=== PATIENT | male | born 1955 | race Caucasian/White ===

== ENCOUNTER → 2017-12-12 14:18 | Outpatient (CLI) | payer BC, SELFPAY ==
--- NOTE | 2017-12-12 14:25 | RAD_ITS ---
STUDY: X-RAY CHEST REASON FOR EXAM: Male, 62 years old. Cough TECHNIQUE: Frontal and lateral views of the chest were obtained. COMPARISON: None. FINDINGS: The lungs are adequately aerated. There are no focal airspace opacities. There is no demonstrated pleural abnormality. The cardiac silhouette is normal in size. The mediastinum and hilar regions are unremarkable. Normal visualized pulmonary arteries. Normal visualized aortic arch and descending thoracic aorta. There are diffuse degenerative changes of the visualized spine. The visualized ribs, clavicles, and shoulders are unremarkable. There is no demonstrated abnormality of the visualized upper abdomen. RAD/Chest PA and Lateral IMPRESSION: There is no evidence of focal consolidation or pleural effusion. Electronically Signed: Astrid Cochran MD at 16:01 EST Tel Direct: [phone], Service support ,
== END ==
PROVIDERS: Family Provider Internal Medicine; PCP Internal Medicine; Visit Provider Internal Medicine
DX: R05 Cough (principal)
CPT/HCPCS: 71046

== ENCOUNTER → 2018-02-01 09:22 | Outpatient (CLI) | payer BC, SELFPAY ==
--- NOTE | 2018-02-01 09:22 | RAD_ITS ---
STUDY: X-RAY - LEFT KNEE REASON FOR EXAM: Male, 62 years old. Medial knee pain. TECHNIQUE: 4 view(s) of the knee. COMPARISON: None. FINDINGS: Normal visualized distal femur. Normal visualized proximal tibia and fibula. Normal proximal tibiofibular articulation. Normal medial femorotibial compartment. Normal lateral femorotibial compartment. Normal patellofemoral articulation. The soft tissue structures are unremarkable. RAD/Knee 4 or More Views IMPRESSION: Normal x-ray examination of the knee. Electronically Signed: Max Alvarez MD at 10:34 EDT Tel [phone], Service support ,
== END ==
PROVIDERS: Family Provider Internal Medicine; PCP Internal Medicine; Visit Provider Internal Medicine
DX: M25.562 Pain in left knee (principal)
CPT/HCPCS: 73564

== ENCOUNTER → 2024-09-05 | Outpatient (CLI) | payer MEDICARE, SELFPAY ==
--- NOTE | 2024-09-05 10:21 | MRI_ITS ---
STUDY: MRI BRAIN WITH AND WITHOUT CONTRAST (ATTENTION INTERNAL AUDITORY CANALS - I.A.C.''s) REASON FOR EXAM: Male, 68 years old. hearing loss [id number] in RT ear TECHNIQUE: Standardized multiplanar fat and water weighted pulse sequences were obtained. ml of 15ML CLARISCAN contrast material was administered intravenously for the contrast portion of the examination. COMPARISON: None. FINDINGS: Internal auditory canal findings: Normal bilateral temporal bones. Normal bilateral internal auditory canals. There is no demonstrated intracanalicular or cisternal vestibular schwannoma (acoustic neuroma). There is no enhancement of the bilateral VIIth or VIIIth cranial nerves. Normal bilateral cochlea, vestibules and semicircular canals. No mastoid air cell opacification is present. No cerebellar pontine angle mass or cyst is seen. There is no demonstrated lesions of the cavernous sinus. No nodularity or abnormal enhancement is seen in the 7th or 8th cranial nerves within IACs. No demonstrated Mondini''s malformation. BRAIN FINDINGS: Normal size of the ventricles and extra-axial spaces for the patient''s age. Normal white matter tracts of the supratentorial brain. There is no evidence for recent intracranial ischemia or other cause of cytotoxic edema on diffusion weighted imaging (DWI). Normal T2* images of the brain without demonstrated susceptibility artifact. There is no demonstrated hemosiderin stain. There are no demyelinating plagues of the supratentorial brain, brainstem or cerebellum. There are no findings suspicious for multiple sclerosis (MS). No hydrocephalus or midline shift is present. There are no visualized ring-enhancing lesions of the brain parenchyma or abnormal thickening or enhancement of the meninges or dura. Normal bilateral basal ganglia. Normal thalami. Normal flow voids within the major intracranial circulation suggesting patency by spin echo criteria. Normal venous enhancement. There is no enhancing intra-axial or extra-axial abnormality. There is no extra-axial fluid accumulation. Normal sella turcica, pituitary gland, infundibular stalk, optic chiasm and hypothalamus. Normal tectal plate and pineal gland. Normal midbrain, aman and medulla. Normal cerebellum. Normal basal cisterns. No demonstrated orbital abnormality, within the constraints of a routine brain study. Normal visualized paranasal sinuses. Normal calvarium and skull base. Normal visualized soft tissue structures. Normal visualized upper cervical spine. MRI/Brain W/WO Contrast IMPRESSION: 1. Normal unenhanced and enhanced MRI of the bilateral internal auditory canals (I.A.C''s). 2. Normal enhanced MRI of the brain. 3. CT of the temporal bones can be obtained to evaluate the middle ear structures and bony septa not assessed by MRI, if clinically applicable. Electronically Signed: Donell Rosales MD at 13:27 EST ,
[2024-09-05 11:06] LABS: CREATININE FINGERSTICK < 1.0 mg/dL (0.70-1.30); EGFR FINGERSTICK > 60.0000 mL/min (>60)
== END | disposition home or self-care (01) ==
PROVIDERS: PCP Internal Medicine; Referring Provider Otolaryngology; Visit Provider Otolaryngology
DX: Z01.812 Encounter for preprocedural laboratory examination (principal); H90.3 Sensorineural hearing loss, bilateral
CPT/HCPCS: 70553; A9575

== ENCOUNTER → 2025-04-03 | Outpatient (CLI) | payer MEDICARE, SELFPAY ==
--- OUTSIDE RECORDS SUMMARY | 2025-04-03 06:56 | XMS RPT_ITS | CCD ---
Author Organization [facility] ion [facility] Care Team Providers Care Assurance Manager Insurance Name Role Phone ETHEL WARNER Unavailable Unavailab le Bharathi, Ethel Unavailable Anoop Jeronimo Unavailable Unavailable Martha Nava Unavailable Unavailable Lissette Mcconnell Unavailable Angelica Adams Unavailable Unavailable Slarb, Marcy Unavailable Unavailable Unavailable Unavailable BharathiEthel wilkerson Attending Unavailable Bharathi, Ethel Referring Unavailable Bharathi, Ethel Consulting Unavailable NAYE Taylor Unavailable Unavailable GravCarlos howardin Unavailable Unavailable Unavailable Unavailable Martha Nava Unavailable Unavailable Anoop Schultz Unavailable Unavailable Cross Keturah Unavailable Unavailable Anoop Jeronimo Unavailable Unavailable Manchak, Cinthia Unavailable Unavailable Bharathi DO Ethel Unavailable Bryan KELLY, Angelica Unavailable Unavailable Messenger Martha LING Unavailable Unavailable Slarb MELT ROOM OPERATOR, Marcy Unavailable Unavailable Cross MELT ROOM OPERATOR, Keturah Unavailable Unavailable Unavailable Unavailable Bharathi DO Ethel Unavailable Rufina Prince MA Unavailable Unavailable Luz Curry CNP Unavailable Unavailable Unavailable [place] MELT ROOM OPERATOR, Moise Unavailable Unavailable Unavailable Unavailable BharathiEthel wilkerson Attending Unavailable Bharathi, Ethel Referring Unavailable Bharathi, Ethel Primary Care Unavailable Boby Gonzales Attending Unavailabl e Boby Gonzaels Referring Unavailabl e Bharathi, Ethel Primary Care Unavailable Referred, Self Attending Unavailable Referred, Self Referring Unavailable Bharathi, Ethel Primary Care Unavailable Bharathi, Ethel Attending Unavailable Bharathi, Ethel Referring Unavailable Bharathi, Ethel Primary Care Unavailable Allergies Allergy Classification Reported Allergen(s) Allergy Type Date of Onset Reaction(s) Facility Serotonin Reuptake Inhibitors (SSRIs) (1 source) PARoxetine; Translations: [Paxil *ANTIDEPRESSANTS *] Drug Allergy [facility] Work Phone: Comment on above: Diarrhea, vertigo (20 sources) PARoxetine; Translations: [Paxil *ANTIDEPRESSANTS *] Drug Allergy [facility] Work Phone: Comment on above: Diarrhea, vertigo Medications Completed/Discontinued Medications Medication Drug Class(es) Dates Sig (Normalized) Sig (Original) acetaminophen 500 mg / HYDROcodone bitartrate 5 mg oral tablet (20 sources) Opioid Agonist Start: 12-27-2006 End: 12-21-2008 take 1 tablet by mouth once daily as needed VICODIN, 5-500MG (Oral Tablet) 1 (one) Tablet Daily prn for 0 days Quantity: 21 {Tablet} Refills: 0 Ordered: 27-Dec-2006 Astrid Hunt Start : 27-Dec-2006 End : 21-Dec-2008 Inactive [id number] 200 actuat albuterol 0.09 mg/actuat metered dose inhaler (20 sources) beta2-Adrenergic Agonist Start: 10-02-2022 take 2 puff(s) by inhalation every six hours as needed ProAir HFA 90 mcg/actuation inhalation HFA Aerosol with Adapter 2 (two) Puff q 6 hr prn for 0 days Quantity: 1 {Each} Refills: 1 Ordered: 02-Oct-2022 Luz Curry CNP Start : 02-Oct-2022 Active Start: 08-21-2019 End: 09-22-2019 take 2 puff(s) by inhalation every six hours as needed ProAir HFA 108 (90 Base) MCG/ACT Inhalation Aerosol Solution 2 (two) Puff q 6 hr prn for 0 days Quantity: 1 {Inhaler} Refills: 0 Ordered: 22-Sep-2019 Angelica Adams CMA Start : 21-Aug-2019 End : 22-Sep-2019 Inactive Start: 08-21-2019 End: 09-22-2019 take 2 puff(s) by inhalation every six hours as needed ProAir HFA 108 (90 Base) MCG/ACT Inhalation Aerosol Solution 2 (two) Puff q 6 hr prn for 0 days Quantity: 1 {Inhaler} Refills: 0 Ordered: 22-Sep-2019 Angelica Adams CMA Start : 21-Aug-2019 End : 22-Sep-2019 Inactive Start: 12-12-2017 take 2 puff(s) by in halation every six hours as needed ProAir HFA 108 (90 Base) MCG/ACT Inhalation Aerosol Solution 2 (two) Puff Puff q 6 hr prn for 0 days Quantity: 1 {Inhaler} Refills: 0 Ordered: 12-Dec-2017 Martha Nava LPN Start : 12-Dec-2017 Active Start: 12-13-2011 End: 08-05-2012 VENTOLIN HFA, 108 (90 Base)MCG/ACT (Inhalation Aerosol Solution) 2 (two) Aerosol Soln q 6 hr prn for 0 days Quantity: 1 {Aerosol_Soln} Refills: 0 Ordered: 05-Aug-2012 Astrid Hunt Start : 13-Dec-2011 End : 05-Aug-2012 Inactive Start: 12-13-2011 End: 08-05-2012 VENTOLIN HFA, 108 (90 Base)MCG/ACT (Inhalation Aerosol Solution) 2 (two) Aerosol Soln q 6 hr prn for 0 days Quantity: 1 {Aerosol_Soln} Refills: 0 Ordered: 05-Aug-2012 Astrid Hunt Start : 13-Dec-2011 End : 05-Aug-2012 Inactive Start: 12-13-2011 End: 08-05-2012 VENTOLIN HFA, 108 (90 Base)MCG/ACT (Inhalation Aerosol Solution) 2 (two) Aerosol Soln q 6 hr prn for 0 days Quantity: 1 {Aerosol_Soln} Refills: 0 Ordered: 05-Aug-2012 Astrid Hunt Start : 13-Dec-2011 End : 05-Aug-2012 Inactive amoxicillin 875 mg / clavulanate 125 mg oral tablet (20 sources) Penicillin-class Antibacterial Start: 10-02-2022 End: 10-09-2022 take 1 tablet by mouth twice daily amoxicillin-pot clavulanate 875-125 mg oral tablet 1 Tablet 2 times per day for 7 days Quantity: 14 {Tablet} Refills: 0 Ordered: 02-Oct-2022 Luz Curry CNP Start : 02-Oct-2022 End : 09-Oct-2022 Inactive Start: 03-06-2019 End: 03-20-2019 take 1 tablet by mouth twice daily Augmentin 875-125 MG Oral Tablet 1 (one) Tablet bid for 0 days Quantity: 20 {Tablet} Refills: 0 Ordered: 20-Mar-2019 Angelica Adams CMA Start : 06-Mar-2019 End : 20-Mar-2019 Inactive Start: 10-05-2016 End: 11-09-2016 take 1 tablet by mouth twice daily Augmentin 875-125 MG Oral Tablet 1 (one) Tablet bid for 0 days Quantity: 20 {Tablet} Refills: 0 Ordered: 09-Nov-2016 Cricket Hagen Start : 05-Oct-2016 End : 09-Nov-2016 Inactive azithromycin 250 mg oral tablet (20 sources) Macrolide Antimicrobial Start: 08-21-2019 End: 09-22-2019 Zithromax Z-Anatoly 250 MG Oral Tablet 1 Tablet TAD for 0 days Quantity: 1 {Tablet} Refills: 0 Ordered: 22-Sep-2019 Angelica Adams CMA Start : 21-Aug-2019 End : 22-Sep-2019 Inactive Comments: will call if need void after 30 days Start: 12-12-2017 End: 01-04-2018 take 1 tablet by mouth once daily Azithromycin 500 MG Oral Tablet 1 (one) Tablet Tablet qd for 0 days Quantity: 10 {Tablet} Refills: 0 Ordered: 04-Jan-2018 Martha Nava RN Start : 12-Dec-2017 End : 04-Jan-2018 Inactive Start: 08-05-2012 End: 08-05-2012 ZITHROMAX Z-ANATOLY, 250MG (Oral Tablet) 1 Tablet TAD for 0 days Quantity: 1 {Package(s)} Refills: 0 Ordered: 05-Aug-2012 Leatha Mckay DO Start : 05-Aug-2012 End : 05-Aug-2012 Discontinued Comment on above: will call if need vo id after 30 days cefdinir 300 mg oral capsule (20 sources) Cephalosporin Antibacterial Start: 12-12-2017 End: 01-04-2018 take 1 capsule by mouth twice daily Cefdinir 300 MG Oral Capsule 1 (one) Capsule Capsule bid for 0 days Quantity: 20 {Capsule} Refills: 0 Ordered: 04-Jan-2018 Martha Nava RN Start : 12-Dec-2017 End : 04-Jan-2018 Inactive Start: 10-24-2006 End: 12-02-2006 take 1 capsule by mouth twice daily OMNICEF, 300MG (Oral Capsule) 1 (one) Capsule BID for 7 days Refills: 0 Ordered: 24-Oct-2006 MOO ACOSTA CNP Start : 24-Oct-2006 End : 02-Dec-2006 Inactive cephalexin 500 mg oral capsule (20 sources) Cephalosporin Antibacterial Start: 02-09-2010 take 1 capsule by mouth twice daily KEFLEX, 500MG (Oral Capsule) 1 (one) Capsule bid for 0 days Quantity: 20 {Capsule} Refills: 0 Ordered: 21-Feb-2010 Astrid Hunt Start : 09-Feb-2010 Inactive citalopram 20 mg oral tablet (20 sources) Serotonin Reuptake Inhibitor Start: 02-06-2020 End: 02-06-2020 take 1 tablet by mouth once daily Citalopram Hydrobromide 20 MG Oral Tablet 1 (one) Tablet daily for 90 days Quantity: 90 {Tablet} Refills: 1 Ordered: 06-Feb-2020 JonelleJocelyn galeana Start : 06-Feb-2020 End : 06-Feb-2020 Inactive Comments: Mail order. Start: 05-05-2019 take 1 tablet by flakito th once daily Citalopram Hydrobromide 20 MG Oral Tablet 1 (one) Tablet daily for 0 days Quantity: 90 {Tablet} Refills: 1 Ordered: 05-May-2019 Ethel Warner DO, DO, Kathleen Start : 05-May-2019 Active Comments: Mail order. Start: 06-07-2018 take 1 tablet by flakito th once daily Citalopram Hydrobromide 20 MG Oral Tablet 1 (one) Tablet daily for 0 days Quantity: 90 {Tablet} Refills: 1 Ordered: 07-Jun-2018 Ethel Warner DO, DO, Kathleen Start : 07-Jun-2018 Active Comments: Mail order. Comment on above: Mail order. clobetasol propionate 0.5 mg/ml topical cream (4 sources) Corticosteroid Start: 023 clobetasoL 0.05 % topical cream 1 (one) Application twice daily for 2 weeks or until rash resolved for 0 days Quantity: 50 {Gram} Refills: 1 Ordered: 23-Feb-2023 Luz Curry CNP Start : 23-Feb-2023 Active docosahexaenoic acid 120 mg / eicosapentaenoic acid 180 mg oral capsule (11 sources) take 1 capsule by mouth once daily FISH OIL, 1000MG (Oral Capsule) 1 cap qd for 0 days Refills: 0 Ordered: 09-Feb-2010 Astrid Hunt Inactive [id number] 0.3 ml EPINEPHrine 1 mg/ml auto-injector (20 sources) alpha-Adrenergic Agonist, beta-Adrenergic Agonist, Catecholamine Start: 011 End: 012 EPIPEN 2-ANATOLY, 0.3MG/0.3ML (Injection Device) 1 Device uad for 0 days Quantity: 1 {Device} Refills: 0 Ordered: 05-Aug-2012 Astrid Hunt Start : 24-Jul-2011 End : 05-Aug-2012 Inactive Start: 07-24-2011 End: 08-05-2012 EPIPEN 2-ANATOLY, 0.3MG/0.3ML (I njection Device) 1 Device uad for 0 days Quantity: 1 {Device} Refills: 0 Ordered: 05-Aug-2012 Astrid Hunt Start : 24-Jul-2011 End : 05-Aug-2012 Inactive escitalopram 10 mg oral tablet (20 sources) Serotonin Reuptake Inhibitor End: 12-21-2008 take 1 tablet by mouth once daily LEXAPRO, 10MG (Oral Tablet) 1 QD for 0 days Refills: 0 Ordered: 21-Dec-2008 Astrid Hunt End : 21-Dec-2008 Inactive FISH OIL, 1000MG (Oral Capsule) (7 sources) take 1 capsule by mouth once daily FISH OIL, 1000MG (Oral Capsule) 1 cap qd for 0 days Refills: 0 Ordered: 09-Feb-2010 Astrid Hunt Inactive fluticasone propionate 0.05 mg/actuat metered dose nasal spray (20 sources) Corticosteroid Start: 11-03-2013 End: 12-21-2014 take 2 spray(s) nasal route once daily FLONASE, 50MCG/ACT (Nasal Suspension) 2 sprays each nostril Suspension QD for 0 days Quantity: 1 {Atkinson} Refills: 3 Ordered: 21-Dec-2014 Astrid Hunt Start : 03-Nov-2013 End : 21-Dec-2014 Discontinued hydroCHLOROthiazide 12.5 mg / lisinopril 10 mg oral tablet (20 sources) Thiazide Diuretic, Angiotensin Converting Enzyme Inhibitor Start: 04-09-2023 take 1 tablet by mouth once daily lisinopriL-hydro chlorothiazide 10-12.5 mg oral tablet 1 (one) Tablet qd for 0 days Quantity: 90 {Tablet} Refills: 3 Ordered: 09-Apr-2023 Ethel Warner DO, DO, Kathleen Start : 09-Apr-2023 Active Comments: Mail order. Start: 04-18-2022 End: 04-25-2022 take 1 tablet by mouth once daily Lisinopril-hydroCHLOROthiazide 10-12.5 M G Oral Tablet 1 (one) Tablet qd for 0 days Quantity: 90 {Tablet} Refills: 3 Ordered: 18-Apr-2022 Ethel Warner DO, DO, Kathleen Start : 18-Apr-2022 End : 25-Apr-2022 Inactive Comments: Mail order. Start: 02-22-2021 End: 05-23-2021 take 1 tablet by mouth once daily Lisinopril-hydroCHLOROthiazide 10-12.5 M G Oral Tablet 1 (one) Tablet qd for 0 days Quantity: 90 {Tablet} Refills: 3 Ordered: 22-Feb-2021 Ethel Warner DO, DO, Kathleen Start : 22-Feb-2021 End : 23-May-2021 Inactive Comments: Mail order. Start: 02-22-2021 End: 10-31-2020 take 1 tablet by mouth once daily Lisinopril-hydroCHLOROthiazide 10-12.5 M G Oral Tablet 1 (one) Tablet qd for 90 days Quantity: 90 {Tablet} Refills: 0 Ordered: 22-Feb-2021 Ethel Warner DO, DO, Kathleen Start : 22-Feb-2021 End : 31-Oct-2020 Active Start: 02-22-2021 End: 10-31-2020 take 1 tablet by mouth once daily Lisinopril-hydroCHLOROthiazide 10-12.5 M G Oral Tablet 1 (one) Tablet qd for 0 days Quantity: 90 {Tablet} Refills: 3 Ordered: 22-Feb-2021 Ethel Warner DO, DO, Kathleen Start : 22-Feb-2021 End : 31-Oct-2020 Active Comments: Mail order. Start: 08-02-2020 End: 10-31-2020 take 1 tablet by mouth once daily Lisinopril-hydroCHLOROthiazide 10-12.5 M G Oral Tablet 1 (one) Tablet qd for 90 days Quantity: 90 {Tablet} Refills: 0 Ordered: 02-Aug-2020 Ethel Warner DO, DO, Kathleen Start : 02-Aug-2020 End : 31-Oct-2020 Inactive Start: 03-12-2020 take 1 tablet by flakito th once daily Lisinopril-hydroCHLOROthiazide 10-12.5 M G Oral Tablet 1 (one) Tablet qd for 90 days Quantity: 90 {Tablet} Refills: 0 Ordered: 12-Mar-2020 Ethel Warner DO, DO, Kathleen Start : 12-Mar-2020 Active Start: 05-20-2019 take 1 tablet by flakito th once daily Lisinopril-hydroCHLOROthiazide 10-12.5 M G Oral Tablet 1 (one) Tablet qd for 0 days Quantity: 30 {Tablet} Refills: 1 Ordered: 20-May-2019 BharathiEthel wilkerson DO, DO, Kathleen Start : 20-May-2019 Active Comments: new dose Start: 03-28-2018 take 1 tablet by flakito th once daily Lisinopril-Hydrochlorothiazide 10-12.5 M G Oral Tablet 1 (one) Tablet qd for 0 days Quantity: 90 {Tablet} Refills: 3 Ordered: 28-Mar-2018 Ethel Warner DO, DO, Kathleen Start : 28-Mar-2018 Active Comments: Mail order. Comment on above: new dose Mail order. ibuprofen 200 mg oral capsule (18 sources) Nonsteroidal Anti-inflammatory Drug Ibuprofen 200 MG Oral Capsule 2 prn (200 MG) Active metaxalone 800 mg oral tablet (20 sources) Start: 0 take 1 tablet by mouth three times daily as needed Metaxalone 800 MG Oral Tablet 1 (one) Tablet tid prn for 0 days Quantity: 30 {Tablet} Refills: 0 Ordered: 02-Aug-2020 Angelica Adams CMA Start : 02-Aug-2020 Active Start: 10-31-2019 take 1 tablet by flakito th three times daily as needed Metaxalone 800 MG Oral Tablet 1 (one) Tablet Tablet tid prn for 0 days Quantity: 30 {Tablet} Refills: 0 Ordered: 31-Oct-2019 Ethel Warner DO, DO, Kathleen Start : 31-Oct-2019 Active Start: 02-25-2019 take 1 tablet by flakito th three times daily as needed Metaxalone 800 MG Oral Tablet 1 (one) Tablet Tablet tid prn for 0 days Quantity: 30 {Tablet} Refills: 0 Ordered: 25-Feb-2019 Bharathi SULTANA Ethel Tejada DO Start : 25-Feb-2019 Active Start: 02-01-2018 End: 07-29-2018 take 1 tablet by mouth three times daily as needed Metaxalone 800 MG Oral Tablet 1 (one) Tablet Tablet tid prn for 0 days Quantity: 30 {Tablet} Refills: 0 Ordered: 29-Jul-2018 Angelica Adams Start : 01-Feb-2018 End : 29-Jul-2018 Discontinued Start: 12-27-2006 End: 12-21-2008 SKELAXIN, 800MG (Oral Tablet ) 1 (one) Tablet Each evening as needed for 0 days Quantity: 30 {Tablet} Refills: 0 Ordered: 27-Dec-2006 Astrid Hunt Start : 27-Dec-2006 End : 21-Dec-2008 Inactive Comments: Medication taken as needed. Comment on above: Medication taken as needed. moxifloxacin 400 mg oral tablet (20 sources) Quinolone Antimicrobial Start: 11-08-19 11 End: 05-10-20 11 take 1 tablet by mouth once daily AVELOX, 400MG (Oral Tablet) 1 Tablet qd for 0 days Quantity: 10 {Tablet} Refills: 0 Ordered: 10-May-2011 Zayda Sorensen RN Start : 08-Nov-2010 End : 10-May-2011 Inactive 24 hr niacin 500 mg extended release oral tablet (20 sources) Nicotinic Acid End: 12-25-19 07 take 1 tablet by mouth once at bedtime NIACIN (ANTIHYPERLIPIDEMIC) , 500MG (Oral Tablet Extended Release) 1 Q HS for 0 days Refills: 0 Ordered: 24-Dec-2006 Astrid Hunt End : 24-Dec-2006 Discontinued omega-3 acid ethyl esters (shelter) 1000 mg oral capsule (10 sources) take 1 capsule by mouth once daily FISH OIL, 1000MG (Oral Capsule) 1 cap qd for 0 days Refills: 0 Ordered: 09-Feb-2010 Astrid Hunt Inactive omeprazole 20 mg delayed release oral capsule (20 sources) Proton Pump Inhibitor Start: 11-30-19 omeprazole 20 mg oral capsule,delayed release (enteric coated) [address] QD for 90 days Quantity: 90 {Capsule} Refills: 2 Ordered: 30-Nov-2022 Bharathi DO, Ethel Warner DO Ethel Start : 30-Nov-2022 Active Comments: Mail order. Start: 12-05-2021 Omeprazole 20 MG Oral Capsule Delayed Release [address] QD for 90 days Quantity: 90 {Capsule} Refills: 3 Ordered: 05-Dec-2021 Bharathi DOEthel DOShadiaEthel Start : 05-Dec-2021 Active Comments: Mail order. Start: 11-24-2020 Omeprazole 20 MG Oral Capsule Delayed Release [address] QD for 90 days Quantity: 90 {Capsule} Refills: 3 Ordered: 24-Nov-2020 Bharathi DO, Ethel Warner DOShadiaEthel Start : 24-Nov-2020 Active Comments: Mail order. Start: 08-26-2020 Omeprazole 20 MG Oral Capsule Delayed Release [address] QD for 90 days Quantity: 90 {Capsule} Refills: 0 Ordered: 26-Aug-2020 Keturah Villalpando LPN Start : 26-Aug-2020 Active Start: 05-31-2020 Omeprazole 20 MG Oral Capsule Delayed Release [address] QD for 90 days Quantity: 90 {Capsule} Refills: 0 Ordered: 31-May-2020 Bharathi DOEthel DO Ethel Start : 31-May-2020 Active Start: 03-11-2019 Omeprazole 20 MG Oral Capsule Delayed Release [address] QD for 90 days Quantity: 90 {Capsule} Refills: 3 Ordered: 11-Mar-2019 Bharathi DO, Ethel Bharathi DO Ethel Start : 11-Mar-2019 Active Comments: Mail order. Start: 02-22-2018 Omeprazole 20 MG Oral Capsule Delayed Release [address] QD for 90 days Quantity: 90 {Capsule} Refills: 3 Ordered: 22-Feb-2018 Ethel Warner DO, DO, Kathleen Start : 22-Feb-2018 Active Comments: Mail order. Comment on above: Mail order. predniSONE 10 mg oral tablet (20 sources) Start: 07-24-2011 End: 09-06-2011 PREDNISONE, 10MG (Oral Tablet) 1 (one) Tablet uad for 0 days Refills: 0 Ordered: 06-Sep-2011 Martha Nava RN Start : 24-Jul-2011 End : 06-Sep-2011 Inactive Comments: 3 pills for 4 days 2 pills for 4 days 1 pill for 4 days with food Start: 11-08-2010 End: 05-10-2011 take 1 tablet by mouth once daily PREDNISONE, 20MG (Oral Tablet) 1 Tablet qd for 0 days Quantity: 5 {Tablet} Refills: 0 Ordered: 10-May-2011 Zayda Sorensen RN Start : 08-Nov-2010 End : 10-May-2011 Inactive Comment on above: 3 pills for 4 days 2 pills for 4 days 1 pill for 4 days with food rosuvastatin calcium 10 mg oral tablet (20 sources) HMG-CoA Reductase Inhibitor Start: 0 End: 0 take 1 tablet by mouth once daily Rosuvastatin Calcium 10 MG Oral Tablet 1 (one) Tablet qd for 0 days Quantity: 90 {Tablet} Refills: 3 Ordered: 02-Aug-2020 Angelica Adams CMA Start : 06-Feb-2020 End : 02-Aug-2020 Inactive Comments: Mail order. Start: 08-15-2018 take 1 tablet by flakito once daily Rosuvastatin Calcium 5 MG Oral Tablet 1 (one) Tablet Tablet qd for 0 days Quantity: 30 {Tablet} Refills: 4 Ordered: 15-Aug-2018 Anoop Jeronimo LPN Start : 15-Aug-2018 Active Comment on above: Mail order. tiZANidine 4 mg oral capsule (13 sources) Central alpha-2 Adrenergic Agonist Start: 04-23-2023 take 1 capsule by mouth twice daily as needed tiZANidine 4 mg oral capsule 1 (one) Capsule one as needed twice daily for 0 days Quantity: 180 {Capsule} Refills: 0 Ordered: 23-Apr-2023 Ethel Warner DO, DO, Kathleen Start : 23-Apr-2023 Active Comments: Medication taken as needed. M62.838 Start: 04-20-2023 take 1 capsule by mo uth twice daily as needed tiZANidine 4 mg oral capsule 1 (one) Capsule one as needed twice daily for 0 days Quantity: 180 {Capsule} Refills: 0 Ordered: 20-Apr-2023 Ethel Warner DO, DO, Kathleen Start : 20-Apr-2023 Active Comments: Medication taken as needed. M62.838 Start: 02-23-2023 take 1 capsule by mo uth twice daily as needed tiZANidine 4 mg oral capsule 1 (one) Capsule one as needed twice daily for 0 days Quantity: 20 {Capsule} Refills: 0 Ordered: 23-Feb-2023 Luz Curry CNP Start : 23-Feb-2023 Active Comments: Medication taken as needed. M62.838 Start: 01-23-2023 take 1 capsule by mo uth twice daily as needed tiZANidine 4 mg oral capsule 1 (one) Capsule one as needed twice daily for 0 days Quantity: 20 {Capsule} Refills: 0 Ordered: 23-Jan-2023 Ethel Warner DO, DO, Kathleen Start : 23-Jan-2023 Active Comments: Medication taken as needed. M62.838 Start: 09-23-2021 take 1 capsule by mo uth twice daily as needed tiZANidine HCl 4 MG Oral Capsule 1 (one) Capsule one as needed twice daily for 0 days Quantity: 20 {Capsule} Refills: 0 Ordered: 23-Sep-2021 Bharathi SULTANA, Ethel Tejada DO Start : 23-Sep-2021 Active Comments: Medication taken as needed. M62.838 Start: 10-01-2020 take 1 capsule by mo uth twice daily as needed tiZANidine HCl 4 MG Oral Capsule 1 (one) Capsule one as needed twice daily for 0 days Quantity: 20 {Capsule} Refills: 0 Ordered: 01-Oct-2020 Keturah Villalpando LPN Start : 01-Oct-2020 Active Comments: Medication taken as needed. M62.838 Comment on above: Medication taken as needed. M62.838 traMADol hydrochloride 50 mg oral tablet (20 sources) Opioid Agonist Start: 12-30-2007 End: 05-10-2011 take 1 tablet by mouth once daily as needed TRAMADOL HCL, 50MG (Oral Tablet) 1 Tablet QD, PRN for 0 days Quantity: 90 {Tablet} Refills: 1 Ordered: 10-May-2011 Zayda Sorensen RN Start : 30-Dec-2007 End : 10-May-2011 Inactive End: 12-24-2006 take 1 tablet by mouth twice daily ULTRAM, 50MG (Oral Tablet) 1 BID for 0 days Refills: 0 Ordered: 24-Dec-2006 Astrid Hunt End : 24-Dec-2006 Discontinued Problems Active Problems Problem Classification Problem Date Documented Da te Episodic/Chronic Abdominal hernia (20 sources) Recurrent hernia of anterior abdominal wall; Translations: [Ventral hernia, recurrent] 12-31-2018 Episodic Comment on above: h/o mesh repair mayb e 10yrs ago now lil defect again that intermittently flares -- no warning signs-will cont to follow Abdominal pain (20 sources) Acute abdominal pain; Translations: [Abdominal pain, acute, left lower quadrant] 12-31-2018 Episodic Administrative/social admission (2 sources) Medical examinations/reports status; Translations: [Physical exam WITHOUT abnormal findings (Renamed from Encounter for routine adult health examination without abnormal findings)] 12-31-2018 Episodic Allergic reactions (20 sources) Dermatitis; Translations: [Eczema] Resolved: 2 10-23-2011 Episodic Comment on above: if does not improve/ worsens, then call. we will do systemic steroids. Anxiety disorders (20 sources) Anxiety; Translations: [Anxiety] 12-31-2018 Chronic Comment on above: stable Biliary tract disease (20 sources) Disorder of gallbladder; Translations: [Biliary calculus] 12-31-2018 Episodic Comment on above: asx stone in neck of gallbladder -- seen on ct chest Cardiac dysrhythmias (20 sources) Palpitations; Translations: [Palpitations (Renamed from Awareness of heartbeats)] Onset: 5 Resolved: 8 12-31-2018 Episodic Chronic obstructive pulmonary disease and bronchiectasis (20 sources) Bronchitis; Translations: [Bronchitis] Onset: 2 Resolved: 2 05-01-2016 Episodic Deficiency and other anemia (20 sources) Iron deficiency anemia, unspecified; Translations: [Iron deficiency anemia] Episodic Disorders of lipid metabolism (20 sources) Other and unspecified hyperlipidemia; Translations: [Hyperlipidemia] 12-31-2018 Chronic Comment on above: diet and exercise to reduce to goal Esophageal disorders (20 sources) Gastroesophageal reflux disease; Translations: [Gastro-esophageal reflux disease without esophagitis] 12-31-2018 Chronic Esophageal disorders (20 sources) Esophageal disorders Essential hypertension (20 sources) Benign hypertension; Translations: [HTN (hypertension), benign] 12-31-2018 Chronic Headache; including migraine (17 sources) Tension-type headache; Translations: [Acute non intractable tension-type headache] Resolved: 9 02-06-2020 Chronic Headache; including migraine (20 sources) Headache; Translations: [Tension-type headache] Resolved: 9 05-01-2016 Episodic Immunizations and screening for infectious disease (20 sources) Need for prophylactic vaccination and inoculation against influenza; Translations: [Needs influenza immunization] 08-02-2020 Episodic Influenza (20 sources) Influenza Malaise and fatigue (20 sources) Other fatigue; Translations: [Fatigue] Resolved: 8 01-04-2018 Episodic Neoplasms of unspecified nature or uncertain behavior (20 sources) Neoplasm of uncertain behavior of skin; Translations: [Neoplasm of uncertain behavior of skin] Resolved: 2 05-01-2016 Episodic Nonspecific chest pain (20 sources) Chest pain; Translations: [Chest pain] Resolved: 9 12-31-2018 Episodic Comment on above: very pinpoit pain re produce pain by moving arm and having him grab and pull like was doing yesterday for long time. feel very comfortable this is not heart. toradol help will do muscle relaxnat that has at home and nsaids rest ice. massage knot in scapula. if is progressive and SOB to ER aware cannot not tellhim 100 % not heart but suspection low. Other and ill-defined cerebrovascular disease (5 sources) Cerebral ischemia; Translations: [TIA (transient ischemic attack)] 08-21-2019 Chronic Other circulatory disease (11 sources) Other specified symptoms and signs involving the circulatory and respiratory systems; Translations: [Other specified symptoms and signs involving the circulatory and respiratory systems] Onset: 8 Resolved: 8 12-17-2017 Episodic Other circulatory disease (20 sources) Elevated blood-pressure reading without diagnosis of hypertension; Translations: [Elevated blood pressure (not hypertension)] Resolved: 2 05-01-2016 Episodic Other circulatory disease (20 sources) Elevated blood pressure; Translations: [Elevated blood pressure reading] Resolved: 8 12-31-2018 Episodic Other circulatory disease (20 sources) Abnormal chest sounds; Translations: [Abnormal lung sounds] Resolved: 8 12-17-2017 Episodic Other circulatory disease (14 sources) Pulmonary congestion ; Translations: [Chest congestion] 10-02-2022 Episodic Other congenital anomalies (20 sources) Congenital anomaly of skin; 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] 12-31-2018 Chronic Other connective tissue disease (20 sources) Pain in limb; Translations: [Finger Pain (729.5) (Renamed from Pain in limb)] Resolved: 2 05-01-2016 Episodic Other connective tissue disease (20 sources) Spasm; Translations: [Muscle spasm] 10-01-2020 Episodic Other ear and sense organ disorders (1 source) Sensorineural hearing loss, bilateral; Translations: [Sensorineural hearing loss, bilateral] Onset: Chronic Other gastrointestinal disorders (20 sources) Diarrhea; Translations: [Diarrhea (Renamed from D (diarrhea))] Resolved: 2 05-01-2016 Episodic Other injuries and conditions due to external causes (20 sources) Injury of medial collateral ligament of knee; Translations: [Sprain and strain of medial collateral ligament of knee] Resolved: 8 12-31-2018 Episodic Other lower respiratory disease (20 sources) Dyspnea; Translations: [SOB (shortness of breath)] Resolved: 8 01-04-2018 Episodic Other lower respiratory disease (20 sources) Dyspnea on exertion; Translations: [SOB (shortness of breath) on exertion] Resolved: 2 05-01-2016 Episodic Other lower respiratory disease (20 sources) Wheezing; Translations: [Wheezing (Renamed from Asthmatic breathing)] Onset: 2 Resolved: 2 05-01-2016 Episodic Other lower respiratory disease (20 sources) Cough; Translations: [Cough] Resolved: 8 01-04-2018 Episodic Other lower respiratory disease (20 sources) Apnea; Translations: [Witnessed apneic spells] 12-31-2018 Episodic Other nervous system disorders (20 sources) Paresthesia; Translations: [Paresthesia] 12-31-2018 Episodic Comment on above: offered seeing neuro logy emg/ncs - and he doesnt wish further workup Other non-traumatic joint disorders (20 sources) Pain in left knee; Translations: [Acute pain of left knee] Resolved: 8 12-31-2018 Episodic Other nutritional; endocrine; and metabolic disorders (20 sources) Body mass index 25-29 - overweight; Translations: [BMI 28.0-28.9,adult] Resolved: 9 12-31-2018 Chronic Other nutritional; endocrine; and metabolic disorders (20 sources) Body mass index 30+ - obesity; Translations: [BMI 30.0-30.9,adult] Resolved: 9 12-31-2018 Chronic Other nutritional; endocrine; and metabolic disorders (11 sources) Body mass index 25-29 - overweight; Translations: [BMI 27.0-27.9,adult] Resolved: 9 08-02-2020 Episodic Other nutritional; endocrine; and metabolic disorders (20 sources) Overweight in adulthood with body mass index of 25 or more but less than 30; Translations: [BMI 28.0-28.9,adult] Resolved: 9 09-22-2019 Episodic Other screening for suspected conditions (not mental disorders or infectious disease) (20 sources) Liver function tests abnormal; Translations: [Blood chemistry abnormal] Resolved: 2 05-01-2016 Episodic Comment on above: last scope 2015- at 59y/o pt declined cologard order 0- last one not due until 2023 Other skin disorders (20 sources) Inflammatory dermatosis; Translations: [Dermatitis] Resolved: 2 10-23-2011 Episodic Other skin disorders (20 sources) Lentigo; Translations: [Other melanin hyperpigmentation] 03-20-2019 Episodic Comment on above: wear spf - cont to w ear hat -- reassurance given Other upper respiratory disease (20 sources) Allergic rhinitis; Translations: [Allergic rhinitis] Resolved: 8 01-04-2018 Chronic Other upper respiratory disease (20 sources) Nasal congestion; Translations: [Nasal congestion] Resolved: 8 01-04-2018 Episodic Other upper respiratory infections (20 sources) Chronic sinusitis, unspecified; Translations: [Bacterial sinusitis] Resolved: 9 01-04-2018 Chronic Comment on above: not sure bacterial a t this point. thinkviral at this point talk about taking atb not recomend to prevent pneumonia if ot have. if not better in another 7 days then get atb willmucinex Other upper respiratory infections (20 sources) Acute sinusitis; Translations: [Acute Sinusitis (Renamed from Acute infection of nasal sinus)] 12-31-2018 Episodic Pneumonia (except that caused by tuberculosis or sexually transmitted disease) (20 sources) Atypical pneumonia; Translations: [Walking pneumonia] Resolved: 8 01-04-2018 Episodic Comment on above: bilateral, L>R Residual codes; unclassified (18 sources) Needs influenza immunization; Translations: [Need for prophylactic vaccination and inoculation against influenza] 12-31-2018 Episodic Residual codes; unclassified (18 sources) H/O: surgery; Translations: [Tonsillectomy] 12-31-2018 Episodic Residual codes; unclassified (20 sources) Increased body mass index; Translations: [BMI 29.0-29.9,adult] Resolved: 8 12-31-2018 Episodic Residual codes; unclassified (20 sources) Family history of malignant neoplasm of lung; Translations: [Family history of lung cancer] 12-31-2018 Episodic Residual codes; unclassified (13 sources) Past history of procedure; Translations: [Colonoscopy] 08-02-2020 Episodic Comment on above: 09/22/03 Residual codes; unclassified (20 sources) Current non-smoker ; Translations: [Current nonsmoker] 07-29-2018 Episodic Residual codes; unclassified (20 sources) Influenza vaccination declined; Translations: [Influenza vaccination declined (Renamed from Refused influenza vaccine)] Resolved: 8 08-02-2020 Episodic Residual codes; unclassified (20 sources) Non-smoker; Translations: [Non-smoker] 08-02-2020 Episodic Superficial injury; contusion (20 sources) Insect bite of head and neck; Translations: [Insect bite, nonvenomous of face, neck, and scalp except eye, without mention of infection (Renamed from Bite by nonvenomous insect of face/neck/scalp)] Resolved: 2 05-01-2016 Episodic Comment on above: hornets. will use an tihistamine. steriods no anaphylaxis. Transient cerebral ischemia (20 sources) Transient cerebral ischemia; Translations: [Cerebral ischemia] 12-31-2018 Chronic Unclassified (20 sources) Lesion-Unknown behavior (238.2) Unclassified (20 sources) Unclassified (20 sources) Abnormal Lung Sounds/Rales (786.7) Unclassified (20 sources) Finger Pain (729.5) (Renamed from Pain in limb) Unclassified (20 sources) Current non-smoker ; Translations: [Current nonsmoker] 07-29-2018 Unclassified (20 sources) Screening status; Translations: [Encounter for screening for malignant neoplasm of colon (Renamed from Special screening for malignant neoplasms, colon)] 12-31-2018 Comment on above: last scope 2015- at 59y/o pt declined cologard order 0- last one Unclassified (20 sources) epidydmal mass 12-31-2018 Unclassified (20 sources) Elevated LFT (790.6) Unclassified (20 sources) Elevated Blood Pressure(796.2) Unclassified (20 sources) PARASTHESIA (782.0) Unclassified (20 sources) Influenza vaccination declined; Translations: [Influenza vaccination declined (Renamed from Refused influenza vaccine)] Resolved: 8 12-31-2018 Unclassified (20 sources) Non-smoker; Translations: [Non-smoker] 12-31-2018 Unclassified (20 sources) Abdominal Pain,LLQ (789.04) Unclassified (20 sources) SCREENING FOR CANCER OF THE PROSTATE (V76.44) Unclassified (20 sources) BMI 29.0-29.9,adult Unclassified (20 sources) HTN (hypertension), benign Unclassified (20 sources) Witnessed apneic spells Unclassified (20 sources) Ventral hernia, recurrent Unclassified (20 sources) BMI 28.0-28.9,adult Unclassified (20 sources) Elevated blood pressure reading Unclassified (20 sources) BMI 30.0-30.9,adult Unclassified (8 sources) Family history of lung cancer Unclassified (20 sources) Encounter for screening for malignant neoplasm of prostate (Renamed from Screening for prostate cancer) Unclassified (12 sources) BMI 27.0-27.9,adult Unclassified (2 sources) Immunity status testing Unclassified (2 sources) Encounter for hepatitis C virus screening test for high risk patient Past or Other Problems Problem Classification Problem Date Documented Date Episodic/Chronic Chronic obstructive pulmonary disease and bronchiectasis (20 sources) Chronic obstructive pulmonary disease and bronchiectasis Coronary atherosclerosis and other heart disease (20 sources) Coronary atherosclerosis and other heart disease Deficiency and other anemia (20 sources) Iron deficiency anemia; Translations: [Iron deficiency anemia, unspecified] Resolved: 10-23-2011 05-01-2016 Episodic Gastritis and duodenitis (20 sources) Acute gastritis; Translations: [Gastritis, acute] Resolved: 08-05-2012 05-01-2016 Episodic Headache; including migraine (20 sources) Headache; including migraine Other non-traumatic joint disorders (19 sources) Knee pain; Translations: [Acute pain of left knee] Resolved: 07-29-2018 12-31-2018 Episodic Pneumonia (except that caused by tuberculosis or sexually transmitted disease) (20 sources) Pneumonia (except that caused by tuberculosis or sexually transmitted disease) Unclassified (20 sources) Acute pain of left knee Unclassified (20 sources) Finger Pain (729.5) (Renamed from Pain in limb (729.5)) Unclassified (20 sources) Patient encounter status; Translations: [Encounter for routine history and physical exam for male] 10-05-2016 Unclassified (20 sources) Unspecified Diagnosis Resolved: 10-23-2011 12-31-2018 Unclassified (20 sources) TIA, Unspecified (435.9) Unclassified (20 sources) Insect bite, nonvenomous of face, neck, and scalp except eye, without mention of infection (910.4) Unclassified (20 sources) Well Male Exam (V70.0) Unclassified (20 sources) Sprain and strain of medial collateral ligament of knee Unclassified (20 sources) Sinusitis, bacterial Unclassified (20 sources) Abnormal lung sounds Unclassified (20 sources) Screening for prostate cancer Unclassified (20 sources) Physical exam WITHOUT abnormal findings (Renamed from Encounter for routine adult health examination without abnormal findings) Unclassified (6 sources) Muscle spasm Results Test Name Value Interpretation Reference Range Facility Brain W/WO Contraston 2023 Brain W/WO Contrast [facility] [address] [place], [place] [address] Brain W/WO Contrast MR#: [id number] Acct: [id number] Name: REMI RANDOLPH Rep #: [id number] : 1955 M 68 From: Dnoell baumann MD PCP: Dr. Ethel Warner, DO Status: REG CLI Study: Brain W/WO Contrast Date of Exam: 09/05/24 Exam# [id number] Ordering Dr: Boby Gonzales MD [id number] STUDY: MRI BRAIN WITH AND WITHOUT CONTRAST (ATTENTION INTERNAL AUDITORY CANALS - I.A.C.''s) REASON FOR EXAM: Male, 68 years old. hearing loss [id number] in RT ear TECHNIQUE: Standardized multiplanar fat and water weighted pulse sequences were obtained. ml of 15ML CLARISCAN contrast material was administered intravenously for the contrast portion of the examination. COMPARISON: None. FINDINGS: Internal auditory canal findings: Normal bilateral temporal bones. Normal bilateral internal auditory canals. There is no demonstrated intracanalicular or cisternal vestibular schwannoma (acoustic neuroma). There is no enhancement of the bilateral VIIth or VIIIth cranial nerves. Normal bilateral cochlea, vestibules and semicircular canals. No mastoid air cell opacification is present. No cerebellar pontine angle mass or cyst is seen. There is no demonstrated lesions of the cavernous sinus. No nodularity or abnormal enhancement is seen in the 7th or 8th cranial nerves within IACs. No demonstrated Mondini''s malformation. BRAIN FINDINGS: Normal size of the ventricles and extra-axial spaces for the patient''s age. Normal white matter tracts of the supratentorial brain. There is no evidence for recent intracranial ischemia or other cause of cytotoxic edema on diffusion weighted imaging (DWI). Normal T2* images of the brain without demonstrated susceptibility artifact. There is no demonstrated hemosiderin stain. There are no demyelinating plagues of the supratentorial brain, brainstem or cerebellum. There are no findings suspicious for multiple sclerosis (MS). No hydrocephalus or midline shift is present. There are no visualized ring-enhancing lesions of the brain parenchyma or abnormal thickening or enhancement of the meninges or dura. Normal bilateral basal ganglia. Normal thalami. Normal flow voids within the major intracranial circulation suggesting patency by spin echo criteria. Normal venous enhancement. There is no enhancing intra-axial or extra-axial abnormality. There is no extra-axial fluid accumulation. Normal sella turcica, pituitary gland, infundibular stalk, optic chiasm and hypothalamus. Normal tectal plate and pineal gland. Normal midbrain, aman and medulla. Normal cerebellum. Normal basal cisterns. No demonstrated orbital abnormality, within the constraints of a routine brain study. Normal visualized paranasal sinuses. Normal calvarium and skull base. Normal visualized soft tissue structures. Normal visualized upper cervical spine. MRI/Brain W/WO Contrast IMPRESSION: 1. Normal unenhanced and enhanced MRI of the bilateral internal auditory canals (I.A.C''s). 2. Normal enhanced MRI of the brain. 3. CT of the temporal bones can be obtained to evaluate the middle ear structures and bony septa not assessed by MRI, if clinically applicable. Electronically Signed: Donell Rosales MD at 13:27 EST Reading Location ID and State: [address] [place] [address] , Service support , CC: Dr. Boby Gonzales MD; Dr. Ethel Warner, Lawn Caretaker: Signed Normal [facility] CREATININE FINGERSTICKon CREATININE WB < 1.0 Normal 0.70-1.30 [facility] Comment on above: Performed By: #### L 9100.0200 #### [facility] [address], [address] EGFR WB > 60.0000 Normal >60 [facility] Comment on above: Performed By: #### L 9100.0200 #### [facility] [address] [place], [address] INHOUSE COVID 19 (ONLY) RAPI D ([id number])Ordered By: Rufina Prince on 10-02-2022 SARS-CoV-2 (COVID-19) RNA DORON+probe Ql (Unsp spec) Negative Normal [facility]; [facility] Work Phone: Inhouse FLU A+B DIRECT AG, ( RAPID) ([id number])Ordered By: Rufina Prince on 10-02-2022 FLUAV+FLUBV Ag Ql (Unsp spec) Negative Normal [facility]; [facility] Work Phone: 2018 Novel Coronavirus (COVI D-19), DORON ([id number])Ordered By: Director Business Intelligence on 07-21-20212018 Novel Coronavirus (COVID-19), DORON ([id number]) Not detected Normal [facility]; [facility] Work Phone: Comment on above: This nucleic acid am plification test was developed and its performancecharacteristics determined by [employer]. Nucleic acidamplification tests include RT-PCR and TMA. This test has not beenFDA cleared or approved. This test has been authorized by FDA underan Emergency Use Authorization (EUA). This test is only authorizedfor the duration of time the declaration that circumstances existjustifying the authorization of the emergency use of in vitrodiagnostic tests for detection of SARS-CoV-2 virus and/or diagnosisof COVID-19 infection under section 564(b)(1) of the Act, 21 U.S.C.360bbb-3(b) (1), unless the authorization is terminated or revokedsooner.When diagnostic testing is negative, the possibility of a falsenegative result should be considered in the context of a patient'srecent exposures and the presence of clinical signs and symptomsconsistent with COVID-19. An individual without symptoms of COVID-19and who is not shedding SARS-CoV-2 virus would expect to have anegative (not detected) result in this assay. PATIENT NOT FASTINGP ERFORMED BY: [facility] Fxojjw[address] [facility] [id number] CBC W/AUTO DIFF WBC ([id number])O rdered By: Director Business Intelligence on 07-21-2021 Basophils (Bld) [#/Vol] 0.1 10*3/uL Normal 0.0-0.2 [facility]; [facility] Work Phone: Comment on above: Test(s) 586808-OOXK- CoV-2 Semi-Quant Total Ab; [id number]-LRZB-BkS-6 Zana Ab Interp; [id number]-PCIN-BkO-2 Antibody, IgGhas not been FDA cleared or approved. This test hasbeen authorized by FDA under an Emergency Use Authorization(EUA). This test is only authorized for the duration of thedeclaration that circumstances exist justifying the authorizationof emergency use of in vitro diagnostics for detection and/ordiagnosis of COVID-19 under Section 564(b)(1) of the Act, 21U.S.C. 360bbb-3(b)(1), unless the authorization is terminated orrevoked sooner. This test has been authorized only for detectingthe presence of antibodies against SARS-CoV-2, not for any otherviruses or pathogens.PATIENT WAS FASTINGPERFORMED BY: [facility] Zfurvc1415 [facility] [id number] Basophils/100 WBC (Bld) 1 % Normal [facility]; [facility] Work Phone: Comment on above: Test(s) [id number]-ZMQE- CoV-2 Semi-Quant Total Ab; [id number]-OMWM-DgK-2 Zana Ab Interp; [id number]-QXMW-CjH-7 Antibody, IgGhas not been FDA cleared or approved. This test hasbeen authorized by FDA under an Emergency Use Authorization(EUA). This test is only authorized for the duration of thedeclaration that circumstances exist justifying the authorizationof emergency use of in vitro diagnostics for detection and/ordiagnosis of COVID-19 under Section 564(b)(1) of the Act, 21U.S.C. 360bbb-3(b)(1), unless the authorization is terminated orrevoked sooner. This test has been authorized only for detectingthe presence of antibodies against SARS-CoV-2, not for any otherviruses or pathogens.PATIENT WAS FASTINGPERFORMED BY: [facility] [facility] [id number] Eosinophils (Bld) [#/Vol] 0.2 10*3/uL Normal 0.0-0.4 [facility]; [facility] Work Phone: Comment on above: Test(s) [id number]-VACY- CoV-2 Semi-Quant Total Ab; [id number]-CDZM-ViQ-4 Zana Ab Interp; 120489-NGHB-HvY-2 Antibody, IgGhas not been FDA cleared or approved. This test hasbeen authorized by FDA under an Emergency Use Authorization(EUA). This test is only authorized for the duration of thedeclaration that circumstances exist justifying the authorizationof emergency use of in vitro diagnostics for detection and/ordiagnosis of COVID-19 under Section 564(b)(1) of the Act, 21U.S.C. 360bbb-3(b)(1), unless the authorization is terminated orrevoked sooner. This test has been authorized only for detectingthe presence of antibodies against SARS-CoV-2, not for any otherviruses or pathogens.PATIENT WAS FASTINGPERFORMED BY: [facility] [facility] [id number] Eosinophils/100 WBC (Bld) 3 % Normal [facility]; [facility] Work Phone: Comment on above: Test(s) 367558-WSIC- CoV-2 Semi-Quant Total Ab; 606419-FGWD-MgR-5 Zana Ab Interp; [id number]-PSJE-HoS-8 Antibody, IgGhas not been FDA cleared or approved. This test hasbeen authorized by FDA under an Emergency Use Authorization(EUA). This test is only authorized for the duration of thedeclaration that circumstances exist justifying the authorizationof emergency use of in vitro diagnostics for detection and/ordiagnosis of COVID-19 under Section 564(b)(1) of the Act, 21U.S.C. 360bbb-3(b)(1), unless the authorization is terminated orrevoked sooner. This test has been authorized only for detectingthe presence of antibodies against SARS-CoV-2, not for any otherviruses or pathogens.PATIENT WAS FASTINGPERFORMED BY: [facility] [facility] [id number] Erythrocyte distribution width (RBC) [Ratio] 12.6 % Normal 11.6-15.4 [facility]; [facility] Work Phone: Comment on above: Test(s) [id number]-LQIC- CoV-2 Semi-Quant Total Ab; [id number]-ZHAV-SyI-0 Zana Ab Interp; 613456-ZPND-YjP-2 Antibody, IgGhas not been FDA cleared or approved. This test hasbeen authorized by FDA under an Emergency Use Authorization(EUA). This test is only authorized for the duration of thedeclaration that circumstances exist justifying the authorizationof emergency use of in vitro diagnostics for detection and/ordiagnosis of COVID-19 under Section 564(b)(1) of the Act, 21U.S.C. 360bbb-3(b)(1), unless the authorization is terminated orrevoked sooner. This test has been authorized only for detectingthe presence of antibodies against SARS-CoV-2, not for any otherviruses or pathogens.PATIENT WAS FASTINGPERFORMED BY: [facility] Amccew[address] [facility] [id number] Hematocrit (Bld) [Volume fraction] 42.9 % Normal 37.5-51.0 [facility]; [facility] Work Phone: Comment on above: Test(s) [id number]-NQRE- CoV-2 Semi-Quant Total Ab; [id number]-MBDK-YvG-7 Zana Ab Interp; 720006-VADL-ToD-1 Antibody, IgGhas not been FDA cleared or approved. This test hasbeen authorized by FDA under an Emergency Use Authorization(EUA). This test is only authorized for the duration of thedeclaration that circumstances exist justifying the authorizationof emergency use of in vitro diagnostics for detection and/ordiagnosis of COVID-19 under Section 564(b)(1) of the Act, 21U.S.C. 360bbb-3(b)(1), unless the authorization is terminated orrevoked sooner. This test has been authorized only for detectingthe presence of antibodies against SARS-CoV-2, not for any otherviruses or pathogens.PATIENT WAS FASTINGPERFORMED BY: [facility] [facility] [id number] Hemoglobin (Bld) [Mass/Vol] 14.2 g/dL Normal 13.0-17.7 [facility]; [facility] Work Phone: Comment on above: Test(s) 119615-FOVT- CoV-2 Semi-Quant Total Ab; [id number]-UYOX-HwK-1 Zana Ab Interp; [id number]-YQRO-NlM-1 Antibody, IgGhas not been FDA cleared or approved. This test hasbeen authorized by FDA under an Emergency Use Authorization(EUA). This test is only authorized for the duration of thedeclaration that circumstances exist justifying the authorizationof emergency use of in vitro diagnostics for detection and/ordiagnosis of COVID-19 under Section 564(b)(1) of the Act, 21U.S.C. 360bbb-3(b)(1), unless the authorization is terminated orrevoked sooner. This test has been authorized only for detectingthe presence of antibodies against SARS-CoV-2, not for any otherviruses or pathogens.PATIENT WAS FASTINGPERFORMED BY: [facility] [id number] Immature granulocytes (Bld) [#/Vol] 0.0 10*3/uL Normal 0.0-0.1 [facility]; [facility] Work Phone: Comment on above: Test(s) 597023-OFQI- CoV-2 Semi-Quant Total Ab; [id number]-WHZX-JtV-6 Zana Ab Interp; [id number]-SWPJ-TbE-1 Antibody, IgGhas not been FDA cleared or approved. This test hasbeen authorized by FDA under an Emergency Use Authorization(EUA). This test is only authorized for the duration of thedeclaration that circumstances exist justifying the authorizationof emergency use of in vitro diagnostics for detection and/ordiagnosis of COVID-19 under Section 564(b)(1) of the Act, 21U.S.C. 360bbb-3(b)(1), unless the authorization is terminated orrevoked sooner. This test has been authorized only for detectingthe presence of antibodies against SARS-CoV-2, not for any otherviruses or pathogens.PATIENT WAS FASTINGPERFORMED BY: [facility] [facility] [id number] Immature granulocytes/100 WBC (Bld) 0 % Normal [facility]; [facility] Work Phone: Comment on above: Test(s) 151402-OCEP- CoV-2 Semi-Quant Total Ab; 925648-PZBE-ZrJ-8 Zana Ab Interp; 791105-PZQE-XlQ-5 Antibody, IgGhas not been FDA cleared or approved. This test hasbeen authorized by FDA under an Emergency Use Authorization(EUA). This test is only authorized for the duration of thedeclaration that circumstances exist justifying the authorizationof emergency use of in vitro diagnostics for detection and/ordiagnosis of COVID-19 under Section 564(b)(1) of the Act, 21U.S.C. 360bbb-3(b)(1), unless the authorization is terminated orrevoked sooner. This test has been authorized only for detectingthe presence of antibodies against SARS-CoV-2, not for any otherviruses or pathogens.PATIENT WAS FASTINGPERFORMED BY: [facility] [facility] [id number] Lymphocytes (Bld) [#/Vol] 2.2 10*3/uL Normal 0.7-3.1 [facility]; [facility] Work Phone: Comment on above: Test(s) 141103-HRTO- CoV-2 Semi-Quant Total Ab; 321184-MSDM-QnW-6 Zana Ab Interp; 062400-PGNX-HiG-4 Antibody, IgGhas not been FDA cleared or approved. This test hasbeen authorized by FDA under an Emergency Use Authorization(EUA). This test is only authorized for the duration of thedeclaration that circumstances exist justifying the authorizationof emergency use of in vitro diagnostics for detection and/ordiagnosis of COVID-19 under Section 564(b)(1) of the Act, 21U.S.C. 360bbb-3(b)(1), unless the authorization is terminated orrevoked sooner. This test has been authorized only for detectingthe presence of antibodies against SARS-CoV-2, not for any otherviruses or pathogens.PATIENT WAS FASTINGPERFORMED BY: [facility] [facility] [id number] Lymphocytes/100 WBC (Bld) 36 % Normal [facility]; [facility] Work Phone: Comment on above: Test(s) 193447-SGLF- CoV-2 Semi-Quant Total Ab; 692027-WLCU-XnK-8 Zana Ab Interp; 201736-COMT-PwW-8 Antibody, IgGhas not been FDA cleared or approved. This test hasbeen authorized by FDA under an Emergency Use Authorization(EUA). This test is only authorized for the duration of thedeclaration that circumstances exist justifying the authorizationof emergency use of in vitro diagnostics for detection and/ordiagnosis of COVID-19 under Section 564(b)(1) of the Act, 21U.S.C. 360bbb-3(b)(1), unless the authorization is terminated orrevoked sooner. This test has been authorized only for detectingthe presence of antibodies against SARS-CoV-2, not for any otherviruses or pathogens.PATIENT WAS FASTINGPERFORMED BY: [facility] [facility] [id number] MCH (RBC) [Entitic mass] 29.1 pg Normal 26.6-33.0 [facility]; [facility] Work Phone: Comment on above: Test(s) 688466-WVWB- CoV-2 Semi-Quant Total Ab; 876990-SEUR-IvK-1 Zana Ab Interp; 027132-VYFM-NrW-5 Antibody, IgGhas not been FDA cleared or approved. This test hasbeen authorized by FDA under an Emergency Use Authorization(EUA). This test is only authorized for the duration of thedeclaration that circumstances exist justifying the authorizationof emergency use of in vitro diagnostics for detection and/ordiagnosis of COVID-19 under Section 564(b)(1) of the Act, 21U.S.C. 360bbb-3(b)(1), unless the authorization is terminated orrevoked sooner. This test has been authorized only for detectingthe presence of antibodies against SARS-CoV-2, not for any otherviruses or pathogens.PATIENT WAS FASTINGPERFORMED BY: [facility] [facility] [id number] MCHC (RBC) [Mass/Vol] 33.1 g/dL Normal 31.5-35.7 [facility]; [facility] Work Phone: Comment on above: Test(s) 238203-GQWL- CoV-2 Semi-Quant Total Ab; 842891-URKV-KnY-8 Zana Ab Interp; 413154-QKSV-DuT-0 Antibody, IgGhas not been FDA cleared or approved. This test hasbeen authorized by FDA under an Emergency Use Authorization(EUA). This test is only authorized for the duration of thedeclaration that circumstances exist justifying the authorizationof emergency use of in vitro diagnostics for detection and/ordiagnosis of COVID-19 under Section 564(b)(1) of the Act, 21U.S.C. 360bbb-3(b)(1), unless the authorization is terminated orrevoked sooner. This test has been authorized only for detectingthe presence of antibodies against SARS-CoV-2, not for any otherviruses or pathogens.PATIENT WAS FASTINGPERFORMED BY: [facility] [facility] [id number] MCV (RBC) [Entitic vol] 88 fL Normal 79-97 [facility]; [facility] Work Phone: Comment on above: Test(s) 319385-KXQL- CoV-2 Semi-Quant Total Ab; 648511-JHIT-RzE-3 Zana Ab Interp; 873571-HLVH-PxH-9 Antibody, IgGhas not been FDA cleared or approved. This test hasbeen authorized by FDA under an Emergency Use Authorization(EUA). This test is only authorized for the duration of thedeclaration that circumstances exist justifying the authorizationof emergency use of in vitro diagnostics for detection and/ordiagnosis of COVID-19 under Section 564(b)(1) of the Act, 21U.S.C. 360bbb-3(b)(1), unless the authorization is terminated orrevoked sooner. This test has been authorized only for detectingthe presence of antibodies against SARS-CoV-2, not for any otherviruses or pathogens.PATIENT WAS FASTINGPERFORMED BY: [facility] [facility] [id number] Monocytes (Bld) [#/Vol] 0.5 10*3/uL Normal 0.1-0.9 [facility]; [facility] Work Phone: Comment on above: Test(s) 791232-BJOH- CoV-2 Semi-Quant Total Ab; 210456-GXTD-JqG-2 Zana Ab Interp; 276901-ALIV-KsK-3 Antibody, IgGhas not been FDA cleared or approved. This test hasbeen authorized by FDA under an Emergency Use Authorization(EUA). This test is only authorized for the duration of thedeclaration that circumstances exist justifying the authorizationof emergency use of in vitro diagnostics for detection and/ordiagnosis of COVID-19 under Section 564(b)(1) of the Act, 21U.S.C. 360bbb-3(b)(1), unless the authorization is terminated orrevoked sooner. This test has been authorized only for detectingthe presence of antibodies against SARS-CoV-2, not for any otherviruses or pathogens.PATIENT WAS FASTINGPERFORMED BY: [facility] [facility] [id number] Monocytes/100 WBC (Bld) 8 % Normal [facility]; [facility] Work Phone: Comment on above: Test(s) 078996-SFHH- CoV-2 Semi-Quant Total Ab; 705791-XMLO-VhN-3 Zana Ab Interp; 194745-IBMT-GpF-6 Antibody, IgGhas not been FDA cleared or approved. This test hasbeen authorized by FDA under an Emergency Use Authorization(EUA). This test is only authorized for the duration of thedeclaration that circumstances exist justifying the authorizationof emergency use of in vitro diagnostics for detection and/ordiagnosis of COVID-19 under Section 564(b)(1) of the Act, 21U.S.C. 360bbb-3(b)(1), unless the authorization is terminated orrevoked sooner. This test has been authorized only for detectingthe presence of antibodies against SARS-CoV-2, not for any otherviruses or pathogens.PATIENT WAS FASTINGPERFORMED BY: [facility] [facility] [id number] Neutrophils (Bld) [#/Vol] 3.1 10*3/uL Normal 1.4-7.0 [facility]; [facility] Work Phone: Comment on above: Test(s) 606736-JSBF- CoV-2 Semi-Quant Total Ab; 187442-CKNO-OeK-1 Zana Ab Interp; 426658-TKFY-VjN-1 Antibody, IgGhas not been FDA cleared or approved. This test hasbeen authorized by [facility] under an Emergency Use Authorization(EUA). This test is only authorized for the duration of thedeclaration that circumstances exist justifying the authorizationof emergency use of in vitro diagnostics for detection and/ordiagnosis of COVID-19 under Section 564(b)(1) of the Act, 21U.S.C. 360bbb-3(b)(1), unless the authorization is terminated orrevoked sooner. This test has been authorized only for detectingthe presence of antibodies against SARS-CoV-2, not for any otherviruses or pathogens.PATIENT WAS FASTINGPERFORMED BY: [facility] [facility] [id number] Neutrophils/100 WBC (Bld) 52 % Normal [facility]; [facility] Work Phone: Comment on above: Test(s) 789186-DUNV- CoV-2 Semi-Quant Total Ab; 110207-JJRG-HwW-8 Zana Ab Interp; 649702-JKMX-RvV-7 Antibody, IgGhas not been FDA cleared or approved. This test hasbeen authorized by [facility] under an Emergency Use Authorization(EUA). This test is only authorized for the duration of thedeclaration that circumstances exist justifying the authorizationof emergency use of in vitro diagnostics for detection and/ordiagnosis of COVID-19 under Section 564(b)(1) of the Act, 21U.S.C. 360bbb-3(b)(1), unless the authorization is terminated orrevoked sooner. This test has been authorized only for detectingthe presence of antibodies against SARS-CoV-2, not for any otherviruses or pathogens.PATIENT WAS FASTINGPERFORMED BY: [facility] [facility] [id number] Platelets (Bld) [#/Vol] 388 10*3/uL Normal 150-450 [facility]; [facility] Work Phone: Comment on above: Test(s) 340475-NCMR- CoV-2 Semi-Quant Total Ab; 659799-YWMD-EbB-7 Zana Ab Interp; 299048-ZVWR-JtV-8 Antibody, IgGhas not been FDA cleared or approved. This test hasbeen authorized by FDA under an Emergency Use Authorization(EUA). This test is only authorized for the duration of thedeclaration that circumstances exist justifying the authorizationof emergency use of in vitro diagnostics for detection and/ordiagnosis of COVID-19 under Section 564(b)(1) of the Act, 21U.S.C. 360bbb-3(b)(1), unless the authorization is terminated orrevoked sooner. This test has been authorized only for detectingthe presence of antibodies against SARS-CoV-2, not for any otherviruses or pathogens.PATIENT WAS FASTINGPERFORMED BY: [facility] [facility] [id number] RBC (Bld) [#/Vol] 4.88 10*6/uL Normal 4.14-5.80 [facility]; [facility] Work Phone: Comment on above: Test(s) 879248-YRFW- CoV-2 Semi-Quant Total Ab; 098467-TXAY-MhO-7 Zana Ab Interp; 128483-TZEZ-XcK-9 Antibody, IgGhas not been FDA cleared or approved. This test hasbeen authorized by [facility] under an Emergency Use Authorization(EUA). This test is only authorized for the duration of thedeclaration that circumstances exist justifying the authorizationof emergency use of in vitro diagnostics for detection and/ordiagnosis of COVID-19 under Section 564(b)(1) of the Act, 21U.S.C. 360bbb-3(b)(1), unless the authorization is terminated orrevoked sooner. This test has been authorized only for detectingthe presence of antibodies against SARS-CoV-2, not for any otherviruses or pathogens.PATIENT WAS FASTINGPERFORMED BY: [facility] [facility] [id number] WBC (Bld) [#/Vol] 6.0 10*3/uL Normal 3.4-10.8 [facility]; [facility] Work Phone: Comment on above: Test(s) 611884-HINE- CoV-2 Semi-Quant Total Ab; 791431-LUKO-UzW-1 Zana Ab Interp; 550479-SFMK-QxP-4 Antibody, IgGhas not been FDA cleared or approved. This test hasbeen authorized by FDA under an Emergency Use Authorization(EUA). This test is only authorized for the duration of thedeclaration that circumstances exist justifying the authorizationof emergency use of in vitro diagnostics for detection and/ordiagnosis of COVID-19 under Section 564(b)(1) of the Act, 21U.S.C. 360bbb-3(b)(1), unless the authorization is terminated orrevoked sooner. This test has been authorized only for detectingthe presence of antibodies against SARS-CoV-2, not for any otherviruses or pathogens.PATIENT WAS FASTINGPERFORMED BY: [facility] [facility] [id number] HEPATITIS C ANTIBODY (39107) Ordered By: Director Business Intelligence on 07-21-2021 HCV Ab Signal/Cutoff IA [Rel units/Vol] {ratio} Normal 0.0-0.9 [facility]; [facility] Work Phone: Comment on above: Negative: < 0.8 Inde terminate: 0.8 - 0.9 Positive: > 0.9 . The CDC recommends that a positive HCV antibody result be followed up with a HCV Nucleic Acid Amplification test (806524). Test(s) 589465-VBAF- CoV-2 Semi-Quant Total Ab; 956459-IPHG-RsQ-7 Zana Ab Interp; 822128-TMXR-CpY-9 Antibody, IgGhas not been FDA cleared or approved. This test hasbeen authorized by FDA under an Emergency Use Authorization(EUA). This test is only authorized for the duration of thedeclaration that circumstances exist justifying the authorizationof emergency use of in vitro diagnostics for detection and/ordiagnosis of COVID-19 under Section 564(b)(1) of the Act, 21U.S.C. 360bbb-3(b)(1), unless the authorization is terminated orrevoked sooner. This test has been authorized only for detectingthe presence of antibodies against SARS-CoV-2, not for any otherviruses or pathogens.PATIENT WAS FASTINGPERFORMED BY: [email or web address] [place] [id number] LIPID PANEL (93212)Ordered B y: Director Business Intelligence on 07-21-2021 Cholesterol [Mass/Vol] 168 mg/dL Normal 100-199 [facility]; [facility] Work Phone: Comment on above: Test(s) 735458-CYZB- CoV-2 Semi-Quant Total Ab; 974384-UWGP-XiF-7 Zana Ab Interp; 979164-IFOX-LgE-0 Antibody, IgGhas not been FDA cleared or approved. This test hasbeen authorized by FDA under an Emergency Use Authorization(EUA). This test is only authorized for the duration of thedeclaration that circumstances exist justifying the authorizationof emergency use of in vitro diagnostics for detection and/ordiagnosis of COVID-19 under Section 564(b)(1) of the Act, 21U.S.C. 360bbb-3(b)(1), unless the authorization is terminated orrevoked sooner. This test has been authorized only for detectingthe presence of antibodies against SARS-CoV-2, not for any otherviruses or pathogens.PATIENT WAS FASTINGPERFORMED BY: [employer] [facility] [id number] Cholesterol in HDL [Mass/Vol] 33 mg/dL Abnormal [facility]; [facility] Work Phone: Comment on above: Test(s) 410680-DZVZ- CoV-2 Semi-Quant Total Ab; 915224-PGHO-ShF-7 Zana Ab Interp; 869403-IRBS-IgB-2 Antibody, IgGhas not been FDA cleared or approved. This test hasbeen authorized by FDA under an Emergency Use Authorization(EUA). This test is only authorized for the duration of thedeclaration that circumstances exist justifying the authorizationof emergency use of in vitro diagnostics for detection and/ordiagnosis of COVID-19 under Section 564(b)(1) of the Act, 21U.S.C. 360bbb-3(b)(1), unless the authorization is terminated orrevoked sooner. This test has been authorized only for detectingthe presence of antibodies against SARS-CoV-2, not for any otherviruses or pathogens.PATIENT WAS FASTINGPERFORMED BY: [email or web address] [place] [id number] Triglyceride [Mass/Vol] 141 mg/dL Normal 0-149 [facility]; [facility] Work Phone: Comment on above: Test(s) 663140-UPBG- CoV-2 Semi-Quant Total Ab; 808312-UDTL-CkA-9 Zana Ab Interp; 649914-XFOE-MqB-6 Antibody, IgGhas not been FDA cleared or approved. This test hasbeen authorized by FDA under an Emergency Use Authorization(EUA). This test is only authorized for the duration of thedeclaration that circumstances exist justifying the authorizationof emergency use of in vitro diagnostics for detection and/ordiagnosis of COVID-19 under Section 564(b)(1) of the Act, 21U.S.C. 360bbb-3(b)(1), unless the authorization is terminated orrevoked sooner. This test has been authorized only for detectingthe presence of antibodies against SARS-CoV-2, not for any otherviruses or pathogens.PATIENT WAS FASTINGPERFORMED BY: [employer] [facility] [id number] LIPID PANEL (53308) 25 mg/dL Normal 5-40 Compr ehensive [facility]; [facility] Work Phone: Comment on above: Test(s) 353652-EVUM- CoV-2 Semi-Quant Total Ab; 319246-UWOI-AgK-2 Zana Ab Interp; 548403-CJQD-NdB-1 Antibody, IgGhas not been FDA cleared or approved. This test hasbeen authorized by FDA under an Emergency Use Authorization(EUA). This test is only authorized for the duration of thedeclaration that circumstances exist justifying the authorizationof emergency use of in vitro diagnostics for detection and/ordiagnosis of COVID-19 under Section 564(b)(1) of the Act, 21U.S.C. 360bbb-3(b)(1), unless the authorization is terminated orrevoked sooner. This test has been authorized only for detectingthe presence of antibodies against SARS-CoV-2, not for any otherviruses or pathogens.PATIENT WAS FASTINGPERFORMED BY: [facility] [id number] LIPID PANEL (36423) 110 mg/dL Abnormal 0-99 [facility]; [facility] Work Phone: Comment on above: Test(s) 393330-ZNZD- CoV-2 Semi-Quant Total Ab; 258757-YFMP-WwN-3 Zana Ab Interp; 058664-NBIH-KrC-4 Antibody, IgGhas not been FDA cleared or approved. This test hasbeen authorized by FDA under an Emergency Use Authorization(EUA). This test is only authorized for the duration of thedeclaration that circumstances exist justifying the authorizationof emergency use of in vitro diagnostics for detection and/ordiagnosis of COVID-19 under Section 564(b)(1) of the Act, 21U.S.C. 360bbb-3(b)(1), unless the authorization is terminated orrevoked sooner. This test has been authorized only for detectingthe presence of antibodies against SARS-CoV-2, not for any otherviruses or pathogens.PATIENT WAS FASTINGPERFORMED BY: [employer] [id number] LIPID PANEL (71843) 3.3 {ratio} Normal 0.0-3.6 Comp rehensive [facility]; [facility] Work Phone: Comment on above: LDL/HDL Ratio Men Wo men 1/2 Avg.Risk 1.0 1.5 Avg.Risk 3.6 3.2 2X Avg.Risk 6.2 5.0 3X Avg.Risk 8.0 6.1 Test(s) 269073-MRCO- CoV-2 Semi-Quant Total Ab; 236817-RVGB-ZiC-7 Zana Ab Interp; 894035-GZVE-BsB-3 Antibody, IgGhas not been FDA cleared or approved. This test hasbeen authorized by FDA under an Emergency Use Authorization(EUA). This test is only authorized for the duration of thedeclaration that circumstances exist justifying the authorizationof emergency use of in vitro diagnostics for detection and/ordiagnosis of COVID-19 under Section 564(b)(1) of the Act, 21U.S.C. 360bbb-3(b)(1), unless the authorization is terminated orrevoked sooner. This test has been authorized only for detectingthe presence of antibodies against SARS-CoV-2, not for any otherviruses or pathogens.PATIENT WAS FASTINGPERFORMED BY: [facility] [facility] [id number] METABOLIC PANEL, COMPREHENSI VE (99421)Ordered By: Director Business Intelligence on 07-21-2021 Albumin [Mass/Vol] 4.3 g/dL Normal 3.8-4.8 Compre [facility]; [facility] Work Phone: Comment on above: Test(s) 825191-LDLR- CoV-2 Semi-Quant Total Ab; 259111-QIYC-BvT-1 Zana Ab Interp; 609937-TCSE-RnE-6 Antibody, IgGhas not been FDA cleared or approved. This test hasbeen authorized by FDA under an Emergency Use Authorization(EUA). This test is only authorized for the duration of thedeclaration that circumstances exist justifying the authorizationof emergency use of in vitro diagnostics for detection and/ordiagnosis of COVID-19 under Section 564(b)(1) of the Act, 21U.S.C. 360bbb-3(b)(1), unless the authorization is terminated orrevoked sooner. This test has been authorized only for detectingthe presence of antibodies against SARS-CoV-2, not for any otherviruses or pathogens.PATIENT WAS FASTINGPERFORMED BY: [facility] [facility] [id number] Albumin/Globulin [Mass ratio] 1.8 {ratio} Normal 1.2-2.2 [facility]; [facility] Work Phone: Comment on above: Test(s) 687655-TDTA- CoV-2 Semi-Quant Total Ab; 711287-UCHG-IyJ-4 Zana Ab Interp; 001788-XJSU-RyM-1 Antibody, IgGhas not been FDA cleared or approved. This test hasbeen authorized by FDA under an Emergency Use Authorization(EUA). This test is only authorized for the duration of thedeclaration that circumstances exist justifying the authorizationof emergency use of in vitro diagnostics for detection and/ordiagnosis of COVID-19 under Section 564(b)(1) of the Act, 21U.S.C. 360bbb-3(b)(1), unless the authorization is terminated orrevoked sooner. This test has been authorized only for detectingthe presence of antibodies against SARS-CoV-2, not for any otherviruses or pathogens.PATIENT WAS FASTINGPERFORMED BY: [facility] [facility] [id number] ALP [Catalytic activity/Vol] 83 U/L Normal 44-121 [facility]; [facility] Work Phone: Comment on above: Please note refere nce interval change Test(s) 550840-UMUF- CoV-2 Semi-Quant Total Ab; 307765-RFFS-DpW-7 Zana Ab Interp; 963091-DEJG-StB-0 Antibody, IgGhas not been FDA cleared or approved. This test hasbeen authorized by FDA under an Emergency Use Authorization(EUA). This test is only authorized for the duration of thedeclaration that circumstances exist justifying the authorizationof emergency use of in vitro diagnostics for detection and/ordiagnosis of COVID-19 under Section 564(b)(1) of the Act, 21U.S.C. 360bbb-3(b)(1), unless the authorization is terminated orrevoked sooner. This test has been authorized only for detectingthe presence of antibodies against SARS-CoV-2, not for any otherviruses or pathogens.PATIENT WAS FASTINGPERFORMED BY: [facility] [facility] [id number] ALT [Catalytic activity/Vol] 15 U/L Normal 0-44 [facility]; [facility] Work Phone: Comment on above: Test(s) 083196-MZIP- CoV-2 Semi-Quant Total Ab; 483973-QOMM-NkK-3 Zana Ab Interp; 827659-ROBF-EfB-0 Antibody, IgGhas not been FDA cleared or approved. This test hasbeen authorized by FDA under an Emergency Use Authorization(EUA). This test is only authorized for the duration of thedeclaration that circumstances exist justifying the authorizationof emergency use of in vitro diagnostics for detection and/ordiagnosis of COVID-19 under Section 564(b)(1) of the Act, 21U.S.C. 360bbb-3(b)(1), unless the authorization is terminated orrevoked sooner. This test has been authorized only for detectingthe presence of antibodies against SARS-CoV-2, not for any otherviruses or pathogens.PATIENT WAS FASTINGPERFORMED BY: [facility] [facility] [id number] AST [Catalytic activity/Vol] 21 U/L Normal 0-40 [facility]; [facility] Work Phone: Comment on above: Test(s) 297638-IGYP- CoV-2 Semi-Quant Total Ab; 874363-DMNO-JeZ-1 Zana Ab Interp; 274534-IPDZ-XxY-3 Antibody, IgGhas not been FDA cleared or approved. This test hasbeen authorized by FDA under an Emergency Use Authorization(EUA). This test is only authorized for the duration of thedeclaration that circumstances exist justifying the authorizationof emergency use of in vitro diagnostics for detection and/ordiagnosis of COVID-19 under Section 564(b)(1) of the Act, 21U.S.C. 360bbb-3(b)(1), unless the authorization is terminated orrevoked sooner. This test has been authorized only for detectingthe presence of antibodies against SARS-CoV-2, not for any otherviruses or pathogens.PATIENT WAS FASTINGPERFORMED BY: [facility] [facility] [id number] Bilirubin [Mass/Vol] 0.3 mg/dL Normal 0.0-1.2 [facility] Internal Medicine; [facility] Work Phone: Comment on above: Test(s) 961365-FEKN- CoV-2 Semi-Quant Total Ab; 707292-UVIY-PoZ-9 Zana Ab Interp; 139822-NEUC-MmE-6 Antibody, IgGhas not been FDA cleared or approved. This test hasbeen authorized by FDA under an Emergency Use Authorization(EUA). This test is only authorized for the duration of thedeclaration that circumstances exist justifying the authorizationof emergency use of in vitro diagnostics for detection and/ordiagnosis of COVID-19 under Section 564(b)(1) of the Act, 21U.S.C. 360bbb-3(b)(1), unless the authorization is terminated orrevoked sooner. This test has been authorized only for detectingthe presence of antibodies against SARS-CoV-2, not for any otherviruses or pathogens.PATIENT WAS FASTINGPERFORMED BY: [facility] [facility] [id number] Calcium [Mass/Vol] 9.6 mg/dL Normal 8.6-10.2 [facility] Internal Medicine; [facility] Work Phone: Comment on above: Test(s) 340146-HUYJ- CoV-2 Semi-Quant Total Ab; 363730-WZGH-UaX-5 Zana Ab Interp; 866308-ISFJ-YmS-4 Antibody, IgGhas not been FDA cleared or approved. This test hasbeen authorized by FDA under an Emergency Use Authorization(EUA). This test is only authorized for the duration of thedeclaration that circumstances exist justifying the authorizationof emergency use of in vitro diagnostics for detection and/ordiagnosis of COVID-19 under Section 564(b)(1) of the Act, 21U.S.C. 360bbb-3(b)(1), unless the authorization is terminated orrevoked sooner. This test has been authorized only for detectingthe presence of antibodies against SARS-CoV-2, not for any otherviruses or pathogens.PATIENT WAS FASTINGPERFORMED BY: [facility] [facility] [id number] Chloride [Moles/Vol] 103 mmol/L Normal 96-106 [facility]; [facility] Work Phone: Comment on above: Test(s) 924689-YODL- CoV-2 Semi-Quant Total Ab; 962124-UAND-WfU-5 Zana Ab Interp; 283945-GKGC-OkC-6 Antibody, IgGhas not been FDA cleared or approved. This test hasbeen authorized by FDA under an Emergency Use Authorization(EUA). This test is only authorized for the duration of thedeclaration that circumstances exist justifying the authorizationof emergency use of in vitro diagnostics for detection and/ordiagnosis of COVID-19 under Section 564(b)(1) of the Act, 21U.S.C. 360bbb-3(b)(1), unless the authorization is terminated orrevoked sooner. This test has been authorized only for detectingthe presence of antibodies against SARS-CoV-2, not for any otherviruses or pathogens.PATIENT WAS FASTINGPERFORMED BY: [facility] Gladwin[address] [facility] [id number] CO2 [Moles/Vol] 25 mmol/L Normal 20-29 [facility] Internal Medicine; [facility] Work Phone: Comment on above: Test(s) 124140-WDMP- CoV-2 Semi-Quant Total Ab; 976416-AKXU-AhD-3 Zana Ab Interp; 285811-CLEQ-LkX-3 Antibody, IgGhas not been FDA cleared or approved. This test hasbeen authorized by FDA under an Emergency Use Authorization(EUA). This test is only authorized for the duration of thedeclaration that circumstances exist justifying the authorizationof emergency use of in vitro diagnostics for detection and/ordiagnosis of COVID-19 under Section 564(b)(1) of the Act, 21U.S.C. 360bbb-3(b)(1), unless the authorization is terminated orrevoked sooner. This test has been authorized only for detectingthe presence of antibodies against SARS-CoV-2, not for any otherviruses or pathogens.PATIENT WAS FASTINGPERFORMED BY: [facility] Gladwin[address] [facility] [id number] Creatinine [Mass/Vol] 1.17 mg/dL Normal 0.76-1.27 [facility]; [facility] Work Phone: Comment on above: Test(s) 984525-AJNH- CoV-2 Semi-Quant Total Ab; 586760-GVTY-TwJ-4 Zana Ab Interp; 780589-UJOI-SlT-9 Antibody, IgGhas not been FDA cleared or approved. This test hasbeen authorized by FDA under an Emergency Use Authorization(EUA). This test is only authorized for the duration of thedeclaration that circumstances exist justifying the authorizationof emergency use of in vitro diagnostics for detection and/ordiagnosis of COVID-19 under Section 564(b)(1) of the Act, 21U.S.C. 360bbb-3(b)(1), unless the authorization is terminated orrevoked sooner. This test has been authorized only for detectingthe presence of antibodies against SARS-CoV-2, not for any otherviruses or pathogens.PATIENT WAS FASTINGPERFORMED BY: [facility] [facility] [id number] GFR/1.73 sq M.predicted among blacks CKD-EPI (S/P/Bld) [Vol rate/Area] 75 mL/min/1.73 Normal [facility]; [facility] Work Phone: Comment on above: [facility] currently reports eGFR in compliance with the current recommendations of the [employer]. [facility] will update reporting as new guidelines are published from the NKF-ASN Task force. Test(s) 354059-KZGD- CoV-2 Semi-Quant Total Ab; 552419-QLRT-EyX-9 Zana Ab Interp; 141146-URJT-ClE-9 Antibody, IgGhas not been FDA cleared or approved. This test hasbeen authorized by FDA under an Emergency Use Authorization(EUA). This test is only authorized for the duration of thedeclaration that circumstances exist justifying the authorizationof emergency use of in vitro diagnostics for detection and/ordiagnosis of COVID-19 under Section 564(b)(1) of the Act, 21U.S.C. 360bbb-3(b)(1), unless the authorization is terminated orrevoked sooner. This test has been authorized only for detectingthe presence of antibodies against SARS-CoV-2, not for any otherviruses or pathogens.PATIENT WAS FASTINGPERFORMED BY: [employer] [id number] GFR/1.73 sq M.predicted among non-blacks CKD-EPI (S/P/Bld) [Vol rate/Area] 65 mL/min/1.73 Normal [facility]; [facility] Work Phone: Comment on above: Test(s) 337369-JCAL- CoV-2 Semi-Quant Total Ab; 766899-MKIF-PaU-3 Zana Ab Interp; 401161-VOOT-BqF-6 Antibody, IgGhas not been FDA cleared or approved. This test hasbeen authorized by FDA under an Emergency Use Authorization(EUA). This test is only authorized for the duration of thedeclaration that circumstances exist justifying the authorizationof emergency use of in vitro diagnostics for detection and/ordiagnosis of COVID-19 under Section 564(b)(1) of the Act, 21U.S.C. 360bbb-3(b)(1), unless the authorization is terminated orrevoked sooner. This test has been authorized only for detectingthe presence of antibodies against SARS-CoV-2, not for any otherviruses or pathogens.PATIENT WAS FASTINGPERFORMED BY: [facility] [employer] Bnpvdz0879 Net[employer] TechnologyLifeCare Hospitals [facility] [id number] Globulin (S) [Mass/Vol] 2.4 g/dL Normal 1.5-4.5 [facility]; [facility] Work Phone: Comment on above: Test(s) 231494-ONTH- CoV-2 Semi-Quant Total Ab; 760819-ZSDK-HlY-4 Zana Ab Interp; 109062-LKYF-XtC-9 Antibody, IgGhas not been FDA cleared or approved. This test hasbeen authorized by FDA under an Emergency Use Authorization(EUA). This test is only authorized for the duration of thedeclaration that circumstances exist justifying the authorizationof emergency use of in vitro diagnostics for detection and/ordiagnosis of COVID-19 under Section 564(b)(1) of the Act, 21U.S.C. 360bbb-3(b)(1), unless the authorization is terminated orrevoked sooner. This test has been authorized only for detectingthe presence of antibodies against SARS-CoV-2, not for any otherviruses or pathogens.PATIENT WAS FASTINGPERFORMED BY: [employer]6370 StatSocialUNC [facility] [id number] Glucose [Mass/Vol] 89 mg/dL Normal 65-99 [facility] Internal Medicine; [facility] Work Phone: Comment on above: Test(s) 879217-RVWA- CoV-2 Semi-Quant Total Ab; 422612-IGDF-GcT-3 Zana Ab Interp; 604241-PTXC-IyB-3 Antibody, IgGhas not been FDA cleared or approved. This test hasbeen authorized by FDA under an Emergency Use Authorization(EUA). This test is only authorized for the duration of thedeclaration that circumstances exist justifying the authorizationof emergency use of in vitro diagnostics for detection and/ordiagnosis of COVID-19 under Section 564(b)(1) of the Act, 21U.S.C. 360bbb-3(b)(1), unless the authorization is terminated orrevoked sooner. This test has been authorized only for detectingthe presence of antibodies against SARS-CoV-2, not for any otherviruses or pathogens.PATIENT WAS FASTINGPERFORMED BY: [employer]1653 Netfective TechnologyLifeCare Hospitals of [facility] [place] [id number] Potassium [Moles/Vol] 5.1 mmol/L Normal 3.5-5.2 [facility]; [facility] Work Phone: Comment on above: Test(s) 298578-IPEY- CoV-2 Semi-Quant Total Ab; 493682-MWOU-YjT-5 Zana Ab Interp; 579022-PLYH-BpQ-5 Antibody, IgGhas not been FDA cleared or approved. This test hasbeen authorized by FDA under an Emergency Use Authorization(EUA). This test is only authorized for the duration of thedeclaration that circumstances exist justifying the authorizationof emergency use of in vitro diagnostics for detection and/ordiagnosis of COVID-19 under Section 564(b)(1) of the Act, 21U.S.C. 360bbb-3(b)(1), unless the authorization is terminated orrevoked sooner. This test has been authorized only for detectingthe presence of antibodies against SARS-CoV-2, not for any otherviruses or pathogens.PATIENT WAS FASTINGPERFORMED BY: [employer]6[address] Netfective TechnologyLifeCare Hospitals of [facility] [place] [id number] Protein [Mass/Vol] 6.7 g/dL Normal 6.0-8.5 [facility] Internal Medicine; [facility] Internal Medicine Work Phone: Comment on above: Test(s) 761972-ZUAL- CoV-2 Semi-Quant Total Ab; 119223-SXUA-MiM-9 Zana Ab Interp; 219394-NEXU-AlP-7 Antibody, IgGhas not been FDA cleared or approved. This test hasbeen authorized by FDA under an Emergency Use Authorization(EUA). This test is only authorized for the duration of thedeclaration that circumstances exist justifying the authorizationof emergency use of in vitro diagnostics for detection and/ordiagnosis of COVID-19 under Section 564(b)(1) of the Act, 21U.S.C. 360bbb-3(b)(1), unless the authorization is terminated orrevoked sooner. This test has been authorized only for detectingthe presence of antibodies against SARS-CoV-2, not for any otherviruses or pathogens.PATIENT WAS FASTINGPERFORMED BY: [employer]6[address] Net[employer] TechnologyLifeCare Hospitals of [facility] [place] [id number] Sodium [Moles/Vol] 141 mmol/L Normal 134-144 Compre hensive Internal Medicine; [facility] Work Phone: Comment on above: Test(s) 525871-SCIK- CoV-2 Semi-Quant Total Ab; 670565-ICNA-NqH-4 Zana Ab Interp; 318927-EPRQ-YtH-6 Antibody, IgGhas not been FDA cleared or approved. This test hasbeen authorized by FDA under an Emergency Use Authorization(EUA). This test is only authorized for the duration of thedeclaration that circumstances exist justifying the authorizationof emergency use of in vitro diagnostics for detection and/ordiagnosis of COVID-19 under Section 564(b)(1) of the Act, 21U.S.C. 360bbb-3(b)(1), unless the authorization is terminated orrevoked sooner. This test has been authorized only for detectingthe presence of antibodies against SARS-CoV-2, not for any otherviruses or pathogens.PATIENT WAS FASTINGPERFORMED BY: [email or web address] [place] [id number] Urea nitrogen [Mass/Vol] 18 mg/dL Normal 8-27 [facility]; [facility] Work Phone: Comment on above: Test(s) 379348-DXTO- CoV-2 Semi-Quant Total Ab; 932892-RAGS-MxM-7 Zana Ab Interp; 235424-ABJV-YmX-7 Antibody, IgGhas not been FDA cleared or approved. This test hasbeen authorized by FDA under an Emergency Use Authorization(EUA). This test is only authorized for the duration of thedeclaration that circumstances exist justifying the authorizationof emergency use of in vitro diagnostics for detection and/ordiagnosis of COVID-19 under Section 564(b)(1) of the Act, 21U.S.C. 360bbb-3(b)(1), unless the authorization is terminated orrevoked sooner. This test has been authorized only for detectingthe presence of antibodies against SARS-CoV-2, not for any otherviruses or pathogens.PATIENT WAS FASTINGPERFORMED BY: [employer]6370 StatSocialUNC [facility] [id number] Urea nitrogen/Creatinine [Mass ratio] 15 mg/mg Normal 10-24 [facility]; [facility] Work Phone: Comment on above: Test(s) 257781-IPDF- CoV-2 Semi-Quant Total Ab; 828242-CBRJ-CdD-8 Zana Ab Interp; 159741-XFCW-UpJ-7 Antibody, IgGhas not been FDA cleared or approved. This test hasbeen authorized by FDA under an Emergency Use Authorization(EUA). This test is only authorized for the duration of thedeclaration that circumstances exist justifying the authorizationof emergency use of in vitro diagnostics for detection and/ordiagnosis of COVID-19 under Section 564(b)(1) of the Act, 21U.S.C. 360bbb-3(b)(1), unless the authorization is terminated orrevoked sooner. This test has been authorized only for detectingthe presence of antibodies against SARS-CoV-2, not for any otherviruses or pathogens.PATIENT WAS FASTINGPERFORMED BY: DARREN LabLondonOcean Medical CenterXwhejl[address] [facility] [id number] MICROALBUMINOrdered By: Syst em Lockstitch Zipper Setter on 07-21-2021 Albumin DL <= 20 mg/L (U) [Mass/Vol] mg/dL Normal Comprehensiv e Internal Medicine; [facility] Work Phone: Comment on above: Verified by repeat analysis Test(s) 121040-PTTX- CoV-2 Semi-Quant Total Ab; 418592-BWJB-MuS-3 Zana Ab Interp; 825681-DSMC-MyO-0 Antibody, IgGhas not been FDA cleared or approved. This test hasbeen authorized by FDA under an Emergency Use Authorization(EUA). This test is only authorized for the duration of thedeclaration that circumstances exist justifying the authorizationof emergency use of in vitro diagnostics for detection and/ordiagnosis of COVID-19 under Section 564(b)(1) of the Act, 21U.S.C. 360bbb-3(b)(1), unless the authorization is terminated orrevoked sooner. This test has been authorized only for detectingthe presence of antibodies against SARS-CoV-2, not for any otherviruses or pathogens.PATIENT WAS FASTINGPERFORMED BY: [facility] [facility] [id number] Albumin/Creatinine (U) [Mass ratio] <8 Normal 0-29 [facility]; [facility] Work Phone: Comment on above: Normal: 0 - 29 Moder ately increased: 30 - 300 Severely increased: >300 Test(s) 567083-ZMVX- CoV-2 Semi-Quant Total Ab; 304748-UQWW-UdP-0 Zana Ab Interp; 882164-EYVY-NhI-5 Antibody, IgGhas not been FDA cleared or approved. This test hasbeen authorized by FDA under an Emergency Use Authorization(EUA). This test is only authorized for the duration of thedeclaration that circumstances exist justifying the authorizationof emergency use of in vitro diagnostics for detection and/ordiagnosis of COVID-19 under Section 564(b)(1) of the Act, 21U.S.C. 360bbb-3(b)(1), unless the authorization is terminated orrevoked sooner. This test has been authorized only for detectingthe presence of antibodies against SARS-CoV-2, not for any otherviruses or pathogens.PATIENT WAS FASTINGPERFORMED BY: [facility] [facility] [id number] Creatinine (U) [Mass/Vol] 36.6 mg/dL Normal [facility]; [facility] Work Phone: Comment on above: Test(s) 838271-MCNX- CoV-2 Semi-Quant Total Ab; 096741-LUQR-VoJ-0 Zana Ab Interp; 407575-LFTT-XxT-3 Antibody, IgGhas not been FDA cleared or approved. This test hasbeen authorized by FDA under an Emergency Use Authorization(EUA). This test is only authorized for the duration of thedeclaration that circumstances exist justifying the authorizationof emergency use of in vitro diagnostics for detection and/ordiagnosis of COVID-19 under Section 564(b)(1) of the Act, 21U.S.C. 360bbb-3(b)(1), unless the authorization is terminated orrevoked sooner. This test has been authorized only for detectingthe presence of antibodies against SARS-CoV-2, not for any otherviruses or pathogens.PATIENT WAS FASTINGPERFORMED BY: BOLD GuidanceMymichigan Medical Center Gladwin[address] [facility] [id number] PSA (PROSTATE SPECIFIC ANTIG EN) (V76.44)Ordered By: Director Business Intelligence on 07-21-2021 Prostate specific Ag [Mass/Vol] 1.8 ng/mL Normal 0.0-4.0 [facility]; [facility] Work Phone: Comment on above: [facility] ECLIA methodol ogy. .According to the [place] [employer], Serum PSA shoulddecrease and remain at undetectable levels after radicalprostatectomy. The AUA defines biochemical recurrence as an initialPSA value 0.2 ng/mL or greater followed by a subsequent confirmatoryPSA value 0.2 ng/mL or greater.Values obtained with different assay methods or kits cannot be usedinterchangeably. Results cannot be interpreted as absolute evidenceof the presence or absence of malignant disease. Test(s) 292247-BKLC- CoV-2 Semi-Quant Total Ab; 152034-PVRL-YwU-4 Zana Ab Interp; 546686-SDSY-DnF-8 Antibody, IgGhas not been FDA cleared or approved. This test hasbeen authorized by FDA under an Emergency Use Authorization(EUA). This test is only authorized for the duration of thedeclaration that circumstances exist justifying the authorizationof emergency use of in vitro diagnostics for detection and/ordiagnosis of COVID-19 under Section 564(b)(1) of the Act, 21U.S.C. 360bbb-3(b)(1), unless the authorization is terminated orrevoked sooner. This test has been authorized only for detectingthe presence of antibodies against SARS-CoV-2, not for any otherviruses or pathogens.PATIENT WAS FASTINGPERFORMED BY: BOLD GuidanceKind[facility] Hospital Famvih[address] [facility] [id number] SARS-CoV-2 Antibody, IgGOrde red By: Director Business Intelligence on 07-21-2021 SARS-CoV-2 Antibody, IgG Negative Normal [facility]; [facility] Work Phone: Comment on above: This sample does not contain detectable SARS-CoV-2 IgG antibodies.This negative result does not rule out SARS-CoV-2 infection.Correlation with epidemiologic risk factors and other clinical andlaboratory findings is recommended. Serologic results should not beused as the sole basis to diagnose or exclude recent LAYQ-FpI-8jdoeisrgo.This assay was performed using the [employer](R)SARS-CoV-2 S1/S2 IgG assay.This assay detects antibodies against SARS-CoV-2 spike proteinincluding the receptor binding domain (RBD).Effective August 22, 2021, this test will be changing froma qualitative assay to a semi-quantitative assay for FZBS-NtH-5zydnpwjogl against the viral spike protein. Test(s) 492959-GCJZ- CoV-2 Semi-Quant Total Ab; 603683-EGCT-HvX-4 Zana Ab Interp; 018875-EIGJ-JmW-3 Antibody, IgGhas not been FDA cleared or approved. This test hasbeen authorized by FDA under an Emergency Use Authorization(EUA). This test is only authorized for the duration of thedeclaration that circumstances exist justifying the authorizationof emergency use of in vitro diagnostics for detection and/ordiagnosis of COVID-19 under Section 564(b)(1) of the Act, 21U.S.C. 360bbb-3(b)(1), unless the authorization is terminated orrevoked sooner. This test has been authorized only for detectingthe presence of antibodies against SARS-CoV-2, not for any otherviruses or pathogens.PATIENT WAS FASTINGPERFORMED BY: [facility] [facility] [id number] SARS-CoV-2 Semi-Quantitative Total Antibody, Zana ([id number])Ordered By: Director Business Intelligence on 07-21-2021 SARS-CoV-2 Semi-Quantitative Total Antibody, Zana ([id number]) 1.6 U/mL Normal [facility]; [facility] Work Phone: Comment on above: Antibodies against t he SARS-CoV-2 spike protein receptor bindingdomain (RBD) were detected. It is yet undetermined what level ofantibody to SARS-CoV-2 spike protein correlates to immunity againstdeveloping symptomatic SARS-CoV-2 disease. Studies are underway tomeasure the quantitative levels of specific SARS-CoV-2 antibodiesfollowing vaccination. Such studies will provide valuable insightsinto the correlation between protection from vaccination andantibody levels. Test(s) 272226-WBMF- CoV-2 Semi-Quant Total Ab; 103827-VMMH-DjE-8 Zana Ab Interp; 037402-CBIZ-LnI-5 Antibody, IgGhas not been FDA cleared or approved. This test hasbeen authorized by FDA under an Emergency Use Authorization(EUA). This test is only authorized for the duration of thedeclaration that circumstances exist justifying the authorizationof emergency use of in vitro diagnostics for detection and/ordiagnosis of COVID-19 under Section 564(b)(1) of the Act, 21U.S.C. 360bbb-3(b)(1), unless the authorization is terminated orrevoked sooner. This test has been authorized only for detectingthe presence of antibodies against SARS-CoV-2, not for any otherviruses or pathogens.PATIENT WAS FASTINGPERFORMED BY: [facility]RouteBoxWay[facility] [id number] SARS-CoV-2 Semi-Quantitative Total Antibody, Zana (52680) Positive Normal [facility]; [facility] Work Phone: Comment on above: [employer] Anti-S ARS-CoV-2 S Test(s) 172638-MBEM- CoV-2 Semi-Quant Total Ab; 730996-KBBZ-BcI-8 Zana Ab Interp; 146758-OUGV-UhQ-9 Antibody, IgGhas not been FDA cleared or approved. This test hasbeen authorized by [facility] under an Emergency Use Authorization(EUA). This test is only authorized for the duration of thedeclaration that circumstances exist justifying the authorizationof emergency use of in vitro diagnostics for detection and/ordiagnosis of COVID-19 under Section 564(b)(1) of the Act, 21U.S.C. 360bbb-3(b)(1), unless the authorization is terminated orrevoked sooner. This test has been authorized only for detectingthe presence of antibodies against SARS-CoV-2, not for any otherviruses or pathogens.PATIENT WAS FASTINGPERFORMED BY: [employer] StatSocialUNC [facility] [id number] TSH ([id number])Ordered By: Syste m Lockstitch Zipper Setter on 07-21-2021 TSH Qn 1.790 {uIU/mL} Normal 0.450-4.50 0 [facility]; [facility] Work Phone: Comment on above: Test(s) 090865-PDCE- CoV-2 Semi-Quant Total Ab; 746760-NBZT-JpI-7 Zana Ab Interp; 400346-XZJH-TeI-3 Antibody, IgGhas not been FDA cleared or approved. This test hasbeen authorized by FDA under an Emergency Use Authorization(EUA). This test is only authorized for the duration of thedeclaration that circumstances exist justifying the authorizationof emergency use of in vitro diagnostics for detection and/ordiagnosis of COVID-19 under Section 564(b)(1) of the Act, 21U.S.C. 360bbb-3(b)(1), unless the authorization is terminated orrevoked sooner. This test has been authorized only for detectingthe presence of antibodies against SARS-CoV-2, not for any otherviruses or pathogens.PATIENT WAS FASTINGPERFORMED BY: LabCoOcean Medical CenterPuxuog[address] [facility] [id number] URINALYSIS, W/ MICRO ([id number]) Ordered By: Director Business Intelligence on 07-21-2021 Appearance (U) Clear Normal Comprehens alee Internal Medicine; [facility] Work Phone: Comment on above: Test(s) 582073-VENR- CoV-2 Semi-Quant Total Ab; 137394-OKKG-GkD-9 Zana Ab Interp; 541523-VVMN-YoF-5 Antibody, IgGhas not been FDA cleared or approved. This test hasbeen authorized by FDA under an Emergency Use Authorization(EUA). This test is only authorized for the duration of thedeclaration that circumstances exist justifying the authorizationof emergency use of in vitro diagnostics for detection and/ordiagnosis of COVID-19 under Section 564(b)(1) of the Act, 21U.S.C. 360bbb-3(b)(1), unless the authorization is terminated orrevoked sooner. This test has been authorized only for detectingthe presence of antibodies against SARS-CoV-2, not for any otherviruses or pathogens.PATIENT WAS FASTINGPERFORMED BY: [facility]CoOcean [facility] CenterTlbypd4493 [facility] [id number] Bilirubin Ql (U) Negative Normal Comprehe nsive Internal Medicine; [facility] Work Phone: Comment on above: Test(s) 310088-AUVO- CoV-2 Semi-Quant Total Ab; 063020-JQNG-IiW-9 Zana Ab Interp; 418682-PWML-HxW-4 Antibody, IgGhas not been FDA cleared or approved. This test hasbeen authorized by FDA under an Emergency Use Authorization(EUA). This test is only authorized for the duration of thedeclaration that circumstances exist justifying the authorizationof emergency use of in vitro diagnostics for detection and/ordiagnosis of COVID-19 under Section 564(b)(1) of the Act, 21U.S.C. 360bbb-3(b)(1), unless the authorization is terminated orrevoked sooner. This test has been authorized only for detectingthe presence of antibodies against SARS-CoV-2, not for any otherviruses or pathogens.PATIENT WAS FASTINGPERFORMED BY: [facility]CoOcean Medical CenterYjrxvp7846 [facility] [id number] Color (U) Yellow Normal [facility]; [facility] Work Phone: Comment on above: Test(s) 673865-TLSY- CoV-2 Semi-Quant Total Ab; 683201-PJAF-GjR-5 Zana Ab Interp; 934295-YCWY-QwC-8 Antibody, IgGhas not been FDA cleared or approved. This test hasbeen authorized by FDA under an Emergency Use Authorization(EUA). This test is only authorized for the duration of thedeclaration that circumstances exist justifying the authorizationof emergency use of in vitro diagnostics for detection and/ordiagnosis of COVID-19 under Section 564(b)(1) of the Act, 21U.S.C. 360bbb-3(b)(1), unless the authorization is terminated orrevoked sooner. This test has been authorized only for detectingthe presence of antibodies against SARS-CoV-2, not for any otherviruses or pathogens.PATIENT WAS FASTINGPERFORMED BY: Hail VarsityOcean Medical CenterGvzkmf0752 [facility] [id number] Glucose Ql (U) Negative Normal Comprehens alee Internal Medicine; [facility] Work Phone: Comment on above: Test(s) 280361-FVVP- CoV-2 Semi-Quant Total Ab; 670402-RTPH-JhX-1 Zana Ab Interp; 945980-KVJF-RrF-7 Antibody, IgGhas not been FDA cleared or approved. This test hasbeen authorized by FDA under an Emergency Use Authorization(EUA). This test is only authorized for the duration of thedeclaration that circumstances exist justifying the authorizationof emergency use of in vitro diagnostics for detection and/ordiagnosis of COVID-19 under Section 564(b)(1) of the Act, 21U.S.C. 360bbb-3(b)(1), unless the authorization is terminated orrevoked sooner. This test has been authorized only for detectingthe presence of antibodies against SARS-CoV-2, not for any otherviruses or pathogens.PATIENT WAS FASTINGPERFORMED BY: Hail Varsity Wkkfpt8839 [facility] [id number] Hemoglobin Ql (U) Negative Normal Compreh ensive Internal Medicine; [facility] Work Phone: Comment on above: Test(s) 592345-DAJS- CoV-2 Semi-Quant Total Ab; 832036-GBZR-OsF-6 Zana Ab Interp; 330750-XSER-OwH-2 Antibody, IgGhas not been FDA cleared or approved. This test hasbeen authorized by [facility] under an Emergency Use Authorization(EUA). This test is only authorized for the duration of thedeclaration that circumstances exist justifying the authorizationof emergency use of in vitro diagnostics for detection and/ordiagnosis of COVID-19 under Section 564(b)(1) of the Act, 21U.S.C. 360bbb-3(b)(1), unless the authorization is terminated orrevoked sooner. This test has been authorized only for detectingthe presence of antibodies against SARS-CoV-2, not for any otherviruses or pathogens.PATIENT WAS FASTINGPERFORMED BY: Kapitall Ulvdam5955 [facility]SocialUNC [facility] [id number] Ketones Ql (U) Negative Normal Comprehens alee Internal Medicine; [facility] Work Phone: Comment on above: Test(s) 211115-UBGU- CoV-2 Semi-Quant Total Ab; 469608-CBYS-KtC-5 Zana Ab Interp; 063636-YLAR-XrF-2 Antibody, IgGhas not been FDA cleared or approved. This test hasbeen authorized by [facility] under an Emergency Use Authorization(EUA). This test is only authorized for the duration of thedeclaration that circumstances exist justifying the authorizationof emergency use of in vitro diagnostics for detection and/ordiagnosis of COVID-19 under Section 564(b)(1) of the Act, 21U.S.C. 360bbb-3(b)(1), unless the authorization is terminated orrevoked sooner. This test has been authorized only for detectingthe presence of antibodies against SARS-CoV-2, not for any otherviruses or pathogens.PATIENT WAS FASTINGPERFORMED BY: Kapitall Ltshmk4550 StatSocialUNC [facility] [id number] Leukocyte esterase Test strip Ql (U) Negative Normal [facility]; [facility] Work Phone: Comment on above: Test(s) 887673-WQZK- CoV-2 Semi-Quant Total Ab; 467860-AUIV-BhN-4 Zana Ab Interp; 931896-OMKH-UpU-8 Antibody, IgGhas not been FDA cleared or approved. This test hasbeen authorized by [facility] under an Emergency Use Authorization(EUA). This test is only authorized for the duration of thedeclaration that circumstances exist justifying the authorizationof emergency use of in vitro diagnostics for detection and/ordiagnosis of COVID-19 under Section 564(b)(1) of the Act, 21U.S.C. 360bbb-3(b)(1), unless the authorization is terminated orrevoked sooner. This test has been authorized only for detectingthe presence of antibodies against SARS-CoV-2, not for any otherviruses or pathogens.PATIENT WAS FASTINGPERFORMED BY: Hail VarsityLincoln County Medical CenterKsxzww5501 [facility] [id number] Microscopic observation LM Nom (Urine sed) MICRON Normal [facility]; [facility] Work Phone: Comment on above: Microscopic follows if indicated. Test(s) 320436-WXWF- CoV-2 Semi-Quant Total Ab; 955054-GQXR-GeK-3 Zana Ab Interp; 967062-OSGT-YpS-4 Antibody, IgGhas not been FDA cleared or approved. This test hasbeen authorized by FDA under an Emergency Use Authorization(EUA). This test is only authorized for the duration of thedeclaration that circumstances exist justifying the authorizationof emergency use of in vitro diagnostics for detection and/ordiagnosis of COVID-19 under Section 564(b)(1) of the Act, 21U.S.C. 360bbb-3(b)(1), unless the authorization is terminated orrevoked sooner. This test has been authorized only for detectingthe presence of antibodies against SARS-CoV-2, not for any otherviruses or pathogens.PATIENT WAS FASTINGPERFORMED BY: Kapitall Rydoau9230 [facility] [id number] Microscopic observation LM Nom (Urine sed) See below: Normal [facility]; [facility] Work Phone: Comment on above: Microscopic was desire cated and was performed. Test(s) 547275-VQXD- CoV-2 Semi-Quant Total Ab; 842918-NXKV-JxW-8 Zana Ab Interp; 695365-LUBI-HvG-9 Antibody, IgGhas not been FDA cleared or approved. This test hasbeen authorized by [facility] under an Emergency Use Authorization(EUA). This test is only authorized for the duration of thedeclaration that circumstances exist justifying the authorizationof emergency use of in vitro diagnostics for detection and/ordiagnosis of COVID-19 under Section 564(b)(1) of the Act, 21U.S.C. 360bbb-3(b)(1), unless the authorization is terminated orrevoked sooner. This test has been authorized only for detectingthe presence of antibodies against SARS-CoV-2, not for any otherviruses or pathogens.PATIENT WAS FASTINGPERFORMED BY: CB LabMymich[facility] Gladwin6370 [facility] [id number] Nitrite Ql (U) Negative Normal Comprehens alee Internal Medicine; [facility] Work Phone: Comment on above: Test(s) 281658-NTYT- CoV-2 Semi-Quant Total Ab; 099280-MWRF-JpC-9 Zana Ab Interp; 557382-DTSL-SgB-2 Antibody, IgGhas not been FDA cleared or approved. This test hasbeen authorized by [facility] under an Emergency Use Authorization(EUA). This test is only authorized for the duration of thedeclaration that circumstances exist justifying the authorizationof emergency use of in vitro diagnostics for detection and/ordiagnosis of COVID-19 under Section 564(b)(1) of the Act, 21U.S.C. 360bbb-3(b)(1), unless the authorization is terminated orrevoked sooner. This test has been authorized only for detectingthe presence of antibodies against SARS-CoV-2, not for any otherviruses or pathogens.PATIENT WAS FASTINGPERFORMED BY: Hail VarsityLincoln County Medical CenterYtllag7165 [facility] [id number] pH (U) 7.0 [pH] Normal 5.0-7.5 [facility]; [facility] Work Phone: Comment on above: Test(s) 606279-LDWA- CoV-2 Semi-Quant Total Ab; 904253-ISEP-KsS-3 Zana Ab Interp; 740649-FBFK-ZoW-8 Antibody, IgGhas not been FDA cleared or approved. This test hasbeen authorized by [facility] under an Emergency Use Authorization(EUA). This test is only authorized for the duration of thedeclaration that circumstances exist justifying the authorizationof emergency use of in vitro diagnostics for detection and/ordiagnosis of COVID-19 under Section 564(b)(1) of the Act, 21U.S.C. 360bbb-3(b)(1), unless the authorization is terminated orrevoked sooner. This test has been authorized only for detectingthe presence of antibodies against SARS-CoV-2, not for any otherviruses or pathogens.PATIENT WAS FASTINGPERFORMED BY: [facility]6370 [facility] [id number] Protein Ql (U) Negative Normal Comprehens alee Internal Medicine; [facility] Work Phone: Comment on above: Test(s) 173381-KYLU- CoV-2 Semi-Quant Total Ab; 091261-MOEN-IyY-3 Zana Ab Interp; 818127-RKXG-WyC-2 Antibody, IgGhas not been FDA cleared or approved. This test hasbeen authorized by FDA under an Emergency Use Authorization(EUA). This test is only authorized for the duration of thedeclaration that circumstances exist justifying the authorizationof emergency use of in vitro diagnostics for detection and/ordiagnosis of COVID-19 under Section 564(b)(1) of the Act, 21U.S.C. 360bbb-3(b)(1), unless the authorization is terminated orrevoked sooner. This test has been authorized only for detectingthe presence of antibodies against SARS-CoV-2, not for any otherviruses or pathogens.PATIENT WAS FASTINGPERFORMED BY: BOLD GuidanceMymichigan Medical Center Gladwin6370 [facility] [id number] Specific gravity (U) [Rel density] 1.007 1 Normal 1.005-1.03 0 [facility]; [facility] Work Phone: Comment on above: Test(s) 875209-KKPN- CoV-2 Semi-Quant Total Ab; 647562-IWSZ-QdC-9 Zana Ab Interp; 503361-TIDT-SyQ-7 Antibody, IgGhas not been FDA cleared or approved. This test hasbeen authorized by [facility] under an Emergency Use Authorization(EUA). This test is only authorized for the duration of thedeclaration that circumstances exist justifying the authorizationof emergency use of in vitro diagnostics for detection and/ordiagnosis of COVID-19 under Section 564(b)(1) of the Act, 21U.S.C. 360bbb-3(b)(1), unless the authorization is terminated orrevoked sooner. This test has been authorized only for detectingthe presence of antibodies against SARS-CoV-2, not for any otherviruses or pathogens.PATIENT WAS FASTINGPERFORMED BY: LabMym[facility] Gladwin6370 [facility] [id number] Urobilinogen (U) [Mass/Vol] 0.2 mg/dL Normal 0.2-1.0 [facility]; [facility] Work Phone: Comment on above: Test(s) 615644-YEAM- CoV-2 Semi-Quant Total Ab; 232168-NDEZ-IrJ-7 Zana Ab Interp; 208319-AXEV-HbW-9 Antibody, IgGhas not been FDA cleared or approved. This test hasbeen authorized by [facility] under an Emergency Use Authorization(EUA). This test is only authorized for the duration of thedeclaration that circumstances exist justifying the authorizationof emergency use of in vitro diagnostics for detection and/ordiagnosis of COVID-19 under Section 564(b)(1) of the Act, 21U.S.C. 360bbb-3(b)(1), unless the authorization is terminated orrevoked sooner. This test has been authorized only for detectingthe presence of antibodies against SARS-CoV-2, not for any otherviruses or pathogens.PATIENT WAS FASTINGPERFORMED BY: Hail VarsityOcean Medical CenterMnulfm1671 [facility] [id number] CBC W/AUTO DIFF WBC (16614)O rdered By: Director Business Intelligence on 08-02-2020 Basophils (Bld) [#/Vol] 0.1 {x10E3/uL} Normal 0.0-0.2 [facility] Work Phone: Comment on above: PATIENT WAS FASTINGP ERFORMED BY: Hail VarsityOcean Medical CenterVvqihf1478 [facility] [id number] Basophils (Bld) [#/Vol] 0.1 10*3/uL Normal 0.0-0.2 [facility]; [facility] Work Phone: Comment on above: PATIENT WAS FASTINGP ERFORMED BY: Hail VarsityOcean Medical CenterBcdioa4663 [facility] [id number] Basophils/100 WBC (Bld) 1 % Normal [facility] Work Phone: Comment on above: PATIENT WAS FASTINGP ERFORMED BY: [facility] [facility] [id number] Eosinophils (Bld) [#/Vol] 0.7 {x10E3/uL} Abnormal 0.0-0.4 [facility] Work Phone: Comment on above: PATIENT WAS FASTINGP ERFORMED BY: [facility]6370 [facility] [id number] Eosinophils (Bld) [#/Vol] 0.7 10*3/uL Abnormal 0.0-0.4 [facility]; [facility] Work Phone: Comment on above: PATIENT WAS FASTINGP ERFORMED BY: DARREN [facility] Mqxeoh0850 [facility] [id number] Eosinophils/100 WBC (Bld) 12 % Normal [facility] Work Phone: Comment on above: PATIENT WAS FASTINGP ERFORMED BY: DARREN [facility] Yqwibk5501 [facility] [id number] Erythrocyte distribution width (RBC) [Ratio] 14.0 % Normal 11.6-15.4 [facility] Work Phone: Comment on above: PATIENT WAS FASTINGP ERFORMED BY: [facility]6370 [facility] [id number] Hematocrit (Bld) [Volume fraction] 44.5 % Normal 37.5-51.0 [facility] Work Phone: Comment on above: PATIENT WAS FASTINGP ERFORMED BY: [facility]6370 [facility] [id number] Hemoglobin (Bld) [Mass/Vol] 14.9 g/dL Normal 13.0-17.7 [facility] Work Phone: Comment on above: PATIENT WAS FASTINGP ERFORMED BY: LabMym[facility] Gladwin6370 [facility] [id number] Immature granulocytes (Bld) [#/Vol] 0.1 {x10E3/uL} Normal 0.0-0.1 [facility] Work Phone: Comment on above: PATIENT WAS FASTINGP ERFORMED BY: [facility] [place] [id number] Immature granulocytes (Bld) [#/Vol] 0.1 10*3/uL Normal 0.0-0.1 [facility]; [facility] Work Phone: Comment on above: PATIENT WAS FASTINGP ERFORMED BY: [facility] [facility] [place] [id number] Immature granulocytes/100 WBC (Bld) 1 % Normal [facility] Work Phone: Comment on above: PATIENT WAS FASTINGP ERFORMED BY: [facility] Ipfwbh[address] [facility]in [place] [id number] Lymphocytes (Bld) [#/Vol] 1.6 {x10E3/uL} Normal 0.7-3.1 [facility] Work Phone: Comment on above: PATIENT WAS FASTINGP ERFORMED BY: [place] 7115970 [facility] [id number] Lymphocytes (Bld) [#/Vol] 1.6 10*3/uL Normal 0.7-3.1 [facility]; [facility] Work Phone: Comment on above: PATIENT WAS FASTINGP ERFORMED BY: [facility] [facility]in [place] [id number] Lymphocytes/100 WBC (Bld) 29 % Normal [facility] Work Phone: Comment on above: PATIENT WAS FASTINGP ERFORMED BY: [facility] [facility] [id number] MCH (RBC) [Entitic mass] 29.6 pg Normal 26.6-33.0 [facility] Work Phone: Comment on above: PATIENT WAS FASTINGP ERFORMED BY: [facility] [facility] [place] [id number] MCHC (RBC) [Mass/Vol] 33.5 g/dL Normal 31.5-35.7 [facility] Work Phone: Comment on above: PATIENT WAS FASTINGP ERFORMED BY: DARREN AnnKind[facility] Whonst6644 [address] RoadDublin [place] [id number] MCV (RBC) [Entitic vol] 89 fL Normal 79-97 [facility] Work Phone: Comment on above: PATIENT WAS FASTINGP ERFORMED BY: DARREN [facility]Kind[facility] Hbhtom3328 [address] RoadDublin [place] [id number] Monocytes (Bld) [#/Vol] 0.4 {x10E3/uL} Normal 0.1-0.9 [facility] Work Phone: Comment on above: PATIENT WAS FASTINGP ERFORMED BY: [facility] Hjetye6[address] RoadDublin [place] [id number] Monocytes (Bld) [#/Vol] 0.4 10*3/uL Normal 0.1-0.9 [facility]; [facility] Work Phone: Comment on above: PATIENT WAS FASTINGP ERFORMED BY: [facility]Kind[facility] Qovwzj0561 [address] RoadDublin [place] [id number] Monocytes/100 WBC (Bld) 8 % Normal [facility] Work Phone: Comment on above: PATIENT WAS FASTINGP ERFORMED BY: [facility] Iupflr4746 [address] RoadDublin [place] [id number] Neutrophils (Bld) [#/Vol] 2.8 {x10E3/uL} Normal 1.4-7.0 [facility] Work Phone: Comment on above: PATIENT WAS FASTINGP ERFORMED BY: [facility] Gkvces8466 [address] RoadDublin [place] [id number] Neutrophils (Bld) [#/Vol] 2.8 10*3/uL Normal 1.4-7.0 [facility]; [facility] Work Phone: Comment on above: PATIENT WAS FASTINGP ERFORMED BY: [facility] Bgqpvf6814 [address] RoadDublin [place] [id number] Neutrophils/100 WBC (Bld) 49 % Normal [facility] Work Phone: Comment on above: PATIENT WAS FASTINGP ERFORMED BY: CB [facility] Igadvr0779 [address] RoadDublin [place] [id number] Platelets (Bld) [#/Vol] 297 {x10E3/uL} Normal 150-450 [facility] Work Phone: Comment on above: PATIENT WAS FASTINGP ERFORMED BY: CB [facility] Xevbxy3723 [address] RoadDublin [place] [id number] Platelets (Bld) [#/Vol] 297 10*3/uL Normal 150-450 [facility]; [facility] Work Phone: Comment on above: PATIENT WAS FASTINGP ERFORMED BY: CB [facility] Wjbkat2831 [address] RoadDublin [place] [id number] RBC (Bld) [#/Vol] 5.03 {x10E6/uL} Normal 4.14-5.80 [facility] Internal Medicine Work Phone: Comment on above: PATIENT WAS FASTINGP ERFORMED BY: CB [facility] Oqvree15[address] RoadDublin [place] [id number] RBC (Bld) [#/Vol] 5.03 10*6/uL Normal 4.14-5.80 [facility] Internal Medicine; [facility] Work Phone: Comment on above: PATIENT WAS FASTINGP ERFORMED BY: [facility] Txzjax7173 [address] RoadDublin [place] [id number] WBC (Bld) [#/Vol] 5.7 {x10E3/uL} Normal 3.4-10.8 [facility] Internal Medicine Work Phone: Comment on above: PATIENT WAS FASTINGP ERFORMED BY: CB [facility] Cekikk9734 [address] RoadDublin [place] [id number] WBC (Bld) [#/Vol] 5.7 10*3/uL Normal 3.4-10.8 [facility] Internal Medicine; [facility] Work Phone: Comment on above: PATIENT WAS FASTINGP ERFORMED BY: CB [facility] Yrpqlg8978 [address] RoadDublin [place] [id number] LIPID PANEL (41604)Ordered B y: Director Business Intelligence on 08-02-2020 Cholesterol [Mass/Vol] 188 mg/dL Normal 100-199 [facility] Work Phone: Comment on above: PATIENT WAS FASTINGP ERFORMED BY: DARREN Abhijeet [place]head6370 [facility] [id number] Cholesterol in HDL [Mass/Vol] 40 mg/dL Normal [facility] Work Phone: Comment on above: PATIENT WAS FASTINGP ERFORMED BY: DARREN Jhonyroxie Ahrpsz0705 [facility] [id number] Cholesterol in LDL/Cholesterol in HDL [Mass ratio] 3.2 {ratio} Normal 0.0-3.6 [facility] Work Phone: Comment on above: LDL/HDL Ratio Men Wo men 1/2 Avg.Risk 1.0 1.5 Avg.Risk 3.6 3.2 2X Avg.Risk 6.2 5.0 3X Avg.Risk 8.0 6.1 PATIENT WAS FASTINGP ERFORMED BY: DARREN Jhonyroxie Iamtdy7849 [facility] [id number] Triglyceride [Mass/Vol] 119 mg/dL Normal 0-149 [facility] Work Phone: Comment on above: PATIENT WAS FASTINGP ERFORMED BY: DARREN Jhonyroxie Ofmtew3800 [facility] [id number] LIPID PANEL (31678) 126 mg/dL Abnormal 0-99 Compr ehensive Internal Medicine Work Phone: Comment on above: PATIENT WAS FASTINGP ERFORMED BY: DARREN Jhonyroxie Pudrgv6063 [facility] [id number] LIPID PANEL (12785) 22 mg/dL Normal 5-40 Compr ehensive Internal Medicine Work Phone: Comment on above: PATIENT WAS FASTINGP ERFORMED BY: DARREN Jhonyroxie Uirjkt7730 [facility] [id number] LIPID PANEL (55739) 3.2 {ratio} Normal 0.0-3.6 Comp rehensive Internal Medicine; [facility] Work Phone: Comment on above: LDL/HDL Ratio Men Wo men 1/2 Avg.Risk 1.0 1.5 Avg.Risk 3.6 3.2 2X Avg.Risk 6.2 5.0 3X Avg.Risk 8.0 6.1 PATIENT WAS FASTINGP ERFORMED BY: DARREN [facility] Bcymga7278 [address] RoadDublin [place] [id number] METABOLIC PANEL, COMPREHENSI VE (88508)Ordered By: Director Business Intelligence on 08-02-2020 Albumin [Mass/Vol] 4.0 g/dL Normal 3.8-4.8 [facility] Internal Medicine Work Phone: Comment on above: PATIENT WAS FASTINGP ERFORMED BY: DARREN [facility] Lzkskn7893 [address] RoadDublin [place] [id number] Albumin/Globulin [Mass ratio] 1.7 {ratio} Normal 1.2-2.2 [facility] Work Phone: Comment on above: PATIENT WAS FASTINGP ERFORMED BY: DARREN [facility] Gxzveq3705 [address] Roadblin [place] [id number] ALP [Catalytic activity/Vol] 76 [iU]/L Normal 39-117 [facility] Work Phone: Comment on above: PATIENT WAS FASTINGP ERFORMED BY: DARREN [facility] Obnsjr4[address] RoadDublin [place] [id number] ALP [Catalytic activity/Vol] 76 U/L Normal 39-117 [facility]; [facility] Work Phone: Comment on above: PATIENT WAS FASTINGP ERFORMED BY: [facility] Rslibx1204 [address] RoadDublin [place] [id number] ALT [Catalytic activity/Vol] 18 [iU]/L Normal 0-44 [facility] Work Phone: Comment on above: PATIENT WAS FASTINGP ERFORMED BY: [facility] Rovbhy3965 [address] RoadDublin [place] [id number] ALT [Catalytic activity/Vol] 18 U/L Normal 0-44 [facility]; [facility] Work Phone: Comment on above: PATIENT WAS FASTINGP ERFORMED BY: DARREN [facility] Rgewmc6740 [address] RoadDublin [place] [id number] AST [Catalytic activity/Vol] 20 [iU]/L Normal 0-40 [facility] Internal Medicine Work Phone: Comment on above: PATIENT WAS FASTINGP ERFORMED BY: [facility] Icekzw0150 [address] RoadDublin [place] [id number] AST [Catalytic activity/Vol] 20 U/L Normal 0-40 [facility]; [facility] Internal Medicine Work Phone: Comment on above: PATIENT WAS FASTINGP ERFORMED BY: [facility] Pkypxa0981 [address] RoadDublin [place] [id number] Bilirubin [Mass/Vol] 0.2 mg/dL Normal 0.0-1.2 [facility] Internal Medicine Work Phone: Comment on above: PATIENT WAS FASTINGP ERFORMED BY: [facility] Frwqif3152 [address] RoadDublin [place] [id number] Calcium [Mass/Vol] 9.6 mg/dL Normal 8.6-10.2 [facility] Internal Medicine Work Phone: Comment on above: PATIENT WAS FASTINGP ERFORMED BY: [facility] Aobnxx6587 [address] RoadDublin [place] [id number] Chloride [Moles/Vol] 101 mmol/L Normal 96-106 [facility] Internal Medicine Work Phone: Comment on above: PATIENT WAS FASTINGP ERFORMED BY: [facility] Ktqsiw3774 [address] RoadDublin [place] [id number] CO2 [Moles/Vol] 27 mmol/L Normal 20-29 [facility] Internal Medicine Work Phone: Comment on above: PATIENT WAS FASTINGP ERFORMED BY: [facility] Wajdou7587 [address] RoadDublin [place] [id number] Creatinine [Mass/Vol] 1.14 mg/dL Normal 0.76-1.27 [facility] Internal Medicine Work Phone: Comment on above: PATIENT WAS FASTINGP ERFORMED BY: [facility] Wdtsbd5200 [address] RoadDublin [place] [id number] GFR/1.73 sq M predicted among blacks CKD-EPI (S/P/Bld) [Vol rate/Area] 78 mL/min/1.73 Normal [facility] Work Phone: Comment on above: PATIENT WAS FASTINGP ERFORMED BY: DARREN [facility] Xdxysf0426 [address] RoadDublin [place] [id number] GFR/1.73 sq M predicted among non-blacks CKD-EPI (S/P/Bld) [Vol rate/Area] 67 mL/min/1.73 Normal [facility] Work Phone: Comment on above: PATIENT WAS FASTINGP ERFORMED BY: DARREN [facility] Uwpfbm3937 [address] Roadblin [place] [id number] Globulin (S) [Mass/Vol] 2.4 g/dL Normal 1.5-4.5 [facility] Work Phone: Comment on above: PATIENT WAS FASTINGP ERFORMED BY: [facility] Qrwtbp2194 C[address] RoadUnc Healthin [place] [id number] Glucose [Mass/Vol] 93 mg/dL Normal 65-99 [facility] Internal Medicine Work Phone: Comment on above: PATIENT WAS FASTINGP ERFORMED BY: [facility] Lsksug23[address] [facility] [place] [id number] Potassium [Moles/Vol] 4.8 mmol/L Normal 3.5-5.2 [facility] Internal Medicine Work Phone: Comment on above: PATIENT WAS FASTINGP ERFORMED BY: [facility] Okytsi[address] [facility] [place] [id number] Protein [Mass/Vol] 6.4 g/dL Normal 6.0-8.5 [facility] Internal Medicine Work Phone: Comment on above: PATIENT WAS FASTINGP ERFORMED BY: [facility] Jupeil0498 [address] [facility] HospitalDublin [place] [id number] Sodium [Moles/Vol] 140 mmol/L Normal 134-144 [facility] Internal Medicine Work Phone: Comment on above: PATIENT WAS FASTINGP ERFORMED BY: [facility] Jhaqny27[address] [facility] [place] [id number] Urea nitrogen [Mass/Vol] 17 mg/dL Normal 8-27 [facility] Work Phone: Comment on above: PATIENT WAS FASTINGP ERFORMED BY: DARREN MarissaMiguelito BatistaYjrmum1163 [facility]asSaint [facility] Hospital [id number] Urea nitrogen/Creatinine [Mass ratio] 15 mg/mg Normal 10-24 [facility] Work Phone: Comment on above: PATIENT WAS FASTINGP ERFORMED BY: DARREN LabCoroxie BatistaUkihnn0116 [facility] [id number] MICROALBUMINOrdered By: [employer] em Lockstitch Zipper Setter on 08-02-2020 Albumin DL <= 20 mg/L (U) [Mass/Vol] mg/dL Normal Comprehensiv e Internal Medicine Work Phone: Comment on above: Verified by repeat analysis PATIENT WAS FASTINGP ERFORMED BY: DARREN Batistalin6370 [facility] [id number] Albumin DL <= 20 mg/L (U) [Mass/Vol] mg/dL Normal Comprehens[facility] e [facility]; [facility] Work Phone: Comment on above: Verified by repeat analysis PATIENT WAS FASTINGP ERFORMED BY: DARREN Batistalin6370 [facility] [id number] Albumin/Creatinine (U) [Mass ratio] <8 Normal 0-29 [facility] Work Phone: Comment on above: Normal: 0 - 29 Moder ately increased: 30 - 300 Severely increased: >300 Please note reference interval change PATIENT WAS FASTINGP ERFORMED BY: DARREN LabNhroxie BatistaYdsaqp0113 [facility] [id number] Creatinine (U) [Mass/Vol] 36.3 mg/dL Normal [facility] Work Phone: Comment on above: PATIENT WAS FASTINGP ERFORMED BY: DARREN Batistalin6370 [facility] [id number] TSH ([id number])Ordered By: [employer] m Lockstitch Zipper Setter on 08-02-2020 TSH Qn 2.590 {uIU/mL} Normal 0.450-4.50 0 [facility] Work Phone: Comment on above: PATIENT WAS FASTINGP ERFORMED BY: DARREN Abhijeet Zhuywn0399 [address] RoadDublin [place] [id number] URINALYSIS, W/ MICRO ([id number]) Ordered By: Director Business Intelligence on 08-02-2020 Appearance (U) Clear Normal Comprehens alee Internal Medicine Work Phone: Comment on above: PATIENT WAS FASTINGP ERFORMED BY: DARREN Jhonyroxie aBtistaJjocav2055 [address] RoadDublin [place] [id number] Bilirubin Ql (U) Negative Normal Comprehe nsive Internal Medicine Work Phone: Comment on above: PATIENT WAS FASTINGP ERFORMED BY: DARREN Jhonyroxie BatistaVqndsi1048 [address] RoadDublin [place] [id number] Bilirubin Ql (U) Negative Normal Comprehe nsive Internal Medicine; [facility] Work Phone: Comment on above: PATIENT WAS FASTINGP ERFORMED BY: DARREN AnnLondonroxie BatistaFzauht7879 [address] RoadDublin [place] [id number] Color (U) Yellow Normal [facility] Work Phone: Comment on above: PATIENT WAS FASTINGP ERFORMED BY: DARREN MarissaMiguelito BatistaEzctin9109 [address] RoadDublin [place] [id number] Glucose Ql (U) Negative Normal Comprehens alee Internal Medicine Work Phone: Comment on above: PATIENT WAS FASTINGP ERFORMED BY: DARREN Batistalin6370 [address] RoadDublin [place] [id number] Glucose Ql (U) Negative Normal Comprehens alee [facility]; [facility] Work Phone: Comment on above: PATIENT WAS FASTINGP ERFORMED BY: DARREN MarissaMiguelito BatistaZephqs5531 [address] RoadDublin [place] [id number] Hemoglobin Ql (U) Negative Normal Compreh ensive Internal Medicine Work Phone: Comment on above: PATIENT WAS FASTINGP ERFORMED BY: DARREN Batistalin6370 [address] RoadDublin [place] [id number] Hemoglobin Ql (U) Negative Normal Compreh ensive Internal Medicine; [facility] Work Phone: Comment on above: PATIENT WAS FASTINGP ERFORMED BY: DARREN Whitehead6370 [address] RoadDublin [place] [id number] Ketones Ql (U) Negative Normal Comprehens alee Internal Medicine Work Phone: Comment on above: PATIENT WAS FASTINGP ERFORMED BY: DARREN Whitehead6370 [address] RoadDublin [place] [id number] Ketones Ql (U) Negative Normal Comprehens alee [facility]; [facility] Work Phone: Comment on above: PATIENT WAS FASTINGP ERFORMED BY: DARREN Whitehead6370 [address] RoadDublin [place] [id number] Leukocyte esterase Test strip Ql (U) Negative Normal [facility] Work Phone: Comment on above: PATIENT WAS FASTINGP ERFORMED BY: DARREN Whitehead6370 [address] RoadDublin [place] [id number] Leukocyte esterase Test strip Ql (U) Negative Normal [facility]; [facility] Work Phone: Comment on above: PATIENT WAS FASTINGP ERFORMED BY: DARREN Whitehead6370 [address] RoadDublin [place] [id number] Microscopic observation LM Nom (Urine sed) MICRON Normal [facility] Work Phone: Comment on above: Microscopic follows if indicated. PATIENT WAS FASTINGP ERFORMED BY: DARREN Whitehead6370 [address] RoadDublin [place] [id number] Microscopic observation LM Nom (Urine sed) See below: Normal [facility] Work Phone: Comment on above: Microscopic was desire cated and was performed. PATIENT WAS FASTINGP ERFORMED BY: DARREN Batistalin6370 [address] RoadDublin [place] [id number] Nitrite Ql (U) Negative Normal Comprehens alee Internal Medicine Work Phone: Comment on above: PATIENT WAS FASTINGP ERFORMED BY: DARREN Batistalin6370 [address] RoadDublin [place] [id number] Nitrite Ql (U) Negative Normal Comprehens alee [facility]; [facility] Work Phone: Comment on above: PATIENT WAS FASTINGP ERFORMED BY: DARREN Batistalin6[address] [facility] [place] [id number] pH (U) 6.5 [pH] Normal 5.0-7.5 [facility] Work Phone: Comment on above: PATIENT WAS FASTINGP ERFORMED BY: DARREN Batistalin6370 [address] Roadblin [place] [id number] Protein Ql (U) Negative Normal Comprehens alee Internal Medicine Work Phone: Comment on above: PATIENT WAS FASTINGP ERFORMED BY: DARREN Whitehead6[address] [place] [id number] Protein Ql (U) Negative Normal Comprehens alee [facility]; [facility] Work Phone: Comment on above: PATIENT WAS FASTINGP ERFORMED BY: DARREN Whitehead[address] [facility] [id number] Specific gravity (U) [Rel density] 1.008 1 Normal 1.005-1.03 0 [facility] Internal Medicine Work Phone: Comment on above: PATIENT WAS FASTINGP ERFORMED BY: DARREN Batistalin6370 [address] [facility] [id number] Urobilinogen (U) [Mass/Vol] 0.2 mg/dL Normal 0.2-1.0 [facility]; [facility] Work Phone: Comment on above: PATIENT WAS FASTINGP ERFORMED BY: DARREN LabMiguelito BatistaYxhpsd1126 [address] [facility] Centerin [place] [id number] Urobilinogen Test strip (U) [Mass/Vol] 0.2 mg/dL Normal 0.2-1.0 [facility] Work Phone: Comment on above: PATIENT WAS FASTINGP ERFORMED BY: DARREN LabLondon Nlxlka5701 [address] [facility] Centerin [place] [id number] HEPATIC FUNCTION PANEL ([id number] [id number])Ordered By: Director Business Intelligence on 11-25-2019 Albumin [Mass/Vol] 4.3 g/dL Normal 3.8-4.8 [facility] Internal Medicine Work Phone: Comment on above: Please note refere nce interval change PATIENT WAS FASTINGP ERFORMED BY: CB [facility] Awehyb9409 [address] RoadDublin [place] [id number] ALP [Catalytic activity/Vol] 81 [iU]/L Normal 39-117 [facility] Work Phone: Comment on above: PATIENT WAS FASTINGP ERFORMED BY: CB [facility] Shrnwl1528 [address] RoadDublin [place] [id number] ALP [Catalytic activity/Vol] 81 U/L Normal 39-117 [facility]; [facility] Work Phone: Comment on above: PATIENT WAS FASTINGP ERFORMED BY: CB [facility] Tzqkwe7273 [address] RoadDublin [place] [id number] ALT [Catalytic activity/Vol] 22 [iU]/L Normal 0-44 [facility] Work Phone: Comment on above: PATIENT WAS FASTINGP ERFORMED BY: CB [facility] Skjope7442 [address] RoadDublin [place] [id number] ALT [Catalytic activity/Vol] 22 U/L Normal 0-44 [facility]; [facility] Work Phone: Comment on above: PATIENT WAS FASTINGP ERFORMED BY: CB [facility] Rdixwc5240 [address] RoadDublin [place] [id number] AST [Catalytic activity/Vol] 25 [iU]/L Normal 0-40 [facility] Work Phone: Comment on above: PATIENT WAS FASTINGP ERFORMED BY: CB [facility] Rzjewi8124 [address] RoadDublin [place] [id number] AST [Catalytic activity/Vol] 25 U/L Normal 0-40 [facility]; [facility] Work Phone: Comment on above: PATIENT WAS FASTINGP ERFORMED BY: CB [facility] Nnojda1854 [address] RoadDublin [place] [id number] Bilirubin [Mass/Vol] 0.3 mg/dL Normal 0.0-1.2 [facility] Work Phone: Comment on above: PATIENT WAS FASTINGP ERFORMED BY: DARREN [facility] Nkxawn4849 [address] RoadDublin [place] [id number] Bilirubin.direct [Mass/Vol] 0.11 mg/dL Normal 0.00-0.40 [facility] Work Phone: Comment on above: PATIENT WAS FASTINGP ERFORMED BY: CB [facility] Mvrspw3251 [address] RoadDublin [place] [id number] Protein [Mass/Vol] 6.7 g/dL Normal 6.0-8.5 [facility] Internal Medicine Work Phone: Comment on above: PATIENT WAS FASTINGP ERFORMED BY: DARREN [facility] Nzlngp8950 [address] RoadDublin [place] [id number] LIPID PANEL ([id number])Ordered B y: Director Business Intelligence on 11-25-2019 Cholesterol [Mass/Vol] 139 mg/dL Normal 100-199 [facility] Work Phone: Comment on above: PATIENT WAS FASTINGP ERFORMED BY: [facility] Iawzza0273 [address] RoadDublin [place] [id number] Cholesterol in HDL [Mass/Vol] 44 mg/dL Normal [facility] Work Phone: Comment on above: PATIENT WAS FASTINGP ERFORMED BY: [facility] Jwmuci4534 [address] [facility] [place] [id number] Cholesterol in LDL [Mass/Vol] 69 mg/dL Normal 0-99 [facility] Work Phone: Comment on above: PATIENT WAS FASTINGP ERFORMED BY: [facility] Pdlnjs6345 [address] [facility] [place] [id number] Cholesterol in LDL/Cholesterol in HDL [Mass ratio] 1.6 {ratio} Normal 0.0-3.6 [facility] Work Phone: Comment on above: LDL/HDL Ratio Men Wo men 1/2 Avg.Risk 1.0 1.5 Avg.Risk 3.6 3.2 2X Avg.Risk 6.2 5.0 3X Avg.Risk 8.0 6.1 PATIENT WAS FASTINGP ERFORMED BY: [facility]6370 [facility] [id number] Cholesterol in VLDL [Mass/Vol] 26 mg/dL Normal 5-40 [facility] Work Phone: Comment on above: PATIENT WAS FASTINGP ERFORMED BY: [facility]6370 [facility] [id number] Triglyceride [Mass/Vol] 129 mg/dL Normal 0-149 [facility] Work Phone: Comment on above: PATIENT WAS FASTINGP ERFORMED BY: [facility]6370 [facility] [id number] CBC W/AUTO DIFF WBC (93602)O rdered By: Director Business Intelligence on 09-22-2019 Basophils (Bld) [#/Vol] 0.1 {x10E3/uL} Normal 0.0-0.2 [facility] Work Phone: Comment on above: Test(s) 029552-GTA-Z ; 384664-QHQ-O; 488706-OAH-X; 036030-Wvbhtkxigfgft; 522564-Ohfrdeusywf, Total; 694132-YRX-F (Total);061830-Ywzkx LDL-P; 364521-MEA Size; 378841-ZZ-CR Scorewas developed and its performance characteristics determinedby BOLD GuidanceKindred Hospital. It has not been cleared or approved by the Foodand Drug Administration.PATIENT WAS FASTINGPERFORMED BY: [address] [id number] BY: [facility]6370 [facility] [id number] Basophils (Bld) [#/Vol] 0.1 10*3/uL Normal 0.0-0.2 [facility]; [facility] Work Phone: Comment on above: Test(s) 909692-CSM-A ; 642767-MVN-S; 761568-QUU-J; 405599-Rwopzwqcsjpbq; 580966-Urvavjqyxrw, Total; 611293-QYB-M (Total);094625-Qusqv LDL-P; 669422-FDG Size; 124279-EX-UD Scorewas developed and its performance characteristics determinedby [employer]. It has not been cleared or approved by the Foodand Drug Administration.PATIENT WAS FASTINGPERFORMED BY: [employer] [id number] BY: [employer] Gsvtvf6124 [address] BoundlessLifeCare [facility] [id number] Basophils/100 WBC (Bld) 2 % Normal [facility] Work Phone: Comment on above: Test(s) 326939-OWW-T ; 550131-HBE-Y; 747657-IMQ-R; 606236-Mumiqqftuggmq; 214412-Rgeusxjtgmc, Total; 785687-EFX-C (Total);618768-Mjtpl LDL-P; 127506-NDC Size; 888844-HL-SU Scorewas developed and its performance characteristics determinedby [employer]. It has not been cleared or approved by the Foodand Drug Administration.PATIENT WAS FASTINGPERFORMED BY: [employer] [address] [id number] BY: [employer] MediaWheelUNC Health Appalachian [id number] Eosinophils (Bld) [#/Vol] 0.3 {x10E3/uL} Normal 0.0-0.4 [facility] Work Phone: Comment on above: Test(s) 473178-MIR-R ; 941460-PXR-H; 275786-XUJ-F; 485061-Zwbzrekqtnslk; 792591-Pyevzujtppe, Total; 667793-NRG-M (Total);988703-Iumhc LDL-P; 823270-ZME Size; 193611-ZJ-RP Scorewas developed and its performance characteristics determinedby [employer]. It has not been cleared or approved by the Foodand Drug Administration.PATIENT WAS FASTINGPERFORMED BY: [employer] [id number] BY: [employer]IO[employer]6370 [facility] [id number] Eosinophils (Bld) [#/Vol] 0.3 10*3/uL Normal 0.0-0.4 [facility]; [facility] Work Phone: Comment on above: Test(s) 979896-RVS-C ; 825427-OBQ-R; 668605-DXV-S; 032812-Wjzukdwqdqdxv; 166111-Zzgscnbyere, Total; 948255-NCH-Y (Total);883065-Htyas LDL-P; 612651-PUT Size; 692865-YJ-DG Scorewas developed and its performance characteristics determinedby [employer]. It has not been cleared or approved by the Foodand Drug Administration.PATIENT WAS FASTINGPERFORMED BY: Debteye[address] [place] [address] [id number] BY: [employer]70 [facility]asSaint [facility] [id number] Eosinophils/100 WBC (Bld) 6 % Normal [facility] Work Phone: Comment on above: Test(s) 008358-WHQ-G ; 863267-PDZ-Q; 600791-LHI-X; 732750-Pixjmohpavvlx; 272001-Lwfysqtnlln, Total; 627236-GNY-Z (Total);804245-Tqkyn LDL-P; 316966-WCT Size; 731993-FL-AP Scorewas developed and its performance characteristics determinedby [employer]. It has not been cleared or approved by the Foodand Drug Administration.PATIENT WAS FASTINGPERFORMED BY: [employer] [place] [address] [id number] BY: [employer]6370 [facility] [id number] Erythrocyte distribution width (RBC) [Ratio] 15.3 % Normal 12.3-15.4 [facility] Work Phone: Comment on above: Effective October 20, 2019, the RDW pediatric reference interval will be removed and the adult reference interval will be changing to: Female 11.7 - 15.4 Male 11.6 - 15.4 Test(s) 491031-HGI-M ; 052327-QQO-J; 251359-MAV-V; 452803-Urkzsskrebjqs; 561511-Basqnchuksq, Total; 899663-FZQ-M (Total);189703-Smzey LDL-P; 416077-ASN Size; 099101-IZ-QZ Scorewas developed and its performance characteristics determinedby [employer]. It has not been cleared or approved by the Foodand Drug Administration.PATIENT WAS FASTINGPERFORMED BY: [employer] [address] [id number] BY: [employer] Smjgku[address] [place] [address] [id number] Hematocrit (Bld) [Volume fraction] 42.4 % Normal 37.5-51.0 [facility] Work Phone: Comment on above: Test(s) 579679-MIC-Y ; 914028-GJT-V; 768955-NAM-Z; 880126-Njvijyttkranl; 762717-Xynqxgrvkhh, Total; 429950-VEB-G (Total);246657-Jyxvq LDL-P; 421046-UMJ Size; 727852-PF-IL Scorewas developed and its performance characteristics determinedby [employer]. It has not been cleared or approved by the Foodand Drug Administration.PATIENT WAS FASTINGPERFORMED BY: [employer] [address] [id number] BY: [employer] Ftvqzl6212 [facility] [id number] Hemoglobin (Bld) [Mass/Vol] 14.0 g/dL Normal 13.0-17.7 [facility] Work Phone: Comment on above: Test(s) 040113-YHT-I ; 801788-QXX-U; 309259-GWY-K; 287700-Ehvscggntnkxi; 757795-Tkqbygkwqhe, Total; 226400-JFY-D (Total);480910-Kfvcq LDL-P; 225285-EVQ Size; 171192-SV-XN Scorewas developed and its performance characteristics determinedby [employer]. It has not been cleared or approved by the Foodand Drug Administration.PATIENT WAS FASTINGPERFORMED BY: [employer] [address] [id number] BY: [employer] Sensibo6370 [facility]as[facility] [id number] Immature granulocytes (Bld) [#/Vol] 0.0 {x10E3/uL} Normal 0.0-0.1 [facility] Work Phone: Comment on above: Test(s) 629203-JCH-H ; 944584-ROX-F; 523731-MZS-E; 075186-Ojabjjzjerekq; 981789-Hgxdhpdkvrb, Total; 102520-PNH-W (Total);576994-Rrusq LDL-P; 521652-YVA Size; 205219-CH-RX Scorewas developed and its performance characteristics determinedby [employer]. It has not been cleared or approved by the Foodand Drug Administration.PATIENT WAS FASTINGPERFORMED BY: [employer] [address] [id number] BY: [employer] Sensibo6370 [facility]as[facility] [id number] Immature granulocytes (Bld) [#/Vol] 0.0 10*3/uL Normal 0.0-0.1 [facility]; [facility] Work Phone: Comment on above: Test(s) 000373-VUV-Z ; 032566-YNB-G; 176078-ZQT-W; 789933-Ozhymgjhctyem; 350497-Pedwzcoaqti, Total; 615405-DHO-K (Total);075696-Rxtqd LDL-P; 805224-KCY Size; 953151-VG-QJ Scorewas developed and its performance characteristics determinedby [employer]. It has not been cleared or approved by the Foodand Drug Administration.PATIENT WAS FASTINGPERFORMED BY: [employer] [address] [id number] BY: [employer]70 [facility] [id number] Immature granulocytes/100 WBC (Bld) 0 % Normal [facility] Work Phone: Comment on above: Test(s) 885972-DFQ-E ; 665693-FJF-L; 491637-CWM-S; 692394-Fztmdlbpbszob; 478885-Bcbnmdpvrbz, Total; 794339-QYO-V (Total);516518-Eyypk LDL-P; 366903-ZBP Size; 853957-HY-GI Scorewas developed and its performance characteristics determinedby [employer]. It has not been cleared or approved by the Foodand Drug Administration.PATIENT WAS FASTINGPERFORMED BY: [employer] [address] [id number] BY: [employer] Mqodeu4932 [facility] [id number] Lymphocytes (Bld) [#/Vol] 1.6 {x10E3/uL} Normal 0.7-3.1 [facility] Work Phone: Comment on above: Test(s) 885664-MNW-K ; 570430-IZJ-S; 253272-XUP-M; 561644-Uvxizwbehufmx; 152302-Unpgmjlxqcn, Total; 106638-URQ-C (Total);939068-Ujjpw LDL-P; 237764-CHM Size; 538621-LV-AB Scorewas developed and its performance characteristics determinedby [employer]. It has not been cleared or approved by the Foodand Drug Administration.PATIENT WAS FASTINGPERFORMED BY: [employer] [address] [id number] BY: Hail VarsityOcean Medical CenterDisldh8265 [facility] [id number] Lymphocytes (Bld) [#/Vol] 1.6 10*3/uL Normal 0.7-3.1 [facility]; [facility] Work Phone: Comment on above: Test(s) 037285-QDA-X ; 228113-TCI-B; 592358-DWG-S; 474133-Vmbatlecbpero; 376850-Xxeohaymtxk, Total; 390989-XZL-S (Total);045783-Szqfu LDL-P; 412085-HJQ Size; 306228-RJ-MN Scorewas developed and its performance characteristics determinedby [employer]. It has not been cleared or approved by the Foodand Drug Administration.PATIENT WAS FASTINGPERFORMED BY: [employer] [address] [id number] BY: [employer] Sensibo6370 [facility] [id number] Lymphocytes/100 WBC (Bld) 32 % Normal [facility] Work Phone: Comment on above: Test(s) 774544-SWM-H ; 350770-ENJ-O; 735755-XMR-G; 667413-Myqeoonytotmd; 041087-Nniwjmdsltj, Total; 385486-OIP-H (Total);902034-Dwpzq LDL-P; 409981-TBP Size; 129855-VJ-GE Scorewas developed and its performance characteristics determinedby [employer]. It has not been cleared or approved by the Foodand Drug Administration.PATIENT WAS FASTINGPERFORMED BY: [employer] [address] [id number] BY: [facility]70 [facility]as[facility] [id number] MCH (RBC) [Entitic mass] 29.0 pg Normal 26.6-33.0 [facility] Work Phone: Comment on above: Test(s) 367787-WZC-P ; 295224-DPS-K; 583710-AUZ-F; 170835-Yamsocjxwaxjp; 879595-Lmoqmllbkwx, Total; 084531-SJR-I (Total);333253-Kifct LDL-P; 792471-AEF Size; 856258-EH-SL Scorewas developed and its performance characteristics determinedby Most[employer]ik[employer]. It has not been cleared or approved by the Foodand Drug Administration.PATIENT WAS FASTINGPERFORMED BY: [employer] [address] [id number] BY: PredictionIOlin6370 [facility] [id number] MCHC (RBC) [Mass/Vol] 33.0 g/dL Normal 31.5-35.7 [facility] Work Phone: Comment on above: Test(s) 194467-UIF-U ; 857257-VVQ-F; 352115-XUL-T; 137450-Rwvruhosgvlnv; 374418-Rovjqpyeknz, Total; 069838-GOK-G (Total);960522-Lxivk LDL-P; 702727-XPS Size; 397183-YR-FB Scorewas developed and its performance characteristics determinedby [employer]. It has not been cleared or approved by the Foodand Drug Administration.PATIENT WAS FASTINGPERFORMED BY: [employer] [address] [id number] BY: [employer]70 [facility] [id number] MCV (RBC) [Entitic vol] 88 fL Normal 79-97 [facility] Work Phone: Comment on above: Test(s) 108583-AWG-I ; 018251-KCG-U; 462542-FRV-Q; 052893-Wqrcnvwfqkqmp; 775715-Pgnsleyxaec, Total; 314650-SYL-M (Total);965911-Olzxo LDL-P; 634596-KFF Size; 867053-NT-VA Scorewas developed and its performance characteristics determinedby [employer]. It has not been cleared or approved by the Foodand Drug Administration.PATIENT WAS FASTINGPERFORMED BY: Surfingbird[address] [id number] BY: Spire Sensibo6370 [facility] [id number] Monocytes (Bld) [#/Vol] 0.3 {x10E3/uL} Normal 0.1-0.9 [facility] Work Phone: Comment on above: Test(s) 002395-LLN-F ; 311759-VUL-T; 521650-LKX-L; 298455-Hwbidvjnpjhpp; 684198-Quyczlbvdev, Total; 523155-WGE-F (Total);444726-Llwoc LDL-P; 884530-TLV Size; 480696-GM-EP Scorewas developed and its performance characteristics determinedby [employer]. It has not been cleared or approved by the Foodand Drug Administration.PATIENT WAS FASTINGPERFORMED BY: Surfingbird[address] [id number] BY: Spire Sensibo6370 [facility] [id number] Monocytes (Bld) [#/Vol] 0.3 10*3/uL Normal 0.1-0.9 [facility]; [facility] Work Phone: Comment on above: Test(s) 782733-ZHS-C ; 643286-OBT-Q; 606069-LKE-I; 891568-Vnbvgdfysrsza; 375729-Oolmqyrvkwb, Total; 747627-EPG-B (Total);713781-Xreym LDL-P; 128886-UFS Size; 776944-UO-DJ Scorewas developed and its performance characteristics determinedby [employer]. It has not been cleared or approved by the Foodand Drug Administration.PATIENT WAS FASTINGPERFORMED BY: [employer] [address] [id number] BY: Spire Sensibo6370 [place] [facility]Life[facility] [id number] Monocytes/100 WBC (Bld) 7 % Normal [facility] Work Phone: Comment on above: Test(s) 963360-HBQ-T ; 931483-EXJ-K; 083451-VUC-Y; 872008-Bbaxychwwdgex; 166243-Zuuwwzdwmyt, Total; 764443-GPE-S (Total);722396-Ivylq LDL-P; 045058-TEE Size; 490643-LU-GW Scorewas developed and its performance characteristics determinedby [employer]. It has not been cleared or approved by the Foodand Drug Administration.PATIENT WAS FASTINGPERFORMED BY: [employer] [address] [id number] BY: PredictionIOlin6370 [facility] [id number] Neutrophils (Bld) [#/Vol] 2.6 {x10E3/uL} Normal 1.4-7.0 [facility] Work Phone: Comment on above: Test(s) 768069-YVL-Z ; 849258-XVY-V; 844784-HAJ-Z; 302997-Jbecdkfgshrtu; 569804-Cqhbnndiynw, Total; 035079-JGF-V (Total);353562-Tvill LDL-P; 951687-BSM Size; 533648-JC-DP Scorewas developed and its performance characteristics determinedby [employer]. It has not been cleared or approved by the Foodand Drug Administration.PATIENT WAS FASTINGPERFORMED BY: [employer] [address] [id number] BY: Hail VarsityLauren Ville [id number] [facility] [id number] Neutrophils (Bld) [#/Vol] 2.6 10*3/uL Normal 1.4-7.0 [facility]; [facility] Work Phone: Comment on above: Test(s) 696483-GBJ-P ; 645860-YBF-L; 538108-JOC-X; 935664-Qcafzqwvjitjr; 748936-Xpxlvypjcps, Total; 554364-QYE-B (Total);987284-Alvpo LDL-P; 354352-FDA Size; 914115-OS-XK Scorewas developed and its performance characteristics determinedby [employer]. It has not been cleared or approved by the Foodand Drug Administration.PATIENT WAS FASTINGPERFORMED BY: [employer] [address] [id number] BY: KapitallLincoln County Medical CenterLhhsim6332 [facility] [id number] Neutrophils/100 WBC (Bld) 53 % Normal [facility] Work Phone: Comment on above: Test(s) 487379-FAQ-M ; 399104-QPF-G; 919095-YTX-C; 809068-Cujjlomcnsbkk; 355563-Sddtvtphygg, Total; 671790-RUF-U (Total);358064-Olpgf LDL-P; 729139-SVW Size; 309051-TD-MS Scorewas developed and its performance characteristics determinedby [employer]. It has not been cleared or approved by the Foodand Drug Administration.PATIENT WAS FASTINGPERFORMED BY: [employer] [address] [id number] BY: Spire Sensibo6370 Netfect[facility] TechnologyLifeCare Hospit[facility] [id number] Platelets (Bld) [#/Vol] 241 {x10E3/uL} Normal 150-450 [facility] Work Phone: Comment on above: Test(s) 101915-UGY-A ; 383047-NLO-V; 792828-SGP-P; 467186-Ffgsstyahodpx; 842800-Febosvloyxw, Total; 059220-ZWI-C (Total);772973-Ntblx LDL-P; 362540-ZXL Size; 606270-UA-EE Scorewas developed and its performance characteristics determinedby [employer]. It has not been cleared or approved by the Foodand Drug Administration.PATIENT WAS FASTINGPERFORMED BY: Surfingbird[address] [id number] BY: Spire Sensibo6370 [facility]SocialUNC [facility] [id number] Platelets (Bld) [#/Vol] 241 10*3/uL Normal 150-450 [facility] Internal Medicine; [facility] Work Phone: Comment on above: Test(s) 849818-WFS-M ; 147710-TOQ-I; 755071-UMT-E; 489135-Ssyrohvwgarlx; 904331-Ifolpkhamso, Total; 392366-CKT-B (Total);411972-Izjed LDL-P; 183994-ARJ Size; 769328-UB-MB Scorewas developed and its performance characteristics determinedby [employer]. It has not been cleared or approved by the Foodand Drug Administration.PATIENT WAS FASTINGPERFORMED BY: [employer] [address] [id number] BY: Charitybuzz Xvbiaj2794 [facility] [id number] RBC (Bld) [#/Vol] 4.83 {x10E6/uL} Normal 4.14-5.80 [facility] Internal Medicine Work Phone: Comment on above: Test(s) 973027-NVW-G ; 779442-OLL-F; 982336-VCD-N; 145996-Ybklqjzjrwfvi; 698422-Bgnzjfljbjw, Total; 117695-ULP-Y (Total);707014-Mhrlu LDL-P; 652567-KGO Size; 767881-TE-HY Scorewas developed and its performance characteristics determinedby [employer]. It has not been cleared or approved by the Foodand Drug Administration.PATIENT WAS FASTINGPERFORMED BY: [employer] [address] [id number] BY: Spire Sensibo6370 [facility] [id number] RBC (Bld) [#/Vol] 4.83 10*6/uL Normal 4.14-5.80 [facility] ehensive Internal Medicine; [facility] Internal Medicine Work Phone: Comment on above: Test(s) 898884-DKB-Z ; 664272-BJT-G; 135264-LZZ-I; 080357-Dmboxmlxkdczc; 459782-Ccdxaknenfo, Total; 268456-YJV-E (Total);710748-Wvzcd LDL-P; 225944-ARR Size; 591240-VI-WI Scorewas developed and its performance characteristics determinedby [employer]. It has not been cleared or approved by the Foodand Drug Administration.PATIENT WAS FASTINGPERFORMED BY: [employer] [address] [id number] BY: Charitybuzz Lzbaox4611 [facility] [id number] WBC (Bld) [#/Vol] 4.8 {x10E3/uL} Normal 3.4-10.8 [facility] Work Phone: Comment on above: Test(s) 009218-NHX-X ; 191287-ZVG-S; 270473-OJQ-A; 905554-Ymqqitbdwowbh; 676877-Sxiczocpdje, Total; 068326-HRR-D (Total);482467-Fnutj LDL-P; 894040-LFG Size; 188549-HJ-AB Scorewas developed and its performance characteristics determinedby [employer]. It has not been cleared or approved by the Foodand Drug Administration.PATIENT WAS FASTINGPERFORMED BY: [employer] [address] [id number] BY: Kapitall Mvfyix4914 [facility] [id number] WBC (Bld) [#/Vol] 4.8 10*3/uL Normal 3.4-10.8 [facility] Internal Medicine; [facility] Internal Medicine Work Phone: Comment on above: Test(s) 144502-YLZ-C ; 391907-POA-Z; 208377-AVN-R; 073554-Manzqqpwsrcrx; 743745-Zxicuofwboc, Total; 062348-XIS-K (Total);406374-Vbtbt LDL-P; 938997-PFB Size; 972275-RZ-KV Scorewas developed and its performance characteristics determinedby [employer]. It has not been cleared or approved by the Foodand Drug Administration.PATIENT WAS FASTINGPERFORMED BY: [employer] [address] [id number] BY: Spire Sensibo6370 [facility] [id number] METABOLIC PANEL, COMPREHENSI VE (21252)Ordered By: Director Business Intelligence on 09-22-2019 Albumin [Mass/Vol] 4.4 g/dL Normal 3.6-4.8 [facility] Internal Medicine Work Phone: Comment on above: Test(s) 939120-KRG-D ; 407763-ZMP-R; 948893-MHL-L; 954335-Ppcfgzkipnmwp; 473509-Phzbgnjfeum, Total; 768768-BQA-N (Total);787404-Nrjxd LDL-P; 434835-KFX Size; 798340-FX-IZ Scorewas developed and its performance characteristics determinedby [employer]. It has not been cleared or approved by the Foodand Drug Administration.PATIENT WAS FASTINGPERFORMED BY: [employer] [address] [id number] BY: Spire Sensibo6370 [facility] [id number] Albumin/Globulin [Mass ratio] 1.6 {ratio} Normal 1.2-2.2 [facility] Work Phone: Comment on above: Test(s) 190701-XEZ-S ; 255275-PFR-J; 102112-GUQ-X; 136490-Ilevfcmpkilvv; 318316-Ehcftdmcctu, Total; 774777-DGF-S (Total);430855-Eoopc LDL-P; 001802-ZVK Size; 208367-CH-UV Scorewas developed and its performance characteristics determinedby [employer]. It has not been cleared or approved by the Foodand Drug Administration.PATIENT WAS FASTINGPERFORMED BY: [employer] [address] [id number] BY: [employer]70 Netfective TechnologyLifeCare Hospit[facility] [place] [id number] ALP [Catalytic activity/Vol] 80 [iU]/L Normal 39117 [facility] Internal Medicine Work Phone: Comment on above: Test(s) 769454-WXV-B ; 457318-QLD-P; 134544-HLQ-D; 205653-Bfgkxkquqcpep; 847553-Wzhhximikkx, Total; 154322-UAO-O (Total);219018-Nbifk LDL-P; 436674-BWT Size; 076459-RE-TI Scorewas developed and its performance characteristics determinedby [employer]. It has not been cleared or approved by the Foodand Drug Administration.PATIENT WAS FASTINGPERFORMED BY: [employer] [address] [id number] BY: Spire Sensibo6370 [facility]asSaint [facility] Hospital [id number] ALP [Catalytic activity/Vol] 80 U/L Normal 39-117 [facility]; [facility] Work Phone: Comment on above: Test(s) 081609-GVS-L ; 555674-TDO-H; 935759-NGH-H; 651112-Pfrjkakmuefoh; 275758-Gyskzxpizgr, Total; 357987-TIZ-P (Total);044301-Tzmvs LDL-P; 163221-AYQ Size; 687208-HA-CV Scorewas developed and its performance characteristics determinedby [employer]. It has not been cleared or approved by the Foodand Drug Administration.PATIENT WAS FASTINGPERFORMED BY: Hail Varsity[address] [id number] BY: Hail VarsityOcean Medical CenterLcyorh0481 [facility] [id number] ALT [Catalytic activity/Vol] 26 [iU]/L Normal 0-44 [facility] Work Phone: Comment on above: Test(s) 346251-NKK-R ; 044290-CLQ-P; 043453-RCW-U; 735497-Atkqspxaqdohr; 744737-Asrzevakaqf, Total; 376863-TTX-M (Total);591681-Zkisl LDL-P; 897225-VLT Size; 844899-CT-NA Scorewas developed and its performance characteristics determinedby [employer]. It has not been cleared or approved by the Foodand Drug Administration.PATIENT WAS FASTINGPERFORMED BY: [employer] [address] [id number] BY: Hail VarsityOcean Medical CenterUiwype3590 [facility] [id number] ALT [Catalytic activity/Vol] 26 U/L Normal 0-44 [facility]; [facility] Work Phone: Comment on above: Test(s) 016622-NIW-P ; 688306-GEK-B; 802683-PSI-B; 138005-Muoiogtjwryjr; 245430-Tdyxruzwwtl, Total; 889858-SEL-W (Total);222768-Mwlwd LDL-P; 302915-BXA Size; 434769-IF-GS Scorewas developed and its performance characteristics determinedby [employer]. It has not been cleared or approved by the Foodand Drug Administration.PATIENT WAS FASTINGPERFORMED BY: Hail Varsity[address] [id number] BY: Hail VarsityOcean Medical CenterJrbbis9261 [facility] [id number] AST [Catalytic activity/Vol] 29 [iU]/L Normal 0-40 [facility] Work Phone: Comment on above: Test(s) 657818-BOY-K ; 655168-OAI-L; 456088-ZER-G; 034558-Puqndjxywttvy; 181763-Wjiqfxjsblj, Total; 074865-BSX-M (Total);713334-Gkcng LDL-P; 075100-RXW Size; 759162-AZ-TD Scorewas developed and its performance characteristics determinedby [employer]. It has not been cleared or approved by the Foodand Drug Administration.PATIENT WAS FASTINGPERFORMED BY: [employer] [address] [id number] BY: Spire Sensibo6370 [facility] [id number] AST [Catalytic activity/Vol] 29 U/L Normal 0-40 [facility]; [facility] Internal Medicine Work Phone: Comment on above: Test(s) 381548-TRJ-T ; 367926-ZVW-O; 247940-ZYL-J; 709902-Uylnpgnfnhxvm; 312712-Dvqfjeoigly, Total; 460373-XZQ-X (Total);829127-Qeeml LDL-P; 419028-KDS Size; 694790-HM-YR Scorewas developed and its performance characteristics determinedby [employer]. It has not been cleared or approved by the Foodand Drug Administration.PATIENT WAS FASTINGPERFORMED BY: [employer] [address] [id number] BY: Charitybuzz Yucjgl9909 [facility] [id number] Bilirubin [Mass/Vol] 0.3 mg/dL Normal 0.0-1.2 [facility] Internal Medicine Work Phone: Comment on above: Test(s) 578512-DMY-Z ; 976903-AWI-R; 007223-FGQ-X; 412913-Ddnjdbwwgvgai; 886638-Nmoluktyuka, Total; 506837-MFG-L (Total);932072-Oxghx LDL-P; 375858-PYI Size; 580798-HH-GS Scorewas developed and its performance characteristics determinedby [employer]. It has not been cleared or approved by the Foodand Drug Administration.PATIENT WAS FASTINGPERFORMED BY: Surfingbirdton1447 [facility] [id number] BY: Kapitall Mfpamb7242 [place] MediaWheelUNC Health Appal[facility] [id number] Calcium [Mass/Vol] 9.6 mg/dL Normal 8.6-10.2 [facility] Internal Medicine Work Phone: Comment on above: Test(s) 318174-ZWK-R ; 795984-OIM-Z; 348631-PMZ-Y; 977407-Climqghahhjgo; 400485-Slfyvlqkdtx, Total; 038606-WEY-P (Total);523023-Mdtbh LDL-P; 575429-UJH Size; 310202-XI-AX Scorewas developed and its performance characteristics determinedby [employer]. It has not been cleared or approved by the Foodand Drug Administration.PATIENT WAS FASTINGPERFORMED BY: Surfingbirdton1447 [facility] [id number] BY: Spire Sensibo6370 [place] MediaWheelUNC Health App[facility] [id number] Chloride [Moles/Vol] 101 mmol/L Normal 96-106 [facility] Internal Medicine Work Phone: Comment on above: Test(s) 947709-VXW-Z ; 815180-BOD-Y; 701562-ALA-U; 658913-Bkuhuhkjcngns; 915053-Nlymgtgxjiy, Total; 195090-RQF-I (Total);791264-Gxlja LDL-P; 894329-ZTH Size; 243843-FL-SH Scorewas developed and its performance characteristics determinedby [employer]. It has not been cleared or approved by the Foodand Drug Administration.PATIENT WAS FASTINGPERFORMED BY: [employer] Lpblhbeaxt3851 [facility] [id number] BY: Kapitall Qyznrr9203 [facility] [id number] CO2 [Moles/Vol] 25 mmol/L Normal 20-29 [facility] Internal Medicine Work Phone: Comment on above: Test(s) 401446-VIS-C ; 926470-KRV-K; 713507-HQZ-J; 595401-Jpodzzyinurov; 324194-Fmnobphnpee, Total; 192854-XXC-L (Total);429009-Pbmyi LDL-P; 135541-HXD Size; 219139-LD-FV Scorewas developed and its performance characteristics determinedby [employer]. It has not been cleared or approved by the Foodand Drug Administration.PATIENT WAS FASTINGPERFORMED BY: [employer] [address] [id number] BY: [employer]70 [facility] [id number] Creatinine [Mass/Vol] 1.13 mg/dL Normal 0.76-1.27 [facility] Work Phone: Comment on above: Test(s) 576170-HKC-G ; 734333-REV-D; 393277-XCB-G; 791370-Sztyohveknkqo; 892595-Vfuxnsvxnue, Total; 593338-YMA-R (Total);857848-Lsqsz LDL-P; 079950-GUW Size; 515020-PH-HL Scorewas developed and its performance characteristics determinedby [employer]. It has not been cleared or approved by the Foodand Drug Administration.PATIENT WAS FASTINGPERFORMED BY: [employer] [address] [id number] BY: Charitybuzz Hzffth2387 [facility] [id number] GFR/1.73 sq M predicted among blacks CKD-EPI (S/P/Bld) [Vol rate/Area] 79 mL/min/1.73 Normal [facility] Work Phone: Comment on above: Test(s) 303700-IUX-F ; 636357-EXR-D; 915984-UPD-W; 959274-Rwwdpdfbdpame; 869419-Envjysagycr, Total; 603954-DLV-D (Total);727173-Gbyds LDL-P; 093982-DXU Size; 838480-JY-RT Scorewas developed and its performance characteristics determinedby [employer]. It has not been cleared or approved by the Foodand Drug Administration.PATIENT WAS FASTINGPERFORMED BY: [employer] [address] [id number] BY: Spire Sensibo6370 [facility] [id number] GFR/1.73 sq M predicted among non-blacks CKD-EPI (S/P/Bld) [Vol rate/Area] 68 mL/min/1.73 Normal [facility] Internal Medicine Work Phone: Comment on above: Test(s) 212891-NDL-S ; 141838-NCD-T; 012884-SOW-L; 705187-Oqhydwbothers; 591522-Dkdjgiubome, Total; 935082-COG-L (Total);323018-Szpbm LDL-P; 714720-IUU Size; 523550-BX-AY Scorewas developed and its performance characteristics determinedby [employer]. It has not been cleared or approved by the Foodand Drug Administration.PATIENT WAS FASTINGPERFORMED BY: [employer] [address] [id number] BY: Spire Sensibo6370 [facility] [id number] Globulin (S) [Mass/Vol] 2.7 g/dL Normal 1.5-4.5 [facility] Internal Medicine Work Phone: Comment on above: Test(s) 067168-BLS-A ; 723003-IAQ-J; 156454-WRQ-H; 811047-Mgirzuyiljcam; 805077-Wlgbrffphza, Total; 597615-VIQ-R (Total);619357-Guykb LDL-P; 049450-XZY Size; 387330-GP-FB Scorewas developed and its performance characteristics determinedby [employer]. It has not been cleared or approved by the Foodand Drug Administration.PATIENT WAS FASTINGPERFORMED BY: [employer] [address] [id number] BY: PredictionIOlin6370 [facility] [id number] Glucose [Mass/Vol] 85 mg/dL Normal 65-99 [facility] Internal Medicine Work Phone: Comment on above: Test(s) 241283-PPK-H ; 933289-KZI-O; 529946-NKU-Z; 222197-Ouxzrbitwwfnl; 101737-Dmwgrultopp, Total; 457993-QPY-U (Total);936445-Qhexg LDL-P; 126434-NVA Size; 938315-PS-EJ Scorewas developed and its performance characteristics determinedby [employer]. It has not been cleared or approved by the Foodand Drug Administration.PATIENT WAS FASTINGPERFORMED BY: [employer] [address] [id number] BY: Spire Sensibo6370 [facility] [id number] Potassium [Moles/Vol] 4.5 mmol/L Normal 3.5-5.2 [facility] Internal Medicine Work Phone: Comment on above: Test(s) 334626-MBF-S ; 733378-GPU-E; 696420-ITA-F; 297929-Qjfmhvhzyguqk; 812869-Wfboaxccsyt, Total; 250268-PPC-S (Total);765233-Vrwip LDL-P; 931016-DWJ Size; 073474-TK-UA Scorewas developed and its performance characteristics determinedby [employer]. It has not been cleared or approved by the Foodand Drug Administration.PATIENT WAS FASTINGPERFORMED BY: MostLikely [address] [id number] BY: KapitallLincoln County Medical CenterSwdbsi0934 [facility] [id number] Protein [Mass/Vol] 7.1 g/dL Normal 6.0-8.5 [facility] Internal Medicine Work Phone: Comment on above: Test(s) 387522-FIN-D ; 044806-PJS-S; 842539-ULO-K; 566055-Dmwvlztvbicqb; 590635-Ovykxbopaag, Total; 595018-ANI-E (Total);214519-Nasbg LDL-P; 892962-ZQP Size; 042938-YS-MU Scorewas developed and its performance characteristics determinedby Most[employer]ikely. It has not been cleared or approved by the Foodand Drug Administration.PATIENT WAS FASTINGPERFORMED BY: [employer] Eqxikjlgen1026 [facility] [id number] BY: Kapitall Kjbzms7110 [place] BoundlessLifeCare Hospitals [facility] [id number] Sodium [Moles/Vol] 142 mmol/L Normal 134-144 [facility] Internal Medicine Work Phone: Comment on above: Test(s) 031828-PBT-X ; 333211-BFL-G; 790447-IYD-D; 780830-Uhqktfonudvrb; 940369-Qmpfsrkjnwb, Total; 405031-HNG-B (Total);613453-Ytghf LDL-P; 127439-QAW Size; 695336-PR-TH Scorewas developed and its performance characteristics determinedby Most[employer]. It has not been cleared or approved by the FoodKeko Drug Administration.PATIENT WAS FASTINGPERFORMED BY: [employer] Lwqqrkqzoq0795 [facility] [id number] BY: [employer]70 [facility]ardenasSaint [facility] Hospital [id number] Urea nitrogen [Mass/Vol] 18 mg/dL Normal 8-27 [facility] Work Phone: Comment on above: Test(s) 498203-LBK-D ; 288095-ZDG-X; 611092-QIA-U; 611585-Jrgbxrknygyed; 971966-Hnydpsshtye, Total; 418703-DSW-K (Total);558202-Blfis LDL-P; 861839-XRX Size; 888954-SY-WM Scorewas developed and its performance characteristics determinedby [employer]. It has not been cleared or approved by the Foodand Drug Administration.PATIENT WAS FASTINGPERFORMED BY: [employer] [address] [id number] BY: PredictionIOlin6370 [facility] [id number] Urea nitrogen/Creatinine [Mass ratio] 16 mg/mg Normal 10-24 [facility] Work Phone: Comment on above: Test(s) 175810-VUI-K ; 177510-LLY-T; 328136-OJW-K; 946775-Asynghcfsbedd; 906183-Ppptlfkdzyh, Total; 123702-CPI-F (Total);041725-Cotoh LDL-P; 659635-CQC Size; 100192-FP-DZ Scorewas developed and its performance characteristics determinedby [employer]. It has not been cleared or approved by the Foodand Drug Administration.PATIENT WAS FASTINGPERFORMED BY: Hail Varsity[address] [id number] BY: Hail VarsityLauren [place] 7232770 [facility] [id number] MICROALBUMINOrdered By: Syst em Lockstitch Zipper Setter on 09-22-2019 Albumin DL <= 20 mg/L (U) [Mass/Vol] mg/dL Normal [facility] Work Phone: Comment on above: Test(s) 676685-VNK-R ; 559559-HIB-P; 969524-MQV-L; 436352-Ejtxxakjvvqfz; 952549-Sqauwivieir, Total; 479242-EWD-Z (Total);178636-Nbtsc LDL-P; 083834-UVS Size; 336626-ZY-YB Scorewas developed and its performance characteristics determinedby [employer]. It has not been cleared or approved by the Foodand Drug Administration.PATIENT WAS FASTINGPERFORMED BY: Hail Varsity[address] [id number] BY: Hail VarsityOcean Medical CenterJlkpqo1490 [facility] [id number] Albumin DL <= 20 mg/L (U) [Mass/Vol] mg/dL Normal [facility]; [facility] Work Phone: Comment on above: Test(s) 199239-MPN-K ; 230125-OJO-D; 773622-HVW-J; 907682-Oiyxjcegfsizc; 985138-Hsbmwkfqsos, Total; 010406-PZR-E (Total);139499-Acitz LDL-P; 705651-QRC Size; 901661-HJ-SE Scorewas developed and its performance characteristics determinedby Most[employer]ik[employer]. It has not been cleared or approved by the Foodand Drug Administration.PATIENT WAS FASTINGPERFORMED BY: Surfingbird[address] [id number] BY: Spire Sensibo[address] [facility]lessLife[facility] [id number] Albumin/Creatinine (U) [Mass ratio] <3.7 Normal 0.0-30.0 [facility] Work Phone: Comment on above: Normal: 0.0 - 30.0 A lbuminuria: 31.0 - 300.0 Clinical albuminuria: >300.0 Test(s) 911548-BIT-E ; 664188-HBD-Z; 744523-SCB-A; 549270-Wkvpdqrbqelby; 364228-Iolnktdolmr, Total; 324833-FZY-K (Total);872537-Plxdx LDL-P; 997351-OIC Size; 728748-SO-RW Scorewas developed and its performance characteristics determinedby MostLikely. It has not been cleared or approved by the Foodand Drug Administration.PATIENT WAS FASTINGPERFORMED BY: [employer] [address] [id number] BY: Spire Sensibo6370 StatSocialUNC [facility] [id number] Creatinine (U) [Mass/Vol] 80.5 mg/dL Normal [facility] Work Phone: Comment on above: Test(s) 354574-NRX-L ; 241932-RNR-Z; 750483-KFP-P; 692145-Zuypnficviqyo; 608371-Qskdntzlqxn, Total; 386379-AMW-B (Total);376952-Hfrvj LDL-P; 713730-WDK Size; 940913-KJ-NP Scorewas developed and its performance characteristics determinedby [employer]. It has not been cleared or approved by the Foodand Drug Administration.PATIENT WAS FASTINGPERFORMED BY: [employer] [address] [id number] BY: Charitybuzz Lhmbrh7697 [facility] [id number] NMR Profile (38430)Ordered B y: Director Business Intelligence on 09-22-2019 Cholesterol [Mass/Vol] 193 mg/dL Normal 100-199 [facility] Work Phone: Comment on above: Test(s) 284591-JWD-N ; 044757-UOO-L; 773591-CKL-E; 298447-Ccvedjadqodyo; 057878-Btdjmdrbblj, Total; 221523-OUN-O (Total);124738-Nqwoo LDL-P; 734171-VZO Size; 850228-AZ-GM Scorewas developed and its performance characteristics determinedby [employer]. It has not been cleared or approved by the Foodand Drug Administration.PATIENT WAS FASTINGPERFORMED BY: Klout[address] [place] [address] [id number] BY: JymobUNC Health Appalachian [id number] Lipoprotein.alpha [Moles/Vol] 36.0 umol/L Normal [facility] Work Phone: Comment on above: Test(s) 054528-NSB-Y ; 888625-FOJ-X; 820074-YDB-F; 442359-Spuhhqguoigre; 291399-Awvfxwfqsic, Total; 204726-TEW-E (Total);796868-Svhyx LDL-P; 162867-KIH Size; 958153-SU-JL Scorewas developed and its performance characteristics determinedby [employer]. It has not been cleared or approved by the FoodKeko Drug Administration.PATIENT WAS FASTINGPERFORMED BY: Surfingbird[address] [id number] BY: [employer]70 Netfective TechnologyLifeCare Hospitals [facility] [id number] Lipoprotein.beta.sub particle [Entitic length] 20.5 nm Abnormal [facility] Work Phone: Comment on above: INTERPRETATIVE INFORMATION PARTICLE CONCENTRATION AND SIZE <--Lower CVD Risk Higher CVD Risk--> LDL AND HDL PARTICLES Percentile in Reference Population HDL-P (total) High 75th 50th 25th Low >34.9 34.9 30.5 26.7 <26.7 . Small LDL-P Low 25th 50th 75th High <117 117 527 839 >839 . LDL Size <-Large (Pattern A)-> <-Small (Pattern B)-> 23.0 20.6 20.5 19.0 Small LDL-P and LDL Size are associated with CVD risk, but not afterLDL-P is taken into account. Test(s) 511333-TLY-J ; 794532-YOD-Y; 409100-NHC-X; 004492-Wbptjndkdrcfg; 281565-Qqlircypxjd, Total; 920681-IXJ-N (Total);155231-Zdtmu LDL-P; 567422-DCZ Size; 107859-HO-KS Scorewas developed and its performance characteristics determinedby [employer]. It has not been cleared or approved by the Foodand Drug Administration.PATIENT WAS FASTINGPERFORMED BY: Surfingbird[address] [id number] BY: [employer] Kxtunt6447 [facility] [id number] Lipoprotein.beta.sub particle [Moles/Vol] 1431 nmol/L Abnormal Comprehensi ve Internal Medicine Work Phone: Comment on above: Low < 1000 Moderate 1000 - 1299 Borderline-High 1300 - 1599 High 1600 - 2000 Very High > 2000 Test(s) 070656-ONW-F ; 557579-YQL-N; 574789-JNO-P; 616573-Yuskqjjeceikt; 533384-Pbswtwtqpwk, Total; 823244-FTX-W (Total);032230-Gyqid LDL-P; 817472-XZU Size; 129700-QY-UI Scorewas developed and its performance characteristics determinedby [employer]. It has not been cleared or approved by the Foodand Drug Administration.PATIENT WAS FASTINGPERFORMED BY: BN LabCo[address] [id number] BY: KapitallLincoln County Medical CenterEueudu4312 [facility] [id number] Lipoprotein.beta.sub particle.small [Moles/Vol] 703 nmol/L Abnormal [facility] Work Phone: Comment on above: Test(s) 386489-UNG-R ; 769829-OMC-A; 604857-LPP-W; 050591-Tjijwwngngdmn; 111714-Ngzjnpmaacw, Total; 673803-EIC-T (Total);758225-Fkroj LDL-P; 292545-PYZ Size; 013958-BR-QY Scorewas developed and its performance characteristics determinedby [employer]. It has not been cleared or approved by the Foodand Drug Administration.PATIENT WAS FASTINGPERFORMED BY: [employer] [address] [id number] BY: Spire Sensibo6370 [facility] [id number] Triglyceride [Mass/Vol] 162 mg/dL Abnormal 0-149 [facility] Work Phone: Comment on above: Test(s) 586157-LJI-Q ; 709953-VGU-M; 069802-VDE-K; 476929-Rbkkzebrtbggb; 382559-Lbgvxttsgpv, Total; 941281-RZN-Z (Total);231873-Lyfai LDL-P; 761316-HQD Size; 640345-IX-CO Scorewas developed and its performance characteristics determinedby [employer]. It has not been cleared or approved by the Foodand Drug Administration.PATIENT WAS FASTINGPERFORMED BY: [employer] [id number] BY: KapitallOcean Medical CenterCqjmuf5922 [facility] [id number] NMR Profile (87620) 48 mg/dL Normal [facility] Internal Medicine Work Phone: Comment on above: Test(s) 884544-OYS-Z ; 602630-KEZ-X; 299762-BDM-J; 029745-Faoyjxfypadge; 494382-Lfldkpwnqzw, Total; 783584-RGI-F (Total);400146-Scyvv LDL-P; 666079-QLZ Size; 520349-RO-RL Scorewas developed and its performance characteristics determinedby [employer]. It has not been cleared or approved by the Foodand Drug Administration.PATIENT WAS FASTINGPERFORMED BY: [employer] [address] [id number] BY: [employer]70 [facility]ardenasSaint [facility] Hospital [id number] NMR Profile (62849) 113 mg/dL Abnormal 0-99 [facility] Internal Medicine Work Phone: Comment on above: . Optimal < 100 Abov e optimal 100 - 129 Borderline 130 - 159 High 160 - 189 Very high > 189 .LDL-C is inaccurate if patient is non-fasting. Test(s) 732031-NCW-H ; 539033-SHX-R; 441212-BYY-P; 677998-Xuakahiumieiz; 671327-Vxjgrsjtlyr, Total; 459898-XUI-R (Total);587037-Gxkxc LDL-P; 915341-PBH Size; 256386-IC-CR Scorewas developed and its performance characteristics determinedby [employer]. It has not been cleared or approved by the Foodand Drug Administration.PATIENT WAS FASTINGPERFORMED BY: [employer] [address] [id number] BY: Spire Sensibo6370 [facility] [id number] PSA (PROSTATE SPECIFIC ANTIG EN) (V76.44)Ordered By: Director Business Intelligence on 09-22-2019 Prostate specific Ag [Mass/Vol] 1.2 ng/mL Normal 0.0-4.0 [facility] Internal Medicine Work Phone: Comment on above: Bronson ECLIA methodol ogy. .According to the [place] [employer], Serum PSA shoulddecrease and remain at undetectable levels after radicalprostatectomy. The AUA defines biochemical recurrence as an initialPSA value 0.2 ng/mL or greater followed by a subsequent confirmatoryPSA value 0.2 ng/mL or greater.Values obtained with different assay methods or kits cannot be usedinterchangeably. Results cannot be interpreted as absolute evidenceof the presence or absence of malignant disease. Test(s) 754766-OPD-A ; 004720-EJY-A; 174777-SMS-O; 750455-Ajozwvqpgygtu; 256268-Oscbmjbblvc, Total; 238725-MWM-X (Total);481514-Auaax LDL-P; 680719-MMS Size; 293783-GG-WI Scorewas developed and its performance characteristics determinedby [employer]. It has not been cleared or approved by the Foodand Drug Administration.PATIENT WAS FASTINGPERFORMED BY: Surfingbird[address] [id number] BY: [employer]70 FiiilingWayne County Hospital [id number] TSH (82769)Ordered By: [employer] Lockstitch Zipper Setter on 09-22-2019 TSH Qn 1.900 {uIU/mL} Normal 0.450-4.50 0 [facility] Work Phone: Comment on above: Test(s) 370084-ZBZ-I ; 939896-BSH-I; 585910-CDR-Y; 926583-Wqmzdgeghpbvn; 029054-Hifgvmhgxnm, Total; 923764-HLG-J (Total);909526-Dguwa LDL-P; 157737-JXE Size; 617077-VZ-EW Scorewas developed and its performance characteristics determinedby [employer]. It has not been cleared or approved by the Foodand Drug Administration.PATIENT WAS FASTINGPERFORMED BY: Surfingbird[address] [id number] BY: Spire Sensibo6370 StatSocialUNC [facility] [id number] URINALYSIS, W/ MICRO (59296) Ordered By: Director Business Intelligence on 09-22-2019 Appearance (U) Clear Normal Comprehens alee Internal Medicine Work Phone: Comment on above: Test(s) 967912-OXF-J ; 610438-LKG-A; 355030-XMQ-H; 992993-Fqavsfdgdfxhp; 218419-Azaskquvmuj, Total; 741467-PZR-G (Total);904999-Fxseb LDL-P; 204609-TCC Size; 496964-NP-ZC Scorewas developed and its performance characteristics determinedby [employer]. It has not been cleared or approved by the Foodand Drug Administration.PATIENT WAS FASTINGPERFORMED BY: [employer] [address] [id number] BY: [employer]70 [address] BoundlessLifeCare Hospitals [facility] [id number] Bilirubin Ql (U) Negative Normal Comprehe nsive Internal Medicine Work Phone: Comment on above: Test(s) 949426-SXL-M ; 101416-XAV-U; 784716-QGF-O; 891196-Pbvtespawfpfg; 369685-Xjovnzbuaps, Total; 329902-RMV-S (Total);239892-Ipddg LDL-P; 768787-ZHY Size; 374144-LD-VD Scorewas developed and its performance characteristics determinedby [employer]. It has not been cleared or approved by the Foodand Drug Administration.PATIENT WAS FASTINGPERFORMED BY: [employer] [address] [id number] BY: [employer]70 StatSocialUNC Health [facility] [id number] Bilirubin Ql (U) Negative Normal Comprehe nsive Internal Medicine; [facility] Work Phone: Comment on above: Test(s) 232536-IHC-T ; 657019-SUP-K; 787166-DQM-B; 620120-Yzrxksrojcogs; 562581-Jmprfbppyre, Total; 075523-SIK-G (Total);135734-Bwkjg LDL-P; 151199-RZN Size; 974518-GP-NN Scorewas developed and its performance characteristics determinedby [employer]. It has not been cleared or approved by the Foodand Drug Administration.PATIENT WAS FASTINGPERFORMED BY: [employer] [address] [id number] BY: [employer]70 [address] BoundlessLifeCare Hospit[facility] [id number] Color (U) Yellow Normal [facility] Work Phone: Comment on above: Test(s) 620718-JSR-P ; 390241-CUM-I; 655229-OCV-H; 848597-Srogcpsfnmeff; 028152-Ucpijmnrspi, Total; 529322-IKV-U (Total);377608-Vusgm LDL-P; 193456-KCS Size; 189270-YM-QU Scorewas developed and its performance characteristics determinedby [employer]. It has not been cleared or approved by the Foodand Drug Administration.PATIENT WAS FASTINGPERFORMED BY: [employer] [address] [id number] BY: [employer] Dciwwj8106 [facility] [id number] Glucose Ql (U) Negative Normal Comprehens [facility] Internal Medicine Work Phone: Comment on above: Test(s) 452125-SUS-V ; 187479-YWR-L; 786292-NXU-U; 075108-Bfnrkwupkxfey; 135454-Fbhwnyhhcug, Total; 431132-MWX-F (Total);000852-Aqiih LDL-P; 102243-DDP Size; 400037-EI-SI Scorewas developed and its performance characteristics determinedby [employer]. It has not been cleared or approved by the Foodand Drug Administration.PATIENT WAS FASTINGPERFORMED BY: [employer] [address] [id number] BY: Charity[employer]zz Pvcyqq5946 [facility] [id number] Glucose Ql (U) Negative Normal Comprehens [facility]; [facility] Work Phone: Comment on above: Test(s) 066174-TUK-S ; 213393-PMN-A; 022841-HJQ-S; 143595-Htjlbzixggcrx; 712098-Ucluazzsuof, Total; 089562-WUG-P (Total);768601-Gpdfr LDL-P; 119098-PVW Size; 839392-BZ-EX Scorewas developed and its performance characteristics determinedby [employer]. It has not been cleared or approved by the Foodand Drug Administration.PATIENT WAS FASTINGPERFORMED BY: BN LabCoCatherine [place] [address] [facility] [id number] BY: Hail VarsityOcean Medical CenterOtnxxp4914 [facility] [id number] Hemoglobin Ql (U) Negative Normal Compreh ensive Internal Medicine Work Phone: Comment on above: Test(s) 605937-JFO-F ; 328716-HTE-O; 310472-OZT-Q; 911811-Bbrhrurtpgpzj; 084051-Znpvfrlwgce, Total; 743632-CLL-K (Total);344407-Qviii LDL-P; 089687-LMH Size; 782204-II-LP Scorewas developed and its performance characteristics determinedby [employer]. It has not been cleared or approved by the Foodand Drug Administration.PATIENT WAS FASTINGPERFORMED BY: [employer] [address] [id number] BY: Charitybuzz Tymcjg8416 [facility] [id number] Hemoglobin Ql (U) Negative Normal Compreh ensive Internal Medicine; [facility] Work Phone: Comment on above: Test(s) 154050-VLT-I ; 993992-PPF-W; 795568-BDW-B; 266493-Owoquevgoific; 783365-Cqgjrxiubpq, Total; 843973-UHK-C (Total);433401-Gtvid LDL-P; 410679-XGE Size; 137041-KZ-SA Scorewas developed and its performance characteristics determinedby [employer]. It has not been cleared or approved by the Foodand Drug Administration.PATIENT WAS FASTINGPERFORMED BY: [employer] [address] [id number] BY: Hail VarsityOcean Medical CenterPpcthk7699 [facility] [id number] Ketones Ql (U) Negative Normal Comprehens alee Internal Medicine Work Phone: Comment on above: Test(s) 308145-WIM-Q ; 836713-TPT-Y; 074036-IMP-C; 321838-Mmncoktdztetb; 358396-Lrfqwktosxs, Total; 284710-UWL-G (Total);948219-Tcpxw LDL-P; 155989-BVX Size; 795801-HZ-XD Scorewas developed and its performance characteristics determinedby [employer]. It has not been cleared or approved by the Foodand Drug Administration.PATIENT WAS FASTINGPERFORMED BY: [employer] [address] [id number] BY: [employer]70 [address] BoundlessLifeCare Hospitals [facility] [place] [id number] Ketones Ql (U) Negative Normal Comprehens alee Internal Medicine; [facility] Work Phone: Comment on above: Test(s) 876253-SSO-T ; 987823-DVA-V; 174336-ZHU-U; 519247-Afrxpkfkkbhog; 833315-Xfujdtvztjb, Total; 984566-YON-E (Total);613827-Fwahr LDL-P; 073159-QFS Size; 280910-JW-VB Scorewas developed and its performance characteristics determinedby [employer]. It has not been cleared or approved by the Foodand Drug Administration.PATIENT WAS FASTINGPERFORMED BY: [employer] [address] [id number] BY: [employer]70 Netfective TechnologyLifeCare Hospitals of [facility] [id number] Leukocyte esterase Test strip Ql (U) Negative Normal [facility] Work Phone: Comment on above: Test(s) 013496-TBM-I ; 813854-NPX-T; 853136-BTK-V; 934064-Ipvivupszgwlu; 988398-Tftkrkpleji, Total; 488762-XNZ-M (Total);656910-Gskbq LDL-P; 306095-WLU Size; 249195-UR-AC Scorewas developed and its performance characteristics determinedby [employer]. It has not been cleared or approved by the Foodand Drug Administration.PATIENT WAS FASTINGPERFORMED BY: [employer] [address] [id number] BY: PredictionIOlin6370 Netfective TechnologyLifeCare Hospitals of [facility] [id number] Leukocyte esterase Test strip Ql (U) Negative Normal [facility]; [facility] Work Phone: Comment on above: Test(s) 182485-DAJ-E ; 447294-SBX-C; 983551-BZQ-F; 602494-Daxnyateqdpgm; 871690-Tasqkksyopd, Total; 649324-JHK-F (Total);812993-Mybcf LDL-P; 772861-WKE Size; 284736-FQ-JY Scorewas developed and its performance characteristics determinedby [employer]. It has not been cleared or approved by the Foodand Drug Administration.PATIENT WAS FASTINGPERFORMED BY: [employer] [address] [id number] BY: PlayrificSaint John's Hospital [id number] Microscopic observation LM Nom (Urine sed) MICRON Normal [facility] Work Phone: Comment on above: Microscopic follows if indicated. Test(s) 845292-MJY-T ; 801688-WBR-A; 662474-TDQ-K; 711734-Ccjjyddnccxni; 351285-Ffpnmltoucr, Total; 948033-DAJ-M (Total);189416-Ayknk LDL-P; 497517-ZBE Size; 205730-DJ-RI Scorewas developed and its performance characteristics determinedby [employer]. It has not been cleared or approved by the Foodand Drug Administration.PATIENT WAS FASTINGPERFORMED BY: [employer] [address] [id number] BY: Charitybuzz Rdlpmr0016 [facility] [id number] Microscopic observation LM Nom (Urine sed) See below: Normal [facility] Work Phone: Comment on above: Microscopic was desire cated and was performed. Test(s) 982219-SSE-Z ; 609197-CGL-S; 445119-WKV-U; 838943-Habblfuagwyxo; 719859-Mxzvgepudvi, Total; 842199-HCE-P (Total);177427-Squkr LDL-P; 656943-JUE Size; 878165-DC-QO Scorewas developed and its performance characteristics determinedby [employer]. It has not been cleared or approved by the Foodand Drug Administration.PATIENT WAS FASTINGPERFORMED BY: [employer] [address] [id number] BY: Hail Varsity Uhhrdq4805 [facility] [id number] Nitrite Ql (U) Negative Normal Comprehens alee Internal Medicine Work Phone: Comment on above: Test(s) 644397-CVU-U ; 144293-DXE-Z; 617647-VDW-I; 479896-Btzcnbxtrknmc; 694234-Vjyopvnsnpi, Total; 400646-UGI-L (Total);530946-Ivqny LDL-P; 878441-EPX Size; 619463-BB-VC Scorewas developed and its performance characteristics determinedby [employer]. It has not been cleared or approved by the Foodand Drug Administration.PATIENT WAS FASTINGPERFORMED BY: [employer] [address] [id number] BY: Spire Sensibo6370 [facility] [id number] Nitrite Ql (U) Negative Normal Comprehens alee Internal Medicine; [facility] Work Phone: Comment on above: Test(s) 338629-MEX-Y ; 478569-LTQ-M; 649903-COA-S; 629257-Ngfdvqcdyggwm; 552890-Opoztivuyqo, Total; 689709-VVL-S (Total);422052-Jtzsz LDL-P; 641933-MTQ Size; 475682-CI-SM Scorewas developed and its performance characteristics determinedby [employer]. It has not been cleared or approved by the Foodand Drug Administration.PATIENT WAS FASTINGPERFORMED BY: [employer] [address] [id number] BY: PredictionIOlin6370 [facility] [id number] pH (U) 7.0 [pH] Normal 5.0-7.5 [facility] Work Phone: Comment on above: Test(s) 040657-AHX-K ; 048350-UOK-N; 224675-VTR-Q; 867865-Wnfpclfizuhpk; 533249-Xqlxdixtfjk, Total; 131377-KPZ-X (Total);049054-Ohjom LDL-P; 056001-DXB Size; 042014-XK-CO Scorewas developed and its performance characteristics determinedby [employer]. It has not been cleared or approved by the Foodand Drug Administration.PATIENT WAS FASTINGPERFORMED BY: [employer] [address] [id number] BY: [employer]70 [facility] [id number] Protein Ql (U) Negative Normal Comprehens alee Internal Medicine Work Phone: Comment on above: Test(s) 101812-HLT-D ; 589698-IGG-H; 066376-WET-Y; 911090-Xrcrdntuhzguu; 784771-Lcorxgoedrs, Total; 848601-CSS-H (Total);757118-Aqwzc LDL-P; 107455-SWI Size; 828338-TG-XH Scorewas developed and its performance characteristics determinedby [employer]. It has not been cleared or approved by the Foodand Drug Administration.PATIENT WAS FASTINGPERFORMED BY: [employer] [address] [id number] BY: Spire Sensibo6370 [facility] [id number] Protein Ql (U) Negative Normal Comprehens alee Internal Medicine; [facility] Work Phone: Comment on above: Test(s) 113978-QXN-O ; 706312-OHS-L; 983788-TOD-C; 911104-Wuhakutugayvt; 586072-Eobwptmdhvy, Total; 338749-JWQ-M (Total);065673-Pijwz LDL-P; 285330-ZFZ Size; 667063-ZB-VR Scorewas developed and its performance characteristics determinedby [employer]. It has not been cleared or approved by the Foodand Drug Administration.PATIENT WAS FASTINGPERFORMED BY: [employer] [address] [id number] BY: Spire Sensibo6370 StatSocialUNC Health App[facility] [id number] Specific gravity (U) [Rel density] 1.011 1 Normal 1.005-1.03 0 [facility] Internal Medicine Work Phone: Comment on above: Test(s) 281941-YYU-P ; 818868-ZXB-E; 966176-RUA-R; 548388-Eihedllmfmkxq; 581585-Hkpzsifjqju, Total; 382754-FPB-N (Total);745873-Makup LDL-P; 439338-KBH Size; 981312-QZ-PQ Scorewas developed and its performance characteristics determinedby [employer]. It has not been cleared or approved by the Foodand Drug Administration.PATIENT WAS FASTINGPERFORMED BY: Surfingbird[address] [id number] BY: TheRouteBoxWayne County Hospital [id number] Urobilinogen (U) [Mass/Vol] 0.2 mg/dL Normal 0.2-1.0 [facility] Internal Medicine; [facility] Internal Medicine Work Phone: Comment on above: Test(s) 840861-WFF-R ; 471473-HZB-K; 230103-VMA-J; 023802-Zbinesfirijnh; 707821-Jrqajxawrid, Total; 463546-RMV-A (Total);737401-Llkgt LDL-P; 854623-PDV Size; 626610-UJ-HV Scorewas developed and its performance characteristics determinedby [employer]. It has not been cleared or approved by the Foodand Drug Administration.PATIENT WAS FASTINGPERFORMED BY: [employer] [address] [id number] BY: Spire Sensibo6370 CardenasSaint John's Hospital [id number] Urobilinogen Test strip (U) [Mass/Vol] 0.2 mg/dL Normal 0.2-1.0 [facility] Internal Medicine Work Phone: Comment on above: Test(s) 050533-KVD-P ; 136441-TIL-V; 969040-EEY-Z; 571260-Qfsinenvggmcp; 364547-Wbztoaulyga, Total; 060063-INT-D (Total);165188-Pjeeo LDL-P; 632378-VNX Size; 164248-OB-ZH Scorewas developed and its performance characteristics determinedby BOLD GuidanceKindred Hospital. It has not been cleared or approved by the Foodand Drug Administration.PATIENT WAS FASTINGPERFORMED BY: [address] [id number] BY: [place] [address]5970 [facility] [id number] CBC W/AUTO DIFF WBC (16007)O rdered By: Director Business Intelligence on 01-14-2019 Basophils #/vol (Bld) 0.0 {x10E3/uL} Normal 0.0-0.2 [facility] Work Phone: Comment on above: PATIENT WAS FASTINGP ERFORMED BY: [address] [id number] BY: [place] [id number] [facility] [id number] Basophils (Bld) [#/Vol] 0.0 10*3/uL Normal 0.0-0.2 [facility]; [facility] Work Phone: Comment on above: PATIENT WAS FASTINGP ERFORMED BY: [address] [id number] BY: [address] [id number] Basophils/100 WBC (Bld) 1 % Normal [facility] Work Phone: Comment on above: PATIENT WAS FASTINGP ERFORMED BY: [address] [id number] BY: [address] [id number] Eosinophils #/vol (Bld) 0.2 {x10E3/uL} Normal 0.0-0.4 [facility] Work Phone: Comment on above: PATIENT WAS FASTINGP ERFORMED BY: LabCo[address] [id number] BY: DARREN [facility] Xbekva5249 Cardenas RoadDublin [place] [id number] Eosinophils (Bld) [#/Vol] 0.2 10*3/uL Normal 0.0-0.4 [facility]; [facility] Work Phone: Comment on above: PATIENT WAS FASTINGP ERFORMED BY: [facility] [address] [id number] BY: DARREN [facility] Agahfr7857 Cardenas RoadDublin [place] [id number] Eosinophils/100 WBC (Bld) 3 % Normal [facility] Work Phone: Comment on above: PATIENT WAS FASTINGP ERFORMED BY: LabColorModules[address] [id number] BY: DARREN [facility] Jmjzcb9662 Cardenas RoadUnc Healthin [place] [id number] Erythrocyte distribution width Ratio (RBC) 13.9 % Normal 12.3-15.4 [facility] Work Phone: Comment on above: PATIENT WAS FASTINGP ERFORMED BY: Hail Varsity[address] [id number] BY: DARREN [facility] Gfcplk5404 Cardenas RoadUnc Healthin [place] [id number] Hematocrit Volume Fraction (Bld) 43.6 % Normal 37.5-51.0 [facility] Work Phone: Comment on above: PATIENT WAS FASTINGP ERFORMED BY: BOLD GuidanceCo[address] [id number] BY: DARREN [facility] Mccwne[address] [facility] Centerin [place] [id number] Hemoglobin mass conc (Bld) 14.3 g/dL Normal 13.0-17.7 [facility] Work Phone: Comment on above: PATIENT WAS FASTINGP ERFORMED BY: Lab[address] [id number] BY: [facility] Xbnbqr[address] [facility] Centerin [place] [id number] Immature granulocytes #/vol (Bld) 0.0 {x10E3/uL} Normal 0.0-0.1 [facility] Work Phone: Comment on above: PATIENT WAS FASTINGP ERFORMED BY: [address] [id number] BY: [facility]allin6[address] RoadLifeCare Hospitals of [facility] [place] [id number] Immature granulocytes (Bld) [#/Vol] 0.0 10*3/uL Normal 0.0-0.1 [facility]; [facility] Work Phone: Comment on above: PATIENT WAS FASTINGP ERFORMED BY: [address] [id number] BY: [facility] [facility] [id number] Immature granulocytes/100 WBC (Bld) 0 % Normal [facility] Work Phone: Comment on above: PATIENT WAS FASTINGP ERFORMED BY: [address] [id number] BY: [facility] [facility] [id number] Lymphocytes #/vol (Bld) 2.0 {x10E3/uL} Normal 0.7-3.1 [facility] Work Phone: Comment on above: PATIENT WAS FASTINGP ERFORMED BY: [address] [id number] BY: [facility] [facility] [id number] Lymphocytes (Bld) [#/Vol] 2.0 10*3/uL Normal 0.7-3.1 [facility]; [facility] Work Phone: Comment on above: PATIENT WAS FASTINGP ERFORMED BY: [address] [id number] BY: [facility] Pgfpga3746 Carden[address] Roadblin [place] [id number] Lymphocytes/100 WBC (Bld) 32 % Normal [facility] Work Phone: Comment on above: PATIENT WAS FASTINGP ERFORMED BY: [address] [id number] BY: LabWestern Missouri Mental Health CenterRofakk8895 Cardenas RoadDublin [place] [id number] MCH Entitic mass (RBC) 29.1 pg Normal 26.6-33.0 [facility] Work Phone: Comment on above: PATIENT WAS FASTINGP ERFORMED BY: BOLD Guidance[address] [id number] BY: [facility] [facility] [id number] MCHC mass conc (RBC) 32.8 g/dL Normal 31.5-35.7 Comp [facility] Internal Medicine Work Phone: Comment on above: PATIENT WAS FASTINGP ERFORMED BY: BOLD Guidance[address] [id number] BY: [place] 7115970 [facility] [id number] MCV Entitic volume (RBC) 89 fL Normal 79-97 [facility] Work Phone: Comment on above: PATIENT WAS FASTINGP ERFORMED BY: BOLD Guidance[address] [id number] BY: [place] [address] [facility] [id number] Monocytes #/vol (Bld) 0.4 {x10E3/uL} Normal 0.1-0.9 [facility] Work Phone: Comment on above: PATIENT WAS FASTINGP ERFORMED BY: [address] [id number] BY: LabMymich[facility] Gladwin[address] [facility] Centerin [place] [id number] Monocytes (Bld) [#/Vol] 0.4 10*3/uL Normal 0.1-0.9 [facility]; [facility] Work Phone: Comment on above: PATIENT WAS FASTINGP ERFORMED BY: [address] [id number] BY: [facility] Cygxpk0745 C[address] RoadDublin [place] [id number] Monocytes/100 WBC (Bld) 7 % Normal [facility] Work Phone: Comment on above: PATIENT WAS FASTINGP ERFORMED BY: [address] [id number] BY: LabMichael Ville 1123970 Carden[address] RoadDublin [place] [id number] Neutrophils #/vol (Bld) 3.7 {x10E3/uL} Normal 1.4-7.0 [facility] Work Phone: Comment on above: PATIENT WAS FASTINGP ERFORMED BY: [address] [id number] BY: LabMichael [place]ille 1123970 Cardneas RoadDublin [place] [id number] Neutrophils (Bld) [#/Vol] 3.7 10*3/uL Normal 1.4-7.0 [facility]; [facility] Work Phone: Comment on above: PATIENT WAS FASTINGP ERFORMED BY: [address] [id number] BY: LabMichael [place] 1123970 [address] RoadDublin [place] [id number] Neutrophils/100 WBC (Bld) 57 % Normal [facility] Work Phone: Comment on above: PATIENT WAS FASTINGP ERFORMED BY: [address] [id number] BY: [facility] Agzxzv4860 [address] RoadDublin [place] [id number] Platelets #/vol (Bld) 331 {x10E3/uL} Normal 150-379 [facility] Work Phone: Comment on above: PATIENT WAS FASTINGP ERFORMED BY: [facility] [address] [id number] BY: DARREN [facility] Wtypgg9713 Carden[address] Roadblin [place] [id number] Platelets (Bld) [#/Vol] 331 10*3/uL Normal 150-379 [facility]; [facility] Work Phone: Comment on above: PATIENT WAS FASTINGP ERFORMED BY: [facility] [address] [id number] BY: DARREN [facility] Uvdinu6388 [address] RoadDublin [place] [id number] RBC #/vol (Bld) 4.91 {x10E6/uL} Normal 4.14-5.80 Comp [facility]ensive [facility] Work Phone: Comment on above: PATIENT WAS FASTINGP ERFORMED BY: [facility] [address] [id number] BY: DARREN [facility] Rpgnrz2435 Cardenas RoadLifeCare Hospitals of [place] [id number] RBC (Bld) [#/Vol] 4.91 10*6/uL Normal 4.14-5.80 [facility] Centerensive Internal Medicine; [facility] Work Phone: Comment on above: PATIENT WAS FASTINGP ERFORMED BY: LabCo[address] [id number] BY: [facility] Pjahxj[address] [facility] [id number] WBC #/vol (Bld) 6.4 {x10E3/uL} Normal 3.4-10.8 Compr ensive Internal Medicine Work Phone: Comment on above: PATIENT WAS FASTINGP ERFORMED BY: [facility] [address] [id number] BY: CB [facility] Jhtyfn6710 [address] RoadDuin [place] [id number] WBC (Bld) [#/Vol] 6.4 10*3/uL Normal 3.4-10.8 [facility] Internal [facility]; [facility] Work Phone: Comment on above: PATIENT WAS FASTINGP ERFORMED BY: Surfingbird[address] [id number] BY: Hail Varsity Ppiljx7493 [facility] [id number] LIPOPROTEIN, BLD, BY NMR ([id number])Ordered By: Director Business Intelligence on 01-14-2019 Cholesterol mass conc 168 mg/dL Normal 100-199 [facility] Work Phone: Comment on above: PATIENT WAS FASTINGP ERFORMED BY: Surfingbird[address] [id number] BY: [facility]70 [facility] [id number] Lipoprotein.alpha molar conc 33.8 umol/L Normal [facility] Work Phone: Comment on above: PATIENT WAS FASTINGP ERFORMED BY: Surfingbird[address] [id number] BY: PredictionIOlin6370 [facility] [id number] Lipoprotein.beta.sub particle Entitic length 20.1 nm Abnormal [facility] Work Phone: Comment on above: INTERPRETATIVE INFORMATION PARTICLE CONCENTRATION AND SIZE <--Lower CVD Risk Higher CVD Risk--> LDL AND HDL PARTICLES Percentile in Reference Population HDL-P (total) High 75th 50th 25th Low >34.9 34.9 30.5 26.7 <26.7 . Small LDL-P Low 25th 50th 75th High <117 117 527 839 >839 . LDL Size <-Large (Pattern A)-> <-Small (Pattern B)-> 23.0 20.6 20.5 19.0 Small LDL-P and LDL Size are associated with CVD risk, but not afterLDL-P is taken into account. .These assays were developed and their performance characteristicsdetermined by [employer]. These assays have not been cleared by [employer] Food and Drug Administration. The clinical utility of theselaboratory values have not been fully established. PATIENT WAS FASTINGP ERFORMED BY: Surfingbirdton1447 [facility] [id number] BY: [facility]70 StatSocialCO2Stats [place] [id number] Lipoprotein.beta.sub particle molar conc 1078 nmol/L Abnormal Comprehensiv e Internal Medicine Work Phone: Comment on above: Low < 1000 Moderate 1000 - 1299 Borderline-High 1300 - 1599 High 1600 - 2000 Very High > 2000 PATIENT WAS FASTINGP ERFORMED BY: Surfingbird[address] [id number] BY: JymobCO2Stats [place] [id number] Lipoprotein.beta.sub particle.small molar conc 674 nmol/L Abnormal [facility] Work Phone: Comment on above: PATIENT WAS FASTINGP ERFORMED BY: Surfingbird[address] [id number] BY: [facility]70 StatSocialUNC Health Appal[facility] [id number] Triglyceride mass conc 176 mg/dL Abnormal 0-149 [facility] Work Phone: Comment on above: PATIENT WAS FASTINGP ERFORMED BY: Surfingbird[address] [id number] BY: PredictionIOlin[address] MediaWheelUNC Health Appalach[facility] [id number] LIPOPROTEIN, BLD, BY NMR ([id number]) 41 mg/dL Normal [facility] Work Phone: Comment on above: PATIENT WAS FASTINGP ERFORMED BY: Hail Varsity[address] [id number] BY: LabColorModules Gapbpe4073 [facility] [id number] LIPOPROTEIN, BLD, BY NMR ([id number]) 92 mg/dL Normal 0-99 [facility] Work Phone: Comment on above: . Optimal < 100 Abov e optimal 100 - 129 Borderline 130 - 159 High 160 - 189 Very high > 189 .LDL-C is inaccurate if patient is non-fasting. PATIENT WAS FASTINGP ERFORMED BY: [employer] [id number] BY: Hail Varsity Rsqzpe6412 [facility] [id number] METABOLIC PANEL, COMPREHENSI VE ([id number])Ordered By: Director Business Intelligence on 01-14-2019 Albumin mass conc 4.1 g/dL Normal 3.6-4.8 Compreh ensive Internal Medicine Work Phone: Comment on above: PATIENT WAS FASTINGP ERFORMED BY: Hail Varsity[address] [id number] BY: Hail Varsity Ywwajj0376 [facility] [id number] Albumin/Globulin mass ratio 1.6 {ratio} Normal 1.2-2.2 [facility] Work Phone: Comment on above: PATIENT WAS FASTINGP ERFORMED BY: Hail Varsity[address] [id number] BY: Hail Varsity Rrhgbv6162 [facility] [id number] ALP [Catalytic activity/Vol] 77 U/L Normal 39-117 [facility]; [facility] Work Phone: Comment on above: PATIENT WAS FASTINGP ERFORMED BY: [employer] [id number] BY: [facility] Ewkrhd8042 [facility] [id number] ALP enzyme act/vol 77 [iU]/L Normal 39-117 [facility] Internal Medicine Work Phone: Comment on above: PATIENT WAS FASTINGP ERFORMED BY: [facility] [address] [id number] BY: [facility] Coajqj1767 [address] RoadDublin [place] [id number] ALT [Catalytic activity/Vol] 24 U/L Normal 0-44 [facility]; [facility] Internal Medicine Work Phone: Comment on above: PATIENT WAS FASTINGP ERFORMED BY: [facility] [address] [id number] BY: CB [facility] Otkten1362 [address] RoadDublin [place] [id number] ALT enzyme act/vol 24 [iU]/L Normal 0-44 [facility] Internal Medicine Work Phone: Comment on above: PATIENT WAS FASTINGP ERFORMED BY: LabCo[address] [id number] BY: CB [facility] Htqzmx1617 [address] RoadDublin [place] [id number] AST [Catalytic activity/Vol] 25 U/L Normal 0-40 [facility]; [facility] Internal Medicine Work Phone: Comment on above: PATIENT WAS FASTINGP ERFORMED BY: Lab[address] [id number] BY: [facility] Fieayv1514 [address] RoadDublin [place] [id number] AST enzyme act/vol 25 [iU]/L Normal 0-40 [facility] Internal Medicine Work Phone: Comment on above: PATIENT WAS FASTINGP ERFORMED BY: Lab[address] [id number] BY: CB [facility] Xqrrxi9046 [address] RoadDublin [place] [id number] Bilirubin [Mass/Vol] mg/dL Normal 0.0-1.2 [facility]ensive [facility]; [facility] Work Phone: Comment on above: PATIENT WAS FASTINGP ERFORMED BY: [facility] Jcrwdriivq8102 [facility] [id number] BY: DARREN [facility] Zjpkbo5738 [address] RoadDublin [place] [id number] Bilirubin mass conc mg/dL Normal 0.0-1.2 Compr ehensive Internal Medicine Work Phone: Comment on above: PATIENT WAS FASTINGP ERFORMED BY: BN [facility] Dmumcpllkk[address] [id number] BY: DARREN [facility] Rrwpun4742 [address] RoadDublin [place] [id number] Calcium mass conc 9.4 mg/dL Normal 8.6-10.2 Compreh ensive Internal Medicine Work Phone: Comment on above: PATIENT WAS FASTINGP ERFORMED BY: [facility] [address] [id number] BY: DARREN [facility] Ogsmrf5525 Cardenas RoadUnc Healthin [place] [id number] Chloride molar conc 103 mmol/L Normal 96-106 Compr ehensive Internal Medicine Work Phone: Comment on above: PATIENT WAS FASTINGP ERFORMED BY: [facility] [address] [id number] BY: DARREN [facility] Kzdata3081 [address] Roadblin [place] [id number] CO2 molar conc 23 mmol/L Normal 20-29 Comprehens alee Internal Medicine Work Phone: Comment on above: PATIENT WAS FASTINGP ERFORMED BY: BN [facility] [address] [id number] BY: DARREN [facility] Gdamlf6130 [address] RoadDublin [place] [id number] Creatinine mass conc 1.05 mg/dL Normal 0.76-1.27 Comp rehensive Internal Medicine Work Phone: Comment on above: PATIENT WAS FASTINGP ERFORMED BY: [facility] [address] [id number] BY: DARREN [facility] Nivcfz2401 [address] RoadDublin [place] [id number] GFR/1.73 sq M predicted among blacks CKD-EPI vol rate/area (S/P/Bld) 86 mL/min/1.73 Normal Comprehensiv e Internal Medicine Work Phone: Comment on above: PATIENT WAS FASTINGP ERFORMED BY: LabCo[address] [id number] BY: [facility] Kydkdh9322 [address] RoadUnc Healthin [place] [id number] GFR/1.73 sq M predicted among non-blacks CKD-EPI vol rate/area (S/P/Bld) 75 mL/min/1.73 Normal [facility] Work Phone: Comment on above: PATIENT WAS FASTINGP ERFORMED BY: LabColorModules[address] [id number] BY: DARREN LabCoOcean Medical CenterOrztpn5077 [facility] [id number] Globulin mass conc (S) 2.5 g/dL Normal 1.5-4.5 [facility] Work Phone: Comment on above: PATIENT WAS FASTINGP ERFORMED BY: Lab[address] [id number] BY: DARREN [facility] Vdqsqf9033 [facility] [id number] Glucose mass conc 88 mg/dL Normal 65-99 Compreh ensive Internal Medicine Work Phone: Comment on above: PATIENT WAS FASTINGP ERFORMED BY: LabCo[address] [id number] BY: [facility] Jaydrp9236 [facility] [id number] Potassium molar conc 4.8 mmol/L Normal 3.5-5.2 Comp rehensive Internal Medicine Work Phone: Comment on above: PATIENT WAS FASTINGP ERFORMED BY: Lab[address] [id number] BY: LabMymichigan Medical Center Gladwin6[address] RoadDublin [place] [id number] Protein mass conc 6.6 g/dL Normal 6.0-8.5 Compreh ensive Internal Medicine Work Phone: Comment on above: PATIENT WAS FASTINGP ERFORMED BY: Lab[address] [id number] BY: [facility] Wubphn3488 Carde[address] RoadDublin [place] [id number] Sodium molar conc 142 mmol/L Normal 134-144 Compreh ensive Internal Medicine Work Phone: Comment on above: PATIENT WAS FASTINGP ERFORMED BY: Lab[address] [id number] BY: [facility] Dwqyrx6062 [address] RoadDublin [place] [id number] Urea nitrogen mass conc 21 mg/dL Normal 8-27 [facility] Work Phone: Comment on above: PATIENT WAS FASTINGP ERFORMED BY: Lab[address] [id number] BY: [facility] Vxxged6766 [address] RoadDublin [place] [id number] Urea nitrogen/Creatinine mass ratio 20 mg/mg Normal 10-24 [facility] Work Phone: Comment on above: PATIENT WAS FASTINGP ERFORMED BY: [address] [id number] BY: [facility] Rilriq0240 [address] RoadDublin [place] [id number] MICROALBUMINOrdered By: Syst em Lockstitch Zipper Setter on 01-14-2019 Albumin DL <= 20 mg/L mass conc (U) 3.6 ug/mL Normal [facility] Work Phone: Comment on above: PATIENT WAS FASTINGP ERFORMED BY: Lab[address] [id number] BY: [facility] Xtuvfc3541 [address] RoadDublin [place] [id number] Albumin/Creatinine mass ratio (U) 2.9 {mg/g_creat} Normal 0.0-30.0 [facility] Work Phone: Comment on above: Normal: 0.0 - 30.0 A lbuminuria: 31.0 - 300.0 Clinical albuminuria: >300.0 PATIENT WAS FASTINGP ERFORMED BY: Hail Varsity[address] [id number] BY: LabColorModules Jnmfdz3354 [address] RoadDublin [place] [id number] Creatinine mass conc (U) 123.5 mg/dL Normal [facility] Work Phone: Comment on above: PATIENT WAS FASTINGP ERFORMED BY: Hail Varsity[address] [id number] BY: Hail VarsityLincoln County Medical CenterQxnwbs7124 [address] RoadDublin [place] [id number] URINALYSIS, W/ MICRO ([id number]) Ordered By: Director Business Intelligence on 01-14-2019 Appearance Nom (U) Clear Normal Compre hensive Internal Medicine Work Phone: Comment on above: PATIENT WAS FASTINGP ERFORMED BY: Hail Varsity[address] [id number] BY: Hail Varsity Iydrup7011 [address] RoadDublin [place] [id number] Bilirubin Ql (U) Negative Normal Comprehe nsive Internal Medicine Work Phone: Comment on above: PATIENT WAS FASTINGP ERFORMED BY: Hail Varsity[address] [id number] BY: Hail Varsity Hzkkgb6935 [address] RoadDublin [place] [id number] Bilirubin Ql (U) Negative Normal Comprehe nsive Internal Medicine; [facility] Work Phone: Comment on above: PATIENT WAS FASTINGP ERFORMED BY: Hail Varsity[address] [id number] BY: [facility] Kwxokb4962 [address] RoadDublin [place] [id number] Color Nom (U) Yellow Normal Comprehensi ve Internal Medicine Work Phone: Comment on above: PATIENT WAS FASTINGP ERFORMED BY: [facility] [address] [id number] BY: DARREN [facility] Nfjiws2027 [address] RoadDublin [place] [id number] Glucose Ql (U) Negative Normal Comprehens alee Internal Medicine Work Phone: Comment on above: PATIENT WAS FASTINGP ERFORMED BY: [facility] [address] [id number] BY: DARREN [facility] Fgnfrb7112 [address] RoadDublin [place] [id number] Glucose Ql (U) Negative Normal Comprehens alee Internal Medicine; [facility] Work Phone: Comment on above: PATIENT WAS FASTINGP ERFORMED BY: [facility] [address] [id number] BY: DARREN [facility] Zgpmrg3117 [address] RoadDublin [place] [id number] Hemoglobin Ql (U) Negative Normal Compreh ensive Internal Medicine Work Phone: Comment on above: PATIENT WAS FASTINGP ERFORMED BY: LabCo[address] [id number] BY: DARREN [facility] Wsbtld5368 [address] RoadDublin [place] [id number] Hemoglobin Ql (U) Negative Normal Compreh ensive Internal Medicine; [facility] Work Phone: Comment on above: PATIENT WAS FASTINGP ERFORMED BY: [facility] [address] [id number] BY: CB [facility] Vgtrro7327 [address] RoadDublin [place] [id number] Ketones Ql (U) Negative Normal Comprehens alee Internal Medicine Work Phone: Comment on above: PATIENT WAS FASTINGP ERFORMED BY: [facility] [address] [id number] BY: DARREN [facility] Esogcx2782 [address] RoadDublin [place] [id number] Ketones Ql (U) Negative Normal Comprehens alee Internal Medicine; [facility] Work Phone: Comment on above: PATIENT WAS FASTINGP ERFORMED BY: [address] [id number] BY: [facility] Qjdbpc7479 [address] RoadDublin [place] [id number] Leukocyte esterase Test strip Ql (U) Negative Normal [facility] Work Phone: Comment on above: PATIENT WAS FASTINGP ERFORMED BY: Lab[address] [id number] BY: [facility] Ahladh2637 [address] RoadDublin [place] [id number] Leukocyte esterase Test strip Ql (U) Negative Normal [facility]; [facility] Work Phone: Comment on above: PATIENT WAS FASTINGP ERFORMED BY: [address] [id number] BY: [facility] Bwqchn8916 [address] RoadDublin [place] [id number] Microscopic observation LM Nom (Urine sed) MICRON Normal [facility] Work Phone: Comment on above: Microscopic follows if indicated. PATIENT WAS FASTINGP ERFORMED BY: [address] [id number] BY: [facility] Bmqiqa9728 [address] RoadDublin [place] [id number] Microscopic observation LM Nom (Urine sed) See below: Normal [facility] Work Phone: Comment on above: Microscopic was desire cated and was performed. PATIENT WAS FASTINGP ERFORMED BY: [address] [id number] BY: [facility] Upuzkq0491 [address] RoadDublin [place] [id number] Nitrite Ql (U) Negative Normal Comprehens alee Internal Medicine Work Phone: Comment on above: PATIENT WAS FASTINGP ERFORMED BY: BN Lab[address] [id number] BY: [facility] Nryvbl5607 [address] RoadDublin [place] [id number] Nitrite Ql (U) Negative Normal Comprehens alee Internal Medicine; [facility] Work Phone: Comment on above: PATIENT WAS FASTINGP ERFORMED BY: [address] [id number] BY: Lab[facility] Zsguqa9832 [address] RoadDublin [place] [id number] pH (U) 7.0 [pH] Normal 5.0-7.5 [facility] Work Phone: Comment on above: PATIENT WAS FASTINGP ERFORMED BY: [address] [id number] BY: [facility] Iaxvqe6797 [address] RoadDublin [place] [id number] Protein Ql (U) Negative Normal Comprehens alee Internal Medicine Work Phone: Comment on above: PATIENT WAS FASTINGP ERFORMED BY: [address] [id number] BY: [facility] Gqtiae6753 Cardenas RoadDublin [place] [id number] Protein Ql (U) Negative Normal Comprehens alee Internal Medicine; [facility] Work Phone: Comment on above: PATIENT WAS FASTINGP ERFORMED BY: [address] [id number] BY: [facility] Ytgxtz9396 Cardenas RoadDublin [place] [id number] Specific gravity Relative Density (U) 1.020 1 Normal 1.005-1.03 0 [facility] Work Phone: Comment on above: PATIENT WAS FASTINGP ERFORMED BY: [address] [id number] BY: [facility] Kmdiye1531 [address] RoadDublin [place] [id number] Urobilinogen (U) [Mass/Vol] 0.2 mg/dL Normal 0.2-1.0 [facility]; [facility] Work Phone: Comment on above: PATIENT WAS FASTINGP ERFORMED BY: LabCo[address] [id number] BY: DARREN [facility] Teplgu[address] [facility]lessLife[facility] [id number] Urobilinogen Test strip mass conc (U) 0.2 mg/dL Normal 0.2-1.0 Comprehensiv e Internal Medicine Work Phone: Comment on above: PATIENT WAS FASTINGP ERFORMED BY: LabCo[address] [id number] BY: DARREN [facility] Viyquq8411 [facility] [id number] CBC W/AUTO DIFF WBC ([id number])O rdered By: Director Business Intelligence on 07-31-2018 Basophils #/vol (Bld) 0.1 {x10E3/uL} Normal 0.0-0.2 [facility] Work Phone: Comment on above: PATIENT WAS FASTINGP ERFORMED BY: LabColorModules[address] [id number] BY: DARREN LabCoOcean Medical CenterVqeuzt2208 [facility] [id number] Basophils (Bld) [#/Vol] 0.1 10*3/uL Normal 0.0-0.2 [facility]; [facility] Work Phone: Comment on above: PATIENT WAS FASTINGP ERFORMED BY: LabCo[address] [id number] BY: DARREN [facility] Duobxm[address] [facility] [id number] Basophils/100 WBC (Bld) 1 % Normal [facility] Work Phone: Comment on above: PATIENT WAS FASTINGP ERFORMED BY: LabCo[address] [id number] BY: LabWestern Missouri Mental Health CenterKeiwsr2952 [address] RoadDublin [place] [id number] Eosinophils #/vol (Bld) 0.2 {x10E3/uL} Normal 0.0-0.4 [facility] Work Phone: Comment on above: PATIENT WAS FASTINGP ERFORMED BY: [address] [id number] BY: LabCo Lqeiqu5521 [address] RoadDublin [place] [id number] Eosinophils (Bld) [#/Vol] 0.2 10*3/uL Normal 0.0-0.4 [facility]; [facility] Work Phone: Comment on above: PATIENT WAS FASTINGP ERFORMED BY: [address] [id number] BY: LabCo Lydkov4525 [address] RoadDublin [place] [id number] Eosinophils/100 WBC (Bld) 3 % Normal [facility] Work Phone: Comment on above: PATIENT WAS FASTINGP ERFORMED BY: [address] [id number] BY: [facility] Pzkenz8472 [address] RoadDublin [place] [id number] Erythrocyte distribution width Ratio (RBC) 13.9 % Normal 12.3-15.4 [facility] Work Phone: Comment on above: PATIENT WAS FASTINGP ERFORMED BY: Lab[address] [id number] BY: LabCo Hyqocr2862 [address] RoadDublin [place] [id number] Hematocrit Volume Fraction (Bld) 43.2 % Normal 37.5-51.0 [facility] Work Phone: Comment on above: PATIENT WAS FASTINGP ERFORMED BY: [address] [id number] BY: LabCo Yugypb9276 [address] RoadDublin [place] [id number] Hemoglobin mass conc (Bld) 14.8 g/dL Normal 13.0-17.7 [facility] Work Phone: Comment on above: PATIENT WAS FASTINGP ERFORMED BY: [address] [id number] BY: DARREN [facility] Refwdf1232 C[address] RoadDublin [place] [id number] Immature granulocytes #/vol (Bld) 0.0 {x10E3/uL} Normal 0.0-0.1 [facility] Work Phone: Comment on above: PATIENT WAS FASTINGP ERFORMED BY: [address] [id number] BY: DARREN [facility] Zbslzi[address] [facility] [id number] Immature granulocytes (Bld) [#/Vol] 0.0 10*3/uL Normal 0.0-0.1 [facility]; [facility] Work Phone: Comment on above: PATIENT WAS FASTINGP ERFORMED BY: [address] [id number] BY: DARREN [facility] Hunefj[address] [facility] [id number] Immature granulocytes/100 WBC (Bld) 0 % Normal [facility] Work Phone: Comment on above: PATIENT WAS FASTINGP ERFORMED BY: [address] [id number] BY: [place] 7[address] [facility] [id number] Lymphocytes #/vol (Bld) 2.1 {x10E3/uL} Normal 0.7-3.1 [facility] Work Phone: Comment on above: PATIENT WAS FASTINGP ERFORMED BY: [address] [id number] BY: Lab[facility] Gzaqko8568 Cardenas RoadUnc Healthin [place] [id number] Lymphocytes (Bld) [#/Vol] 2.1 10*3/uL Normal 0.7-3.1 [facility]; [facility] Work Phone: Comment on above: PATIENT WAS FASTINGP ERFORMED BY: LabCo[address] [id number] BY: LabCo Nkfjji8039 Cardenas RoadUnc Healthin [place] [id number] Lymphocytes/100 WBC (Bld) 32 % Normal [facility] Work Phone: Comment on above: PATIENT WAS FASTINGP ERFORMED BY: [facility] [address] [id number] BY: LabCo Jvpzia8[address] [facility] [id number] MCH Entitic mass (RBC) 29.9 pg Normal 26.6-33.0 [facility] Work Phone: Comment on above: PATIENT WAS FASTINGP ERFORMED BY: LabCo[address] [id number] BY: [facility] Txqjom[address] [facility] [id number] MCHC mass conc (RBC) 34.3 g/dL Normal 31.5-35.7 [facility] Internal Medicine Work Phone: Comment on above: PATIENT WAS FASTINGP ERFORMED BY: LabColorModules[address] [id number] BY: LabCoOcean Medical CenterKlibgw6940 [address] [facility] [id number] MCV Entitic volume (RBC) 87 fL Normal 79-97 [facility] Work Phone: Comment on above: PATIENT WAS FASTINGP ERFORMED BY: Lab[address] [id number] BY: LabCo Fobohd[address]2 [address] [facility] Centerin [place] [id number] Monocytes #/vol (Bld) 0.5 {x10E3/uL} Normal 0.1-0.9 [facility] Work Phone: Comment on above: PATIENT WAS FASTINGP ERFORMED BY: LabCo[address] [id number] BY: DARREN [facility] Wfipyw0493 [address] RoadDublin [place] [id number] Monocytes (Bld) [#/Vol] 0.5 10*3/uL Normal 0.1-0.9 [facility]; [facility] Work Phone: Comment on above: PATIENT WAS FASTINGP ERFORMED BY: [facility] [address] [id number] BY: DARREN [facility] Rhyypd6509 [address] RoadDublin [place] [id number] Monocytes/100 WBC (Bld) 8 % Normal [facility] Work Phone: Comment on above: PATIENT WAS FASTINGP ERFORMED BY: [address] [id number] BY: DARREN [facility] Vtvvcd7684 Cardenas RoadDuin [place] [id number] Neutrophils #/vol (Bld) 3.6 {x10E3/uL} Normal 1.4-7.0 [facility] Work Phone: Comment on above: PATIENT WAS FASTINGP ERFORMED BY: Lab[address] [id number] BY: LabCo Oaguak3211 [address] RoadDuin [place] [id number] Neutrophils (Bld) [#/Vol] 3.6 10*3/uL Normal 1.4-7.0 [facility]; [facility] Work Phone: Comment on above: PATIENT WAS FASTINGP ERFORMED BY: [address] [id number] BY: LabCo Wutmbb4700 Carden[address] RoadDublin [place] [id number] Neutrophils/100 WBC (Bld) 56 % Normal [facility] Work Phone: Comment on above: PATIENT WAS FASTINGP ERFORMED BY: [address] [id number] BY: LabCoOcean Medical CenterJfczok2960 [address] RoadDublin [place] [id number] Platelets #/vol (Bld) 304 {x10E3/uL} Normal 150-379 [facility] Work Phone: Comment on above: PATIENT WAS FASTINGP ERFORMED BY: [address] [id number] BY: LabMichael [place]ille 1123970 Carden[address] Roadblin [place] [id number] Platelets (Bld) [#/Vol] 304 10*3/uL Normal 150-379 [facility]; [facility] Work Phone: Comment on above: PATIENT WAS FASTINGP ERFORMED BY: [address] [id number] BY: [facility] Damshg[address] [facility] [id number] RBC #/vol (Bld) 4.95 {x10E6/uL} Normal 4.14-5.80 Comp [facility] hospitalensive Internal [facility] Work Phone: Comment on above: PATIENT WAS FASTINGP ERFORMED BY: [address] [id number] BY: [facility] Syljmd6968 [address] [facility] [id number] RBC (Bld) [#/Vol] 4.95 10*6/uL Normal 4.14-5.80 Compr ensive Internal Medicine; [facility] Work Phone: Comment on above: PATIENT WAS FASTINGP ERFORMED BY: [address] [id number] BY: LabMichael [place] 1123970 [address] [facility] [id number] WBC #/vol (Bld) 6.5 {x10E3/uL} Normal 3.4-10.8 Compr ensive Internal Medicine Work Phone: Comment on above: PATIENT WAS FASTINGP ERFORMED BY: Hail Varsity[address] [id number] BY: LabMymichigan Medical Center Gladwin6370 [facility] [id number] WBC (Bld) [#/Vol] 6.5 10*3/uL Normal 3.4-10.8 [facility] Internal Medicine; [facility] Work Phone: Comment on above: PATIENT WAS FASTINGP ERFORMED BY: BOLD Guidance[address] [id number] BY: LabMichael [place] 1123970 [facility] [id number] LIPOPROTEIN, BLD, BY NMR ([id number] [id number])Ordered By: Director Business Intelligence on 07-31-2018 Cholesterol in HDL mass conc 36 mg/dL Abnormal [facility] Work Phone: Comment on above: PATIENT WAS FASTINGP ERFORMED BY: Hail Varsity[address] [id number] BY: BOLD GuidanceMichael Ville 1123970 [facility] [id number] Cholesterol in LDL mass conc 136 mg/dL Abnormal 0-99 [facility] Work Phone: Comment on above: . Optimal < 100 Abov e optimal 100 - 129 Borderline 130 - 159 High 160 - 189 Very high > 189 .LDL-C is inaccurate if patient is non-fasting. PATIENT WAS FASTINGP ERFORMED BY: Hail Varsity[address] [id number] BY: [facility]6370 [facility] [id number] Cholesterol mass conc 210 mg/dL Abnormal 100-199 [facility] Work Phone: Comment on above: PATIENT WAS FASTINGP ERFORMED BY: BOLD Guidance[address] [id number] BY: [facility]6370 [facility] [id number] Lipoprotein.alpha molar conc 32.5 umol/L Normal [facility] Work Phone: Comment on above: PATIENT WAS FASTINGP ERFORMED BY: [employer] [address] [id number] BY: Hail VarsityOcean Medical CenterAcuzex0251 [facility] [id number] Lipoprotein.beta.sub particle Entitic length 20.2 nm Normal [facility] Work Phone: Comment on above: INTERPRETATIVE INFORMATION PARTICLE CONCENTRATION AND SIZE <--Lower CVD Risk Higher CVD Risk--> LDL AND HDL PARTICLES Percentile in Reference Population HDL-P (total) High 75th 50th 25th Low >34.9 34.9 30.5 26.7 <26.7 . Small LDL-P Low 25th 50th 75th High <117 117 527 839 >839 . LDL Size <-Large (Pattern A)-> <-Small (Pattern B)-> 23.0 20.6 20.5 19.0 Small LDL-P and LDL Size are associated with CVD risk, but not afterLDL-P is taken into account. .These assays were developed and their performance characteristicsdetermined by [employer]. These assays have not been cleared by [employer] Food and Drug Administration. The clinical utility of theselaboratory values have not been fully established. PATIENT WAS FASTINGP ERFORMED BY: [employer] [address] [id number] BY: [employer] Iazgnu2484 [facility] [id number] Lipoprotein.beta.sub particle molar conc 1692 nmol/L Abnormal Comprehensiv e Internal Medicine Work Phone: Comment on above: Low < 1000 Moderate 1000 - 1299 Borderline-High 1300 - 1599 High 1600 - 2000 Very High > 2000 PATIENT WAS FASTINGP ERFORMED BY: LabCo[address] [id number] BY: LabCo Htlcew9043 [facility] [id number] Lipoprotein.beta.sub particle.small molar conc 1143 nmol/L Abnormal [facility] Work Phone: Comment on above: PATIENT WAS FASTINGP ERFORMED BY: [facility] [address] [id number] BY: [facility] Cxsxhq9647 [facility] [id number] Triglyceride mass conc 188 mg/dL Abnormal 0-149 [facility] Work Phone: Comment on above: PATIENT WAS FASTINGP ERFORMED BY: LabColorModules[address] [id number] BY: DARREN LabCoLincoln County Medical CenterYdsuyk0321 [facility] [id number] METABOLIC PANEL, COMPREHENSI VE ([id number])Ordered By: Director Business Intelligence on 07-31-2018 Albumin mass conc 4.3 g/dL Normal 3.6-4.8 Compreh ensive Internal Medicine Work Phone: Comment on above: PATIENT WAS FASTINGP ERFORMED BY: Hail Varsity[address] [id number] BY: Lab[facility] Iomhbw7545 [facility] [id number] Albumin/Globulin mass ratio 1.7 {ratio} Normal 1.2-2.2 [facility] Work Phone: Comment on above: PATIENT WAS FASTINGP ERFORMED BY: LabCo[address] [id number] BY: [facility] Zwwtbd9300 [facility] [id number] ALP [Catalytic activity/Vol] 85 U/L Normal 39-117 [facility]; [facility] Work Phone: Comment on above: PATIENT WAS FASTINGP ERFORMED BY: LabCo[address] [id number] BY: DARREN [facility] Waehkb3354 Carden[address] RoadDublin [place] [id number] ALP enzyme act/vol 85 [iU]/L Normal 39-117 [facility] Internal Medicine Work Phone: Comment on above: PATIENT WAS FASTINGP ERFORMED BY: LabCo[address] [id number] BY: [facility] Wxgtiy7108 [address] RoadDublin [place] [id number] ALT [Catalytic activity/Vol] 24 U/L Normal 0-44 [facility]; [facility] Internal Medicine Work Phone: Comment on above: PATIENT WAS FASTINGP ERFORMED BY: Lab[address] [id number] BY: DARREN [facility] Cxiebl0482 [address] RoadDublin [place] [id number] ALT enzyme act/vol 24 [iU]/L Normal 0-44 [facility] Internal Medicine Work Phone: Comment on above: PATIENT WAS FASTINGP ERFORMED BY: [address] [id number] BY: [facility] Vfyoqx9110 [address] RoadDublin [place] [id number] AST [Catalytic activity/Vol] 25 U/L Normal 0-40 [facility]; [facility] Internal Medicine Work Phone: Comment on above: PATIENT WAS FASTINGP ERFORMED BY: Lab[address] [id number] BY: [facility] Kkgajg3720 [address] RoadDublin [place] [id number] AST enzyme act/vol 25 [iU]/L Normal 0-40 [facility] Internal Medicine Work Phone: Comment on above: PATIENT WAS FASTINGP ERFORMED BY: [address] [id number] BY: LabCo Ptmnci5183 Carden[address] RoadUnc Healthin [place] [id number] Bilirubin mass conc 0.2 mg/dL Normal 0.0-1.2 Compr ehensive Internal Medicine Work Phone: Comment on above: PATIENT WAS FASTINGP ERFORMED BY: LabCo[address] [id number] BY: [facility] Klqpvr2117 [address]arden[address] RoadUnc Healthin [place] [id number] Calcium mass conc 9.4 mg/dL Normal 8.6-10.2 Compreh ensive Internal Medicine Work Phone: Comment on above: PATIENT WAS FASTINGP ERFORMED BY: LabCo[address] [id number] BY: DARREN [facility] Evwgmp1225 [address] [facility] [id number] Chloride molar conc 101 mmol/L Normal 96-106 Compr ensive Internal Medicine Work Phone: Comment on above: PATIENT WAS FASTINGP ERFORMED BY: LabCo[address] [id number] BY: [facility] Kraect[address] [facility] [id number] CO2 molar conc 24 mmol/L Normal 20-29 Comprehens alee Internal Medicine Work Phone: Comment on above: PATIENT WAS FASTINGP ERFORMED BY: Lab[address] [id number] BY: [facility] Hpxquu[address] [facility] [id number] Creatinine mass conc 1.12 mg/dL Normal 0.76-1.27 Comp [facility] hospitalensive Internal Medicine Work Phone: Comment on above: PATIENT WAS FASTINGP ERFORMED BY: Lab[address] [id number] BY: DARREN [facility] Phaixv2677 [address]arden[address] RoadUnc Healthin [place] [id number] GFR/1.73 sq M predicted among blacks CKD-EPI vol rate/area (S/P/Bld) 80 mL/min/1.73 Normal Comprehensiv e Internal Medicine Work Phone: Comment on above: PATIENT WAS FASTINGP ERFORMED BY: Lab[address] [id number] BY: DARREN [facility] Kmsjgy5652 [address] RoadDublin [place] [id number] GFR/1.73 sq M predicted among non-blacks CKD-EPI vol rate/area (S/P/Bld) 70 mL/min/1.73 Normal [facility] Work Phone: Comment on above: PATIENT WAS FASTINGP ERFORMED BY: Lab[address] [id number] BY: DARREN [facility] Sfazns2778 [address] RoadUnc Healthin [place] [id number] Globulin mass conc (S) 2.5 g/dL Normal 1.5-4.5 [facility] Work Phone: Comment on above: PATIENT WAS FASTINGP ERFORMED BY: BOLD Guidance[address] [id number] BY: DARREN [facility] Yaojrl[address] [facility]in [place] [id number] Glucose mass conc 88 mg/dL Normal 65-99 Compreh ensive Internal Medicine Work Phone: Comment on above: PATIENT WAS FASTINGP ERFORMED BY: BOLD Guidance[address] [id number] BY: DARREN [facility] Xkumpm6[address] [facility] Centerin [place] [id number] Potassium molar conc 4.5 mmol/L Normal 3.5-5.2 Comp rehensive Internal Medicine Work Phone: Comment on above: PATIENT WAS FASTINGP ERFORMED BY: Lab[address] [id number] BY: DARREN [facility] Idhpqd16[address] [facility]blin [place] [id number] Protein mass conc 6.8 g/dL Normal 6.0-8.5 Compreh ensive Internal Medicine Work Phone: Comment on above: PATIENT WAS FASTINGP ERFORMED BY: [facility] Qziapzeeuq3420 [facility] [id number] BY: CB [facility] Cnhzhf7575 [address] RoadUnc Healthin [place] [id number] Sodium molar conc 141 mmol/L Normal 134-144 Compreh ensive Internal Medicine Work Phone: Comment on above: PATIENT WAS FASTINGP ERFORMED BY: BN [facility] Ykqhekrorb[address] [id number] BY: CB [facility] Bzcisy6635 [address] RoadDuin [place] [id number] Urea nitrogen mass conc 16 mg/dL Normal 8-27 [facility] Work Phone: Comment on above: PATIENT WAS FASTINGP ERFORMED BY: BN [facility] Komxkyhryc32[address] [id number] BY: CB [facility] Bzcryc6284 [address] RoadUnc Healthin [place] [id number] Urea nitrogen/Creatinine mass ratio 14 mg/mg Normal 10-24 [facility] Work Phone: Comment on above: PATIENT WAS FASTINGP ERFORMED BY: [facility] [address] [id number] BY: CB [facility] Rfkibg6099 [address] [facility] [id number] MICROALBUMINOrdered By: Syst em Lockstitch Zipper Setter on 07-31-2018 Albumin DL <= 20 mg/L mass conc (U) 3.4 ug/mL Normal [facility] Work Phone: Comment on above: PATIENT WAS FASTINGP ERFORMED BY: [facility] [address] [id number] BY: CB [facility] Zptyau0901 [address] RoadUnc Healthin [place] [id number] Albumin/Creatinine mass ratio (U) 2.3 {mg/g_creat} Normal 0.0-30.0 [facility] Work Phone: Comment on above: Normal: 0.0 - 30.0 A lbuminuria: 31.0 - 300.0 Clinical albuminuria: >300.0 PATIENT WAS FASTINGP ERFORMED BY: [address] [id number] BY: [facility] Vtpeym4696 [facility] [id number] Creatinine mass conc (U) 146.6 mg/dL Normal [facility] Work Phone: Comment on above: PATIENT WAS FASTINGP ERFORMED BY: Lab[address] [id number] BY: [facility] Cpuvyc0170 [facility] [id number] Microscopic ExaminationOrder ed By: Director Business Intelligence on 07-31-2018 Bacteria LM.HPF #/area (Urine sed) Few Normal [facility] Work Phone: Comment on above: PATIENT WAS FASTINGP ERFORMED BY: [address] [id number] BY: LabMymichigan Medical Center Gladwin6370 [facility] [id number] Epithelial cells LM.HPF #/area (Urine sed) None seen Normal 0 - 10 [facility] Work Phone: Comment on above: PATIENT WAS FASTINGP ERFORMED BY: BOLD Guidance[address] [id number] BY: [facility] Bqwlhp5[address] [facility] [id number] Mucus Ql (Urine sed) Present Normal Comp rehensive Internal Medicine Work Phone: Comment on above: PATIENT WAS FASTINGP ERFORMED BY: [address] [id number] BY: [facility] Zrogwv4[address] [facility] [id number] RBC LM.HPF #/area (Urine sed) 0-2 Normal 0 - 2 [facility] Work Phone: Comment on above: PATIENT WAS FASTINGP ERFORMED BY: [address] [id number] BY: DARREN [facility] Xgalud8330 [address] RoadDublin [place] [id number] WBC LM.HPF #/area (Urine sed) 0-5 Normal 0 - 5 [facility] Work Phone: Comment on above: PATIENT WAS FASTINGP ERFORMED BY: LabColorModules[address] [id number] BY: [facility] Cvyclv8206 [address] RoadDublin [place] [id number] TSH ([id number])Ordered By: [employer] Lockstitch Zipper Setter on 07-31-2018 Thyrotropin Qn 2.520 {uIU/mL} Normal 0.450-4.50 0 [facility] Work Phone: Comment on above: PATIENT WAS FASTINGP ERFORMED BY: Hail Varsity[address] [id number] BY: DARREN [facility] Pcewlc6427 [address] [facility] [id number] URINALYSIS, W/ MICRO ([id number]) Ordered By: Director Business Intelligence on 07-31-2018 Appearance Nom (U) Clear Normal Compre hensive Internal Medicine Work Phone: Comment on above: PATIENT WAS FASTINGP ERFORMED BY: Hail Varsity[address] [id number] BY: DARREN [facility] Ztfdum5488 [address] RoadDuin [place] [id number] Bilirubin Ql (U) Negative Normal Comprehe nsive Internal Medicine Work Phone: Comment on above: PATIENT WAS FASTINGP ERFORMED BY: LabCo[address] [id number] BY: [facility] Acnymz7450 [address] RoadDublin [place] [id number] Bilirubin Ql (U) Negative Normal Comprehe nsive Internal Medicine; [facility] Work Phone: Comment on above: PATIENT WAS FASTINGP ERFORMED BY: LabColorModules[address] [id number] BY: CB [facility] Anmojh3747 [address] RoadDublin [place] [id number] Color Nom (U) Yellow Normal Comprehensi ve Internal Medicine Work Phone: Comment on above: PATIENT WAS FASTINGP ERFORMED BY: [address] [id number] BY: DARREN [facility] Fdkxoy2351 [address]as RoadDublin [place] [id number] Glucose Ql (U) Negative Normal Comprehens alee Internal Medicine Work Phone: Comment on above: PATIENT WAS FASTINGP ERFORMED BY: [address] [id number] BY: DARREN LabMiguelito BatistaHduowv6637 Cardenas RoadDublin [place] [id number] Glucose Ql (U) Negative Normal Comprehens alee [facility]; [facility] Work Phone: Comment on above: PATIENT WAS FASTINGP ERFORMED BY: [address] [id number] BY: DARREN [facility] Mfewdx3261 [address] RoadDublin [place] [id number] Hemoglobin Ql (U) Negative Normal Compreh ensive Internal Medicine Work Phone: Comment on above: PATIENT WAS FASTINGP ERFORMED BY: [address] [id number] BY: DARREN [facility] Glqzyc7906 [address] RoadDublin [place] [id number] Hemoglobin Ql (U) Negative Normal Compreh ensive Internal Medicine; [facility] Work Phone: Comment on above: PATIENT WAS FASTINGP ERFORMED BY: [address] [id number] BY: DARREN [facility] Bysabd4035 [address]as RoadDublin [place] [id number] Ketones Ql (U) Negative Normal Comprehens alee [facility] Work Phone: Comment on above: PATIENT WAS FASTINGP ERFORMED BY: [address] [id number] BY: [facility] Gygmds9918 [address] RoadDublin [place] [id number] Ketones Ql (U) Negative Normal Comprehens alee [facility]; [facility] Work Phone: Comment on above: PATIENT WAS FASTINGP ERFORMED BY: [address] [id number] BY: [facility] Asdzse4802 [address] RoadDublin [place] [id number] Leukocyte esterase Test strip Ql (U) Negative Normal [facility] Work Phone: Comment on above: PATIENT WAS FASTINGP ERFORMED BY: [address] [id number] BY: [facility] Sxibcy4676 [address] RoadDublin [place] [id number] Leukocyte esterase Test strip Ql (U) Negative Normal [facility]; [facility] Work Phone: Comment on above: PATIENT WAS FASTINGP ERFORMED BY: [address] [id number] BY: [facility] Hxaosl3584 C[address] RoadDublin [place] [id number] Microscopic observation LM Nom (Urine sed) MICRON Normal [facility] Work Phone: Comment on above: Microscopic follows if indicated. PATIENT WAS FASTINGP ERFORMED BY: [address] [id number] BY: [facility] Sjxuee0066 [address] RoadDublin [place] [id number] Microscopic observation LM Nom (Urine sed) See below: Normal [facility] Work Phone: Comment on above: Microscopic was desire cated and was performed. PATIENT WAS FASTINGP ERFORMED BY: [address] [id number] BY: [facility] Bhwvak5579 [address] RoadDublin [place] [id number] Nitrite Ql (U) Negative Normal Comprehens alee [facility] Work Phone: Comment on above: PATIENT WAS FASTINGP ERFORMED BY: [address] [id number] BY: [facility] Kqmygf2945 [address] RoadDublin [place] [id number] Nitrite Ql (U) Negative Normal Comprehens alee [facility]; [facility] Work Phone: Comment on above: PATIENT WAS FASTINGP ERFORMED BY: [address] [id number] BY: DARREN [facility] Lhlktc3260 [address] RoadDublin [place] [id number] pH (U) 7.0 [pH] Normal 5.0-7.5 [facility] Work Phone: Comment on above: PATIENT WAS FASTINGP ERFORMED BY: [address] [id number] BY: LabM[facility] Gladwin6370 [address] RoadDublin [place] [id number] Protein Ql (U) Negative Normal Comprehens alee [facility] Work Phone: Comment on above: PATIENT WAS FASTINGP ERFORMED BY: [address] [id number] BY: LabCoOcean Medical CenterDzklom6117 [address] RoadDublin [place] [id number] Protein Ql (U) Negative Normal Comprehens alee [facility] Medicine; [facility] Work Phone: Comment on above: PATIENT WAS FASTINGP ERFORMED BY: [address] [id number] BY: [facility] Hunqik[address] [facility]in [place] [id number] Specific gravity Relative Density (U) 1.017 1 Normal 1.005-1.03 0 [facility] Work Phone: Comment on above: PATIENT WAS FASTINGP ERFORMED BY: [address] [id number] BY: [facility] Ronuor2169 [address] RoadDublin [place] [id number] Urobilinogen (U) [Mass/Vol] 0.2 mg/dL Normal 0.2-1.0 [facility]; [facility] Work Phone: Comment on above: PATIENT WAS FASTINGP ERFORMED BY: Lab[address] [id number] BY: LabCoLincoln County Medical CenterZiayhi6079 Carden[address] Roadblin [place] [id number] Urobilinogen Test strip mass conc (U) 0.2 mg/dL Normal 0.2-1.0 Comprehensiv e Internal Medicine Work Phone: Comment on above: PATIENT WAS FASTINGP ERFORMED BY: BOLD Guidance[address] [id number] BY: LabMymichigan [facility] Gladwin6370 [facility] [id number] CBC W/AUTO DIFF WBC ([id number])O rdered By: Director Business Intelligence on 01-04-2018 Basophils #/vol (Bld) 0.1 {x10E3/uL} Normal 0.0-0.2 [facility] Work Phone: Comment on above: PATIENT WAS FASTINGP ERFORMED BY: [facility] Zyuhgu[address] [facility]in [place] [id number] Basophils (Bld) [#/Vol] 0.1 10*3/uL Normal 0.0-0.2 [facility]; [facility] Work Phone: Comment on above: PATIENT WAS FASTINGP ERFORMED BY: [facility] Zruulu9710 [address]blin [place] [id number] Basophils/100 WBC (Bld) 1 % Normal [facility] Work Phone: Comment on above: PATIENT WAS FASTINGP ERFORMED BY: [facility] Kaaxaj8358 [address] RoadDublin [place] [id number] Eosinophils #/vol (Bld) 0.2 {x10E3/uL} Normal 0.0-0.4 [facility] Work Phone: Comment on above: PATIENT WAS FASTINGP ERFORMED BY: DARREN [facility] Mvldjj0986 [facility] [id number] Eosinophils (Bld) [#/Vol] 0.2 10*3/uL Normal 0.0-0.4 [facility]; [facility] Work Phone: Comment on above: PATIENT WAS FASTINGP ERFORMED BY: MarissaMichael [place] 1123970 [facility] [id number] Eosinophils/100 WBC (Bld) 4 % Normal [facility] Work Phone: Comment on above: PATIENT WAS FASTINGP ERFORMED BY: [facility]Kind[facility] Htftsz3733 [facility] [id number] Erythrocyte distribution width Ratio (RBC) 14.2 % Normal 12.3-15.4 [facility] Work Phone: Comment on above: PATIENT WAS FASTINGP ERFORMED BY: [facility]issaKind[facility] Qdscte8377 [facility] [id number] Hematocrit Volume Fraction (Bld) 43.9 % Normal 37.5-51.0 [facility] Work Phone: Comment on above: PATIENT WAS FASTINGP ERFORMED BY: Jhony Shazbb8781 [facility] [id number] Hemoglobin mass conc (Bld) 14.9 g/dL Normal 13.0-17.7 [facility] Work Phone: Comment on above: PATIENT WAS FASTINGP ERFORMED BY: LabMym[facility] Gladwin6370 [facility] [id number] Immature granulocytes #/vol (Bld) 0.0 {x10E3/uL} Normal 0.0-0.1 [facility] Work Phone: Comment on above: PATIENT WAS FASTINGP ERFORMED BY: LabM[facility] Gladwin6370 [facility] [id number] Immature granulocytes (Bld) [#/Vol] 0.0 10*3/uL Normal 0.0-0.1 [facility]; [facility] Work Phone: Comment on above: PATIENT WAS FASTINGP ERFORMED BY: DARREN LabMymich[facility] Gladwin[address] [facility] [id number] Immature granulocytes/100 WBC (Bld) 0 % Normal [facility] Work Phone: Comment on above: PATIENT WAS FASTINGP ERFORMED BY: LabMichael Ville 112[address] [facility] Centerin [place] [id number] Lymphocytes #/vol (Bld) 1.8 {x10E3/uL} Normal 0.7-3.1 [facility] Work Phone: Comment on above: PATIENT WAS FASTINGP ERFORMED BY: DARREN [place] 9328470 [facility] [id number] Lymphocytes (Bld) [#/Vol] 1.8 10*3/uL Normal 0.7-3.1 [facility]; [facility] Work Phone: Comment on above: PATIENT WAS FASTINGP ERFORMED BY: [facility]6370 [facility] [id number] Lymphocytes/100 WBC (Bld) 33 % Normal [facility] Work Phone: Comment on above: PATIENT WAS FASTINGP ERFORMED BY: DARREN [facility]6370 [facility] [id number] MCH Entitic mass (RBC) 30.2 pg Normal 26.6-33.0 [facility] Work Phone: Comment on above: PATIENT WAS FASTINGP ERFORMED BY: LabM[facility] Gladwin6370 [facility] [id number] MCHC mass conc (RBC) 33.9 g/dL Normal 31.5-35.7 [facility] Internal Medicine Work Phone: Comment on above: PATIENT WAS FASTINGP ERFORMED BY: LabMym[facility] Gladwin6370 [facility] [id number] MCV Entitic volume (RBC) 89 fL Normal 79-97 [facility] Work Phone: Comment on above: PATIENT WAS FASTINGP ERFORMED BY: DARREN [facility]Kind[facility] Yfwvjz4685 [address] RoadDublin [place] [id number] Monocytes #/vol (Bld) 0.5 {x10E3/uL} Normal 0.1-0.9 [facility] Work Phone: Comment on above: PATIENT WAS FASTINGP ERFORMED BY: DARREN [facility] Xejkck7268 [address] RoadDublin [place] [id number] Monocytes (Bld) [#/Vol] 0.5 10*3/uL Normal 0.1-0.9 [facility]; [facility] Work Phone: Comment on above: PATIENT WAS FASTINGP ERFORMED BY: DARREN Whitehead6[address]Dublin [place] [id number] Monocytes/100 WBC (Bld) 8 % Normal [facility] Work Phone: Comment on above: PATIENT WAS FASTINGP ERFORMED BY: DARREN AnnKind[facility] Hpuqkw4787 C[address] RoadDuin [place] [id number] Neutrophils #/vol (Bld) 3.0 {x10E3/uL} Normal 1.4-7.0 [facility] Work Phone: Comment on above: PATIENT WAS FASTINGP ERFORMED BY: DARREN Whitehead6370 [address]blin [place] [id number] Neutrophils (Bld) [#/Vol] 3.0 10*3/uL Normal 1.4-7.0 [facility]; [facility] Work Phone: Comment on above: PATIENT WAS FASTINGP ERFORMED BY: LabKind[facility] Tweipn1763 [address] RoadDublin [place] [id number] Neutrophils/100 WBC (Bld) 54 % Normal [facility] Work Phone: Comment on above: PATIENT WAS FASTINGP ERFORMED BY: DARREN LabKindred Hospital Lrcfhs4903 [address] RoadDublin [place] [id number] Platelets #/vol (Bld) 264 {x10E3/uL} Normal 150-379 [facility] Work Phone: Comment on above: PATIENT WAS FASTINGP ERFORMED BY: CB [facility] Nrfone0738 [address] RoadDublin [place] [id number] Platelets (Bld) [#/Vol] 264 10*3/uL Normal 150-379 [facility]; [facility] Work Phone: Comment on above: PATIENT WAS FASTINGP ERFORMED BY: DARREN [facility] Yuogjk3917 [address] RoadDublin [place] [id number] RBC #/vol (Bld) 4.93 {x10E6/uL} Normal 4.14-5.80 Comp [facility]ensive [facility] Work Phone: Comment on above: PATIENT WAS FASTINGP ERFORMED BY: DARREN [facility] Dwttjr6788 [address] RoadDublin [place] [id number] RBC (Bld) [#/Vol] 4.93 10*6/uL Normal 4.14-5.80 [facility] Internal Medicine; [facility] Work Phone: Comment on above: PATIENT WAS FASTINGP ERFORMED BY: DARREN [facility] Humbhg7797 [address] RoadDublin [place] [id number] WBC #/vol (Bld) 5.6 {x10E3/uL} Normal 3.4-10.8 [facility] Internal Medicine Work Phone: Comment on above: PATIENT WAS FASTINGP ERFORMED BY: [facility] Vhkgqy0421 [address] RoadDublin [place] [id number] WBC (Bld) [#/Vol] 5.6 10*3/uL Normal 3.4-10.8 [facility]nort[facility]; [facility] Work Phone: Comment on above: PATIENT WAS FASTINGP ERFORMED BY: CB [facility] Fxzwum1374 [address] RoadDublin [place] [id number] LIPID PANEL ([id number])Ordered B y: Director Business Intelligence on 01-04-2018 Cholesterol in HDL mass conc 43 mg/dL Normal [facility] Work Phone: Comment on above: PATIENT WAS FASTINGP ERFORMED BY: CB [facility] Epkvmj7302 [address] RoadDublin [place] [id number]; fu 4-20 Cholesterol in LDL mass conc 153 mg/dL Abnormal 0-99 [facility] Work Phone: Comment on above: PATIENT WAS FASTINGP ERFORMED BY: DARREN LabLondonroxie Tmorvw3325 [facility] [id number]; fu 4-20 Cholesterol in LDL/Cholesterol in HDL mass ratio 3.6 {ratio_units} Normal 0.0-3.6 [facility] Work Phone: Comment on above: LDL/HDL Ratio Men Wo men 1/2 Avg.Risk 1.0 1.5 Avg.Risk 3.6 3.2 2X Avg.Risk 6.2 5.0 3X Avg.Risk 8.0 6.1 PATIENT WAS FASTINGP ERFORMED BY: DARREN MarissaMiguelito BatistaWkjanb4478 [facility] [id number]; fu 4-20 Cholesterol in VLDL mass conc 28 mg/dL Normal 5-40 [facility] Work Phone: Comment on above: PATIENT WAS FASTINGP ERFORMED BY: DARREN MarissaMiguelito BatistaAnkrwz5223 [facility] [id number]; fu 4-20 Cholesterol mass conc 224 mg/dL Abnormal 100-199 [facility] Work Phone: Comment on above: PATIENT WAS FASTINGP ERFORMED BY: DARREN Jhonyroxie Tnlbsj8483 [facility] [id number]; fu 4-20 Triglyceride mass conc 138 mg/dL Normal 0-149 [facility] Work Phone: Comment on above: PATIENT WAS FASTINGP ERFORMED BY: DARREN [facility] Umomjb9918 [facility] [id number]; fu 4-20 METABOLIC PANEL, COMPREHENSI VE ([id number])Ordered By: Director Business Intelligence on 01-04-2018 Albumin mass conc 4.5 g/dL Normal 3.6-4.8 Compreh ensive Internal Medicine Work Phone: Comment on above: PATIENT WAS FASTINGP ERFORMED BY: DARREN [facility] Cqdeyi3667 [facility] [id number] Albumin/Globulin mass ratio 1.7 {ratio} Normal 1.2-2.2 [facility] Work Phone: Comment on above: PATIENT WAS FASTINGP ERFORMED BY: DARREN Batistalin6370 [address] RoadDublin [place] [id number] ALP [Catalytic activity/Vol] 88 U/L Normal 39-117 [facility]; [facility] Internal Medicine Work Phone: Comment on above: PATIENT WAS FASTINGP ERFORMED BY: DARREN Jhony Igksvc5403 [address] RoadDublin [place] [id number] ALP enzyme act/vol 88 [iU]/L Normal 39-117 [facility] Internal Medicine Work Phone: Comment on above: PATIENT WAS FASTINGP ERFORMED BY: DARREN Batistalin6370 [address] RoadDublin [place] [id number] ALT [Catalytic activity/Vol] 35 U/L Normal 0-44 [facility] Internal Medicine; [facility] Internal Medicine Work Phone: Comment on above: PATIENT WAS FASTINGP ERFORMED BY: DARREN Batistalin6370 [address] RoadDublin [place] [id number] ALT enzyme act/vol 35 [iU]/L Normal 0-44 [facility] Internal Medicine Work Phone: Comment on above: PATIENT WAS FASTINGP ERFORMED BY: DARREN Batistalin6370 [address] Roadblin [place] [id number] AST [Catalytic activity/Vol] 33 U/L Normal 0-40 [facility] Internal Medicine; [facility] Internal Medicine Work Phone: Comment on above: PATIENT WAS FASTINGP ERFORMED BY: DARREN MarissaLondon Hqrqmu1061 [address] RoadDublin [place] [id number] AST enzyme act/vol 33 [iU]/L Normal 0-40 [facility] Internal Medicine Work Phone: Comment on above: PATIENT WAS FASTINGP ERFORMED BY: DARREN MarissaMiguelito BatistaAgdszi9445 [address] RoadDublin [place] [id number] Bilirubin mass conc 0.3 mg/dL Normal 0.0-1.2 [facility] Internal Medicine Work Phone: Comment on above: PATIENT WAS FASTINGP ERFORMED BY: CB [facility] Zsbszk3056 [address] RoadDublin [place] [id number] Calcium mass conc 9.5 mg/dL Normal 8.6-10.2 Compreh ensive Internal Medicine Work Phone: Comment on above: PATIENT WAS FASTINGP ERFORMED BY: DARREN [facility] Vaeaxv0687 [address] RoadDublin [place] [id number] Chloride molar conc 100 mmol/L Normal 96-106 Compr ehensive Internal Medicine Work Phone: Comment on above: PATIENT WAS FASTINGP ERFORMED BY: DARREN [facility] Kzgheh9946 [address] RoadDublin [place] [id number] CO2 molar conc 27 mmol/L Normal 18-29 Comprehens alee Internal Medicine Work Phone: Comment on above: PATIENT WAS FASTINGP ERFORMED BY: DARREN [facility] Ubvyfw1918 [address] Roadblin [place] [id number] Creatinine mass conc 0.92 mg/dL Normal 0.76-1.27 Comp [facility]ensive [facility] Work Phone: Comment on above: PATIENT WAS FASTINGP ERFORMED BY: DARREN [facility] Utovaq3884 [address] Roadblin [place] [id number] GFR/1.73 sq M predicted among blacks CKD-EPI vol rate/area (S/P/Bld) 102 mL/min/1.73 Normal Comprehensiv e Internal Medicine Work Phone: Comment on above: PATIENT WAS FASTINGP ERFORMED BY: [facility] Diekvo7977 Cardenas RoadUnc Healthin [place] [id number] GFR/1.73 sq M predicted among non-blacks CKD-EPI vol rate/area (S/P/Bld) 88 mL/min/1.73 Normal [facility] Work Phone: Comment on above: PATIENT WAS FASTINGP ERFORMED BY: DARREN [facility] Ibgdva8494 [address] RoadDublin [place] [id number] Globulin mass conc (S) 2.6 g/dL Normal 1.5-4.5 [facility] Work Phone: Comment on above: PATIENT WAS FASTINGP ERFORMED BY: DARREN [facility] Hsemmu0223 [address] RoadDublin [place] [id number] Glucose mass conc 91 mg/dL Normal 65-99 Compreh ensive Internal Medicine Work Phone: Comment on above: PATIENT WAS FASTINGP ERFORMED BY: DARREN [facility] Uqhfbr4900 [address] RoadDublin [place] [id number] Potassium molar conc 4.9 mmol/L Normal 3.5-5.2 Comp rehensive Internal Medicine Work Phone: Comment on above: PATIENT WAS FASTINGP ERFORMED BY: DARREN [facility] Ufkqey7741 [address] RoadDublin [place] [id number] Protein mass conc 7.1 g/dL Normal 6.0-8.5 Compreh ensive Internal Medicine Work Phone: Comment on above: PATIENT WAS FASTINGP ERFORMED BY: DARREN [facility] Dmniug5000 [address] RoadDublin [place] [id number] Sodium molar conc 142 mmol/L Normal 134-144 Compreh ensive Internal Medicine Work Phone: Comment on above: PATIENT WAS FASTINGP ERFORMED BY: DARREN [facility] Bozzpe5051 [address] RoadDublin [place] [id number] Urea nitrogen mass conc 20 mg/dL Normal 8-27 [facility] Work Phone: Comment on above: PATIENT WAS FASTINGP ERFORMED BY: DARREN [facility] Ctvuxt3645 [address] RoadDublin [place] [id number] Urea nitrogen/Creatinine mass ratio 22 mg/mg Normal 10-24 [facility] Work Phone: Comment on above: PATIENT WAS FASTINGP ERFORMED BY: DARREN [facility] Henkkz3913 [address] RoadDublin [place] [id number] MICROALBUMINOrdered By: Syst em Lockstitch Zipper Setter on 01-04-2018 Albumin DL <= 20 mg/L (U) [Mass/Vol] mg/dL Normal Comprehensiv e Internal Medicine; [facility] Work Phone: Comment on above: PATIENT WAS FASTINGP ERFORMED BY: DARREN [facility] Jctlis8202 [address] RoadDublin [place] [id number] Albumin DL <= 20 mg/L mass conc (U) mg/dL Normal [facility] Work Phone: Comment on above: PATIENT WAS FASTINGP ERFORMED BY: [facility] Mlkhay[address] [facility]in [place] [id number] Albumin/Creatinine mass ratio (U) <4.3 Normal 0.0-30.0 [facility] Work Phone: Comment on above: PATIENT WAS FASTINGP ERFORMED BY: [facility] Iqxxbt[address] [facility] [id number] Creatinine mass conc (U) 70.2 mg/dL Normal [facility] Work Phone: Comment on above: PATIENT WAS FASTINGP ERFORMED BY: [facility] Flbest[address] [facility] [id number] Microscopic ExaminationOrder ed By: Director Business Intelligence on 01-04-2018 Bacteria LM.HPF #/area (Urine sed) None seen Normal [facility] Work Phone: Comment on above: PATIENT WAS FASTINGP ERFORMED BY: [facility] Whompm[address] [facility] [id number] Epithelial cells LM.HPF #/area (Urine sed) None seen Normal 0 - 10 [facility] Work Phone: Comment on above: PATIENT WAS FASTINGP ERFORMED BY: [facility] Ghkcbo[address] [facility]in [place] [id number] Mucus Ql (Urine sed) Present Normal Comp rehensive Internal Medicine Work Phone: Comment on above: PATIENT WAS FASTINGP ERFORMED BY: [facility] Jzjxva[address] [facility]in [place] [id number] RBC LM.HPF #/area (Urine sed) 0-2 Normal 0 - 2 [facility] Work Phone: Comment on above: PATIENT WAS FASTINGP ERFORMED BY: [facility] Thviaf[address] [facility]in [place] [id number] WBC LM.HPF #/area (Urine sed) 0-5 Normal 0 - 5 [facility] Work Phone: Comment on above: PATIENT WAS FASTINGP ERFORMED BY: [employer] Fiosue1755 [address] RoadDublin [place] [id number] PSA (PROSTATE SPECIFIC ANTIG EN) (V76.44)Ordered By: Director Business Intelligence on 01-04-2018 Prostate specific Ag mass conc 1.1 ng/mL Normal 0.0-4.0 [facility] Work Phone: Comment on above: Bronson ECLIA methodol ogy. .According to the [place] [employer], Serum PSA shoulddecrease and remain at undetectable levels after radicalprostatectomy. The AUA defines biochemical recurrence as an initialPSA value 0.2 ng/mL or greater followed by a subsequent confirmatoryPSA value 0.2 ng/mL or greater.Values obtained with different assay methods or kits cannot be usedinterchangeably. Results cannot be interpreted as absolute evidenceof the presence or absence of malignant disease. PATIENT WAS FASTINGP ERFORMED BY: [facility]6[address] RoadDublin [place] [id number] TSH ([id number])Ordered By: [employer] Lockstitch Zipper Setter on 01-04-2018 Thyrotropin Qn 2.450 {uIU/mL} Normal 0.450-4.50 0 [facility] Work Phone: Comment on above: PATIENT WAS FASTINGP ERFORMED BY: [facility] Puzset6[address] RoadDublin [place] [id number] URINALYSIS, W/ MICRO ([id number]) Ordered By: Director Business Intelligence on 01-04-2018 Appearance Nom (U) Clear Normal Compre hensive Internal Medicine Work Phone: Comment on above: PATIENT WAS FASTINGP ERFORMED BY: LabColor[facility] Aszmwa5209 [address] RoadDublin [place] [id number] Bilirubin Ql (U) Negative Normal Comprehe nsive Internal Medicine Work Phone: Comment on above: PATIENT WAS FASTINGP ERFORMED BY: LabColorModulesrp Nbitxy3013 [address] RoadDublin [place] [id number] Bilirubin Ql (U) Negative Normal Comprehe nsive Internal Medicine; [facility] Work Phone: Comment on above: PATIENT WAS FASTINGP ERFORMED BY: DARREN Batistalin6370 [address] RoadUnc Healthin [place] [id number] Color Nom (U) Yellow Normal Comprehensi ve Internal Medicine Work Phone: Comment on above: PATIENT WAS FASTINGP ERFORMED BY: DARREN Batistalin[address] [facility] [id number] Glucose Ql (U) Negative Normal Comprehens alee Internal Medicine Work Phone: Comment on above: PATIENT WAS FASTINGP ERFORMED BY: DARREN Batistalin6370 [address]ardenas RoadLifeCare Hospitals of [facility] [place] [id number] Glucose Ql (U) Negative Normal Comprehens alee Internal Medicine; [facility] Work Phone: Comment on above: PATIENT WAS FASTINGP ERFORMED BY: DARREN Batistalin6370 [address] RoadLifeCare Hospitals of [place] [id number] Hemoglobin Ql (U) Negative Normal Compreh ensive Internal Medicine Work Phone: Comment on above: PATIENT WAS FASTINGP ERFORMED BY: DARREN Batistalin[address] [facility] [id number] Hemoglobin Ql (U) Negative Normal Compreh ensive Internal Medicine; [facility] Work Phone: Comment on above: PATIENT WAS FASTINGP ERFORMED BY: DARREN Batistalin[address] [facility] [id number] Ketones Ql (U) Negative Normal Comprehens alee Internal Medicine Work Phone: Comment on above: PATIENT WAS FASTINGP ERFORMED BY: DARREN Batistalin[address] [facility] [id number] Ketones Ql (U) Negative Normal Comprehens alee Internal Medicine; [facility] Work Phone: Comment on above: PATIENT WAS FASTINGP ERFORMED BY: DARREN Batistalin[address] [facility] [place] [id number] Leukocyte esterase Test strip Ql (U) Negative Normal [facility] Work Phone: Comment on above: PATIENT WAS FASTINGP ERFORMED BY: DARREN Bat[address]alin[address] [facility] [id number] Leukocyte esterase Test strip Ql (U) Negative Normal [facility]; [facility] Work Phone: Comment on above: PATIENT WAS FASTINGP ERFORMED BY: DARREN Whitehead[address] RoadDublin [place] [id number] Microscopic observation LM Nom (Urine sed) See below: Normal [facility] Work Phone: Comment on above: Microscopic was desire cated and was performed. PATIENT WAS FASTINGP ERFORMED BY: DARREN Batistalin[address] [place] [id number] Microscopic observation LM Nom (Urine sed) MICRON Normal [facility] Work Phone: Comment on above: Microscopic follows if indicated. PATIENT WAS FASTINGP ERFORMED BY: DARREN Batistalin[address] [facility] [id number] Nitrite Ql (U) Negative Normal Comprehens alee Internal Medicine Work Phone: Comment on above: PATIENT WAS FASTINGP ERFORMED BY: DARREN Whitehead[address] [facility] [place] [id number] Nitrite Ql (U) Negative Normal Comprehens alee Internal Medicine; [facility] Work Phone: Comment on above: PATIENT WAS FASTINGP ERFORMED BY: DARREN Batistalin[address] [facility] [id number] pH (U) 7.0 [pH] Normal 5.0-7.5 [facility] Work Phone: Comment on above: PATIENT WAS FASTINGP ERFORMED BY: DARREN Batistalin[address] [facility] [place] [id number] Protein Ql (U) Negative Normal Comprehens alee Internal Medicine Work Phone: Comment on above: PATIENT WAS FASTINGP ERFORMED BY: DARREN Batistalin[address] Road[address]ublin [place] [id number] Protein Ql (U) Negative Normal Comprehens alee Internal Medicine; [facility] Work Phone: Comment on above: PATIENT WAS FASTINGP ERFORMED BY: DARREN Batistalin6370 [facility] [id number] Specific gravity Relative Density (U) 1.017 1 Normal 1.005-1.03 0 [facility] Work Phone: Comment on above: PATIENT WAS FASTINGP ERFORMED BY: BOLD [facility] Jblnvw6593 [facility] [id number] Urobilinogen (U) [Mass/Vol] 0.2 mg/dL Normal 0.2-1.0 [facility]; [facility] Work Phone: Comment on above: PATIENT WAS FASTINGP ERFORMED BY: [facility] Gladwin6370 [facility] [id number] Urobilinogen Test strip mass conc (U) 0.2 mg/dL Normal 0.2-1.0 Comprehensiv e Internal Medicine Work Phone: Comment on above: PATIENT WAS FASTINGP ERFORMED BY: [facility] Gladwin6370 [facility] [id number] CT CHEST W IVCONon 8 CT CHEST W IVCON * * *Final Report* * *DATE OF EXAM: Dec 24 2017 1:40PM [facility] 05[facility] - CT CHEST W IVCON / REASON: abnormal lung sounds * * * * Physician Interpretation * * * * EXAMINATION: CHEST CT WITH CONTRASTIndication: abnormal lung soundsTechnique: Spiral CT acquisition of the chest from the thoracic inlet to the upper abdomen following IV contrast.MQ: CTCW_4Contrast: 50 mL Omnipaque 300 IVCT Dose-Length Product: 277 mGy*cmCT Dose Reduction Employed: Automated exposure control (AEC)Comparison: NoneRESULT:Limitations: None.Lines, tubes, and devices: None.Lung parenchyma and pleura: No consolidation. No suspicious pulmonary nodule. No pleural effusion. Central airways are patent.Thoracic inlet, heart, and mediastinum: No lymphadenopathy in the axillary, mediastinal, or hilar regions. The thoracic aorta and main pulmonary artery are normal in caliber. The cardiac chambers are normal in size. No coronary artery atherosclerotic calcifications are noted, although the study is not optimized for coronary assessment. No pericardial effusion or thickening.Bones and soft tissues: No destructive bone lesion. Chest wall is unremarkable.Upper abdomen: There is a stone in the neck the gallbladder.IMPRESSION:1. No acute abnormalities in the chest2. CholelithiasisTranscriptio nist: PSCB Transcribe Date/Time: Dec 24 2017 3:45PDictated by : Ceci THOMPSON examination was interpreted and the report reviewed and electronically signed by: MADISON CALL DO on Dec 24 2017 5:22PM [id number] Normal [facility] PROGRESSon 12-24-2017 PROGRESS HNO ID: [id number] thor: Jeanine Devries CtService: (none)Author Type: (none)Type: Progress NotesFiled: 12/24/2017 1:43 PMNote Text: Radiology Service Progress NotePATIENT NAME: Remi RandolphMRN: [id number] OF SERVICE: December 24, 2017TIME: 1:42 PMPATIENT IDENTITY VERIFICATION COMPLETED USING TWO (2) METHODS: Patientconfirmed name verbally and Date of .PATIENT GENDER DATA: MalePATIENT RELEVANT IMPLANT DATA REVIEWED: Not ApplicableCONTRAST INDUCED NEPHROPATHY RISK FACTORS: Patient age > 60 yearsCREATININE: No results found for: CREAT, EGFROTH, EGFRAAP.O.C.T. RESULTS: POC done: Yes, See Lab Tab December 24, 2017RADIOLOGIST NOTIFIED?: NoALLERGIES: Reviewed and unchangedCONTRAST ALLERGY: NO.PERIPHERAL IV ACCESS: Ambulatory: IV type: A peripheral IV was startedin the Left antecubital site with a Angio cath: 20 gauge., Siteassessment: Clean,Dry and Intact, Site disposition DiscontinuedRADIOLOGY DEPARTMENT: CT; Exam(s) Completed: ChestSIGNED BY: Jeanine [facility] 1:42 PM Normal [facility] GLUCOSE ([id number])Ordered By: S ystem Lockstitch Zipper Setter on 11-09-2016 Glucose mass conc 87 mg/dL Normal 65-99 Compreh ensive Internal Medicine Work Phone: Comment on above: PATIENT WAS FASTINGP ERFORMED BY: LabCoOcean Medical CenterQpawfj9502 [facility] [id number] LIPID PANEL ([id number])Ordered B y: Director Business Intelligence on 11-09-2016 Cholesterol in HDL mass conc 41 mg/dL Normal [facility] Work Phone: Comment on above: PATIENT WAS FASTINGP ERFORMED BY: DARREN Jhonyroxie Oxyugf5235 [facility] [id number] Cholesterol in LDL mass conc 134 mg/dL Abnormal 0-99 [facility] Work Phone: Comment on above: PATIENT WAS FASTINGP ERFORMED BY: DARREN Jhonyroxie Oxbwzs9661 [facility] [id number] Cholesterol in LDL/Cholesterol in HDL mass ratio 3.3 {ratio_units} Normal 0.0-3.6 [facility] Work Phone: Comment on above: LDL/HDL Ratio Men Wo men 1/2 Avg.Risk 1.0 1.5 Avg.Risk 3.6 3.2 2X Avg.Risk 6.2 5.0 3X Avg.Risk 8.0 6.1 PATIENT WAS FASTINGP ERFORMED BY: DARREN Jhonyroxie Oshjwo9155 [facility] [id number] Cholesterol in VLDL mass conc 27 mg/dL Normal 5-40 [facility] Work Phone: Comment on above: PATIENT WAS FASTINGP ERFORMED BY: DARREN Jhonyroxie Mtcsqp6569 [facility] [id number] Cholesterol mass conc 202 mg/dL Abnormal 100-199 [facility] Work Phone: Comment on above: PATIENT WAS FASTINGP ERFORMED BY: DARREN Jhonyroxie BatistaZwjmlh3404 [facility] [id number] Triglyceride mass conc 135 mg/dL Normal 0-149 [facility] Work Phone: Comment on above: PATIENT WAS FASTINGP ERFORMED BY: DARREN Jhony Xuainl8167 [facility] [id number] PSA (PROSTATE SPECIFIC ANTIG EN) (V76.44)Ordered By: Director Business Intelligence on 11-09-2016 Prostate specific Ag mass conc 1.1 ng/mL Normal 0.0-4.0 [facility] Work Phone: Comment on above: Bronson ECLIA methodol ogy. .According to the [place] [employer], Serum PSA shoulddecrease and remain at undetectable levels after radicalprostatectomy. The AUA defines biochemical recurrence as an initialPSA value 0.2 ng/mL or greater followed by a subsequent confirmatoryPSA value 0.2 ng/mL or greater.Values obtained with different assay methods or kits cannot be usedinterchangeably. Results cannot be interpreted as absolute evidenceof the presence or absence of malignant disease. PATIENT WAS FASTINGP ERFORMED BY: LabCoOcean Medical CenterHupegs6439 [facility] [id number] CBC W/Diff, AutomatedOrdered By: Director Business Intelligence on 01-12-2016 Absolute Neut 3.6 {X10_3/uL} Normal 2.0-7.7 Compreh ensive Internal Medicine Work Phone: Comment on above: [facility] [address] [place], [place], [phone]) Basophils/100 WBC (Bld) 0.8 % Normal 0-1 [facility] Work Phone: Comment on above: [facility] [address] [place], [place], [phone](112) Eosinophils/100 WBC (Bld) 2.9 % Normal 0-5 [facility] Work Phone: Comment on above: [facility] [address] [place], [place], [phone]) Erythrocyte distribution width Ratio (RBC) 12.9 % Normal 11.6-14.6 [facility] Work Phone: Comment on above: [facility] [address] [place], [place], [phone](128) Hematocrit Volume Fraction (Bld) 45.9 % Normal 40-54 [facility] Work Phone: Comment on above: [facility] [address] [place], [place], [phone](969) Hemoglobin mass conc (Bld) 15.7 g/dL Normal 13.0-16.5 [facility] Work Phone: Comment on above: [facility] [address] [place], [address] IM GRAN % 0.000 % Normal 0.0-0.9 [facility] Work Phone: Comment on above: IG% - Immature Granu locytes (promyelocytes, myelocytes andmetamyelocytes) > 1% indicates that a LEFT SHIFT is Present. [facility] [address] [place], [address] Lymphocytes #/vol (Bld) 1.79 {X10_3/ul} Normal 0.83-4.51 [facility] Work Phone: Comment on above: [facility] [address] [place], [address] Lymphocytes/100 WBC (Bld) 28.9 % Normal 19-41 [facility] Work Phone: Comment on above: [facility] [address] [place], [address] MCH Entitic mass (RBC) 30.0 pg Normal 27.0-32.0 [facility] Work Phone: Comment on above: [facility] [address] [place], [address] MCHC mass conc (RBC) 34.2 {g/gl} Normal 32-36 [facility] prehensive Internal Medicine Work Phone: Comment on above: [facility] [address] [place], [address] MCV Entitic volume (RBC) 87.6 fL Normal 80-94 [facility] Work Phone: Comment on above: [facility] [address] [place], [address] Monocytes/100 WBC (Bld) 9.0 % Normal 0-10 [facility] Work Phone: Comment on above: [facility] [address] [place], [place], [phone] Neutrophils/100 WBC (Bld) 58.4 % Normal 47-70 [facility] Work Phone: Comment on above: [facility] [address] [place], [address] Platelet mean volume Entitic volume (Bld) 10.3 fL Normal 6.2-12.0 Comprehensi ve Internal Medicine Work Phone: Comment on above: [facility] [address] [place], [place], [phone] Platelets #/vol (Bld) 287 10*3/uL Normal 150-450 [facility] Work Phone: Comment on above: [facility] [address] [place], [address] RBC #/vol (Bld) 5.24 {M/mm3} Normal 4.6-6.2 Compreh ensive Internal Medicine Work Phone: Comment on above: [facility] [address] [place], [place], [phone] RDW SD 41.2 fL Normal 35.1-43.9 [facility] Work Phone: Comment on above: [facility] [address] [place], [place], [phone] WBC #/vol (Bld) 6.2 10*3/uL Normal 4.4-11.0 Comprehe nsive Internal Medicine Work Phone: Comment on above: [facility] [address] [place], [place], [phone] Comprehensive Metabolic Prof ilOrdered By: Director Business Intelligence on 01-12-2016 Comprehensive metabolic 2000 panel 34 U/L Normal 12-78 Comprehensi ve Internal Medicine Work Phone: Comment on above: [facility] [address] [place], [place], [address] Comprehensive metabolic 2000 panel 1.16 mg/dL Normal 0.70-1.30 Comprehensi ve Internal Medicine Work Phone: Comment on above: The validity of the calculated GFR AND GFRAA in patients over70 years has not been determined. Clinical correlation isessential. [facility] [address] [place], [place], [phone] Comprehensive metabolic 2000 panel 82 mL/min Normal Comprehensi ve Internal Medicine Work Phone: Comment on above: GFR Calc [facility] [address] [place], [place], [phone] Comprehensive metabolic 2000 panel 19.0 {RATIO} Normal 10-20 Comprehensi ve Internal Medicine Work Phone: Comment on above: [facility] [address] [place], [place], [phone] Comprehensive metabolic 2000 panel 4.8 mmol/L Normal 3.5-5.1 Comprehensi ve Internal Medicine Work Phone: Comment on above: [facility] [address] [place], [place], [phone] Comprehensive metabolic 2000 panel 68 mL/min Normal Comprehensi ve Internal Medicine Work Phone: Comment on above: Non- GFR Calc [facility] [address] [place], [place], [phone] Comprehensive metabolic 2000 panel 106 mmol/L Normal 98-107 Comprehensi ve Internal Medicine Work Phone: Comment on above: [facility] [address] [place], [place], [phone] Comprehensive metabolic 2000 panel 81 U/L Normal 50-136 Comprehensi ve Internal Medicine Work Phone: Comment on above: [facility] [address] [place], [place], [address] Comprehensive metabolic 2000 panel 28 U/L Normal 15-37 Comprehensi ve Internal Medicine Work Phone: Comment on above: [facility] [address] [place], [place], [address] Comprehensive metabolic 2000 panel 9.3 mg/dL Normal 8.5-10.1 Comprehensi ve Internal Medicine Work Phone: Comment on above: [facility] [address] [place], [place], [phone] Comprehensive metabolic 2000 panel 1.1 {RATIO} Normal 0.9-2.4 Comprehensi ve Internal Medicine Work Phone: Comment on above: [facility] [address] [place], [place], [address] Comprehensive metabolic 2000 panel 3.6 g/dL Abnormal 2.3-3.5 Comprehensi ve Internal Medicine Work Phone: Comment on above: [facility] [address] [place], [place], [address] Comprehensive metabolic 2000 panel 3.8 g/dL Normal 3.4-5.0 Comprehensi ve Internal Medicine Work Phone: Comment on above: [facility] [address] [place], [place], [phone] Comprehensive metabolic 2000 panel 29.0 mmol/L Normal 21.0-32.0 Comprehensi ve Internal Medicine Work Phone: Comment on above: [facility] [address] [place], [place], [address] Comprehensive metabolic 2000 panel 7.4 g/dL Normal 6.4-8.2 Comprehensi ve Internal Medicine Work Phone: Comment on above: [facility] [address] [place], [place], [address] Comprehensive metabolic 2000 panel 7 1 Normal 5-15 Comprehensi ve Internal Medicine Work Phone: Comment on above: [facility] [address] [place], [place], [address] Comprehensive metabolic 2000 panel 22 mg/dL Abnormal 7-18 Comprehensi ve Internal Medicine Work Phone: Comment on above: [facility] [address] [place], [place], [address] Comprehensive metabolic 2000 panel 100 mg/dL Normal 70-110 Comprehensi ve Internal Medicine Work Phone: Comment on above: [facility] [address] [place], [place], [address] Comprehensive metabolic 2000 panel 142 mmol/L Normal 136-145 Comprehensi ve Internal Medicine Work Phone: Comment on above: [facility] [address] [place], [place], [address] Comprehensive metabolic 2000 panel 0.30 mg/dL Normal 0.20-1.00 Comprehensi ve Internal Medicine Work Phone: Comment on above: [facility] [address] [place], [place], [address] Lipid ProfileOrdered By: Kizzy [facility] Lockstitch Zipper Setter on 01-12-2016 Cholesterol in HDL mass conc 41 mg/dL Normal [facility] Work Phone: Comment on above: Reference Range HDL <40 mg/dL Low HDL Cholesterol HDL >or= 60 mg/dL High HDL Cholesterol [facility] [address] [place], [place], [address] Cholesterol in LDL mass conc 116 mg/dL Normal 0-130 [facility] Work Phone: Comment on above: [facility] [address] [place], [place], [address] Cholesterol in VLDL mass conc 35 mg/dL Normal 5-40 [facility] Work Phone: Comment on above: [facility] [address] [place], [place], [address] Cholesterol mass conc 192 mg/dL Normal [facility] Work Phone: Comment on above: <200 mg/dL Desirable 200-240 mg/dL Borderline >240 mg/dL High Risk [facility] [address] [place], [place], [phone] Triglyceride mass conc 173 mg/dL Normal [facility] Work Phone: Comment on above: Serum Triglycerides Reference Interval Normal <150 mg/dL Borderline high 150 - 199 mg/dL High 200 - 499 mg/dL Very High > or = 500 mg/dL [facility] [address] [place], [place], [address] MagnesiumOrdered By: Director Business Intelligence on 01-12-2016 Magnesium mass conc 2.2 mg/dL Normal 1.8-2.4 Compr ensive Internal Medicine Work Phone: Comment on above: [facility] [address] [place], [place], [address] Testosterone FreeOrdered By: Director Business Intelligence on 01-12-2016 Testosterone Free mass conc 6.3 pg/mL Abnormal 6.6-18.1 [facility] Work Phone: Comment on above: Performed at: [address] [id number] Director: Mukul Villanueva MD, Phone: [phone]; ADDENDA: non-emergent till apt [facility] (refer to re port for specific site)refer to report for address and phone number Thyroid Stim Hormone (TSH)Or dered By: Director Business Intelligence on 01-12-2016 Thyrotropin Qn 2.88 {uIU/mL} Normal 0.358-3.74 Compreh ensive Internal Medicine Work Phone: Comment on above: [facility] [address] [place], [place], [phone] Urinalysis, CompleteOrdered By: Director Business Intelligence on 01-12-2016 Protein mass conc (U) Negative Normal [facility] Work Phone: Comment on above: How was Urine Obtain ed? [facility] [address] [place], [place], [phone] RBC #/vol (U) 0 SEEN Normal 0-5 Comprehensi ve Internal Medicine Work Phone: Comment on above: How was Urine Obtain ed? [facility] [address] [place], [address] Urinalysis complete panel - Urine 6.0 1 Normal 5.0 - 8.0 [facility] Work Phone: Comment on above: How was Urine Obtain ed? [facility] [address] [place], [address] Urinalysis complete panel - Urine 1.020 1 Normal 1.002-1.03 0 [facility] Work Phone: Comment on above: How was Urine Obtain ed? [facility] [address] [place], [address] Urinalysis complete panel - Urine Negative Normal [facility] Work Phone: Comment on above: How was Urine Obtain ed? [facility] [address] [place], [address] Urinalysis complete panel - Urine Normal Normal [facility] Work Phone: Comment on above: How was Urine Obtain ed? [facility] [address] [place], [address] Urinalysis complete panel - Urine Clear Normal [facility] Work Phone: Comment on above: How was Urine Obtain ed? [facility] [address] [place], [address] Urinalysis complete panel - Urine Straw Normal [facility] Work Phone: Comment on above: How was Urine Obtain ed? [facility] [address] [place], [address] Urinalysis complete panel - Urine 0 SEEN Normal 0-5 [facility] Work Phone: Comment on above: How was Urine Obtain ed? [facility] [address] [place], [id number] Vitamin [id number] By: Hyacinth m Lockstitch Zipper Setter on 01-12-2016 Cobalamin (Vitamin B12) mass conc 631 pg/mL Normal 211-911 [facility] Work Phone: Comment on above: [facility] [address] [place], [address] Vitamin D,25 HydroxyOrdered By: Director Business Intelligence on 01-12-2016 Vitamin D,25 Hydroxy 31.0 ng/mL Normal Comp rehensive Internal Medicine Work Phone: Comment on above: Vitamin D 25(OH) Sta tus Range Deficiency <20 ng/mL (50nmol/L) Insuffciency 20 - 30 ng/mL (50 - 75 nmol/L) Sufficiency 30 - 100 ng/mL (75 - 250 nmol/L) Toxicity >100 ng/mL (>250 nmol/L) [facility] [address] [place], [address] Free M4Iqdpdxf By: Min busch on 03-12-2015 T3 free mass conc 2.6 pg/mL Normal 2.18-3.98 Compreh ensive Internal Medicine Work Phone: Comment on above: Test performed at:[facility] [address] [place] [phone] Lipid ProfileOrdered By: Kizzy tem Lockstitch Zipper Setter on 03-12-2015 Cholesterol in HDL mass conc 35 mg/dL Abnormal [facility] Work Phone: Comment on above: Reference Range HDL <40 mg/dL Low HDL Cholesterol HDL >or= 60 mg/dL High HDL Cholesterol Test performed at:[facility] [address] [place] [address] Cholesterol in LDL mass conc 133 mg/dL Abnormal 0-130 [facility] Work Phone: Comment on above: Test performed at:[facility] [address] [place] [address] Cholesterol in VLDL mass conc 26 mg/dL Normal 5-40 [facility] Work Phone: Comment on above: Test performed at:[facility] [address] [place] [address] Cholesterol mass conc 194 mg/dL Normal [facility] Work Phone: Comment on above: <200 mg/dL Desirable 200-240 mg/dL Borderline >240 mg/dL High Risk Test performed at:[facility] [address] [place] [address] Triglyceride mass conc 128 mg/dL Normal 0-199 [facility] Work Phone: Comment on above: Serum Triglycerides Reference Interval Normal <150 mg/dL Borderline high 150 - 199 mg/dL High 200 - 499 mg/dL Very High > or = 500 mg/dL Test performed at:[facility] [address] [place] [address] T4 Free DirectOrdered By: [employer] stem Lockstitch Zipper Setter on 03-12-2015 T4 free mass conc 0.85 ng/dL Normal 0.76-1.46 Compreh ensive Internal Medicine Work Phone: Comment on above: Test performed at:[facility] [address] [place] [address] Thyroid Peroxidase ABOrdered By: Director Business Intelligence on 03-12-2015 Thyroperoxidase Ab Qn 8 {IU/mL} Normal 0-34 [facility] Work Phone: Comment on above: Performed at: [address] [id number] Director: Cristopher Morales PhD, Phone: [phone] Test performed at:[facility] [address] [place] [address] CBC W/Diff, AutomatedOrdered By: Director Business Intelligence on 01-23-2015 Absolute Neut 3.5 {X10_3/uL} Normal 2.0-7.7 Compreh ensive Internal Medicine Work Phone: Comment on above: Test performed at:[facility] [address] [place] [address] Basophils/100 WBC (Bld) 1.3 % Abnormal 0-1 [facility] Work Phone: Comment on above: Test performed at:[facility] [address] [place] [address] Eosinophils/100 WBC (Bld) 4.5 % Normal 0-5 [facility] Work Phone: Comment on above: Test performed at:[facility] [address] [place] [address] Erythrocyte distribution width Ratio (RBC) 12.8 % Normal 11.6-14.6 [facility] Work Phone: Comment on above: Test performed at:[facility] [address] [place] [address] Hematocrit Volume Fraction (Bld) 45.1 % Normal 40-54 [facility] Work Phone: Comment on above: Test performed at:[facility] [address] [place] [address] Hemoglobin mass conc (Bld) 15.4 g/dL Normal 13.0-16.5 [facility] Work Phone: Comment on above: Test performed at:[facility] [address] [place] [address] IM GRAN % 0.000 % Normal 0.0-0.9 [facility] Work Phone: Comment on above: IG% - Immature Granu locytes (promyelocytes, myelocytes andmetamyelocytes) > 1% indicates that a LEFT SHIFT is Present. Test performed at:[facility] [address] [place] [address] Lymphocytes #/vol (Bld) 1.92 {X10_3/ul} Normal 0.83-4.51 [facility] Work Phone: Comment on above: Test performed at:[facility] [address] [place] [address] Lymphocytes/100 WBC (Bld) 30.7 % Normal 19-41 [facility] Work Phone: Comment on above: Test performed at:[facility] [address] [place] [address] MCH Entitic mass (RBC) 30.1 pg Normal 27.0-32.0 [facility] Work Phone: Comment on above: Test performed at:[facility] [address] [place] [address] MCHC mass conc (RBC) 34.1 {g/gl} Normal 32-36 [facility] prehensive Internal Medicine Work Phone: Comment on above: Test performed at:[facility] [address] [place] [address] MCV Entitic volume (RBC) 88.3 fL Normal 80-94 [facility] Work Phone: Comment on above: Test performed at:[facility] [address] [place] [address] Monocytes/100 WBC (Bld) 8.1 % Normal 0-10 [facility] Work Phone: Comment on above: Test performed at:[facility] [address] [place] [address] Neutrophils/100 WBC (Bld) 55.4 % Normal 47-70 [facility] Work Phone: Comment on above: Test performed at:[facility] [address] [place] [address] Platelet mean volume Entitic volume (Bld) 9.7 fL Normal 6.2-12.0 Comprehensi ve Internal Medicine Work Phone: Comment on above: Test performed at:[facility] [address] [place] [address] Platelets #/vol (Bld) 248 10*3/uL Normal 150-450 [facility] Work Phone: Comment on above: Test performed at:[facility] [address] [place] [address] RBC #/vol (Bld) 5.11 {M/mm3} Normal 4.6-6.2 Compreh ensive Internal Medicine Work Phone: Comment on above: Test performed at:[facility] [address] [place] [address] RDW SD 41.1 fL Normal 35.1-43.9 [facility] Work Phone: Comment on above: Test performed at:[facility] [address] [place] [address] WBC #/vol (Bld) 6.3 10*3/uL Normal 4.4-11.0 Comprehe nsive Internal Medicine Work Phone: Comment on above: Test performed at:[facility] [address] [place] [address] Comprehensive Metabolic Prof ilOrdered By: Director Business Intelligence on 01-23-2015 Comprehensive metabolic 2000 panel 0.9 {RATIO} Normal 0.9-2.4 Comprehensi ve Internal Medicine Work Phone: Comment on above: Test performed at:[facility] [address] [place] [address] Comprehensive metabolic 2000 panel 17.0 {RATIO} Normal 10-20 Comprehensi ve Internal Medicine Work Phone: Comment on above: Test performed at:[facility] [address] [place] [address] Comprehensive metabolic 2000 panel 8.9 mg/dL Normal 8.5-10.1 Comprehensi ve Internal Medicine Work Phone: Comment on above: Test performed at:[facility] [address] [place] [address] Comprehensive metabolic 2000 panel 98 mL/min Normal Comprehensi ve Internal Medicine Work Phone: Comment on above: Test performed at:[facility] [address] [place] [address] Comprehensive metabolic 2000 panel 29 U/L Normal 15-37 Comprehensi ve Internal Medicine Work Phone: Comment on above: Test performed at:[facility] [address] [place] [address] Comprehensive metabolic 2000 panel 80 U/L Normal 50-136 Comprehensi ve Internal Medicine Work Phone: Comment on above: Test performed at:[facility] [address] [place] [address] Comprehensive metabolic 2000 panel 34 U/L Normal 12-78 Comprehensi ve Internal Medicine Work Phone: Comment on above: Test performed at:[facility] [address] [place] [address] Comprehensive metabolic 2000 panel 7.4 g/dL Normal 6.4-8.2 Comprehensi ve Internal Medicine Work Phone: Comment on above: Test performed at:[facility] [address] [place] [address] Comprehensive metabolic 2000 panel 0.30 mg/dL Normal 0.00-4.00 Comprehensi ve Internal Medicine Work Phone: Comment on above: Test performed at:[facility] [address] [place] [address] Comprehensive metabolic 2000 panel 137 mmol/L Normal 136-145 Comprehensi ve Internal Medicine Work Phone: Comment on above: Test performed at:[facility] [address] [place], [place] [id number] Comprehensive metabolic 2000 panel 4.8 mmol/L Normal 3.5-5.1 Comprehensi ve Internal Medicine Work Phone: Comment on above: Test performed at:[facility] [address] [place] [address] Comprehensive metabolic 2000 panel 104 mmol/L Normal 98-107 Comprehensi ve Internal Medicine Work Phone: Comment on above: Test performed at:[facility] [address] [place] [address] Comprehensive metabolic 2000 panel 3.6 g/dL Normal 3.4-5.0 Comprehensi ve Internal Medicine Work Phone: Comment on above: Test performed at:[facility] [address] [place], [place] [address] Comprehensive metabolic 2000 panel 30.0 mmol/L Normal 21.0-32.0 Comprehensi ve Internal Medicine Work Phone: Comment on above: Test performed at:[facility] [address] [place] [address] Comprehensive metabolic 2000 panel 3 1 Abnormal 5-15 Comprehensi ve Internal Medicine Work Phone: Comment on above: Test performed at:[facility] [address] [place] [address] Comprehensive metabolic 2000 panel 90 mg/dL Normal 70-110 Comprehensi ve Internal Medicine Work Phone: Comment on above: Test performed at:[facility] [address] [place] [address] Comprehensive metabolic 2000 panel 17 mg/dL Normal 7-18 Comprehensi ve Internal Medicine Work Phone: Comment on above: Test performed at:[facility] [address] [place] [address] Comprehensive metabolic 2000 panel 1.0 mg/dL Normal 0.8-1.3 Comprehensi ve Internal Medicine Work Phone: Comment on above: Test performed at:[facility] [address] [place] [address] Comprehensive metabolic 2000 panel 81 mL/min Normal Comprehensi ve Internal Medicine Work Phone: Comment on above: Test performed at:[facility] [address] [place] [address] Comprehensive metabolic 2000 panel 3.8 g/dL Normal 2.7-4.2 Comprehensi ve Internal Medicine Work Phone: Comment on above: Test performed at:[facility] [address] [place], [place] [id number] Lipid ProfileOrdered By: Kizzy steiner Lockstitch Zipper Setter on 01-23-2015 Cholesterol in HDL mass conc 41 mg/dL Normal [facility] Work Phone: Comment on above: Reference Range HDL <40 mg/dL Low HDL Cholesterol HDL >or= 60 mg/dL High HDL Cholesterol Test performed at:[facility] [address] [place] [address] Cholesterol in LDL mass conc 137 mg/dL Abnormal 0-130 [facility] Work Phone: Comment on above: Test performed at:[facility] [address] [place] [address] Cholesterol in VLDL mass conc 27 mg/dL Normal 5-40 [facility] Work Phone: Comment on above: Test performed at:[facility] [address] [place] [address] Cholesterol mass conc 205 mg/dL Abnormal [facility] Work Phone: Comment on above: <200 mg/dL Desirable 200-240 mg/dL Borderline >240 mg/dL High Risk Test performed at:[facility] [address] [place] [address] Triglyceride mass conc 137 mg/dL Normal 0-199 [facility] Work Phone: Comment on above: Serum Triglycerides Reference Interval Normal <150 mg/dL Borderline high 150 - 199 mg/dL High 200 - 499 mg/dL Very High > or = 500 mg/dL Test performed at:[facility] [address] [place], [place] [address] PSA,Total - Annual ScreenOrd ered By: Director Business Intelligence on 01-23-2015 Prostate specific Ag mass conc 0.85 ng/mL Normal 0.00-4.00 [facility] Work Phone: Comment on above: This test was perfor med using the TPSA assay method for [employer] chemistry system. Values obtained with differentassay methods cannot be used interchangably.When changing PSA assays in the course of monitoring apatient, additional sequential testing should be carriedout to confirm baseline values. Test performed at:[facility] [address] [place], [place] [id number] Thyroid Stim Hormone (TSH)Or dered By: Director Business Intelligence on 01-23-2015 Thyrotropin Qn 4.01 {uIU/mL} Abnormal 0.358-3.74 [facility] Work Phone: Comment on above: Test performed at:[facility] [address] [place] [address] CBCDOrdered By: System Manag er on 10-04-2013 Erythrocyte distribution width Ratio (RBC) 12.4 % Normal 11.6-14.6 [facility] Work Phone: Hematocrit Volume Fraction (Bld) 44.2 % Normal 40-54 [facility] Work Phone: Hemoglobin mass conc (Bld) 15.3 g/dL Normal 13.0-16.5 [facility] Work Phone: MCH Entitic mass (RBC) 30.1 pg Normal 27.0-32.0 [facility] Work Phone: MCHC mass conc (RBC) 34.6 {g/gl} Normal 32-36 Com prehensive Internal Medicine Work Phone: MCV Entitic volume (RBC) 86.8 fL Normal 80-94 [facility] Work Phone: Platelet mean volume Entitic volume (Bld) 10.2 fL Normal 6.2-12.0 Comprehensi ve Internal Medicine Work Phone: Platelets #/vol (Bld) 276 10*3/uL Normal 150-450 [facility] Work Phone: RBC #/vol (Bld) 5.09 {M/mm3} Normal 4.6-6.2 Compreh ensive Internal Medicine Work Phone: WBC #/vol (Bld) 5.0 10*3/uL Normal 4.4-11.0 Comprehe nsive Internal Medicine Work Phone: CBCD 0.000 % Normal 0.0-0.9 [facility] Work Phone: Comment on above: IG% - Immature Granu locytes (promyelocytes, myelocytes andmetamyelocytes) > 1% indicates that a LEFT SHIFT is Present. CBCD 2.7 {X10_3/uL} Normal 2.0-7.7 Comprehens alee Internal Medicine Work Phone: CBCD 39.7 fL Normal 35.1-43.9 [facility] Work Phone: CBCD 54.0 % Normal 47-70 [facility] Work Phone: CBCD 32.3 % Normal 19-41 [facility] Work Phone: CBCD 8.1 % Normal 0-10 [facility] Work Phone: CBCD 4.2 % Normal 0-5 [facility] Work Phone: CBCD 1.4 % Abnormal 0-1 [facility] Work Phone: CMPOrdered By: System Manage r on 10-04-2013 Albumin mass conc 3.8 g/dL Normal 3.4-5.0 Compreh ensive Internal Medicine Work Phone: Albumin/Globulin mass ratio 1.1 {RATIO} Normal 0.9-2.4 [facility] Work Phone: ALP enzyme act/vol 83 U/L Normal 50-136 [facility] Work Phone: ALT enzyme act/vol 30 U/L Normal 12-78 [facility]pre [facility] Work Phone: AST enzyme act/vol 27 U/L Normal 15-37 [facility]pre [facility] Work Phone: Bilirubin mass conc 0.30 mg/dL Normal 0.00-1.00 Compr ehensive Internal Medicine Work Phone: Calcium mass conc 9.0 mg/dL Normal 8.5-10.1 Compreh ensive Internal Medicine Work Phone: Chloride molar conc 104 mmol/L Normal 98-107 Compr ensive Internal Medicine Work Phone: CO2 molar conc 29.0 mmol/L Normal 21.0-32.0 Comprehen [facility] Internal [facility] Work Phone: Creatinine mass conc 1.0 mg/dL Normal 0.8-1.3 [facility] Work Phone: GFR/1.73 sq M predicted among non-blacks MDRD vol rate/area (S/P/Bld) 82 mL/min/{1.73_m2} Normal Comprehe nsive Internal Medicine Work Phone: Globulin mass conc (S) 3.4 g/dL Normal 2.7-4.2 [facility] Internal Medicine Work Phone: Glucose mass conc 85 mg/dL Normal 70-110 Compreh ensive Internal Medicine Work Phone: Potassium molar conc 4.1 mmol/L Normal 3.5-5.1 [facility] Work Phone: Protein mass conc 7.2 g/dL Normal 6.4-8.2 Compreh ensive Internal Medicine Work Phone: Sodium molar conc 139 mmol/L Normal 136-145 Compreh ensive Internal Medicine Work Phone: Urea nitrogen mass conc 17 mg/dL Normal 7-18 [facility] Work Phone: Urea nitrogen/Creatinine mass ratio 17.0 {RATIO} Normal 10-20 [facility] Work Phone: CMP 99 mL/min Normal [facility] Work Phone: CMP 6 1 Normal 5-15 [facility] Work Phone: LIPIDOrdered By: Min lopez on 10-04-2013 Cholesterol in HDL mass conc 43 mg/dL Normal [facility] Work Phone: Comment on above: Reference RangeHDL < 40 mg/dL Low HDL CholesterolHDL >or= 60 mg/dL High HDL Cholesterol Cholesterol in LDL mass conc 139 mg/dL Abnormal 0-130 [facility] Work Phone: Cholesterol mass conc 212 mg/dL Abnormal [facility] Work Phone: Comment on above: <200 mg/dL Desirable 200-240 mg/dL Borderline>240 mg/dL High Risk Triglyceride mass conc 149 mg/dL Normal 0-199 [facility] Work Phone: Comment on above: Serum Triglycerides Reference IntervalNormal <150 mg/dLBorderline high 150 - 199 mg/dLHigh 200 - 499 mg/dLVery High > or = 500 mg/dL LIPID 30 mg/dL Normal 5-40 [facility] Work Phone: TSHOrdered By: System Manage r on 10-04-2013 Thyrotropin Qn 2.33 {uIU/mL} Normal 0.358-3.74 Compreh ensive Internal Medicine Work Phone: MYOCARD PERF STRESS/REST MUL TOrdered By: Director Business Intelligence on 11-10-2011 MYOCARD PERF STRESS/REST MULT See Note Normal [facility] Work Phone: Comment on above: MYOCARDIAL PERFUSION SCAN TECHNIQUEThe patient was injected with 10.8 mCi of Tc99m Cardiolite andsubsequently rest SPECT Cardiolite nuclear imaging was obtained in thehorizontal long, vertical long, and short axes views. The patientexercised on a Alfredo protocol for 9 minutes achieving a peak heart rateof 139 beats per minute (85% predicted maximum heart rate) with a peakblood pressure of 210/80 mmHg and a peak MET capacity of 10 METs. Thepatient was injected with 32.7 mCi of Tc99m Cardiolite and subsequentlystress SPECT Cardiolite nuclear imaging was obtained in the horizontallong, vertical long, and short axes views. A gated Cardiolite study atpeak stress was obtained. INTERPRETATIONRest and stress SPECT Cardiolite nuclear imaging demonstrates relativeunform tracer uptake and myocardial perfusion appearing within normallimits. There is end systolic thickening and brightening. The gatedCardiolite study demonstrates myocardial thickening and inward wallmotion. The reported LVEF is 69%. IMPRESSION1. Rest and stress SPECT Cardiolite nuclear imaging demonstrate relativeuniform tracer uptake and myocardial perfusion appearing within normallimits.2. The gated Cardiolite study reports an LVEF of 69%. Dictated on 11/10/11 173 by Ed Barrera MDTranscribed on 11/10/11 175 by Francisca ENRIQUEZ by Ed Barrera MD on 11/11/11 0932 Sign by: Ed Barrera MD PROCEDURE: CT BRAIN WITH AND WITHOUT CONTRAST REASON FOR EXAM: Male, 55 years old. Six-month history of left facialparesthesias. TECHNIQUE: Transaxial CT imaging of the brain was performed pre andpostcontrast administration. The examination was performed with intravenousadministration of 100mL ml of Isovue 300 contrast material. COMPARISON: None. FINDINGS:Normal size of the ventricles and extra-axial spaces for the patient'jnoa.Normal white matter tracts of the supratentorial brain. Normal basal ganglia. Normal bilateral thalami. Normal arterial and venous enhancement. There is no enhancing intra-axialor extra-axial abnormality. There is no demonstrated extra-axial hemorrhage. There is nodemonstratedintraparenchymal hemorrhage. Normal brainstem. Normal cerebellum. Normal basal cisterns. Normal soft tissue structures. Normal calvarium. Normal sella turcica. Normal skull base. Normal visualized orbital structures. There is partial opacification ofthe ethmoid sinuses bilaterally. IMPRESSION:Ethmoid sinusitis. To consult with a radiologist regarding this report, please call our [id number] line @ Dictated on 11/10/11 09 by Priya Alvarez MDscribed on 11/11/11 07 by ITS IMPORTSign by Max Alvarez MD on 11/11/11 0707 Sign by: Max Alvarez MD YUKI DIR SEMI-QLOrdered By: S ystem Lockstitch Zipper Setter on 10-13-2011 YUKI DIR SEMI-QL 37 AU/mL Normal Comprehen [facility] Internal Medicine Work Phone: Comment on above: FAST ORDERED PSA LIP ID CBCMD CMP MIACRE TSH UACFEARON ORDERED CBCD CMP SED TSH B12 SPEP YUKI CBCD,SMEAR DIFFOrdered By: S ystem Lockstitch Zipper Setter on 10-13-2011 Eosinophils/100 WBC (Bld) 1 % Normal 0-5 [facility] Work Phone: Comment on above: FAST ORDERED PSA LIP ID CBCMD CMP MIACRE TSH UACFEARON ORDERED CBCD CMP SED TSH B12 SPEP YUKI Erythrocyte distribution width Ratio (RBC) 13.0 % Normal 11.6-14.6 [facility] Work Phone: Comment on above: FAST ORDERED PSA LIP ID CBCMD CMP MIACRE TSH UACFEARON ORDERED CBCD CMP SED TSH B12 SPEP YUKI Hematocrit Volume Fraction (Bld) 43.9 % Normal 40-54 [facility] Work Phone: Comment on above: FAST ORDERED PSA LIP ID CBCMD CMP MIACRE TSH UACFEARON ORDERED CBCD CMP SED TSH B12 SPEP YUKI Hemoglobin mass conc (Bld) 15.2 g/dL Normal 14.0-18.0 [facility] Work Phone: Comment on above: FAST ORDERED PSA LIP ID CBCMD CMP MIACRE TSH UACFEARON ORDERED CBCD CMP SED TSH B12 SPEP YUKI Lymphocytes/100 WBC (Bld) 22 % Normal 19-41 [facility] Work Phone: Comment on above: FAST ORDERED PSA LIP ID CBCMD CMP MIACRE TSH UACFEARON ORDERED CBCD CMP SED TSH B12 SPEP YUKI MCH Entitic mass (RBC) 31.0 pg Normal 27.0-32.0 [facility] Work Phone: Comment on above: FAST ORDERED PSA LIP ID CBCMD CMP MIACRE TSH UACFEARON ORDERED CBCD CMP SED TSH B12 SPEP YUKI MCHC mass conc (RBC) 34.6 g/dL Normal 32-36 Comp rehensive Internal Medicine Work Phone: Comment on above: FAST ORDERED PSA LIP ID CBCMD CMP MIACRE TSH UACFEARON ORDERED CBCD CMP SED TSH B12 SPEP YUKI MCV Entitic volume (RBC) 89.7 fL Normal 80-94 [facility] Work Phone: Comment on above: FAST ORDERED PSA LIP ID CBCMD CMP MIACRE TSH UACFEARON ORDERED CBCD CMP SED TSH B12 SPEP YUKI Monocytes/100 WBC (Bld) 7 % Normal 0-10 [facility] Work Phone: Comment on above: FAST ORDERED PSA LIP ID CBCMD CMP MIACRE TSH UACFEARON ORDERED CBCD CMP SED TSH B12 SPEP YUKI Neutrophils #/vol (Bld) 3.3 3/uL Normal 2.0-7.7 [facility] Work Phone: Comment on above: FAST ORDERED PSA LIP ID CBCMD CMP MIACRE TSH UACFEARON ORDERED CBCD CMP SED TSH B12 SPEP YUKI Platelets #/vol (Bld) SeeNote Normal [facility] Work Phone: Comment on above: Result: ADEQUATE FAST ORDERED PSA LIP ID CBCMD CMP MIACRE TSH UACFEARON ORDERED CBCD CMP SED TSH B12 SPEP YUKI Platelets #/vol (Bld) 265 10*3/uL Normal 150-450 [facility] Work Phone: Comment on above: FAST ORDERED PSA LIP ID CBCMD CMP MIACRE TSH UACFEARON ORDERED CBCD CMP SED TSH B12 SPEP YUKI RBC #/vol (Bld) 4.90 {M/mm3} Normal 4.6-6.2 Compreh ensive Internal Medicine Work Phone: Comment on above: FAST ORDERED PSA LIP ID CBCMD CMP MIACRE TSH UACFEARON ORDERED CBCD CMP SED TSH B12 SPEP YUKI WBC #/vol (Bld) 5.5 10*3/uL Normal 4.4-11.0 Comprehe nsive Internal Medicine Work Phone: Comment on above: FAST ORDERED PSA LIP ID CBCMD CMP MIACRE TSH UACFEARON ORDERED CBCD CMP SED TSH B12 SPEP YUKI CBCD,SMEAR DIFF 100 1 Normal Comprehen sive Internal Medicine Work Phone: Comment on above: FAST ORDERED PSA LIP ID CBCMD CMP MIACRE TSH UACFEARON ORDERED CBCD CMP SED TSH B12 SPEP YUKI CBCD,SMEAR DIFF 70 % Normal 47-70 [facility] Internal Medicine Work Phone: Comment on above: FAST ORDERED PSA LIP ID CBCMD CMP MIACRE TSH UACFEARON ORDERED CBCD CMP SED TSH B12 SPEP YUKI COMP METABOLICOrdered By: Sy stem Lockstitch Zipper Setter on 10-13-2011 Albumin mass conc 3.9 g/dL Normal 3.4-5.0 Compreh [facility] Internal Medicine Work Phone: Comment on above: FAST ORDERED PSA LIP ID CBCMD CMP MIACRE TSH UACFEARON ORDERED CBCD CMP SED TSH B12 SPEP YUKI Albumin/Globulin mass ratio 1.1 {RATIO} Normal 0.9-2.4 [facility] Internal Medicine Work Phone: Comment on above: FAST ORDERED PSA LIP ID CBCMD CMP MIACRE TSH UACFEARON ORDERED CBCD CMP SED TSH B12 SPEP YUKI ALP enzyme act/vol 79 U/L Normal 50-136 [facility] Internal Medicine Work Phone: Comment on above: FAST ORDERED PSA LIP ID CBCMD CMP MIACRE TSH UACFEARON ORDERED CBCD CMP SED TSH B12 SPEP YUKI ALT enzyme act/vol 34 U/L Normal 12-78 [facility] Internal Medicine Work Phone: Comment on above: FAST ORDERED PSA LIP ID CBCMD CMP MIACRE TSH UACFEARON ORDERED CBCD CMP SED TSH B12 SPEP YUKI Anion gap molar conc 5 mmol/L Normal 5-15 [facility] Internal Medicine Work Phone: Comment on above: FAST ORDERED PSA LIP ID CBCMD CMP MIACRE TSH UACFEARON ORDERED CBCD CMP SED TSH B12 SPEP YUKI AST enzyme act/vol 25 U/L Normal 15-37 [facility] Internal Medicine Work Phone: Comment on above: FAST ORDERED PSA LIP ID CBCMD CMP MIACRE TSH UACFEARON ORDERED CBCD CMP SED TSH B12 SPEP YUKI Bilirubin mass conc 0.30 mg/dL Normal 0.00-1.00 Compr ehensive Internal Medicine Work Phone: Comment on above: FAST ORDERED PSA LIP ID CBCMD CMP MIACRE TSH UACFEARON ORDERED CBCD CMP SED TSH B12 SPEP YUKI Calcium mass conc 9.1 mg/dL Normal 8.5-10.1 Compreh ensive Internal Medicine Work Phone: Comment on above: FAST ORDERED PSA LIP ID CBCMD CMP MIACRE TSH UACFEARON ORDERED CBCD CMP SED TSH B12 SPEP YUKI Chloride molar conc 105 mmol/L Normal 98-107 Compr ehensive Internal Medicine Work Phone: Comment on above: FAST ORDERED PSA LIP ID CBCMD CMP MIACRE TSH UACFEARON ORDERED CBCD CMP SED TSH B12 SPEP YUKI CO2 molar conc 32.0 mmol/L Normal 21.0-32.0 Comprehen [facility] Internal Medicine Work Phone: Comment on above: FAST ORDERED PSA LIP ID CBCMD CMP MIACRE TSH UACFEARON ORDERED CBCD CMP SED TSH B12 SPEP YUKI Creatinine mass conc 1.1 mg/dL Normal 0.8-1.3 Comp rehensive Internal Medicine Work Phone: Comment on above: FAST ORDERED PSA LIP ID CBCMD CMP MIACRE TSH UACFEARON ORDERED CBCD CMP SED TSH B12 SPEP YUKI GFR/1.73 sq M predicted among blacks MDRD vol rate/area (S/P/Bld) 90 mL/min/{1.73_m2} Normal Comprehe nsive Internal Medicine Work Phone: Comment on above: FAST ORDERED PSA LIP ID CBCMD CMP MIACRE TSH UACFEARON ORDERED CBCD CMP SED TSH B12 SPEP YUKI GFR/1.73 sq M.predicted MDRD vol rate/area 74 mL/min/{1.73_m2} Normal Comprehensiv e Internal Medicine Work Phone: Comment on above: FAST ORDERED PSA LIP ID CBCMD CMP MIACRE TSH UACFEARON ORDERED CBCD CMP SED TSH B12 SPEP YUKI Globulin mass conc (S) 3.7 g/dL Normal 2.7-4.2 [facility] Work Phone: Comment on above: FAST ORDERED PSA LIP ID CBCMD CMP MIACRE TSH UACFEARON ORDERED CBCD CMP SED TSH B12 SPEP YUKI Glucose mass conc 96 mg/dL Normal 70-110 Compreh ensive Internal Medicine Work Phone: Comment on above: FAST ORDERED PSA LIP ID CBCMD CMP MIACRE TSH UACFEARON ORDERED CBCD CMP SED TSH B12 SPEP YUKI Potassium molar conc 4.4 mmol/L Normal 3.5-5.1 Comp rehensive Internal Medicine Work Phone: Comment on above: FAST ORDERED PSA LIP ID CBCMD CMP MIACRE TSH UACFEARON ORDERED CBCD CMP SED TSH B12 SPEP YUKI Protein mass conc 7.6 g/dL Normal 6.4-8.2 Compreh ensive Internal Medicine Work Phone: Comment on above: FAST ORDERED PSA LIP ID CBCMD CMP MIACRE TSH UACFEARON ORDERED CBCD CMP SED TSH B12 SPEP YUKI Sodium molar conc 142 mmol/L Normal 136-145 Compreh ensive Internal Medicine Work Phone: Comment on above: FAST ORDERED PSA LIP ID CBCMD CMP MIACRE TSH UACFEARON ORDERED CBCD CMP SED TSH B12 SPEP YUKI Urea nitrogen mass conc 17 mg/dL Normal 7-18 [facility] Work Phone: Comment on above: FAST ORDERED PSA LIP ID CBCMD CMP MIACRE TSH UACFEARON ORDERED CBCD CMP SED TSH B12 SPEP YUKI Urea nitrogen/Creatinine mass ratio 15.5 {RATIO} Normal 10-20 [facility] Work Phone: Comment on above: FAST ORDERED PSA LIP ID CBCMD CMP MIACRE TSH UACFEARON ORDERED CBCD CMP SED TSH B12 SPEP YUKI COMPLETE UAOrdered By: Hyacinth de la cruz Lockstitch Zipper Setter on 10-13-2011 Bacteria LM.HPF #/area (Urine sed) 0 SEEN Normal [facility] Work Phone: Comment on above: FAST ORDERED PSA LIP ID CBCMD CMP MIACRE TSH UACFEARON ORDERED CBCD CMP SED TSH B12 SPEP YUKI Clarity Nom (U) CLEAR Normal Comprehen sive Internal Medicine Work Phone: Comment on above: FAST ORDERED PSA LIP ID CBCMD CMP MIACRE TSH UACFEARON ORDERED CBCD CMP SED TSH B12 SPEP YUKI Color Nom (U) YELLOW Normal Comprehensi ve Internal Medicine Work Phone: Comment on above: FAST ORDERED PSA LIP ID CBCMD CMP MIACRE TSH UACFEARON ORDERED CBCD CMP SED TSH B12 SPEP YUKI Glucose mass conc SeeNote Normal Compreh ensive Internal Medicine Work Phone: Comment on above: Result: NEGATIVE FAST ORDERED PSA LIP ID CBCMD CMP MIACRE TSH UACFEARON ORDERED CBCD CMP SED TSH B12 SPEP YUKI Protein mass conc SeeNote Normal Compreh ensive Internal Medicine Work Phone: Comment on above: Result: NEGATIVE FAST ORDERED PSA LIP ID CBCMD CMP MIACRE TSH UACFEARON ORDERED CBCD CMP SED TSH B12 SPEP YUKI RBC #/vol (U) SeeNote Normal 0-5 Comprehensi ve Internal Medicine Work Phone: Comment on above: Result: 0-5 SEEN FAST ORDERED PSA LIP ID CBCMD CMP MIACRE TSH UACFEARON ORDERED CBCD CMP SED TSH B12 SPEP YUKI WBC #/vol (Bld) SeeNote Normal 0-5 Comprehen sive Internal Medicine Work Phone: Comment on above: Result: 0-5 SEEN FAST ORDERED PSA LIP ID CBCMD CMP MIACRE TSH UACFEARON ORDERED CBCD CMP SED TSH B12 SPEP YUKI COMPLETE UA 1.010 1 Normal 1.002-1.03 0 [facility] Work Phone: Comment on above: FAST ORDERED PSA LIP ID CBCMD CMP MIACRE TSH UACFEARON ORDERED CBCD CMP SED TSH B12 SPEP YUKI COMPLETE UA 7.0 1 Normal 5.0-8.0 [facility] Work Phone: Comment on above: FAST ORDERED PSA LIP ID CBCMD CMP MIACRE TSH UACFEARON ORDERED CBCD CMP SED TSH B12 SPEP YUKI COMPLETE UA 0.2 EU/dl Normal 0.2 - 1.0 [facility] Work Phone: Comment on above: FAST ORDERED PSA LIP ID CBCMD CMP MIACRE TSH UACFEARON ORDERED CBCD CMP SED TSH B12 SPEP YUKI COMPLETE UA SeeNote Normal [facility] Work Phone: Comment on above: Result: NEGATIVE FAST ORDERED PSA LIP ID CBCMD CMP MIACRE TSH UACFEARON ORDERED CBCD CMP SED TSH B12 SPEP YUKI Result: NORM C+C Result: Not Observed COMPLETE UA 0 SEEN Normal [facility] Work Phone: Comment on above: FAST ORDERED PSA LIP ID CBCMD CMP MIACRE TSH UACFEARON ORDERED CBCD CMP SED TSH B12 SPEP YUKI ESROrdered By: System Manage r on 10-13-2011 ESR Velocity (Bld) 8 mm/h Normal 0-20 [facility] Work Phone: Comment on above: FAST ORDERED PSA LIP ID CBCMD CMP MIACRE TSH UACFEARON ORDERED CBCD CMP SED TSH B12 SPEP YUKI LIPIDOrdered By: System Ayah jessica on 10-13-2011 Cholesterol in HDL mass conc 40 mg/dL Normal [facility] Work Phone: Comment on above: Reference Range HDL <40 mg/dL Low HDL Cholesterol HDL >or= 60 mg/dL High HDL Cholesterol FAST ORDERED PSA LIP ID CBCMD CMP MIACRE TSH UACFEARON ORDERED CBCD CMP SED TSH B12 SPEP YUKI Cholesterol in LDL mass conc 125 mg/dL Normal 0-130 [facility] Work Phone: Comment on above: FAST ORDERED PSA LIP ID CBCMD CMP MIACRE TSH UACFEARON ORDERED CBCD CMP SED TSH B12 SPEP YUKI Cholesterol in VLDL mass conc 29 mg/dL Normal 5-40 [facility] Work Phone: Comment on above: FAST ORDERED PSA LIP ID CBCMD CMP MIACRE TSH UACFEARON ORDERED CBCD CMP SED TSH B12 SPEP YUKI Cholesterol mass conc 194 mg/dL Normal [facility] Work Phone: Comment on above: <200 mg/dL Desirable 200-240 mg/dL Borderline >240 mg/dL High Risk FAST ORDERED PSA LIP ID CBCMD CMP MIACRE TSH UACFEARON ORDERED CBCD CMP SED TSH B12 SPEP YUKI Triglyceride mass conc 145 mg/dL Normal [facility] Work Phone: Comment on above: Serum Triglycerides Reference Interval Normal <150 mg/dL Borderline high 150 - 199 mg/dL High 200 - 499 mg/dL Very High > or = 500 mg/dL FAST ORDERED PSA LIP ID CBCMD CMP MIACRE TSH UACFEARON ORDERED CBCD CMP SED TSH B12 SPEP YUKI MICROALBOrdered By: System M anager on 10-13-2011 Creatinine mass conc 5.0 {mg/g_CRE} Normal [facility] Work Phone: Comment on above: FAST ORDERED PSA LIP ID CBCMD CMP MIACRE TSH UACFEARON ORDERED CBCD CMP SED TSH B12 SPEP YUKI Creatinine mass conc 110.5 mg/dL Normal Com prehensive Internal Medicine Work Phone: Comment on above: FAST ORDERED PSA LIP ID CBCMD CMP MIACRE TSH UACFEARON ORDERED CBCD CMP SED TSH B12 SPEP YUKI MICROALB 5.6 mg/L Normal [facility] Work Phone: Comment on above: FAST ORDERED PSA LIP ID CBCMD CMP MIACRE TSH UACFEARON ORDERED CBCD CMP SED TSH B12 SPEP YUKI PSA, SCREENOrdered By: [employer] m Lockstitch Zipper Setter on 10-13-2011 Prostate specific Ag mass conc 0.9 ng/mL Normal 0.0-4.0 [facility] Work Phone: Comment on above: FAST ORDERED PSA LIP ID CBCMD CMP MIACRE TSH UACFEARON ORDERED CBCD CMP SED TSH B12 SPEP YUKI SPE [id number] By: Director Business Intelligence on 10-13-2011 Albumin mass conc 4.1 g/dL Normal 3.2-5.6 Compreh ensive Internal Medicine Work Phone: Comment on above: FAST ORDERED PSA LIP ID CBCMD CMP MIACRE TSH UACFEARON ORDERED CBCD CMP SED TSH B12 SPEP YUKI Albumin/Globulin mass ratio 1.5 {ratio} Normal 0.7-2.0 [facility] Work Phone: Comment on above: FAST ORDERED PSA LIP ID CBCMD CMP MIACRE TSH UACFEARON ORDERED CBCD CMP SED TSH B12 SPEP YUKI Globulin mass conc (S) 2.8 g/dL Normal 2.0-4.5 [facility] Work Phone: Comment on above: FAST ORDERED PSA LIP ID CBCMD CMP MIACRE TSH UACFEARON ORDERED CBCD CMP SED TSH B12 SPEP YUKI Protein mass conc 6.9 g/dL Normal 6.0-8.5 Compreh ensive Internal Medicine Work Phone: Comment on above: FAST ORDERED PSA LIP ID CBCMD CMP MIACRE TSH UACFEARON ORDERED CBCD CMP SED TSH B12 SPEP YUKI SPE [id number] 1.0 g/dL Normal 0.6-1.3 [facility] Work Phone: Comment on above: FAST ORDERED PSA LIP ID CBCMD CMP MIACRE TSH UACFEARON ORDERED CBCD CMP SED TSH B12 SPEP YUKI SPE [id number] 0.6 g/dL Normal 0.4-1.2 [facility] Work Phone: Comment on above: FAST ORDERED PSA LIP ID CBCMD CMP MIACRE TSH UACFEARON ORDERED CBCD CMP SED TSH B12 SPEP YUKI SPE [id number] 0.2 g/dL Normal 0.1-0.4 [facility] Work Phone: Comment on above: FAST ORDERED PSA LIP ID CBCMD CMP MIACRE TSH UACFEARON ORDERED CBCD CMP SED TSH B12 SPEP YUKI SPE [id number] Comment Normal [facility] Work Phone: Comment on above: The SPE pattern appe ars essentially unremarkable. Evidenceof monoclonal protein is not apparent.Performed at: [facility] [address] [id number] Director: Sameera Crowell MD, Phone: [phone] electrophoresis scan will follow via computer,mail, or cafeteria associate delivery. FAST ORDERED PSA LIP ID CBCMD CMP MIACRE TSH UACFEARON ORDERED CBCD CMP SED TSH B12 SPEP YUKI TSHOrdered By: System Manage r on 10-13-2011 Thyrotropin Qn 2.74 {uIU/mL} Normal 0.358-3.74 Compreh ensive Internal Medicine Work Phone: Comment on above: FAST ORDERED PSA LIP ID CBCMD CMP MIACRE TSH UACFEARON ORDERED CBCD CMP SED TSH B12 SPEP YUKI VITAMIN [id number] By: Syste m Lockstitch Zipper Setter on 10-13-2011 Cobalamin (Vitamin B12) mass conc 1061 pg/mL Normal 254-1320 [facility] Work Phone: Comment on above: There is a low frequ ency possibility that high titers ofintrinsic blocking antibodies may not be completely inactivated during the reaction pretreatment stepof this testing method. If test results are in conflictwith the clinical diagnosis, patient should be testedfor the presence of intrinsic factor blocking antibodies. FAST ORDERED PSA LIP ID CBCMD CMP MIACRE TSH UACFEARON ORDERED CBCD CMP SED TSH B12 SPEP YUKI LIVEROrdered By: Min lopez on 03-27-2009 Albumin mass conc 3.6 g/dL Normal 3.4-5.0 [facility] Work Phone: ALP enzyme act/vol 82 U/L Normal 50-136 [facility] Work Phone: ALT enzyme act/vol 30 U/L Normal 30-65 [facility] Internal Medicine Work Phone: AST enzyme act/vol 19 U/L Normal 15-37 [facility] Internal Medicine Work Phone: Bilirubin mass conc mg/dL Normal 0.00-1.00 [facility] Internal Medicine Work Phone: Bilirubin.direct mass conc 0.05 mg/dL Normal 0.00-0.30 [facility] Internal Medicine Work Phone: Protein mass conc 7.0 g/dL Normal 6.4-8.2 [facility] Work Phone: CBCD,SMEAR DIFFOrdered By: Gomez Martin on 01-09-2009 Eosinophils/100 WBC (Bld) 5 % Normal 0-5 [facility] Internal Medicine Work Phone: Erythrocyte distribution width Ratio (RBC) 12.8 % Normal 11.6-14.6 [facility] Internal Medicine Work Phone: Hematocrit Volume Fraction (Bld) 43.0 % Normal 40-54 [facility] Internal Medicine Work Phone: Hemoglobin mass conc (Bld) 14.9 g/dL Normal 14.0-18.0 [facility] Work Phone: Lymphocytes/100 WBC (Bld) 32 % Normal 19-41 [facility] Work Phone: MCH Entitic mass (RBC) 30.9 pg Normal 27.0-32.0 [facility] Internal Medicine Work Phone: MCHC mass conc (RBC) 34.7 g/dL Normal 32-36 [facility] Work Phone: MCV Entitic volume (RBC) 89.1 fL Normal 80-94 [facility] Work Phone: Monocytes/100 WBC (Bld) 6 % Normal 0-10 [facility] Work Phone: Platelets #/vol (Bld) 283 10*3/uL Normal 150-450 [facility] Work Phone: Platelets #/vol (Bld) SeeNote Normal [facility] Internal Medicine Work Phone: Comment on above: Result: ADEQUATE RBC #/vol (Bld) 4.83 {M/mm3} Normal 4.6-6.2 [facility] Work Phone: WBC #/vol (Bld) 6.3 10*3/uL Normal 4.4-11.0 Comprehe [facility] Internal Medicine Work Phone: CBCD,SMEAR DIFF 57 % Normal 47-70 Comprehen [facility] Internal Medicine Work Phone: CBCD,SMEAR DIFF SeeNote Normal Comprehen [facility] Internal Medicine Work Phone: Comment on above: Result: NORM C+C CBCD,SMEAR DIFF 100 1 Normal Comprehen [facility] Internal Medicine Work Phone: COMP METABOLICOrdered By: Paco stem Lockstitch Zipper Setter on 01-09-2009 Albumin mass conc 3.9 g/dL Normal 3.4-5.0 Compreh [facility] Internal Medicine Work Phone: Albumin/Globulin mass ratio 1.1 {RATIO} Normal 0.9-2.4 [facility] Internal Medicine Work Phone: ALP enzyme act/vol 83 U/L Normal 50-136 [facility] Work Phone: ALT enzyme act/vol 43 U/L Normal 30-65 [facility] Internal Medicine Work Phone: Anion gap molar conc 2 mmol/L Abnormal 5-15 Comp rehensive Internal Medicine Work Phone: AST enzyme act/vol 47 U/L Abnormal 15-37 [facility] Work Phone: Bilirubin mass conc 0.27 mg/dL Normal 0.00-1.00 Compr ehensive Internal Medicine Work Phone: Calcium mass conc 9.1 mg/dL Normal 8.5-10.1 Compreh ensive Internal Medicine Work Phone: Chloride molar conc 105 mmol/L Normal 98-107 Compr ehensive Internal Medicine Work Phone: CO2 molar conc 30.9 mmol/L Normal 21.0-32.0 Comprehen sive Internal Medicine Work Phone: Creatinine mass conc 1.0 mg/dL Normal 0.8-1.3 Comp rehensive Internal Medicine Work Phone: GFR/1.73 sq M predicted among blacks MDRD vol rate/area (S/P/Bld) 101 mL/min/{1.73_m2} Normal Compreh ensive Internal Medicine Work Phone: GFR/1.73 sq M.predicted MDRD vol rate/area 83 mL/min/{1.73_m2} Normal Comprehensiv e Internal Medicine Work Phone: Globulin mass conc (S) 3.6 g/dL Normal 2.7-4.2 [facility] Work Phone: Glucose mass conc 86 mg/dL Normal 70-110 Compreh ensive Internal Medicine Work Phone: Potassium molar conc 4.0 mmol/L Normal 3.5-5.1 Comp rehensive Internal Medicine Work Phone: Protein mass conc 7.5 g/dL Normal 6.4-8.2 Compreh ensive Internal Medicine Work Phone: Sodium molar conc 138 mmol/L Normal 136-145 Compreh ensive Internal Medicine Work Phone: Urea nitrogen mass conc 19 mg/dL Abnormal 7-18 [facility] Work Phone: Urea nitrogen/Creatinine mass ratio 19.0 {RATIO} Normal 10-20 [facility] Work Phone: IRON, SERUMOrdered By: Hyacinth Martin on 01-09-2009 IRON, SERUM 81 ug/dL Normal 35-150 [facility] Work Phone: LIPIDOrdered By: Min lopez on 01-09-2009 Cholesterol in HDL mass conc 38 mg/dL Normal [facility] Work Phone: Comment on above: Reference Range HDL <40 mg/dL Low HDL Cholesterol HDL >or= 60 mg/dL High HDL Cholesterol Cholesterol in LDL mass conc 88 mg/dL Normal 0-130 [facility] Work Phone: Cholesterol in VLDL mass conc 24 mg/dL Normal 5-40 [facility] Work Phone: Cholesterol mass conc 150 mg/dL Normal [facility] Work Phone: Comment on above: <200 mg/dL Desirable 200-240 mg/dL Borderline >240 mg/dL High Risk Triglyceride mass conc 122 mg/dL Normal [facility] Work Phone: Comment on above: Serum Triglycerides Reference Interval Normal <150 mg/dL Borderline high 150 - 199 mg/dL High 200 - 499 mg/dL Very High > or = 500 mg/dL PSA,TOT SCREENOrdered By: Paco Martin on 01-09-2009 Prostate specific Ag mass conc 0.85 ng/mL Normal 0.00-4.00 [facility] Work Phone: Comment on above: This test was perfor med using the TPSA method for theSpinzo chemistry system.Values obtained with different assay methods cannot be usedinterchangably.When changing PSA assays in the course of monitoring apatient, additional sequential testing should be carriedout to confirm baseline values. TESTICULAR (HP)Ordered By: Gomez pressleytem Lockstitch Zipper Setter on 12-30-2008 TESTICULAR (HP) See Note Normal [facility]pre[facility] Internal Medicine Work Phone: Comment on above: Exam Number: [id number] TESTICULAR ULTRASOUND. HISTORYTesticular pain. Epididymal mass. TECHNIQUEHigh resolution real time linear images were obtained. FINDINGSThe right testicle measures 4.1 x 2.7 x 3.1 cm. The left testiclemeasures 4 x 2.5 x 2.9 cm. Both testicles are homogeneous inechotexture. The echotexture of the 2 testicles is symmetric. Onboth sides, there are hydroceles identified. On both sides, there isfluid seen superiorly. On the right, the fluid collection measures3.5 x 1.5 x 3.5 cm. On the left, the fluid collection measures 5.2x 1.8 x 4.5 cm. There is a small amount of debris in each fluidcollection. The head of the epididymis on the right measures 9 x 5 x9 mm. There is a cyst arising from the head of the epididymis on theright. This measures 11 x 8 x 9 mm. This is most likely to representa spermatocele. The head of the epididymis on the left measures 8 x 7x 14 mm. There is a 4-mm cyst arising from the left epididymis, mostlikely representing a small spermatocele. IMPRESSION1. The testicles are within normal limits. 2. There is a cyst arising from the right epididymis. The cyst measures 11 x 8 x 9 mm and is most likely to represent a spermatocele. There is a smaller cyst arising from the head of the epididymis on the left. 3. There are small hydroceles on both sides. Reported By: SUSANA DEVINE M.D. PELVIS WITH CONTRASTOrdered By: Director Business Intelligence on 07-08-2007 PELVIS WITH CONTRAST See Note Normal Comp rehensive Internal Medicine Work Phone: Comment on above: Exam Number: [id number] CT OF THE ABDOMEN AND PELVIS HISTORYLeft inguinal hernia repair with soreness on the left side. COMPARISON STUDYNone. 3.75 mm axial tomographic images were acquired from the lung basesthrough the pubic symphysis after the uneventful intravenousadministration of 100 ccs of Isovue 300 contrast. Oral contrast wasalso performed. The lung bases are clear. No pleural or pericardial effusions. The liver, gallbladder, pancreas, kidneys, spleen, adrenal glands andaorta are normal. There is a small accessory splenule. The small bowel and colon are unremarkable. There are multiplesurgical clips along the ventral wall in the hilus mostly on the leftside. No inguinal hernia is identified. There is some mild scarringanterior to the urinary bladder. No free pelvic fluid. Seminalvesicles and prostate are normal. Osseous structures areunremarkable. IMPRESSIONThere is evidence of previous surgery about the ventral wall with someadjacent scarring. No hernia is identified today or other anomaly. Reported By: LOAN WILLIAMSON M.D. C. DIFF TOXINS A&B N EGATIVE Exam Number: [id number] CT OF THE ABDOMEN AND PELVIS HISTORYLeft inguinal hernia repair with soreness on the left side. COMPARISON STUDYNone. 3.75 mm axial tomographic images were acquired from the lung basesthrough the pubic symphysis after the uneventful intravenousadministration of 100 ccs of Isovue 300 contrast. Oral contrast wasalso performed. The lung bases are clear. No pleural or pericardial effusions. The liver, gallbladder, pancreas, kidneys, spleen, adrenal glands andaorta are normal. There is a small accessory splenule. The small bowel and colon are unremarkable. There are multiplesurgical clips along the ventral wall in the hilus mostly on the leftside. No inguinal hernia is identified. There is some mild scarringanterior to the urinary bladder. No free pelvic fluid. Seminalvesicles and prostate are normal. Osseous structures areunremarkable. IMPRESSIONThere is evidence of previous surgery about the ventral wall with someadjacent scarring. No hernia is identified today or other anomaly. Reported By: LOAN WILLIAMSON M.D. OVA AND PARASITES EX AM, ROUTINE These results were obtained using wet preparation(s) and trichrome stained smear. This test does not include testing for Crytosporidium parvum, Cyclospora, or Microsporidia. TESTING PERFORMED AT [facility]. ORIGINAL REPORT ON FILE IN LAB CONTAINS ADDITIONAL TEST SITE INFORMATION. ____ OVA/ PARASITES EXAM NO OVA, CYSTS, OR PARASITES FOUND. CBCD,SMEAR DIFFOrdered By: Gomez taylor Lockstitch Zipper Setter on 07-06-2007 Band form neutrophils/100 WBC (Bld) 3 % Normal 0-5 [facility] Work Phone: Eosinophils/100 WBC (Bld) 1 % Normal 0-5 [facility] Work Phone: Erythrocyte distribution width Ratio (RBC) 12.8 % Normal 11.6-14.6 [facility] Internal Medicine Work Phone: Hematocrit Volume Fraction (Bld) 44.0 % Normal 40-54 [facility] Work Phone: Hemoglobin mass conc (Bld) 14.8 g/dL Normal 14.0-18.0 [facility] Work Phone: Lymphocytes/100 WBC (Bld) 29 % Normal 19-41 [facility] Work Phone: MCH Entitic mass (RBC) 29.9 pg Normal 27.0-32.0 [facility] Internal Medicine Work Phone: MCHC mass conc (RBC) 33.6 g/dL Normal 32-36 Comp [facility] Internal Medicine Work Phone: MCV Entitic volume (RBC) 88.9 fL Normal 80-94 [facility] Internal Medicine Work Phone: Monocytes/100 WBC (Bld) 7 % Normal 0-10 [facility] Work Phone: Platelets #/vol (Bld) 282 10*3/uL Normal 150-450 [facility] Internal Medicine Work Phone: Platelets #/vol (Bld) SeeNote Normal [facility] Internal Medicine Work Phone: Comment on above: Result: ADEQUATE RBC #/vol (Bld) 4.96 {M/mm3} Normal 4.6-6.2 Compreh ensive Internal Medicine Work Phone: WBC #/vol (Bld) 5.7 10*3/uL Normal 4.4-11.0 Comprehe nsive Internal Medicine Work Phone: CBCD,SMEAR DIFF 60 % Normal 47-70 [facility]pre[facility] Internal Medicine Work Phone: CBCD,SMEAR DIFF 100 1 Normal Comprehen [facility] Internal Medicine Work Phone: CULTURE, STOOLOrdered By: Paco stem Lockstitch Zipper Setter on 07-06-2007 CULTURE, STOOL See Note Normal Comprehens [facility]lee Internal Medicine Work Phone: Comment on above: No Salmonella, Shige lla, E. coli 0157:H7, Yersinia orCampylobacter isolated. No significant amount ofStaphylococcus aureus or yeast-like organisms isolated. Result: NORM C&C LIPIDOrdered By: Min lopez on 07-06-2007 Cholesterol in HDL mass conc 38 mg/dL Normal [facility] Internal Medicine Work Phone: Comment on above: Reference Range HDL <40 mg/dL Low HDL Cholesterol HDL >or= 60 mg/dL High HDL Cholesterol Cholesterol in LDL mass conc 106 mg/dL Normal 0-130 [facility] Work Phone: Cholesterol in VLDL mass conc 21 mg/dL Normal 5-40 [facility] Work Phone: Cholesterol mass conc 165 mg/dL Normal [facility] Internal Medicine Work Phone: Comment on above: <200 mg/dL Desirable 200-240 mg/dL Borderline >240 mg/dL High Risk Triglyceride mass conc 104 mg/dL Normal [facility] Internal Medicine Work Phone: Comment on above: Serum Triglycerides Reference Interval Normal <150 mg/dL Borderline high 150 - 199 mg/dL High 200 - 499 mg/dL Very High > or = 500 mg/dL LIVEROrdered By: Nusirta Dinglepharb on 07-06-2007 Albumin mass conc 3.7 g/dL Normal 3.4-5.0 [facility] Internal Medicine Work Phone: ALP enzyme act/vol 77 U/L Normal 50-136 [facility] Internal Medicine Work Phone: ALT enzyme act/vol 50 [iU]/L Normal 30-65 [facility] Internal Medicine Work Phone: AST enzyme act/vol 30 U/L Normal 15-37 [facility] Internal Medicine Work Phone: Bilirubin mass conc 0.36 mg/dL Normal 0.00-1.00 [facility] Internal Medicine Work Phone: Bilirubin.direct mass conc 0.06 mg/dL Normal 0.00-0.30 [facility] Internal Medicine Work Phone: Protein mass conc 7.2 g/dL Normal 6.4-8.2 [facility]pre[facility] Internal Medicine Work Phone: CBCD,SMEAR DIFFOrdered By: Gomez singhm Lockstitch Zipper Setter on 12-29-2006 Band form neutrophils/100 WBC (Bld) 2 % Normal 0-5 [facility] Work Phone: Basophils/100 WBC (Bld) 1 % Normal 0-1 [facility] Work Phone: Eosinophils/100 WBC (Bld) 1 % Normal 0-5 [facility] Work Phone: Erythrocyte distribution width Ratio (RBC) 13.3 % Normal 11.6-14.6 [facility] Work Phone: Hematocrit Volume Fraction (Bld) 45.1 % Normal 40-54 [facility] Work Phone: Hemoglobin mass conc (Bld) 15.6 g/dL Normal 14.0-18.0 [facility] Work Phone: Lymphocytes/100 WBC (Bld) 37 % Normal 19-41 [facility] Work Phone: MCH Entitic mass (RBC) 30.3 pg Normal 27.0-32.0 [facility] Work Phone: MCHC mass conc (RBC) 34.6 g/dL Normal 32-36 [facility] Internal Medicine Work Phone: MCV Entitic volume (RBC) 87.7 fL Normal 80-94 [facility] Work Phone: Monocytes/100 WBC (Bld) 5 % Normal 0-10 [facility] Work Phone: Platelets #/vol (Bld) 292 10*3/uL Normal 150-450 [facility] Work Phone: Platelets #/vol (Bld) SeeNote Normal [facility] Work Phone: Comment on above: Result: ADEQUATE RBC #/vol (Bld) 5.14 {M/mm3} Normal 4.6-6.2 [facility] Internal Medicine Work Phone: WBC #/vol (Bld) 5.1 10*3/uL Normal 4.4-11.0 [facility]pre[facility] Internal Medicine Work Phone: CBCD,SMEAR DIFF 54 % Normal 47-70 [facility] Internal Medicine Work Phone: CBCD,SMEAR DIFF SeeNote Normal [facility] Work Phone: Comment on above: Result: NORM C&C CBCD,SMEAR DIFF 100 1 Normal [facility] Internal Medicine Work Phone: COMP METABOLICOrdered By: Paco stem Lockstitch Zipper Setter on 12-29-2006 Albumin mass conc 3.8 g/dL Normal 3.4-5.0 [facility] Internal Medicine Work Phone: Albumin/Globulin mass ratio 1.0 {RATIO} Normal 0.9-2.4 [facility] Internal Medicine Work Phone: ALP enzyme act/vol 86 U/L Normal 50-136 [facility] Internal Medicine Work Phone: ALT enzyme act/vol 45 [iU]/L Normal 30-65 [facility] Internal Medicine Work Phone: Anion gap molar conc 6 mmol/L Normal 5-15 [facility] Internal Medicine Work Phone: AST enzyme act/vol 34 U/L Normal 15-37 [facility] Internal Medicine Work Phone: Bilirubin mass conc 0.32 mg/dL Normal 0.00-1.00 [facility] Internal Medicine Work Phone: Calcium mass conc 9.3 mg/dL Normal 8.5-10.1 [facility] Internal Medicine Work Phone: Chloride molar conc 102 mmol/L Normal 98-107 [facility] Internal Medicine Work Phone: CO2 molar conc 29.9 mmol/L Abnormal 22.0-29.0 [facility] Internal Medicine Work Phone: Creatinine mass conc 1.0 mg/dL Normal 0.8-1.3 [facility] Internal Medicine Work Phone: Globulin mass conc (S) 3.7 g/dL Abnormal 2.3-3.5 [facility] Internal Medicine Work Phone: Glucose mass conc 93 mg/dL Normal 70-110 [facility] Internal Medicine Work Phone: Potassium molar conc 4.0 mmol/L Normal 3.5-5.1 [facility] Work Phone: Protein mass conc 7.5 g/dL Normal 6.4-8.2 [facility] Internal Medicine Work Phone: Sodium molar conc 138 mmol/L Normal 136-145 [facility] Work Phone: Urea nitrogen mass conc 17 mg/dL Normal 7-18 [facility] Work Phone: Urea nitrogen/Creatinine mass ratio 17.0 {RATIO} Normal 10-20 [facility] Internal Medicine Work Phone: TSHOrdered By: ecobee on 12-29-2006 Thyrotropin Qn 1.32 {uIU/mL} Normal 0.34-4.82 Compre[facility] Internal Medicine Work Phone: LIVEROrdered By: System IndaBox on 11-24-2006 Albumin mass conc 3.7 g/dL Normal 3.4-5.0 [facility] Work Phone: ALP enzyme act/vol 82 U/L Normal 50-136 [facility] Work Phone: ALT enzyme act/vol 49 [iU]/L Normal 30-65 [facility] Internal Medicine Work Phone: AST enzyme act/vol 27 U/L Normal 15-37 [facility] Internal Medicine Work Phone: Bilirubin mass conc 0.36 mg/dL Normal 0.00-1.00 Compr [facility] Internal Medicine Work Phone: Bilirubin.direct mass conc 0.07 mg/dL Normal 0.00-0.30 [facility] Internal Medicine Work Phone: Protein mass conc 7.4 g/dL Normal 6.4-8.2 [facility] Work Phone: PFLIPOrdered By: BMdr on 11-24-2006 Cholesterol in HDL mass conc 39 mg/dL Normal [facility] Internal Medicine Work Phone: Comment on above: Reference Range HDL <40 mg/dL Low HDL Cholesterol HDL >or= 60 mg/dL High HDL Cholesterol Cholesterol in LDL mass conc 109 mg/dL Normal 0-130 [facility] Work Phone: Cholesterol in VLDL mass conc 35 mg/dL Normal 5-40 [facility] Work Phone: Cholesterol mass conc 183 mg/dL Normal [facility] Work Phone: Comment on above: <200 mg/dL Desirable 200-240 mg/dL Borderline >240 mg/dL High Risk Triglyceride mass conc 175 mg/dL Normal [facility] Work Phone: Comment on above: Serum Triglycerides Reference Interval Normal <150 mg/dL Borderline high 150 - 199 mg/dL High 200 - 499 mg/dL Very High > or = 500 mg/dL PSA,TOT SCREENOrdered By: Sy stem Lockstitch Zipper Setter on 11-24-2006 Prostate specific Ag mass conc 1.65 ng/mL Normal 0.00-4.00 [facility] Work Phone: Comment on above: This test was perfor med using the TPSA method for theSpinzo chemistry system.Values obtained with different assay methods cannot be usedinterchangably.When changing PSA assays in the course of monitoring apatient, additionaly sequential testing should be carriedout to confirm baseline values. Vital Signs Date Time Vital Sign Value Performing Clinician Facility 02-23-2023 09:130400 Body height 167.64 cm [facility]; [facility] Work Phone: 02-23-2023 09:13-0400 Body mass index (BMI) [Ratio] 27.66 kg/m2 [facility]; [facility] Work Phone: 02-23-2023 09:13-0400 Body surface area Derived from formula 1.87 m2 [facility]; [facility] Work Phone: 02-23-2023 09:130400 Body temperature 98.6 [degF] [facility]; [facility] Work Phone: 02-23-2023 09:13-0400 Body weight 77.74 kg [facility]; [facility] Work Phone: 02-23-2023 09:13-0400 Diastolic blood pressure 70 mm[Hg] [facility]; [facility] Work Phone: Comment on above: Patient Position: Sitting; Cuff Location : Left Arm; Cuff Size: Standard 02-23-2023 09:13-0400 Heart rate 75 /min [facility]; [facility] Work Phone: Comment on above: Pattern: Regular 02-23-2023 09:13-0400 SaO2% (BldA) [Mass fraction] 96 % [facility]; [facility] Work Phone: Comment on above: Room air 02-23-2023 09:13-0400 Systolic blood pressure 132 mm[Hg] [facility]; [facility] Work Phone: Comment on above: Patient Position: Sitting; Cuff Location : Left Arm; Cuff Size: Standard 10-02-2022 11:12-0500 Body height 167.64 cm Rufina Prince MA [facility]; [facility] Work Phone: 10-02-2022 11:12-0500 Body mass index (BMI) [Ratio] 27.92 kg/m2 Rufina Prince MA [facility]; [facility] Work Phone: 10-02-2022 11:12-0500 Body surface area Derived from formula 1.88 m2 Rufina Prince MA [facility]; [facility] Work Phone: 10-02-2022 11:12-0500 Body temperature 97.9 [degF] Rufina Prince MA [facility]; [facility] Work Phone: 10-02-2022 11:12-0500 Body weight 78.47 kg Rufina Prince MA [facility]; [facility] Work Phone: 10-02-2022 11:12-0500 Diastolic blood pressure 82 mm[Hg] Rufina Prince MA [facility]; [facility] Work Phone: Comment on above: Patient Position: Sitting; Cuff Location : Left Arm; Cuff Size: Standard 10-02-2022 11:12-0500 Heart rate 75 /min Rufina Prince MA [facility]; [facility] Work Phone: Comment on above: Pattern: Regular 10-02-2022 11:12-0500 Respiratory rate 16 /min Rufina Prince MA [facility]; [facility] Work Phone: Comment on above: Pattern: Unlabored 10-02-2022 11:12-0500 SaO2% (BldA) [Mass fraction] 97 % Rufina Prince MA [facility]; [facility] Work Phone: Comment on above: Room air 10-02-2022 11:12-0500 Systolic blood pressure 120 mm[Hg] Rufina Prince MA [facility]; [facility] Work Phone: Comment on above: Patient Position: Sitting; Cuff Location : Left Arm; Cuff Size: Standard 07-21-2021 11:33-0400 Body height 167.64 cm Marcy Montoya LPN [facility]; [facility] Work Phone: 07-21-2021 11:33-0400 Body mass index (BMI) [Ratio] 27.92 kg/m2 Marcy Slarb TOSHA [facility]; [facility] Work Phone: 07-21-2021 11:33-0400 Body surface area Derived from formula 1.88 m2 Marcy Slarb MELT ROOM OPERATOR [facility]; [facility] Work Phone: 07-21-2021 11:33-0400 Body weight 78.47 kg Marcy Slarb MELT ROOM OPERATOR [facility]; [facility] Work Phone: 08-02-2020 09:21-0400 BMI (Body Mass Index) 27.92 kg/m2 Angelica Adams [facility] Work Phone: 08-02-2020 09:21-0400 Body Temperature 97.2 [degF] Angelica Adams CMA [facility] Work Phone: Comment on above: Method: Infrared 08-02-2020 09:21-0400 Body weight 78.47 kg Angelica Adams [facility] Internal Medicine Work Phone: 08-02-2020 09:21-0400 BP Diastolic 90 mm[Hg] Angelica Adams [facility] Internal Medicine Work Phone: Comment on above: Patient Position: Sitting; Cuff Location : Left Arm; Cuff Size: Standard 08-02-2020 09:21-0400 BP Systolic 142 mm[Hg] Angelica Adams [facility] Work Phone: Comment on above: Patient Position: Sitting; Cuff Location : Left Arm; Cuff Size: Standard 08-02-2020 09:210400 BSA (Body Surface Area) 1.88 m2 Angelica Adams [facility] Work Phone: 08-02-2020 [id number] Height 167.64 cm Angelica Adams [facility] Internal Medicine Work Phone: 08-02-2020 09:21-0400 Pulse (Heart Rate) 69 /min Angelica Adams [facility] Work Phone: Comment on above: Pattern: Regular 08-02-2020 09:21-0400 Pulse Oximetry 99 % Ethel Warner [facility] Internal Medicine Work Phone: Comment on above: Room air 08-02-2020 09:21-0400 Respiratory Rate 18 /min Angelica Adams [facility] Work Phone: Comment on above: Pattern: Unlabored 08-02-2020 09:21-0400 SaO2% (BldA) [Mass fraction] 99 % Angelica Adams [facility]; [facility] Work Phone: Comment on above: Room air 09-22-2019 09:10-0500 BMI (Body Mass Index) 29.38 kg/m2 Angelica Adams [facility] Internal Medicine Work Phone: 09-22-2019 09:10-0500 Body Temperature 97.1 [degF] Angelica Adams HEAD OF HISTORY [facility] Work Phone: Comment on above: Method: Temporal 09-22-2019 09:10-0500 Body weight 82.56 kg Angelica Adams [facility] Work Phone: 09-22-2019 09:10-0500 BP Diastolic 90 mm[Hg] Angelica Adams [facility] Work Phone: Comment on above: Patient Position: Sitting; Cuff Location : Left Arm; Cuff Size: Standard 09-22-2019 09:10-0500 BP Systolic 128 mm[Hg] Angelica Adams [facility] Work Phone: Comment on above: Patient Position: Sitting; Cuff Location : Left Arm; Cuff Size: Standard 09-22-2019 09:10-0500 BSA (Body Surface Area) 1.92 m2 Angelica Adams [facility] Work Phone: 09-22-2019 09:10-0500 Height 167.64 cm Angelica Adams [facility] Work Phone: 09-22-2019 09:10-0500 Pulse (Heart Rate) 73 /min Angelica Adams [facility] Work Phone: Comment on above: Pattern: Regular 09-22-2019 09:10-0500 Pulse Oximetry 97 % Ethel Shelleyon [facility] Internal Medicine Work Phone: Comment on above: Room air 09-22-2019 09:10-0500 Respiratory Rate 18 /min Angelica Adams [facility] Work Phone: Comment on above: Pattern: Unlabored 09-22-2019 09:10-0500 SaO2% (BldA) [Mass fraction] 97 % Angelica Adams [facility]; [facility] Work Phone: Comment on above: Room air 08-21-2019 10:20-0500 BMI (Body Mass Index) 29.05 kg/m2 NAYE Taylor LPN [facility] Work Phone: 08-21-2019 10:20-0500 Body Temperature 97.9 [degF] NAYE Taylor LPN [facility] Work Phone: Comment on above: Method: Temporal 08-21-2019 10:20-0500 Body weight 81.65 kg NAYE Taylor LPN [facility] Work Phone: 08-21-2019 10:20-0500 BP Diastolic 80 mm[Hg] NAYE Taylor LPN [facility] Work Phone: Comment on above: Patient Position: Sitting; Cuff Location : Left Arm; Cuff Size: Standard 08-21-2019 10:20-0500 BP Systolic 140 mm[Hg] NAYE Taylor LPN [facility] Work Phone: Comment on above: Patient Position: Sitting; Cuff Location : Left Arm; Cuff Size: Standard 08-21-2019 10:20-0500 BSA (Body Surface Area) 1.91 m2 NAYE Taylor LPN [facility] Work Phone: 08-21-2019 10:20-0500 Height 167.64 cm NAYE Taylor LPN [facility] Work Phone: 08-21-2019 10:20-0500 Pulse (Heart Rate) 97 /min NAYE Taylor LPN [facility] Work Phone: Comment on above: Pattern: Regular 08-21-2019 10:20-0500 Pulse Oximetry 98 % Ethel Warner [facility] Work Phone: Comment on above: Room air 08-21-2019 10:20-0500 Respiratory Rate 20 /min NAYE Taylor LPN [facility] Work Phone: Comment on above: Pattern: Unlabored 08-21-2019 10:20-0500 SaO2% (BldA) [Mass fraction] 98 % NAYE Taylor LPN [facility]; [facility] Work Phone: Comment on above: Room air 03-20-2019 08:55-0400 BMI (Body Mass Index) 29.13 kg/m2 Angelica Adams [facility] Work Phone: 03-20-2019 08:55-0400 Body Temperature 97.1 [degF] Angelica Adams [facility] Work Phone: Comment on above: Method: Temporal 03-20-2019 08:55-0400 Body weight 81.87 kg Angelica Adams [facility] Work Phone: 03-20-2019 08:55-0400 BP Diastolic 80 mm[Hg] Angelica Adams [facility] Work Phone: Comment on above: Patient Position: Sitting; Cuff Location : Left Arm; Cuff Size: Standard 03-20-2019 08:55-0400 BP Systolic 124 mm[Hg] Angelica Adams [facility] Work Phone: Comment on above: Patient Position: Sitting; Cuff Location : Left Arm; Cuff Size: Standard 03-20-2019 08:55-0400 BSA (Body Surface Area) 1.91 m2 Angelica Adams [facility] Work Phone: 03-20-2019 08:55-0400 Height 167.64 cm Angelica Adams [facility] Work Phone: 03-20-2019 08:55-0400 Pulse (Heart Rate) 70 /min Angelica Adams [facility] Work Phone: Comment on above: Pattern: Regular 03-20-2019 08:55-0400 Pulse Oximetry 97 % Ethel Warner [facility] Internal Medicine Work Phone: Comment on above: Room air 03-20-2019 08:55-0400 Respiratory Rate 18 /min Angelica Adams [facility] Work Phone: Comment on above: Pattern: Unlabored 03-20-2019 08:55-0400 SaO2% (BldA) [Mass fraction] 97 % Angelica Adams [facility]; [facility] Work Phone: Comment on above: Room air 03-20-2019 08:55-0400 Weight 81.87 kg Ethel Warner [facility] Internal Medicine Work Phone: 03-06-2019 10:54-0400 BMI (Body Mass Index) 29.46 kg/m2 Martha Nava RN [facility] Work Phone: 03-06-2019 10:54-0400 Body weight 82.78 kg Martha Nava RN [facility] Work Phone: 03-06-2019 10:54-0400 BP Diastolic 70 mm[Hg] Martha Nava RN [facility] Work Phone: Comment on above: Patient Position: Standing; Cuff Locatio n: Left Arm; Cuff Size: Large 03-06-2019 10:54-0400 BP Systolic 122 mm[Hg] Martha Nava RN [facility] Work Phone: Comment on above: Patient Position: Standing; Cuff Locatio n: Left Arm; Cuff Size: Large 03-06-2019 10:54-0400 BSA (Body Surface Area) 1.92 m2 Martha Nava RN [facility] Work Phone: 03-06-2019 10:54-0400 Height 167.64 cm Martha Nava RN [facility] Work Phone: 03-06-2019 10:54-0400 Pulse (Heart Rate) 66 /min Martha Nava RN [facility] Work Phone: Comment on above: Pattern: Regular 03-06-2019 10:54-0400 Pulse Oximetry 97 % Ethel Warner [facility] Work Phone: Comment on above: Room air 03-06-2019 10:54-0400 Respiratory Rate 18 /min Martha Nava RN [facility] Work Phone: Comment on above: Pattern: Unlabored 03-06-2019 10:54-0400 SaO2% (BldA) [Mass fraction] 97 % Martha Nava RN [facility]; [facility] Work Phone: Comment on above: Room air 03-06-2019 10:54-0400 Weight 82.78 kg Ethel Warner [facility] Work Phone: 12-31-2018 08:06-0400 BMI (Body Mass Index) 29.46 kg/m2 Anoop Schultz LPN [facility] Internal Medicine Work Phone: 12-31-2018 08:06-0400 Body Temperature 98.3 [degF] Anoop Schultz LPN [facility] Work Phone: Comment on above: Method: Temporal 12-31-2018 08:06-0400 Body weight 82.78 kg Anoop Schultz LPN [facility] Work Phone: 12-31-2018 08:06-0400 BP Diastolic 70 mm[Hg] Anoop Schultz LPN [facility] Work Phone: Comment on above: Patient Position: Sitting; Cuff Location : Left Arm; Cuff Size: Standard 12-31-2018 08:06-0400 BP Systolic 126 mm[Hg] Anoop Schultz LPN [facility] Internal Medicine Work Phone: Comment on above: Patient Position: Sitting; Cuff Location : Left Arm; Cuff Size: Standard 12-31-2018 08:06-0400 BSA (Body Surface Area) 1.92 m2 Anoop Schultz LPN [facility] Work Phone: 12-31-2018 08:06-0400 Height 167.64 cm Anoop Schultz LPN [facility] Internal Medicine Work Phone: 12-31-2018 08:06-0400 Pulse (Heart Rate) 77 /min Anoop Schultz LPN [facility] Work Phone: Comment on above: Pattern: Regular 12-31-2018 08:06-0400 Pulse Oximetry 98 % Ethel Warner [facility] Internal Medicine Work Phone: Comment on above: Room air 12-31-2018 08:06-0400 Respiratory Rate 18 /min Anoop Schultz LPN [facility] Internal Medicine Work Phone: Comment on above: Pattern: Unlabored 12-31-2018 08:06-0400 SaO2% (BldA) [Mass fraction] 98 % Anoop Schultz LPN [facility]; [facility] Work Phone: Comment on above: Room air 12-31-2018 08:06-0400 Weight 82.78 kg Ethel Warner [facility] Medicine Work Phone: 08-15-2018 11:54-0400 BMI (Body Mass Index) 29.46 kg/m2 Martha Nava RN [facility] Work Phone: 08-15-2018 11:54-0400 Body weight 82.78 kg Martha Nava RN [facility] Work Phone: 08-15-2018 11:54-0400 BP Diastolic 60 mm[Hg] Martha Nava RN [facility] Work Phone: Comment on above: Patient Position: Sitting; Cuff Location : Left Arm; Cuff Size: Large 08-15-2018 11:54-0400 BP Systolic 120 mm[Hg] Martha Nava RN [facility] Work Phone: Comment on above: Patient Position: Sitting; Cuff Location : Left Arm; Cuff Size: Large 08-15-2018 11:54-0400 BSA (Body Surface Area) 1.92 m2 Martha Nava RN [facility] Work Phone: 08-15-2018 11:54-0400 Height 167.64 cm Martha Nava RN [facility] Work Phone: 08-15-2018 11:54-0400 Pulse (Heart Rate) 68 /min Martha Nava RN [facility] Work Phone: Comment on above: Pattern: Regular 08-15-2018 11:54-0400 Pulse Oximetry 98 % Ethel Bharathi [facility] Work Phone: Comment on above: Room air 08-15-2018 11:54-0400 Respiratory Rate 18 /min Martha Nava RN [facility] Medicine Work Phone: Comment on above: Pattern: Unlabored 08-15-2018 11:54-0400 SaO2% (BldA) [Mass fraction] 98 % Martha Nava RN [facility]; [facility] Work Phone: Comment on above: Room air 08-15-2018 11:54-0400 Weight 82.78 kg Ethel Shelleyon [facility] Work Phone: 07-29-2018 10:33-0400 BMI (Body Mass Index) 29.4 kg/m2 Angelica Adams [facility] Work Phone: 07-29-2018 10:33-0400 Body Temperature 97.7 [degF] Angelica Adams HEAD OF HISTORY [facility] Work Phone: Comment on above: Method: Temporal 07-29-2018 10:33-0400 Body weight 82.61 kg Angelica Adams [facility] Work Phone: 07-29-2018 10:33-0400 BP Diastolic 78 mm[Hg] Angelica Adams [facility] Internal Medicine Work Phone: Comment on above: Patient Position: Sitting; Cuff Location : Left Arm; Cuff Size: Standard 07-29-2018 10:33-0400 BP Systolic 124 mm[Hg] Angelica Adams [facility] Internal Medicine Work Phone: Comment on above: Patient Position: Sitting; Cuff Location : Left Arm; Cuff Size: Standard 07-29-2018 10:33-0400 BSA (Body Surface Area) 1.92 m2 Angelica Adams [facility] Internal Medicine Work Phone: 07-29-2018 10:33-0400 Height 167.64 cm Angelica Adams [facility] Internal Medicine Work Phone: 07-29-2018 10:33-0400 Pulse (Heart Rate) 73 /min Angelica Adams [facility] Internal Medicine Work Phone: Comment on above: Pattern: Regular 07-29-2018 10:33-0400 Pulse Oximetry 97 % Ethel Warner [facility] Internal Medicine Work Phone: Comment on above: Room air 07-29-2018 10:33-0400 Respiratory Rate 18 /min Angelica Adams [facility] Internal Medicine Work Phone: Comment on above: Pattern: Unlabored 07-29-2018 10:33-0400 SaO2% (BldA) [Mass fraction] 97 % Angelica Adams [facility] Internal Medicine; [facility] Work Phone: Comment on above: Room air 07-29-2018 10:33-0400 Weight 82.61 kg Ethel Shelleyon [facility] Internal Medicine Work Phone: 03-28-2018 11:46-0400 BMI (Body Mass Index) 28.91 kg/m2 Martha Nava RN [facility] Work Phone: 03-28-2018 11:46-0400 Body weight 81.25 kg Martha Nava RN [facility] Work Phone: 03-28-2018 11:46-0400 BP Diastolic 76 mm[Hg] Martha Nava RN [facility] Work Phone: Comment on above: Patient Position: Sitting; Cuff Location : Left Arm; Cuff Size: Large 03-28-2018 11:46-0400 BP Systolic 128 mm[Hg] Martha Nava RN [facility] Work Phone: Comment on above: Patient Position: Sitting; Cuff Location : Left Arm; Cuff Size: Large 03-28-2018 11:46-0400 BSA (Body Surface Area) 1.91 m2 Martha Nava RN [facility] Work Phone: 03-28-2018 11:46-0400 Height 167.64 cm Martha Nava RN [facility] Work Phone: 03-28-2018 11:46-0400 Pulse (Heart Rate) 63 /min Martha Nava RN [facility] Work Phone: Comment on above: Pattern: Regular 03-28-2018 11:46-0400 Pulse Oximetry 97 % Ethel Warner [facility] Work Phone: Comment on above: Room air 03-28-2018 11:46-0400 Respiratory Rate 18 /min Martha Nava RN [facility] Work Phone: Comment on above: Pattern: Unlabored 03-28-2018 11:46-0400 SaO2% (BldA) [Mass fraction] 97 % Martha Nava RN [facility]; [facility] Work Phone: Comment on above: Room air 03-28-2018 11:46-0400 Weight 81.25 kg Ethel Warner [facility] Internal Medicine Work Phone: 02-22-2018 08:37-0400 BMI (Body Mass Index) 30.18 kg/m2 Telma Schultz [facility] Internal Medicine Work Phone: 02-22-2018 08:37-0400 Body weight 84.82 kg Telma Schultz [facility] Internal Medicine Work Phone: 02-22-2018 08:37-0400 BP Diastolic 80 mm[Hg] Telma [facility] Internal Medicine Work Phone: Comment on above: Patient Position: Sitting; Cuff Location : Left Arm; Cuff Size: Standard 02-22-2018 08:37-0400 BP Systolic 144 mm[Hg] Telma [facility] Internal Medicine Work Phone: Comment on above: Patient Position: Sitting; Cuff Location : Left Arm; Cuff Size: Standard 02-22-2018 08:37-0400 BSA (Body Surface Area) 1.94 m2 Telma [facility] Internal Medicine Work Phone: 02-22-2018 08:37-0400 [facility]: 02-22-2018 08:37-0400 Pulse (Heart Rate) 70 /[facility] Work Phone: Comment on above: Pattern: Regular 02-22-2018 08:37-0400 Pulse Oximetry 98 % Ethel Warner [facility] Internal Medicine Work Phone: Comment on above: Room air 02-22-2018 08:37-0400 Respiratory Rate 18 /min Telma [facility] Internal Medicine Work Phone: Comment on above: Pattern: Unlabored 02-22-2018 08:37-0400 SaO2% (BldA) [Mass fraction] 98 % [facility] Internal Medicine; [facility] Work Phone: Comment on above: Room air 02-22-2018 08:37-0400 Weight 84.82 kg Ethel Warner [facility] Internal Medicine Work Phone: 02-01-2018 08:12-0400 BMI (Body Mass Index) 30.18 kg/m2 Martha Nava RN [facility] Work Phone: 02-01-2018 08:12-0400 Body weight 84.82 kg Martha Nava RN [facility] Work Phone: 02-01-2018 08:12-0400 BP Diastolic 98 mm[Hg] Martha Nava RN [facility] Work Phone: Comment on above: Patient Position: Sitting; Cuff Location : Left Arm; Cuff Size: Standard 02-01-2018 08:12-0400 BP Systolic 172 mm[Hg] Martha Nava RN [facility] Work Phone: Comment on above: Patient Position: Sitting; Cuff Location : Left Arm; Cuff Size: Standard 02-01-2018 08:12-0400 BSA (Body Surface Area) 1.94 m2 Martha Nava RN [facility] Work Phone: 02-01-2018 08:12-0400 Height 167.64 cm Martha Nava RN [facility] Work Phone: 02-01-2018 08:12-0400 Pulse (Heart Rate) 79 /min Martha Nava RN [facility] Work Phone: Comment on above: Pattern: Regular 02-01-2018 08:12-0400 Pulse Oximetry 97 % Ethel Warner [facility] Work Phone: Comment on above: Room air 02-01-2018 08:12-0400 Respiratory Rate 18 /min Martha Nava RN [facility] Work Phone: Comment on above: Pattern: Unlabored 02-01-2018 08:12-0400 SaO2% (BldA) [Mass fraction] 97 % Martha Nava RN [facility]; [facility] Work Phone: Comment on above: Room air 02-01-2018 08:12-0400 Weight 84.82 kg Ethel Bharathi [facility] Work Phone: 01-04-2018 07:44-0400 BMI (Body Mass Index) 30.18 kg/m2 Martha Nava RN [facility] Work Phone: 01-04-2018 07:44-0400 Body weight 84.82 kg Martha Nava RN [facility] Work Phone: 01-04-2018 07:44-0400 BP Diastolic 82 mm[Hg] Martha Nava RN [facility] Work Phone: Comment on above: Patient Position: Sitting; Cuff Location : Left Arm; Cuff Size: Large 01-04-2018 07:44-0400 BP Systolic 142 mm[Hg] Martha Nava RN [facility] Work Phone: Comment on above: Patient Position: Sitting; Cuff Location : Left Arm; Cuff Size: Large 01-04-2018 07:44-0400 BSA (Body Surface Area) 1.94 m2 Martha Nava RN [facility] Work Phone: 01-04-2018 07:44-0400 Height 167.64 cm Martha Nava RN [facility] Work Phone: 01-04-2018 07:44-0400 Pulse (Heart Rate) 86 /min Martha Nava RN [facility] Work Phone: Comment on above: Pattern: Regular 01-04-2018 07:44-0400 Pulse Oximetry 96 % Ethel Warner [facility] Work Phone: Comment on above: Room air 01-04-2018 07:44-0400 Respiratory Rate 18 /min Martha Nava RN [facility] Work Phone: Comment on above: Pattern: Unlabored 01-04-2018 07:44-0400 SaO2% (BldA) [Mass fraction] 96 % Martha Nava RN [facility]; [facility] Work Phone: Comment on above: Room air 01-04-2018 07:44-0400 Weight 84.82 kg Ethel Warner [facility] Internal Medicine Work Phone: 12-17-2017 15:28-0500 BMI (Body Mass Index) 29.6 kg/m2 Telam Schultz [facility] Internal Medicine Work Phone: 12-17-2017 15:28-0500 Body weight 83.18 kg Telma Schultz [facility] Internal Medicine Work Phone: 12-17-2017 15:28-0500 BP Diastolic 92 mm[Hg] Telma Schultz [facility] Internal Medicine Work Phone: Comment on above: Patient Position: Sitting; Cuff Location : Left Arm; Cuff Size: Standard 12-17-2017 15:28-0500 BP Systolic 142 mm[Hg] Telma Schultz [facility] Internal Medicine Work Phone: Comment on above: Patient Position: Sitting; Cuff Location : Left Arm; Cuff Size: Standard 12-17-2017 15:28-0500 BSA (Body Surface Area) 1.93 m2 Telma Schultz [facility] Internal Medicine Work Phone: 12-17-2017 15:28-0500 Height 167.64 cm Telma [facility] Internal Medicine Work Phone: 12-17-2017 15:28-0500 Pulse (Heart Rate) 73 /min Telma Schultz [facility] Internal Medicine Work Phone: Comment on above: Pattern: Regular 12-17-2017 15:28-0500 Pulse Oximetry 96 % Ethel Warner [facility] Internal Medicine Work Phone: Comment on above: Room air 12-17-2017 15:28-0500 Respiratory Rate 18 /min Telma Schultz [facility] Internal Medicine Work Phone: Comment on above: Pattern: Unlabored 12-17-2017 15:28-0500 SaO2% (BldA) [Mass fraction] 96 % Telma Schultz [facility]; [facility] Work Phone: Comment on above: Room air 12-17-2017 15:28-0500 Weight 83.18 kg Ethel Warner [facility] Internal Medicine Work Phone: 12-12-2017 12:53-0500 BMI (Body Mass Index) 29.94 kg/m2 Telma Schultz [facility] Internal Medicine Work Phone: 12-12-2017 12:53-0500 Body Temperature 98.5 [degF] Telma Schultz [facility] Internal Medicine Work Phone: Comment on above: Method: Temporal 12-12-2017 12:53-0500 Body weight 84.14 kg Telma Schultz [facility] Internal Medicine Work Phone: 12-12-2017 12:53-0500 BP Diastolic 88 mm[Hg] Telma [facility] Internal Medicine Work Phone: Comment on above: Patient Position: Standing; Cuff Locatio n: Left Arm; Cuff Size: Large 12-12-2017 12:53-0500 BP Systolic 148 mm[Hg] Telma Schultz [facility] Internal Medicine Work Phone: Comment on above: Patient Position: Standing; Cuff Locatio n: Left Arm; Cuff Size: Large 12-12-2017 12:53-0500 BSA (Body Surface Area) 1.94 m2 Telma Schultz [facility] Internal Medicine Work Phone: 12-12-2017 12:53-0500 Height 167.64 cm Telma [facility] Internal Medicine Work Phone: 12-12-2017 12:53-0500 Pulse (Heart Rate) 64 /min Telma [facility] Internal Medicine Work Phone: Comment on above: Pattern: Regular 12-12-2017 12:53-0500 Pulse Oximetry 96 % Ethel Warner [facility] Internal Medicine Work Phone: Comment on above: Room air 12-12-2017 12:53-0500 Respiratory Rate 18 /min Telma Schultz [facility] Internal Medicine Work Phone: Comment on above: Pattern: Unlabored 12-12-2017 12:53-0500 SaO2% (BldA) [Mass fraction] 96 % Telmagladys Schultz [facility] Internal Medicine; [facility] Internal Medicine Work Phone: Comment on above: Room air 12-12-2017 12:53-0500 Weight 84.14 kg Ethel Warner [facility] Internal Medicine Work Phone: 11-09-2016 07:07-0500 BMI (Body Mass Index) 29.4 kg/m2 [facility] Internal Medicine Work Phone: 11-09-2016 07:07-0500 Body Temperature 98 [degF] [facility] Internal Medicine Work Phone: 11-09-2016 07:07-0500 Body weight 82.61 kg [facility] Internal Medicine Work Phone: 11-09-2016 07:07-0500 BP Diastolic 82 mm[Hg] [facility] Internal Medicine Work Phone: Comment on above: Patient Position: Sitting; Cuff Location : Left Arm; Cuff Size: Standard 11-09-2016 07:07-0500 BP Systolic 130 mm[Hg] [facility] Internal Medicine Work Phone: Comment on above: Patient Position: Sitting; Cuff Location : Left Arm; Cuff Size: Standard 11-09-2016 07:07-0500 BSA (Body Surface [facility]) 1.92 m2 [facility]: 11-09-2016 07:07-0500 [facility].64 [facility] Work Phone: 11-09-2016 07:07-0500 Pulse (Heart Rate) 68 /min [facility] Internal Medicine Work Phone: Comment on above: Pattern: Regular 11-09-2016 07:07-0500 Pulse Oximetry 96 % Ethel Warner [facility] Internal Medicine Work Phone: Comment on above: Room air 11-09-2016 07:07-0500 Respiratory Rate 16 /min [facility] Internal Medicine Work Phone: Comment on above: Pattern: Unlabored 11-09-2016 07:07-0500 SaO2% (BldA) [Mass fraction] 96 % [facility] Internal Medicine; [facility] Internal Medicine Work Phone: Comment on above: Room air 11-09-2016 07:07-0500 Weight 82.61 kg Ethel Warner [facility] Internal Medicine Work Phone: 10-05-2016 14:23-0500 BMI (Body Mass Index) 28.91 kg/m2 Marcy Slarb MELT ROOM OPERATOR [facility] Internal Medicine Work Phone: 10-05-2016 14:23-0500 Body Temperature 97 [degF] Marcy Slarb MELT ROOM OPERATOR [facility] Internal Medicine Work Phone: 10-05-2016 14:23-0500 Body weight 81.25 kg Marcy Slarb MELT ROOM OPERATOR [facility] Internal Medicine Work Phone: 10-05-2016 14:23-0500 BP Diastolic 82 mm[Hg] Marcy Slarb MELT ROOM OPERATOR [facility] Internal Medicine Work Phone: Comment on above: Patient Position: Sitting; Cuff Location : Left Arm; Cuff Size: Standard 10-05-2016 14:23-0500 BP Systolic 124 mm[Hg] Marcy Slarb MELT ROOM OPERATOR [facility] Internal Medicine Work Phone: Comment on above: Patient Position: Sitting; Cuff Location : Left Arm; Cuff Size: Standard 10-05-2016 14:23-0500 BSA (Body Surface Area) 1.91 m2 Marcy Montoya MELT ROOM OPERATOR [facility] Work Phone: 10-05-2016 14:23-0500 Height 167.64 cm Marcy Montoya MELT ROOM OPERATOR [facility] Work Phone: 10-05-2016 14:23-0500 Pulse (Heart Rate) 86 /min Marcy Montoya LPN [facility] Internal Medicine Work Phone: Comment on above: Pattern: Regular 10-05-2016 14:23-0500 Pulse Oximetry 98 % Ethel Warner [facility] Internal Medicine Work Phone: Comment on above: Room air 10-05-2016 14:23-0500 Respiratory Rate 17 /min Marcy Montoya MELT ROOM OPERATOR [facility] Work Phone: Comment on above: Pattern: Unlabored 10-05-2016 14:23-0500 SaO2% (BldA) [Mass fraction] 98 % Marcy Montoya MELT ROOM OPERATOR [facility]; [facility] Work Phone: Comment on above: Room air 10-05-2016 14:23-0500 Weight 81.25 kg Ethel Warner [facility] Internal Medicine Work Phone: 05-01-2016 16:02-0400 BMI (Body Mass Index) 28.91 kg/m2 Martha Nava RN [facility] Work Phone: 05-01-2016 16:02-0400 Body weight 81.25 kg Martha Nava RN [facility] Work Phone: 05-01-2016 16:02-0400 BP Diastolic 88 mm[Hg] Martha Nava RN [facility] Work Phone: Comment on above: Patient Position: Sitting; Cuff Location : Left Arm; Cuff Size: Large 05-01-2016 16:02-0400 BP Systolic 130 mm[Hg] Martha Nava RN [facility] Work Phone: Comment on above: Patient Position: Sitting; Cuff Location : Left Arm; Cuff Size: Large 05-01-2016 16:02-0400 BSA (Body Surface Area) 1.91 m2 Martha Nava RN [facility] Work Phone: 05-01-2016 16:02-0400 Height 167.64 cm Martha Nava RN [facility] Work Phone: 05-01-2016 16:02-0400 Pulse (Heart Rate) 73 /min Martha Nava RN [facility] Work Phone: Comment on above: Pattern: Regular 05-01-2016 16:02-0400 Pulse Oximetry 96 % Ethel Warner [facility] Internal Medicine Work Phone: Comment on above: Room air 05-01-2016 16:02-0400 Respiratory Rate 18 /min Martha Nava RN [facility] Work Phone: Comment on above: Pattern: Unlabored 05-01-2016 16:02-0400 SaO2% (BldA) [Mass fraction] 96 % Martha Nava RN [facility]; [facility] Work Phone: Comment on above: Room air 05-01-2016 16:02-0400 Weight 81.25 kg Ethel Warner [facility] Internal Medicine Work Phone: 12-13-2015 16:21-0500 BMI (Body Mass Index) 29.7 kg/m2 Cinthia Suárez [facility] Work Phone: 12-13-2015 16:21-0500 Body Temperature 97.7 [degF] Cinthia Suárez [facility] Work Phone: Comment on above: Method: Temporal 12-13-2015 16:21-0500 Body weight 83.46 kg Cinthia Suárez [facility] Work Phone: 12-13-2015 16:21-0500 BP Diastolic 70 mm[Hg] Cinthia Suárez [facility] Work Phone: Comment on above: Patient Position: Sitting; Cuff Location : Left Arm; Cuff Size: Standard 12-13-2015 16:21-0500 BP Systolic 130 mm[Hg] [facility] Internal Medicine Work Phone: Comment on above: Patient Position: Sitting; Cuff Location : Left Arm; Cuff Size: Standard 12-13-2015 16:21-0500 BSA (Body Surface Area) 1.93 m2 [facility] Work Phone: 12-13-2015 16:21-0500 Height 167.64 cm [facility] Internal Medicine Work Phone: 12-13-2015 16:21-0500 Pulse (Heart Rate) 76 /min [facility] Internal Medicine Work Phone: Comment on above: Pattern: Regular 12-13-2015 16:21-0500 Respiratory Rate 16 /min [facility] Internal Medicine Work Phone: Comment on above: Pattern: Unlabored 12-13-2015 16:21-0500 Weight 83.46 kg Ethel Bharathi [facility] Internal Medicine Work Phone: 12-21-2014 17:13-0400 BMI (Body Mass Index) 29.38 kg/m2 Astrid Hunt [facility] Internal Medicine Work Phone: 12-21-2014 17:13-0400 Body Temperature 97.7 [degF] Astrid Hunt [facility] Internal Medicine Work Phone: 12-21-2014 17:13-0400 Body weight 82.56 kg Astrid Hunt [facility] Internal Medicine Work Phone: 12-21-2014 17:13-0400 BP Diastolic 80 mm[Hg] Astrid Hunt [facility] Internal Medicine Work Phone: Comment on above: Patient Position: Sitting; Cuff Location : Left Arm; Cuff Size: Standard 12-21-2014 17:13-0400 BP Systolic 132 mm[Hg] Astrid Hunt [facility] Internal Medicine Work Phone: Comment on above: Patient Position: Sitting; Cuff Location : Left Arm; Cuff Size: Standard 12-21-2014 17:13-0400 BSA (Body Surface Area) 1.92 m2 Astrid Hunt [facility] Internal Medicine Work Phone: 12-21-2014 17:13-0400 Height 167.64 cm Astrid Hunt [facility] Internal Medicine Work Phone: 12-21-2014 17:13-0400 Pulse (Heart Rate) 64 /min [facility]id [facility] Work Phone: Comment on above: Pattern: Regular 12-21-2014 17:13-0400 Respiratory Rate 16 /min Astrid Hunt [facility] Internal Medicine Work Phone: Comment on above: Pattern: Unlabored 12-21-2014 17:13-0400 Weight 82.56 kg Ethel Warner [facility] Internal Medicine Work Phone: 11-03-2013 10:00-0500 BMI (Body Mass Index) 28.89 kg/m2 Cinthia Suárez [facility] Internal Medicine Work Phone: 11-03-2013 10:00-0500 Body Temperature 99.1 [degF] Cinthia Suárez [facility] Internal Medicine Work Phone: Comment on above: Method: Oral 11-03-2013 10:00-0500 Body weight 81.19 kg Cinthia Suárez [facility] Internal Medicine Work Phone: 11-03-2013 10:00-0500 BP Diastolic 78 mm[Hg] Cinthia Kamini [facility] Internal Medicine Work Phone: Comment on above: Patient Position: Sitting; Cuff Location : Left Arm; Cuff Size: Standard 11-03-2013 10:00-0500 BP Systolic 152 mm[Hg] Cinthia Kamini [facility] Internal Medicine Work Phone: Comment on above: Patient Position: Sitting; Cuff Location : Left Arm; Cuff Size: Standard 11-03-2013 10:00-0500 BSA (Body Surface Area) 1.91 m2 Cinthia Suárez [facility] Internal Medicine Work Phone: 11-03-2013 10:00-0500 Height 167.64 cm [facility] Internal Medicine Work Phone: 11-03-2013 10:00-0500 Pulse (Heart Rate) 72 /min Cinthia Suárez [facility] Internal Medicine Work Phone: Comment on above: Pattern: Regular 11-03-2013 10:00-0500 Pulse Oximetry 98 % Ethel Warner [facility] Internal Medicine Work Phone: Comment on above: Room air 11-03-2013 10:00-0500 Respiratory Rate 16 /min Cinthia Suárez [facility] Internal Medicine Work Phone: Comment on above: Pattern: Unlabored 11-03-2013 10:00-0500 SaO2% (BldA) [Mass fraction] 98 % Cinthia Suárez [facility]; [facility] Work Phone: Comment on above: Room air 11-03-2013 10:00-0500 Weight 81.19 kg Ethel Warner [facility] Internal Medicine Work Phone: 10-27-2013 16:16-0500 BMI (Body Mass Index) 28.89 kg/m2 Astrid Hunt [facility] Internal Medicine Work Phone: 10-27-2013 16:16-0500 Body Temperature 98.5 [degF] Astrid Hunt [facility] Internal Medicine Work Phone: 10-27-2013 16:16-0500 Body weight 81.19 kg Astrid Hunt [facility] Internal Medicine Work Phone: 10-27-2013 16:16-0500 BP Diastolic 76 mm[Hg] Astrid Hunt [facility] Internal Medicine Work Phone: Comment on above: Patient Position: Sitting; Cuff Location : Left Arm; Cuff Size: Large 10-27-2013 16:16-0500 BP Systolic 156 mm[Hg] Astrid Hunt [facility] Internal Medicine Work Phone: Comment on above: Patient Position: Sitting; Cuff Location : Left Arm; Cuff Size: Large 10-27-2013 16:16-0500 BSA (Body Surface Area) 1.91 m2 Astrid Hunt [facility] Internal Medicine Work Phone: 10-27-2013 16:16-0500 Height 167.64 cm Astrid Hunt [facility] Internal Medicine Work Phone: 10-27-2013 16:16-0500 Pulse (Heart Rate) 68 /min Astrid Hunt [facility] [facility] Medicine Work Phone: Comment on above: Pattern: Regular 10-27-2013 16:16-0500 Respiratory Rate 16 /min Astrid Hunt [facility] Internal Medicine Work Phone: Comment on above: Pattern: Unlabored 10-27-2013 16:16-0500 Weight 81.19 kg Ethel Warner [facility] Internal Medicine Work Phone: 09-15-2013 17:17-0500 BMI (Body Mass Index) 28.41 kg/m2 [facility]id [facility] [facility] Internal Medicine Work Phone: 09-15-2013 17:17-0500 Body Temperature 98.6 [degF] Astrid Hunt [facility] Internal Medicine Work Phone: 09-15-2013 17:17-0500 Body weight 79.83 kg Astrid Hunt [facility] Internal Medicine Work Phone: 09-15-2013 17:17-0500 BP Diastolic 86 mm[Hg] Astrid Hunt [facility] Internal Medicine Work Phone: Comment on above: Patient Position: Sitting; Cuff Location : Left Arm; Cuff Size: Large 09-15-2013 17:17-0500 BP Systolic 134 mm[Hg] Astrid Pablotala [facility] Internal Medicine Work Phone: Comment on above: Patient Position: Sitting; Cuff Location : Left Arm; Cuff Size: Large 09-15-2013 17:17-0500 BSA (Body Surface Area) 1.89 m2 Astrid Pablotala [facility] Internal Medicine Work Phone: 09-15-2013 17:17-0500 Height 167.64 cm Astrid Marilee [facility] Internal Medicine Work Phone: 09-15-2013 17:17-0500 Pulse (Heart Rate) 62 /min Astrid Hunt [facility] Internal Medicine Work Phone: Comment on above: Pattern: Regular 09-15-2013 17:17-0500 Respiratory Rate 16 /min Astrid Hunt [facility] Internal Medicine Work Phone: Comment on above: Pattern: Unlabored 09-15-2013 17:17-0500 Weight 79.83 kg Ethel Warner [facility] Internal Medicine Work Phone: 08-05-2012 17:12-0400 BMI (Body Mass Index) 28.14 kg/m2 Astrid Pablotala [facility] Internal Medicine Work Phone: 08-05-2012 17:12-0400 Body Temperature 98.1 [degF] Astrid Andradechanning [facility] Internal Medicine Work Phone: 08-05-2012 17:12-0400 Body weight 80.29 kg Astrid Marilee [facility] Internal Medicine Work Phone: 08-05-2012 17:12-0400 BP Diastolic 74 mm[Hg] Astrid Pablotala [facility] Internal Medicine Work Phone: Comment on above: Patient Position: Sitting; Cuff Location : Left Arm; Cuff Size: Large 08-05-2012 17:12-0400 BP Systolic 122 mm[Hg] Astrid Pablotala [facility] Internal Medicine Work Phone: Comment on above: Patient Position: Sitting; Cuff Location : Left Arm; Cuff Size: Large 08-05-2012 17:12-0400 BSA (Body Surface Area) 1.91 m2 Astrid Pablotala [facility] Internal Medicine Work Phone: 08-05-2012 17:12-0400 Height 168.91 cm Astrid Marilee [facility] Internal Medicine Work Phone: 08-05-2012 17:12-0400 Pulse (Heart Rate) 68 /min Astrid Pablotala [facility] Medicine Work Phone: Comment on above: Pattern: Regular 08-05-2012 17:12-0400 Respiratory Rate 18 /min Astrid Hunt [facility] Internal Medicine Work Phone: Comment on above: Pattern: Unlabored 08-05-2012 17:12-0400 Weight 80.29 kg Ethel Warner [facility] Internal Medicine Work Phone: 12-13-2011 15:02-0500 BMI (Body Mass Index) 29.73 kg/m2 Ethel Warner [facility] Internal Medicine Work Phone: 12-13-2011 15:02-0500 Body Temperature 99.7 [degF] Ethel Warner [facility] Internal Medicine Work Phone: Comment on above: Method: Oral 12-13-2011 15:02-0500 Body weight 84.82 kg Ethel Warner [facility] Internal Medicine Work Phone: 12-13-2011 15:02-0500 BP Diastolic 80 mm[Hg] Ethel Warner [facility] Internal Medicine Work Phone: Comment on above: Patient Position: Sitting; Cuff Location : Left Arm; Cuff Size: Standard 12-13-2011 15:02-0500 BP Systolic 126 mm[Hg] Ethel Warner [facility] Internal Medicine Work Phone: Comment on above: Patient Position: Sitting; Cuff Location : Left Arm; Cuff Size: Standard 12-13-2011 15:02-0500 BSA (Body Surface Area) 1.95 m2 Ethel Warner [facility] Internal Medicine Work Phone: 12-13-2011 15:02-0500 Height 168.91 cm Ethel Warner [facility] Internal Medicine Work Phone: 12-13-2011 15:02-0500 Pulse (Heart Rate) 64 /min Ethel Warner [facility] Internal Medicine Work Phone: Comment on above: Pattern: Regular 12-13-2011 15:02-0500 Pulse Oximetry 98 % Ethel Warner [facility] Internal Medicine Work Phone: Comment on above: Room air 12-13-2011 15:02-0500 Respiratory Rate 16 /min Ethel Warner [facility] Internal Medicine Work Phone: 12-13-2011 15:02-0500 SaO2% (BldA) [Mass fraction] 98 % Ethel Warner DO Work Phone: [facility]; [facility] Internal Medicine Work Phone: Comment on above: Room air 12-13-2011 15:02-0500 Weight 84.82 kg Ethel Warner [facility] Internal Medicine Work Phone: 11-22-2011 15:49-0500 BMI (Body Mass Index) 29.73 kg/m2 [facility] Work Phone: 11-22-2011 15:49-0500 Body Temperature 98.1 [degF] Astrid Hunt [facility] Internal Medicine Work Phone: 11-22-2011 15:49-0500 Body weight 84.82 kg Astrid Hunt [facility] Internal Medicine Work Phone: 11-22-2011 15:49-0500 BP Diastolic 84 mm[Hg] Astrid Hunt [facility] Internal Medicine Work Phone: Comment on above: Patient Position: Sitting; Cuff Location : Left Arm; Cuff Size: Large 11-22-2011 15:49-0500 BP Systolic 138 mm[Hg] Astrid Hunt [facility] Internal Medicine Work Phone: Comment on above: Patient Position: Sitting; Cuff Location : Left Arm; Cuff Size: Large 11-22-2011 15:49-0500 BSA (Body Surface Area) 1.95 m2 Astrid Hunt [facility] Internal Medicine Work Phone: 11-22-2011 15:49-0500 Height 168.91 cm Astrid Hunt [facility] Internal Medicine Work Phone: 11-22-2011 15:49-0500 Pulse (Heart Rate) 68 /min Astrid Turnerens e Internal Medicine Work Phone: Comment on above: Pattern: Regular 11-22-2011 15:49-0500 Respiratory Rate 16 /min Astrid Hunt [facility] Internal Medicine Work Phone: Comment on above: Pattern: Unlabored 11-22-2011 15:49-0500 Weight 84.82 kg Ethel Warner [facility] Internal Medicine Work Phone: 10-23-2011 16:20-0500 BMI (Body Mass Index) 29.44 kg/m2 Ethel Haq [facility] Internal Medicine Work Phone: 10-23-2011 16:20-0500 Body Temperature 97.7 [degF] Ethel Warner [facility] Internal Medicine Work Phone: 10-23-2011 16:20-0500 Body weight 84 kg Ethel Warner [facility] Internal Medicine Work Phone: 10-23-2011 16:20-0500 BP Diastolic 74 mm[Hg] Ethel Warner [facility] Internal Medicine Work Phone: Comment on above: Patient Position: Sitting; Cuff Location : Left Arm; Cuff Size: Standard 10-23-2011 16:20-0500 BP Systolic 128 mm[Hg] Ethel Warner [facility] Internal Medicine Work Phone: Comment on above: Patient Position: Sitting; Cuff Location : Left Arm; Cuff Size: Standard 10-23-2011 16:20-0500 BSA (Body Surface Area) 1.95 m2 Ethel Warner [facility] Internal Medicine Work Phone: 10-23-2011 16:20-0500 Height 168.91 cm Ethel Warner [facility] Internal Medicine Work Phone: 10-23-2011 16:20-0500 Pulse (Heart Rate) 70 /min Ethel Warner [facility] Internal Medicine Work Phone: Comment on above: Pattern: Regular 10-23-2011 16:20-0500 Respiratory Rate 16 /min Ethel Warner [facility] Internal Medicine Work Phone: Comment on above: Pattern: Unlabored 10-23-2011 16:20-0500 Weight 84 kg Ethel Warner [facility] Internal Medicine Work Phone: 09-06-2011 15:49-0500 BMI (Body Mass Index) 27.93 kg/m2 Martha Nava RN [facility] Internal Medicine Work Phone: 09-06-2011 15:49-0500 Body Temperature 98.5 [degF] Martha Nava RN [facility] Work Phone: Comment on above: Method: Oral 09-06-2011 15:49-0500 Body weight 79.7 kg Martha Nava RN [facility] Work Phone: 09-06-2011 15:49-0500 BP Diastolic 82 mm[Hg] Martha Nava RN [facility] Work Phone: Comment on above: Patient Position: Sitting; Cuff Location : Left Arm; Cuff Size: Large 09-06-2011 15:49-0500 BP Systolic 138 mm[Hg] Martha Nava RN [facility] Work Phone: Comment on above: Patient Position: Sitting; Cuff Location : Left Arm; Cuff Size: Large 09-06-2011 15:49-0500 BSA (Body Surface Area) 1.9 m2 Martha Nava RN [facility] Work Phone: 09-06-2011 15:49-0500 Height 168.91 cm Martha Nava RN [facility] Work Phone: 09-06-2011 15:49-0500 Pulse (Heart Rate) 80 /min Martha Nava RN [facility] Work Phone: Comment on above: Pattern: Regular 09-06-2011 15:49-0500 Respiratory Rate 20 /min Martha Nava RN [facility] Work Phone: Comment on above: Pattern: Unlabored 09-06-2011 15:49-0500 Weight 79.7 kg Ethel Warner [facility] Internal Medicine Work Phone: 07-24-2011 10:33-0400 BMI (Body Mass Index) 27.93 kg/m2 Ethel Warner [facility] Internal Medicine Work Phone: 07-24-2011 10:33-0400 Body Temperature 99.3 [degF] Ethel Warner [facility] Internal Medicine Work Phone: 07-24-2011 10:33-0400 Body weight 79.7 kg Ethel Warner [facility] Internal Medicine Work Phone: 07-24-2011 10:33-0400 BP Diastolic 72 mm[Hg] Etehl Warner [facility] Internal Medicine Work Phone: Comment on above: Patient Position: Sitting; Cuff Location : Left Arm; Cuff Size: Standard 07-24-2011 10:33-0400 BP Systolic 124 mm[Hg] Ethel Warner [facility] Internal Medicine Work Phone: Comment on above: Patient Position: Sitting; Cuff Location : Left Arm; Cuff Size: Standard 07-24-2011 10:33-0400 BSA (Body Surface Area) 1.9 m2 Ethel Warner [facility] Internal Medicine Work Phone: 07-24-2011 10:33-0400 Height 168.91 cm Ethel Warner [facility] Internal Medicine Work Phone: 07-24-2011 10:33-0400 Pulse (Heart Rate) 68 /min Ethel Warner [facility] Internal Medicine Work Phone: Comment on above: Pattern: Regular 07-24-2011 10:33-0400 Respiratory Rate 16 /min Ethel Warner [facility] Internal Medicine Work Phone: Comment on above: Pattern: Unlabored 07-24-2011 10:33-0400 Weight 79.7 kg Ethel Warner [facility] Internal Medicine Work Phone: 05-10-2011 14:57-0400 BP Diastolic 80 mm[Hg] Zayda Sorensen RN [facility] Work Phone: Comment on above: Patient Position: Sitting; Cuff Location : Left Arm; Cuff Size: Standard 05-10-2011 14:57-0400 BP Systolic 136 mm[Hg] Zayda Sorensen RN [facility] Work Phone: Comment on above: Patient Position: Sitting; Cuff Location : Left Arm; Cuff Size: Standard 05-10-2011 13:35-0400 BMI (Body Mass Index) 27.93 kg/m2 Zayda Sorensen RN [facility] Internal Medicine Work Phone: 05-10-2011 13:35-0400 Body Temperature 79.7 [degF] Zayda Sorensen RN [facility] Work Phone: Comment on above: Method: Oral 05-10-2011 13:35-0400 Body weight 79.7 kg Zayda Sorensen RN [facility] Work Phone: 05-10-2011 13:35-0400 BP Diastolic 72 mm[Hg] Zayda Sorensen RN [facility] Work Phone: Comment on above: Patient Position: Sitting; Cuff Location : Left Arm; Cuff Size: Standard 05-10-2011 13:35-0400 BP Systolic 142 mm[Hg] Zayda Sorensen RN [facility] Work Phone: Comment on above: Patient Position: Sitting; Cuff Location : Left Arm; Cuff Size: Standard 05-10-2011 13:35-0400 BSA (Body Surface Area) 1.9 m2 Zayda Sorensen RN [facility] Work Phone: 05-10-2011 13:35-0400 Height 168.91 cm Zayda Sorensen RN [facility] Work Phone: 05-10-2011 13:35-0400 Pulse (Heart Rate) 64 /min Zayda Sorensen RN [facility] Work Phone: Comment on above: Pattern: Regular 05-10-2011 13:35-0400 Respiratory Rate 16 /min Zayda Sorensen RN [facility] Work Phone: Comment on above: Pattern: Unlabored 05-10-2011 13:35-0400 Weight 79.7 kg Ethel Warner [facility] Work Phone: 11-08-2010 16:01-0500 Body Temperature 98.6 [degF] Martha Nava RN [facility] Work Phone: Comment on above: Method: Oral 11-08-2010 16:01-0500 BP Diastolic 78 mm[Hg] Martha Nava RN [facility] Work Phone: Comment on above: Patient Position: Sitting; Cuff Location : Left Arm; Cuff Size: Large 11-08-2010 16:01-0500 BP Systolic 122 mm[Hg] Martha Nava RN [facility] Work Phone: Comment on above: Patient Position: Sitting; Cuff Location : Left Arm; Cuff Size: Large 11-08-2010 16:01-0500 Pulse (Heart Rate) 80 /min Martha Nava RN [facility] Internal Medicine Work Phone: Comment on above: Pattern: Regular 11-08-2010 16:01-0500 Respiratory Rate 20 /min Martha Nava RN [facility] Internal Medicine Work Phone: Comment on above: Pattern: Unlabored 02-21-2010 15:53-0400 Body Temperature 98.1 [degF] Astrid Hunt [facility] Internal Medicine Work Phone: 02-21-2010 15:53-0400 BP Diastolic 76 mm[Hg] Astrid Hunt [facility] Internal Medicine Work Phone: Comment on above: Patient Position: Sitting; Cuff Location : Left Arm; Cuff Size: Large 02-21-2010 15:53-0400 BP Systolic 134 mm[Hg] Astrid Hunt [facility] Internal Medicine Work Phone: Comment on above: Patient Position: Sitting; Cuff Location : Left Arm; Cuff Size: Large 02-21-2010 15:53-0400 Pulse (Heart Rate) 74 /min Astrid Hunt [facility] Internal Medicine Work Phone: Comment on above: Pattern: Regular 02-21-2010 15:53-0400 Respiratory Rate 18 /min Astrid Hunt [facility] Internal Medicine Work Phone: Comment on above: Pattern: Unlabored 02-09-2010 09:06-0400 Body Temperature 98.3 [degF] Astrid Hunt [facility] Internal Medicine Work Phone: 02-09-2010 09:06-0400 BP Diastolic 82 mm[Hg] Astrid Hunt [facility] Internal Medicine Work Phone: Comment on above: Patient Position: Sitting; Cuff Location : Left Arm; Cuff Size: Large 02-09-2010 09:06-0400 BP Systolic 130 mm[Hg] Astrid Hunt [facility] Internal Medicine Work Phone: Comment on above: Patient Position: Sitting; Cuff Location : Left Arm; Cuff Size: Large 02-09-2010 09:06-0400 Pulse (Heart Rate) 68 /min Astrid Hunt [facility] Medicine Work Phone: Comment on above: Pattern: Regular 02-09-2010 09:06-0400 Respiratory Rate 18 /min Astrid Hunt [facility] Internal Medicine Work Phone: Comment on above: Pattern: Unlabored 02-09-2009 15:52-0400 BMI (Body Mass Index) 29.73 kg/m2 Astrid Hunt [facility] Medicine Work Phone: 02-09-2009 15:52-0400 Body Temperature 98.8 [degF] Astrid Hunt [facility] Internal Medicine Work Phone: Comment on above: Method: Undefined 02-09-2009 15:52-0400 Body weight 84.82 kg Astrid Pablotala [facility] Internal Medicine Work Phone: 02-09-2009 15:52-0400 BP Diastolic 80 mm[Hg] Astrid Pablotala [facility] Internal Medicine Work Phone: Comment on above: Patient Position: Sitting; Cuff Location : Right Arm; Cuff Size: Standard 02-09-2009 15:52-0400 BP Systolic 130 mm[Hg] Astrid Hunt [facility] Internal Medicine Work Phone: Comment on above: Patient Position: Sitting; Cuff Location : Right Arm; Cuff Size: Standard 02-09-2009 15:52-0400 BSA (Body Surface Area) 1.95 m2 Astrid Andradechanning [facility] Internal Medicine Work Phone: 02-09-2009 15:52-0400 Head Circumference 0 cm Ethel Shelleyon [facility] Internal Medicine Work Phone: 02-09-2009 15:52-0400 Head Occipital-frontal circumference 0 cm Astrid Marilee [facility]; [facility] Work Phone: 02-09-2009 15:52-0400 Height 168.91 cm Astrid Marilee [facility] Internal Medicine Work Phone: 02-09-2009 15:52-0400 Pulse (Heart Rate) 72 /min Astrid Hunt [facility] Work Phone: Comment on above: Pattern: Regular 02-09-2009 15:52-0400 Respiratory Rate 16 /min Astrid Hunt [facility] Internal Medicine Work Phone: Comment on above: Pattern: Undefined 02-09-2009 15:52-0400 Weight 84.82 kg Ethel Warner [facility] Internal Medicine Work Phone: 12-21-2008 16:39-0400 Body Temperature 98.4 [degF] Astrid Hunt [facility] Internal Medicine Work Phone: Comment on above: Method: Undefined 12-21-2008 16:39-0400 Body weight 0 kg Astrid Hunt [facility] Internal Medicine Work Phone: 12-21-2008 16:39-0400 BP Diastolic 80 mm[Hg] Astrid Hunt [facility] Internal Medicine Work Phone: Comment on above: Patient Position: Sitting; Cuff Location : Right Arm; Cuff Size: Standard 12-21-2008 16:39-0400 BP Systolic 126 mm[Hg] Astrid Hunt [facility] Internal Medicine Work Phone: Comment on above: Patient Position: Sitting; Cuff Location : Right Arm; Cuff Size: Standard 12-21-2008 16:39-0400 Head Circumference 0 cm Ethel Warner [facility] Internal Medicine Work Phone: 12-21-2008 16:39-0400 Head Occipital-frontal circumference 0 cm Astrid Hunt [facility]; [facility] Work Phone: 12-21-2008 16:39-0400 Height 0 cm Astrid Hunt [facility] Internal Medicine Work Phone: 12-21-2008 16:39-0400 Pulse (Heart Rate) 80 /min Astrid Hunt [facility] Work Phone: Comment on above: Pattern: Regular 12-21-2008 16:39-0400 Respiratory Rate 16 /min Astrid Hunt [facility] Internal Medicine Work Phone: Comment on above: Pattern: Undefined 12-21-2008 16:39-0400 Weight 0 kg tEhel Warner [facility] Internal Medicine Work Phone: 06-24-2007 16:14-0400 BMI (Body Mass Index) 29.13 kg/m2 [facility] Internal [facility] Work Phone: 06-24-2007 16:14-0400 Body Temperature 98.4 [degF] Astrid Marilee [facility] Internal Medicine Work Phone: Comment on above: Method: Oral 06-24-2007 16:14-0400 Body weight 84.37 kg Astrid Marilee [facility] Internal Medicine Work Phone: 06-24-2007 16:14-0400 BP Diastolic 72 mm[Hg] Astrid Marilee [facility] Internal Medicine Work Phone: Comment on above: Patient Position: Sitting; Cuff Location : Left Arm; Cuff Size: Standard 06-24-2007 16:14-0400 BP Systolic 108 mm[Hg] Astrid Marilee [facility] Internal Medicine Work Phone: Comment on above: Patient Position: Sitting; Cuff Location : Left Arm; Cuff Size: Standard 06-24-2007 16:14-0400 BSA (Body Surface Area) 1.96 m2 Astrid Andradechanning [facility] Internal Medicine Work Phone: 06-24-2007 16:14-0400 Head Circumference 0 cm Ethel Warner [facility] Internal Medicine Work Phone: 06-24-2007 16:14-0400 Head Occipital-frontal circumference 0 cm Astrid Marilee [facility]; [facility] Work Phone: 06-24-2007 16:14-0400 Height 170.18 cm Astrid Marilee [facility] Internal Medicine Work Phone: 06-24-2007 16:14-0400 Pulse (Heart Rate) 76 /min Astrid Hunt [facility] Medicine Work Phone: Comment on above: Pattern: Regular 06-24-2007 16:14-0400 Respiratory Rate 16 /min Astrid Marilee [facility] Internal Medicine Work Phone: Comment on above: Pattern: Unlabored 06-24-2007 16:14-0400 Weight 84.37 kg Ethel Warner [facility] Internal Medicine Work Phone: 12-24-2006 17:11-0400 BMI (Body Mass Index) 28.98 kg/m2 Astrid Marilee [facility] Work Phone: 12-24-2006 17:11-0400 Body Temperature 98.3 [degF] Astrid Marilee [facility] Internal Medicine Work Phone: Comment on above: Method: Oral 12-24-2006 17:110400 Body weight 83.94 kg Astrid Marilee [facility] Internal Medicine Work Phone: 12-24-2006 17:11-0400 BP Diastolic 80 mm[Hg] Astrid Marilee [facility] Internal Medicine Work Phone: Comment on above: Patient Position: Sitting; Cuff Location : Left Arm; Cuff Size: Standard 12-24-2006 17:11-0400 BP Systolic 130 mm[Hg] Astrid Marilee [facility] Internal Medicine Work Phone: Comment on above: Patient Position: Sitting; Cuff Location : Left Arm; Cuff Size: Standard 12-24-2006 17:11-0400 BSA (Body Surface Area) 1.96 m2 Astrid Hunt [facility] Internal Medicine Work Phone: 12-24-2006 17:11-0400 Head Circumference 0 cm Ethel Warner [facility] Internal Medicine Work Phone: 12-24-2006 17:11-0400 Head Occipital-frontal circumference 0 cm Astrid Hunt [facility]; [facility] Work Phone: 12-24-2006 17:11-0400 Height 170.18 cm Astrid Hunt [facility] Internal Medicine Work Phone: 12-24-2006 17:11-0400 Pulse (Heart Rate) 76 /min Astrid Marilee [facility] Work Phone: Comment on above: Pattern: Regular 12-24-2006 17:11-0400 Respiratory Rate 16 /min Astrid Marilee [facility] Internal Medicine Work Phone: Comment on above: Pattern: Unlabored 12-24-2006 17:11-0400 Weight 83.94 kg Ethel Warner [facility] Internal Medicine Work Phone: 10-24-2006 15:59-0500 BMI (Body Mass Index) 28.98 kg/m2 Ethel Warner [facility] Internal Medicine Work Phone: 10-24-2006 15:59-0500 Body weight 83.94 kg Ethel Warner [facility] Internal Medicine Work Phone: 10-24-2006 15:59-0500 BP Diastolic 74 mm[Hg] Ethel Warner [facility] Internal Medicine Work Phone: Comment on above: Patient Position: Sitting; Cuff Location : Left Arm; Cuff Size: Standard 10-24-2006 15:59-0500 BP Systolic 120 mm[Hg] Ethel Warner [facility] Internal Medicine Work Phone: Comment on above: Patient Position: Sitting; Cuff Location : Left Arm; Cuff Size: Standard 10-24-2006 15:59-0500 BSA (Body Surface Area) 1.96 m2 Ethel Warner [facility] Internal Medicine Work Phone: 10-24-2006 15:59-0500 Head Circumference 0 cm Ethel Warner [facility] Internal Medicine Work Phone: 10-24-2006 15:59-0500 Head Occipital-frontal circumference 0 cm Ethel Warner DO Work Phone: [facility]; [facility] Work Phone: 10-24-2006 15:59-0500 Height 170.18 cm Ethel Warner [facility] Internal [facility] Work Phone: 10-24-2006 15:59-0500 Pulse (Heart Rate) 66 /min Ethel Warner [facility] Internal Medicine Work Phone: Comment on above: Pattern: Regular 10-24-2006 15:59-0500 Respiratory Rate 17 /min Ethel Warner [facility] Work Phone: Comment on above: Pattern: Unlabored 10-24-2006 15:59-0500 Weight 83.94 kg Ethel Warner [facility] Work Phone: Encounters Encounter Date Encounter Type Care Provider Facility Start: 04-07-2025 ambulatory Ethel Bharathi Facilit y:[facility] Start: 04-03-2025 ambulatory Ethel Bharathi Facilit y:[facility] Start: 10-03-2024 ambulatory Self Referred Facility: [facility] Start: 09-05-2024 End: 09-05-2024 ambulatory [facility] Facility:[facility] Start: 02-23-2023 End: 02-25-2023 Office outpatient visit 15 minutes Ethel Bharathi DO Work Phone: [facility] Start: 10-02-2022 End: 10-02-2022 Office outpatient visit 15 minutes Ethel Bharathi DO Work Phone: [facility] Start: 07-21-2021 End: 07-21-2021 Annotation/Addendum Ethel Bharathi DO Work Phone: [facility] Start: 07-21-2021 End: 07-21-2021 Office outpatient visit 25 minutes Ethel Bharathi DO Work Phone: [facility] Start: 07-21-2021 End: 07-21-2021 Patient encounter status Ethel Bharathi DO Work Phone: [facility]; [facility] Work Phone: Start: 10-01-2020 End: 10-01-2020 Annotation/Addendum Ethel Bharathi [facility] Start: 08-02-2020 End: 08-02-2020 Office outpatient visit 25 minutes Ethel Bharathi [facility] Start: 08-02-2020 Review Ethel Bharathi [facility] Start: 09-26-2019 End: 09-26-2019 Phone Encounter Ethelalex Shelleyon [facility] Start: 09-22-2019 End: 09-22-2019 Office outpatient visit 15 minutes Ethel Bharathi [facility] Start: 08-21-2019 End: 08-21-2019 Office outpatient visit 40 minutes Ethel Lo [facility] Start: 03-20-2019 End: 03-20-2019 Office outpatient visit 15 minutes Ethel Lo [facility] Start: 03-06-2019 End: 03-06-2019 Office outpatient visit 15 minutes Ethel Warner [facility] Start: 12-31-2018 Patient encounter procedure Ethel [facility] Start: 12-31-2018 End: 12-31-2018 Office outpatient visit 10 minutes E[facility] Start: 08-15-2018 End: 08-15-2018 Office outpatient visit 15 minutes Ethel Lo [facility] Start: 07-29-2018 End: 07-29-2018 Office outpatient visit 25 minutes Ethel Lo [facility] Start: 03-28-2018 End: 03-28-2018 Office outpatient visit 10 minutes Ethel Lo [facility] Start: 02-22-2018 End: 02-22-2018 Office outpatient visit 15 minutes Ethel Warner [facility] Start: 02-01-2018 End: 02-01-2018 Office outpatient visit 15 minutes Ethel Lo [facility] Start: 01-04-2018 End: 01-04-2018 Office outpatient visit 25 minutes Ethel Lo [facility] Start: 12-24-2017 End: 12-24-2017 Ambulatory ETHEL WARNER [facility] Start: 12-21-2017 End: 12-21-2017 Lab Order [facility]thel [facility] Start: 12-17-2017 End: 12-17-2017 Office outpatient visit 15 minutes Ethel Lo [facility] Start: 12-12-2017 End: 12-12-2017 Office outpatient visit 25 minutes Ethel Lo [facility] Start: 11-09-2016 End: 11-09-2016 Periodic preventive med est patient 40-64yrs Ethel Lo [facility] Start: 11-09-2016 End: 11-09-2016 Physical examination Ethel Warner DO Work Phone: [facility] Start: 10-05-2016 End: 10-05-2016 Office outpatient visit 15 minutes Ethel Warner [facility] Start: 05-01-2016 End: 05-01-2016 Office outpatient visit 15 minutes Ethel Warner [facility] Start: 12-13-2015 End: 12-16-2015 Office outpatient visit 25 minutes Ethel Warner [facility] Start: 02-05-2015 End: 02-05-2015 Phone Encounter Ethel Warner [facility] Start: 12-21-2014 End: 12-21-2014 Office outpatient visit 25 minutes Ethel Warner [facility] Start: 09-17-2014 End: 09-17-2014 Phone Encounter Ethel Warner [facility] Start: 11-03-2013 End: 11-03-2013 Patient encounter procedure Ethelalex Shelleyon [facility] Start: 10-27-2013 End: 10-27-2013 Patient encounter procedure Ethel Warner [facility] Start: 10-27-2013 End: 10-27-2013 Patient encounter status Ethel Warner DO Work Phone: [facility] Start: 09-15-2013 End: 09-15-2013 Patient encounter procedure Ethelalex Shelleyon [facility] Start: 08-05-2012 End: 08-05-2012 Patient encounter procedure Ethel Warner [facility] Start: 12-13-2011 End: 12-13-2011 Office outpatient visit 25 minutes Ethelalex Warner [facility] Start: 11-22-2011 End: 11-23-2011 Patient encounter procedure Ethel Warner [facility] Start: 10-23-2011 End: 10-23-2011 Patient encounter procedure Ethel Bharathi [facility] Start: 09-06-2011 End: 09-06-2011 Patient encounter procedure Ethelalex Warner [facility] Start: 07-24-2011 End: 07-24-2011 Patient encounter procedure Ethel Warner [facility] Start: 05-10-2011 End: 05-10-2011 Patient encounter procedure Ethelalex Warner [facility] Start: 05-10-2011 End: 05-10-2011 Phone Encounter Ethel Warner [facility] Start: 05-10-2011 End: 05-10-2011 Patient encounter procedure Ethel Warner [facility] Start: 05-10-2011 End: 05-10-2011 Patient encounter status Ethel Warner DO Work Phone: [facility] Start: 11-08-2010 End: 11-08-2010 Patient encounter procedure Ethel Warner [facility] Start: 02-21-2010 End: 02-21-2010 Patient encounter procedure Ethel Warner [facility] Start: 02-09-2010 End: 02-09-2010 Patient encounter procedure Ethel Warner [facility] Start: 08-18-2009 End: 08-18-2009 Historical Summary Ethel Warner [facility] Start: 02-09-2009 End: 02-09-2009 Patient encounter procedure Ethel Warner [facility] Start: 12-21-2008 End: 12-21-2008 Patient encounter procedure Ethel Warner [facility] Start: 06-24-2007 End: 06-24-2007 Office outpatient visit 25 minutes Ethel Warner [facility] Start: 01-31-2007 End: 01-31-2007 Historical Summary Ethel Warner [facility] Start: 12-24-2006 End: 12-24-2006 Patient encounter procedure Ethel Warner [facility] Start: 12-17-2006 End: 12-17-2006 Historical Summary Ethel Warner [facility] Start: 10-24-2006 End: 10-24-2006 Office outpatient visit 25 minutes Ethel Warner [facility] Patient encounter status Rufina Prince MA [facility] Work Phone: Patient encounter status Moise [place] MELT ROOM OPERATOR [facility] Work Phone: Physical examination Marcy Slarb MELT ROOM OPERATOR [facility]; [facility] Work Phone: Physical examination Angelica Gravius HEAD OF HISTORY [facility]; [facility] Work Phone: Physical examination Marcy Slarb MELT ROOM OPERATOR [facility]; [facility] Work Phone: Physical examination Rufina Prince MA [facility]; [facility] Work Phone: Physical examination [facility] MELT ROOM OPERATOR [facility]; [facility] Work Phone: Procedures Date Procedure Procedure Detail Performing Clinician Start: 02-01-2018 End: 02-01-2018 Knee 4 or More Views Comments: See Note; NOTES: [facility] Imaging Services [address] [place] [address] Knee 4 or More Views MR#: [id number] Acct: [id number] Name: REMI RANDOLPH Gilberto Rep #: [id number] : [id number] M [id number] From: Max Alvarez MD PCP: Ethel Warner DO Status: REG CLI Study: Knee 4 or More Views Date of Exam: 02/01/18 Exam# [id number] Ordering Dr: Ethel Warner DO STUDY: X-RAY - LEFT KNEE REASON FOR EXAM: Male, 62 years old. Medial knee pain. TECHNIQUE: 4 view(s) of the knee. COMPARISON: None. FINDINGS: Normal visualized distal femur. Normal visualized proximal tibia and fibula. Normal proximal tibiofibular articulation. Normal medial femorotibial compartment. Normal lateral femorotibial compartment. Normal patellofemoral articulation. The soft tissue structures are unremarkable. RAD/Knee 4 or More Views IMPRESSION: Normal x-ray examination of the knee. Electronically Signed: Max Alvarez MD at 10:34 EDT Tel [phone], Service support , CC: Ethel Warner DO Lawn Caretaker: Signed Ethel Warner Work Phone: Start: 12-12-2017 End: 12-12-2017 Chest PA and Lateral Comments: See Note; NOTES: [facility] Imaging Services [address] [place] [address] Chest PA and Lateral MR#: [id number] Acct: [id number] Name: REMI RANDOLPH Rep #: [id number] : [id number] M [id number] From: Astrid Cochran MD PCP: Leatha Mckay DO Status: REG CLI Study: Chest PA and Lateral Date of Exam: 12/12/17 Exam# [id number] Ordering Dr: Ethel Warner DO STUDY: X-RAY CHEST REASON FOR EXAM: Male, 62 years old. Cough TECHNIQUE: Frontal and lateral views of the chest were obtained. COMPARISON: None. FINDINGS: The lungs are adequately aerated. There are no focal airspace opacities. There is no demonstrated pleural abnormality. The cardiac silhouette is normal in size. The mediastinum and hilar regions are unremarkable. Normal visualized pulmonary arteries. Normal visualized aortic arch and descending thoracic aorta. There are diffuse degenerative changes of the visualized spine. The visualized ribs, clavicles, and shoulders are unremarkable. There is no demonstrated abnormality of the visualized upper abdomen. RAD/Chest PA and Lateral IMPRESSION: There is no evidence of focal consolidation or pleural effusion. Electronically Signed: Astrid Cochran MD at 16:01 EST Tel Direct: [phone], Service support , CC: Leatha Mckay DO; Ethel Warner DO Lawn Caretaker: Signed Ethel Warner Work Phone: Start: 12-13-2015 End: 12-13-2015 Ecg routine ecg w/least 12 lds w/i&r [MEASUREMENTS ANALYSIS] Date of Test: 12/13/2015 17:30:06; Heart Rate: 68; NC Interval: 166; QRS: 100; QT Interval: 376; Corrected QT Interval (QTc): 390; P Wave [place]: 47; QRS Wave [place]: -16; T Wave [place]: 14; Blood Pressure: 130/70 [ECG DIAGNOSTIC STATEMENTS] Date of Test: 12/13/2015 17:30:06; Summary: Sinus Rhythm WITHIN NORMAL LIMITS [MEASUREMENTS ANALYSIS] Date of Test: 12/13/2015 17:29:44; Heart Rate: 72; NC Interval: 164; QRS: 100; QT Interval: 380; Corrected QT Interval (QTc): 401; P Wave [place]: 45; QRS Wave [place]: -14; T Wave [place]: 13; Blood Pressure: 130/70 [ECG DIAGNOSTIC STATEMENTS] Date of Test: 12/13/2015 17:29:44; Summary: Sinus Rhythm WITHIN NORMAL LIMITS Leatha A Fast Work Phone: Start: 10-04-2013 PSA screening Ehtel Warner Comment on above: This test was perfor med using the TPSA assay method for [employer] chemistry system. Values obtained with differentassay methods cannot be used interchangably.When changing PSA assays in the course of monitoring apatient, additional sequential testing should be carriedout to confirm baseline values. Colonoscopy Colonoscopy Ethel Warner Comment on above: 09/22/03 Colonoscopy Colonoscopy Ethel Warner Comment on above: 09/22/03 Colonoscopy Colonoscopy Ethel Warner Comment on above: 09/22/03 Colonoscopy Colonoscopy Ethel Warner Comment on above: 09/22/03 Colonoscopy Colonoscopy Ethel Warner Comment on above: 09/22/03 Colonoscopy Colonoscopy Ethel Warner Comment on above: 09/22/03 H/O: surgery Tonsillectomy Angelica Gravius HEAD OF HISTORY H/O: surgery Tonsillectomy Marcy Slarb L PN H/O: surgery Tonsillectomy Rufina Stevenson H/O: surgery Tonsillectomy Moise [place] L PN Nasal septoplasty Nasal septoplasty Kathl een Bharathi Nasal septoplasty Nasal septoplasty Kathl een Bharathi Nasal septoplasty Nasal septoplasty Kathl een Bharathi Nasal septoplasty Nasal septoplasty Kathl een Bharathi Nasal septoplasty Nasal septoplasty Jasmi n Gravius HEAD OF HISTORY Nasal septoplasty Nasal septoplasty Kathl een Bharathi Nasal septoplasty Nasal septoplasty Jasvir a Slarb MELT ROOM OPERATOR Nasal septoplasty Nasal septoplasty Brianda Prince MA Nasal septoplasty Nasal septoplasty Dakot a Javier MELT ROOM OPERATOR Plan of Treatment Date Care Activity Detail Author Start: 02-23-2023 Patient Education Poison [place], [place], and [place]: allergic reaction [facility]; [facility] Work Phone: Start: 02-23-2023 Procedure Education Eprescribed prescriptions (G8553) [facility]; [facility] Work Phone: Start: 02-23-2023 Provider Instructions for Treatment Follow up if no improvement or if symptoms worsen [facility]; [facility] Work Phone: Start: 10-02-2022 Procedure Education Eprescribed prescriptions (G8553) [facility]; [facility] Work Phone: Start: 10-02-2022 Provider Instructions for Treatment Follow up if no improvement or if symptoms worsen [facility]; [facility] Work Phone: Start: 07-21-2021 Procedure Education Eprescribed prescriptions (G8553) [facility]; [facility] Work Phone: Start: 07-21-2021 Provider Instructions for Treatment COVID SCREENING FORM [facility]; [facility] Work Phone: Start: 08-02-2020 Procedure Education Eprescribed prescriptions (G8553) [facility] Work Phone: Start: 08-02-2020 Provider Instructions for Treatment [facility] Work Phone: Start: 08-02-2020 TSH Qn TSH (34534) [facility] Work Phone: Start: 08-02-2020 Urnls dip stick/tablet reagent auto microscopy URINALYSIS, W/ MICRO (93921) [facility] Work Phone: Start: 08-02-2020 Urine albumin quantitative MICROALBUMIN: CREATININE RATIO (80680) AND (41949) [facility] Work Phone: Start: 08-02-2020 Comprehensive metabolic panel METABOLIC PANEL, COMPREHENSIVE (61088) [facility] Work Phone: Start: 08-02-2020 Lipid panel LIPID PANEL (92601) [facility] Work Phone: Start: 08-02-2020 Blood count complete auto&auto difrntl wbc CBC W/AUTO DIFF WBC (76895) [facility] Work Phone: Start: 09-22-2019 Procedure Education Eprescribed prescriptions (G8553) [facility] Work Phone: Start: 09-22-2019 Provider Instructions for Treatment [facility] Work Phone: Start: 03-20-2019 Procedure Education Eprescribed prescriptions (G8553) [facility] Work Phone: Start: 03-20-2019 Provider Instructions for Treatment [facility] Work Phone: Start: 03-20-2019 Assay of prostate specific antigen total PSA (PROSTATE SPECIFIC ANTIGEN) (V76.44) [facility] Work Phone: Start: 03-20-2019 Thyrotropin Qn TSH (74998) [facility] Work Phone: Start: 03-20-2019 Urnls dip stick/tablet reagent auto microscopy URINALYSIS, W/ MICRO (58782) [facility] Work Phone: Start: 03-20-2019 Urine albumin quantitative MICROALBUMIN: CREATININE RATIO (13599) AND (50598) [facility] Work Phone: Start: 03-20-2019 Comprehensive metabolic panel METABOLIC PANEL, COMPREHENSIVE (42671) [facility] Work Phone: Start: 03-20-2019 Blood count complete auto&auto difrntl wbc CBC W/AUTO DIFF WBC (65546) [facility] Work Phone: Start: 03-20-2019 Lipoprotein blood kristine numbers & subclasses NMR Profile (79532) [facility] Work Phone: Start: 03-20-2019 Protein mass conc [facility] Work Phone: Start: 03-06-2019 Procedure Education Eprescribed prescriptions (G8553) [facility] Work Phone: Start: 03-06-2019 Provider Instructions for Treatment HTN and Decongestants [facility] Work Phone: Start: 12-31-2018 Procedure Education Eprescribed prescriptions (G8553) [facility] Work Phone: Start: 08-15-2018 Provider Instructions for Treatment [facility] Work Phone: Start: 08-15-2018 Urnls dip stick/tablet reagent auto microscopy URINALYSIS, W/ MICRO (36326) [facility] Work Phone: Start: 08-15-2018 Urine albumin quantitative MICROALBUMIN: CREATININE RATIO (61444) AND (35870) [facility] Work Phone: Start: 08-15-2018 Comprehensive metabolic panel METABOLIC PANEL, COMPREHENSIVE (52485) [facility] Work Phone: Start: 08-15-2018 Blood count complete auto&auto difrntl wbc CBC W/AUTO DIFF WBC (31582) [facility] Work Phone: Start: 08-15-2018 Protein mass conc LIPOPROTEIN, BLD, BY NMR (30015) [facility] Work Phone: Start: 07-29-2018 Procedure Education Eprescribed prescriptions (G8553) [facility] Work Phone: Start: 07-29-2018 Provider Instructions for Treatment [facility] Work Phone: Start: 03-28-2018 Provider Instructions for Treatment [facility] Work Phone: Start: 02-22-2018 Procedure Education Eprescribed prescriptions (G8553) [facility] Work Phone: Start: 02-22-2018 Provider Instructions for Treatment [facility] Work Phone: Start: 02-01-2018 Procedure Education Eprescribed prescriptions (G8553) [facility] Work Phone: Start: 02-01-2018 Provider Instructions for Treatment [facility] Work Phone: Start: 01-04-2018 Provider Instructions for Treatment [facility] Work Phone: Start: 12-21-2017 Creatinine blood CREATININE BLOOD (79977) [facility]; [facility] Work Phone: Start: 12-21-2017 Creatinine mass conc CREATININE BLOOD (13097) [facility] Work Phone: Start: 12-17-2017 Procedure Education Eprescribed prescriptions (G8553) [facility] Work Phone: Start: 12-17-2017 Provider Instructions for Treatment Reviewed Diagnostic Tests [facility] Work Phone: Start: 12-12-2017 Procedure Education Eprescribed prescriptions (G8553) [facility] Work Phone: Start: 12-12-2017 Provider Instructions for Treatment [facility] Work Phone: Start: 11-09-2016 Procedure Education Eprescribed prescriptions (G8553) [facility] Work Phone: Start: 10-05-2016 Procedure Education Eprescribed prescriptions (G8553) [facility] Work Phone: Start: 10-05-2016 Provider Instructions for Treatment [facility] Work Phone: Start: 05-01-2016 Procedure Education Eprescribed prescriptions (G8553) [facility] Work Phone: Start: 05-01-2016 Provider Instructions for Treatment GERD Education [facility] Work Phone: Start: 12-13-2015 End: 12-13-2015 Ecg routine ecg w/least 12 lds w/i&r ELECTROCARDIOGRAM, COMPLETE (ECG) (23494) [facility]; [facility] Work Phone: Start: 12-13-2015 Lipid panel LIPID PANEL (15090) [facility] Work Phone: Start: 12-13-2015 Assay of magnesium MAGNESIUM (90738) [facility]; [facility] Work Phone: Start: 12-13-2015 Magnesium mass conc MAGNESIUM (09006) [facility] Work Phone: Start: 12-13-2015 Assay of testosterone free TESTOSTERONE FREE (71482) [facility] Work Phone: Start: 12-13-2015 25 hydroxy includes fractions if performed Vitamin D Hydroxy (38399) [facility] Work Phone: Start: 12-13-2015 Cobalamin (Vitamin B12) mass conc VITAMIN B-12 (CYANOCOBALAMIN) (05500) [facility] Work Phone: Start: 12-13-2015 Cyanocobalamin vitamin b-12 VITAMIN B-12 (CYANOCOBALAMIN) (16800) [facility]; [facility] Work Phone: Start: 12-13-2015 Urnls dip stick/tablet reagent auto microscopy URINALYSIS, W/ MICRO (97212) [facility] Work Phone: Start: 12-13-2015 Assay of thyroid stimulating hormone tsh TSH (76399) [facility]; [facility] Work Phone: Start: 12-13-2015 Thyrotropin Qn TSH (80366) [facility] Work Phone: Start: 12-13-2015 Blood count complete auto&auto difrntl wbc CBC W/AUTO DIFF WBC (92014) [facility] Work Phone: Start: 12-13-2015 Comprehensive metabolic panel METABOLIC PANEL, COMPREHENSIVE (49666) [facility] Work Phone: Start: 12-13-2015 Patient Education Heartburn *: gerd [facility] Work Phone: Start: 12-13-2015 Procedure Education Eprescribed prescriptions (G8553) [facility] Work Phone: Start: 02-05-2015 Lipid panel LIPID PANEL (72423) [facility] Work Phone: Start: 02-05-2015 Assay of triiodothyronine t3 free T3, FREE (TRIDOTHYRONINE) (86498) [facility]; [facility] Work Phone: Start: 02-05-2015 T3 free mass conc T3, FREE (TRIDOTHYRONINE) (54699) [facility] Work Phone: Start: 02-05-2015 Assay of free thyroxine T4, FREE (THYROXINE) (71959) [facility]; [facility] Work Phone: Start: 02-05-2015 T4 free mass conc T4, FREE (THYROXINE) (21568) [facility] Work Phone: Start: 02-05-2015 Microsomal antibodies each Anti-TPO Antibody (47365) [facility] Work Phone: Start: 12-21-2014 Assay of thyroid stimulating hormone tsh TSH (98121) [facility]; [facility] Work Phone: Start: 12-21-2014 Thyrotropin Qn TSH (17695) [facility] Work Phone: Start: 12-21-2014 Blood count complete auto&auto difrntl wbc CBC W/AUTO DIFF WBC (67564) [facility] Work Phone: Start: 12-21-2014 Assay of prostate specific antigen total PSA (PROSTATE SPECIFIC ANTIGEN) (V76.44) [facility] Work Phone: Start: 12-21-2014 Protein mass conc PSA (PROSTATE SPECIFIC ANTIGEN) (V76.44) [facility] Work Phone: Start: 12-21-2014 Comprehensive metabolic panel METABOLIC PANEL, COMPREHENSIVE (69054) [facility] Work Phone: Start: 12-21-2014 Lipid panel LIPID PANEL (78491) [facility] Work Phone: Start: 12-21-2014 Procedure Education Eprescribed prescriptions (G8553) [facility] Work Phone: Start: 11-03-2013 Patient Education Cough Medicines, Nonprescription: cough [facility] Work Phone: Start: 10-27-2013 Provider Instructions for Treatment Diet, Exercise, and Wt loss [facility] Work Phone: Start: 09-15-2013 Assay of prostate specific antigen total PSA (PROSTATE SPECIFIC ANTIGEN) (V76.44) [facility] Work Phone: Start: 09-15-2013 Protein mass conc PSA (PROSTATE SPECIFIC ANTIGEN) (V76.44) [facility] Work Phone: Start: 09-15-2013 Blood count manual cell count each CBC WITH MANUAL DIFF (75182) [facility] Work Phone: Start: 09-15-2013 Comprehensive metabolic panel METABOLIC PANEL, COMPREHENSIVE (50224) [facility] Work Phone: Start: 09-15-2013 Assay of thyroid stimulating hormone tsh TSH (67853) [facility]; [facility] Work Phone: Start: 09-15-2013 Thyrotropin Qn TSH (96741) [facility] Work Phone: Start: 09-15-2013 Lipid panel LIPID PANEL (33335) [facility] Work Phone: Start: 09-15-2013 Provider Instructions for Treatment *Colon Cancer Screening [facility] Work Phone: Start: 08-05-2012 Assay of prostate specific antigen total PSA (PROSTATE SPECIFIC ANTIGEN) (V76.44) [facility] Work Phone: Start: 08-05-2012 Protein mass conc PSA (PROSTATE SPECIFIC ANTIGEN) (V76.44) [facility] Work Phone: Start: 08-05-2012 Assay of thyroid stimulating hormone tsh TSH (26694) [facility]; [facility] Work Phone: Start: 08-05-2012 Thyrotropin Qn TSH (04129) [facility] Work Phone: Start: 08-05-2012 Comprehensive metabolic panel METABOLIC PANEL, COMPREHENSIVE (44610) [facility] Work Phone: Start: 08-05-2012 Lipid panel LIPID PANEL (60679) [facility] Work Phone: Start: 08-05-2012 Patient Education Anxiety: anxiety [facility] Work Phone: Start: 12-13-2011 Provider Instructions for Treatment [facility] Work Phone: Start: 11-22-2011 Provider Instructions for Treatment Diet, Exercise, and Wt loss [facility] Work Phone: Start: 09-06-2011 Antinuclear antibodies yuki YUKI (ANTINUCLEAR ANTIBODY) (93484) [facility]; [facility] Work Phone: Start: 09-06-2011 Nuclear Ab IF titer (S) YUKI (ANTINUCLEAR ANTIBODY) (11083) [facility] Work Phone: Start: 09-06-2011 Protein electrophoretic fractj&quantj serum Serum Protein Electrophoresis (SPEP) (91102) [facility]; [facility] Work Phone: Start: 09-06-2011 Protein mass conc Serum Protein Electrophoresis (SPEP) (50240) [facility] Work Phone: Start: 09-06-2011 Assay of thyroid stimulating hormone tsh TSH (THYROID STIMULATING HORMONE) (12031) [facility]; [facility] Work Phone: Start: 09-06-2011 Cobalamin (Vitamin B12) mass conc VITAMIN B-12 (CYANOCOBALAMIN) (28101) [facility] Work Phone: Start: 09-06-2011 Comprehensive metabolic panel METABOLIC PANEL, COMPREHENSIVE (02840) [facility] Work Phone: Start: 09-06-2011 Cyanocobalamin vitamin b-12 VITAMIN B-12 (CYANOCOBALAMIN) (41565) [facility]; [facility] Work Phone: Start: 09-06-2011 Sedimentation rate rbc non-automated SED RATE ERYTHROCYTE (44683) [facility] Work Phone: Start: 09-06-2011 Thyrotropin Qn TSH (THYROID STIMULATING HORMONE) (75678) [facility] Work Phone: Start: 09-06-2011 Blood count complete automated CBC & PLATELETS (AUTO) (50451) [facility] Work Phone: Start: 09-06-2011 Provider Instructions for Treatment [facility] Work Phone: Start: 05-10-2011 Urnls dip stick/tablet reagent auto microscopy URINALYSIS, W/ MICRO (95005) [facility] Work Phone: Start: 05-10-2011 Assay of thyroid stimulating hormone tsh TSH (53512) [facility]; [facility] Work Phone: Start: 05-10-2011 Thyrotropin Qn TSH (47187) [facility] Work Phone: Start: 05-10-2011 Urine albumin quantitative MICROALBUMIN: CREATININE RATIO (58434) AND (75774) [facility] Work Phone: Start: 05-10-2011 Comprehensive metabolic panel METABOLIC PANEL, COMPREHENSIVE (11917) [facility] Work Phone: Start: 05-10-2011 Blood count manual cell count each CBC WITH MANUAL DIFF (04600) [facility] Work Phone: Start: 05-10-2011 Lipid panel LIPID PANEL (86465) [facility] Work Phone: Start: 05-10-2011 Assay of prostate specific antigen total PSA (PROSTATE SPECIFIC ANTIGEN) (V76.44) [facility] Work Phone: Start: 05-10-2011 Protein mass conc PSA (PROSTATE SPECIFIC ANTIGEN) (V76.44) [facility] Work Phone: Start: 05-10-2011 Provider Instructions for Treatment Diet, Exercise, and Wt loss [facility] Work Phone: Start: 11-08-2010 Provider Instructions for Treatment [facility] Work Phone: Start: 02-09-2010 Provider Instructions for Treatment *Antibiotic Usage Education - Male [facility] Work Phone: Start: 02-09-2009 Hepatic function panel HEPATIC FUNCTION PANEL (71106) [facility] Work Phone: Start: 12-21-2008 Comprehensive metabolic panel METABOLIC PANEL, COMPREHENSIVE (03776) [facility] Work Phone: Start: 12-21-2008 Assay of prostate specific antigen total PSA (PROSTATE SPECIFIC ANTIGEN) (V76.44) [facility] Work Phone: Start: 12-21-2008 Protein mass conc PSA (PROSTATE SPECIFIC ANTIGEN) (V76.44) [facility] Work Phone: Start: 12-21-2008 Assay of iron IRON (39923) [facility]; [facility] Work Phone: Start: 12-21-2008 Iron mass conc IRON (04151) [facility] Work Phone: Start: 12-21-2008 Lipid panel LIPID PANEL (02889) [facility] Work Phone: Start: 12-21-2008 Blood count manual cell count each CBC WITH MANUAL DIFF (97076) [facility] Work Phone: Start: 06-24-2007 Ova&parasites direct smears concentration & id OVA & PARASITE DIR SMEAR (57809) [facility] Work Phone: Start: 06-24-2007 Culture bacterial any source anaerobic iso&id C.Difficile, Stool (19508) [facility] Work Phone: Start: 06-24-2007 Cul bact stool aerobic isol salmonella&shigell THERON CULTURE-STOOL (64860) [facility] Work Phone: Start: 06-24-2007 Blood count manual cell count each CBC WITH MANUAL DIFF (00009) [facility] Work Phone: Start: 06-24-2007 Lipid panel LIPID PANEL (00523) [facility] Work Phone: Start: 06-24-2007 Hepatic function panel HEPATIC FUNCTION PANEL (44286) [facility] Work Phone: Start: 12-24-2006 Comprehensive metabolic panel METABOLIC PANEL, COMPREHENSIVE (98457) [facility] Work Phone: Start: 12-24-2006 Assay of thyroid stimulating hormone tsh TSH (88427) [facility]; [facility] Work Phone: Start: 12-24-2006 Thyrotropin Qn TSH (21392) [facility] Work Phone: Start: 12-24-2006 Blood count manual cell count each CBC WITH MANUAL DIFF (94611) [facility] Work Phone: Start: 12-24-2006 Provider Instructions for Treatment FOLLOW UP IN 6 MONTHS [facility] Work Phone: Start: 10-24-2006 Provider Instructions for Treatment FOLLOW UP IN 1 WEEK [facility] Work Phone: [facility]: [facility]: [facility]: [facility]: [facility] Work [facility]: [facility]: [facility]: [facility]: [facility]: [facility]: [facility]: [facility]: [facility]: [facility]: [facility]: [facility]: [facility]: [facility]: [facility]: [facility] Work [facility]: [facility] Work [facility]: [facility] Work [facility]: [facility] Work [facility]: [facility] Work [facility]: [facility] Work [facility]: [facility]; [facility] Work Phone: Payers Date Payer Category Payer Private Health Insurance [id number] 2024 Self-pay 2018 Unknown [id number] 2010 Unknown [id number] 2008 Private Health Insurance [id number] 1954 Unknown [id number] Unknown Unknown [id number] Unknown [id number] Unknown [id number] Unknown [id number] Social History Date Type Detail Facility Drug Use Former smoker [facility] Work Phone: Comment on above: Did Cocaine & acid b ut no IV drug use [employer] [facility] Tobacco Use: Former smoker. [facility] Work Phone: Comment on above: Remotely quit tobacc o use 09/06/11, 12/13/11 Tobacco Use: Tobacco Use: [facility]; [facility] Work Phone: Comment on above: Remotely quit tobacc o use 09/06/11, 12/13/11 Functional Status Date Assessment Result Facility 09-22-2019 LP-IR Score LP-IR Score 80 [facility] Work Phone: Comment on above: INSULIN RESISTANCE Rebeka LEGER <--Insulin Sensitive Insulin Resistant--> Percentile in Reference PopulationInsulin Resistance ScoreLP-IR Score Low 25th 50th 75th High <27 27 45 63 >63LP-IR Score is inaccurate if patient is non-fasting. .The LP-IR score is a laboratory developed index that has beenassociated with insulin resistance and diabetes risk and should beused as one component of a physician's clinical assessment. Test(s) 101958-RNJ-S ; 050820-QGG-Y; 104129-JZJ-Y; 341321-Cfibwdvzvxdyk; 120375-Drtkzdntvge, Total; 595146-XYZ-Q (Total);929669-Zlado LDL-P; 129876-FMS Size; 147483-PC-XL Scorewas developed and its performance characteristics determinedby [facility]. It has not been cleared or approved by the Foodand Drug Administration.PATIENT WAS FASTINGPERFORMED BY: Hail Varsity[address] [id number] BY: [facility] [facility] [id number] 01-14-2019 LP-IR Score LP-IR Score 82 [facility] Work Phone: Comment on above: INSULIN RESISTANCE M ARKER <--Insulin Sensitive Insulin Resistant--> Percentile in Reference PopulationInsulin Resistance ScoreLP-IR Score Low 25th 50th 75th High <27 27 45 63 >63LP-IR Score is inaccurate if patient is non-fasting. .The LP-IR score is a laboratory developed index that has beenassociated with insulin resistance and diabetes risk and should beused as one component of a physician's clinical assessment. TheLP-IR score listed above has not been cleared by the [place] Food andDrug Administration. PATIENT WAS FASTINGP ERFORMED BY: Hail Varsity[address] [id number] BY: [facility]ityO[facility] CenterRjxtrk39[facility] [id number] 07-31-2018 LP-IR Score LP-IR Score 74 [facility] Work Phone: Comment on above: INSULIN RESISTANCE M ARKER <--Insulin Sensitive Insulin Resistant--> Percentile in Reference PopulationInsulin Resistance ScoreLP-IR Score Low 25th 50th 75th High <27 27 45 63 >63LP-IR Score is inaccurate if patient is non-fasting. .The LP-IR score is a laboratory developed index that has beenassociated with insulin resistance and diabetes risk and should beused as one component of a physician's clinical assessment. TheLP-IR score listed above has not been cleared by the [place] Food andDrug Administration. PATIENT WAS FASTINGP ERFORMED BY: Hail Varsity[address] [id number] BY: Hail VarsityO[facility] CenterSrgknz9825 [facility] [id number] Instructions Note Date & Type Note Facility Instructions Name How to access health information online Indication:BMI 27.0-27.9,adult Start:02-Aug-20 Instruction Type:Patient Education How to access health information online - Detail Indication:BMI 27.0-27.9,adult Start:02-Aug-20 Instruction Type:Patient Education Patient Instructions Indication:BMI 27.0-27.9,adult Start:02-Aug-20 Instruction Type:Provider Instructions for Treatment How to access health information online Indication:Non-smoker Start: Instruction Type:Patient Education How to access health information online - Detail Indication:Non-smoker Start: Instruction Type:Patient Education Patient Instructions Indication:Non-smoker Start: Instruction Type:Provider Instructions for Treatment How to access health information online Indication:Sinusitis, bacterial Start: Instruction Type:Patient Education How to access health information online - Detail Indication:Sinusitis, bacterial Start: Instruction Type:Patient Education Patient Instructions Indication:Sinusitis, bacterial Start: Instruction Type:Provider Instructions for Treatment How to access health information online Indication:Non-smoker Start: Instruction Type:Patient Education How to access health information online - Detail Indication:Non-smoker Start: Instruction Type:Patient Education Patient Instructions Indication:Non-smoker Start: Instruction Type:Provider Instructions for Treatment How to access health information online Indication:Non-smoker Start:06-Mar-20 Instruction Type:Patient Education How to access health information online - Detail Indication:Non-smoker Start:06-Mar-20 Instruction Type:Patient Education Patient Instructions Indication:Non-smoker Start:06-Mar-20 Instruction Type:Provider Instructions for Treatment How to access health information online Indication:BMI 29.0-29.9,adult Start:01-Jan-20 Instruction Type:Patient Education How to access health information online - Detail Indication:BMI 29.0-29.9,adult Start:01-Jan-20 Instruction Type:Patient Education Patient Instructions Indication:BMI 29.0-29.9,adult Start:01-Jan-20 Instruction Type:Provider Instructions for Treatment How to access health information online Indication:Non-smoker Start: Instruction Type:Patient Education How to access health information online - Detail Indication:Non-smoker Start: Instruction Type:Patient Education Patient Instructions Indication:Non-smoker Start: Instruction Type:Provider Instructions for Treatment How to access health information online Indication:BMI 29.0-29.9,adult Start:29-Jul-20 Instruction Type:Patient Education How to access health information online - Detail Indication:BMI 29.0-29.9,adult Start:29-Jul-20 Instruction Type:Patient Education Patient Instructions Indication:BMI 29.0-29.9,adult Start:29-Jul-20 Instruction Type:Provider Instructions for Treatment How to access health information online Indication:BMI 28.0-28.9,adult Start:28-Mar-20 Instruction Type:Patient Education How to access health information online - Detail Indication:BMI 28.0-28.9,adult Start:28-Mar-20 Instruction Type:Patient Education Patient Instructions Indication:BMI 28.0-28.9,adult Start:28-Mar-20 Instruction Type:Provider Instructions for Treatment How to access health information online Indication:BMI 30.0-30.9,adult Start:23-Feb-20 Instruction Type:Patient Education How to access health information online - Detail Indication:BMI 30.0-30.9,adult Start:23-Feb-20 Instruction Type:Patient Education Patient Instructions Indication:BMI 30.0-30.9,adult Start:23-Feb-20 Instruction Type:Provider Instructions for Treatment How to access health information online Indication:Elevated blood pressure reading Start:02-Feb-20 Instruction Type:Patient Education How to access health information online - Detail Indication:Elevated blood pressure reading Start:02-Feb-20 Instruction Type:Patient Education Patient Instructions Indication:Elevated blood pressure reading Start:02-Feb-20 Instruction Type:Provider Instructions for Treatment How to access health information online Indication:BMI 30.0-30.9,adult Start:05-Jan-20 Instruction Type:Patient Education How to access health information online - Detail Indication:BMI 30.0-30.9,adult Start:05-Jan-20 Instruction Type:Patient Education Patient Instructions Indication:BMI 30.0-30.9,adult Start:05-Jan-20 Instruction Type:Provider Instructions for Treatment How to access health information online Indication:Current nonsmoker Start:5-Mar-201 8 Instruction Type:Patient Education How to access health information online - Detail Indication:Current nonsmoker Start: 8 Instruction Type:Patient Education Patient Instructions Indication:Current nonsmoker Start: 8 Instruction Type:Provider Instructions for Treatment How to access health information online Indication:Current nonsmoker Start:12-Dec-19 Instruction Type:Patient Education How to access health information online - Detail Indication:Current nonsmoker Start:12-Dec-19 Instruction Type:Patient Education Patient Instructions Indication:Current nonsmoker Start:12-Dec-19 Instruction Type:Provider Instructions for Treatment How to access health information online Indication:Current nonsmoker Start:09-Nov-19 Instruction Type:Patient Education How to access health information online - Detail Indication:Current nonsmoker Start:09-Nov-19 Instruction Type:Patient Education Patient Instructions Indication:Current nonsmoker Start:09-Nov-19 Instruction Type:Provider Instructions for Treatment How to access health information online Indication:Nasal congestion Start:05-Oct-20 Instruction Type:Patient Education How to access health information online - Detail Indication:Nasal congestion Start:05-Oct-20 Instruction Type:Patient Education Patient Instructions Indication:Nasal congestion Start:05-Oct-20 Instruction Type:Provider Instructions for Treatment How to access health information online Indication:Witnessed apneic spells Start:01-May-20 Instruction Type:Patient Education How to access health information online - Detail Indication:Witnessed apneic spells Start:01-May-20 Instruction Type:Patient Education How to access health information online Indication:Gastroesophageal reflux disease without esophagitis Start:13-Dec-19 16 Instruction Type:Patient Education How to access health information online - Detail Indication:Gastroesophageal reflux disease without esophagitis Start:13-Dec-19 16 Instruction Type:Patient Education Patient Instructions Indication:Gastroesophageal reflux disease without esophagitis Start:13-Dec-19 16 Instruction Type:Provider Instructions for Treatment Patient Instructions Indication:Other and unspecified hyperlipidemia Start: 5 Instruction Type:Provider Instructions for Treatment Patient Instructions Indication:Cough Start:03-Nov-19 14 Instruction Type:Provider Instructions for Treatment Patient Instructions Indication:Encounter for routine history and physical exam for male Start:27-Oct-19 14 Instruction Type:Provider Instructions for Treatment Patient Instructions Indication:Gastroesophageal reflux disease without esophagitis Start: 3 Instruction Type:Provider Instructions for Treatment Patient Instructions Indication:Anxiety Start:05-Aug-20 Instruction Type:Provider Instructions for Treatment [facility]; [facility] Work Phone: Instructions Note Date & Type Note Facility Instructions Name Patient Instructions Indication:Non-smoker Start: Instruction Type:Provider Instructions for Treatment How to Access Health Information Online using Patient Portal and [employer] Apps Indication:Non-smoker Start: Instruction Type:Patient Education How to access health information online Indication:BMI 27.0-27.9,adult Start:02-Aug-20 Instruction Type:Patient Education How to access health information online - Detail Indication:BMI 27.0-27.9,adult Start:02-Aug-20 Instruction Type:Patient Education Patient Instructions Indication:BMI 27.0-27.9,adult Start:02-Aug-20 Instruction Type:Provider Instructions for Treatment How to access health information online Indication:Non-smoker Start: Instruction Type:Patient Education How to access health information online - Detail Indication:Non-smoker Start: Instruction Type:Patient Education Patient Instructions Indication:Non-smoker Start: Instruction Type:Provider Instructions for Treatment How to access health information online Indication:Sinusitis, bacterial Start: Instruction Type:Patient Education How to access health information online - Detail Indication:Sinusitis, bacterial Start: Instruction Type:Patient Education Patient Instructions Indication:Sinusitis, bacterial Start: Instruction Type:Provider Instructions for Treatment How to access health information online Indication:Non-smoker Start: Instruction Type:Patient Education How to access health information online - Detail Indication:Non-smoker Start: Instruction Type:Patient Education Patient Instructions Indication:Non-smoker Start: Instruction Type:Provider Instructions for Treatment How to access health information online Indication:Non-smoker Start:06-Mar-20 Instruction Type:Patient Education How to access health information online - Detail Indication:Non-smoker Start:06-Mar-20 Instruction Type:Patient Education Patient Instructions Indication:Non-smoker Start:06-Mar-20 Instruction Type:Provider Instructions for Treatment How to access health information online Indication:BMI 29.0-29.9,adult Start:01-Jan-20 Instruction Type:Patient Education How to access health information online - Detail Indication:BMI 29.0-29.9,adult Start:01-Jan-20 Instruction Type:Patient Education Patient Instructions Indication:BMI 29.0-29.9,adult Start:01-Jan-20 Instruction Type:Provider Instructions for Treatment How to access health information online Indication:Non-smoker Start: Instruction Type:Patient Education How to access health information online - Detail Indication:Non-smoker Start: Instruction Type:Patient Education Patient Instructions Indication:Non-smoker Start: Instruction Type:Provider Instructions for Treatment How to access health information online Indication:BMI 29.0-29.9,adult Start:29-Jul-20 Instruction Type:Patient Education How to access health information online - Detail Indication:BMI 29.0-29.9,adult Start:29-Jul-20 Instruction Type:Patient Education Patient Instructions Indication:BMI 29.0-29.9,adult Start:29-Jul-20 Instruction Type:Provider Instructions for Treatment How to access health information online Indication:BMI 28.0-28.9,adult Start:28-Mar-20 Instruction Type:Patient Education How to access health information online - Detail Indication:BMI 28.0-28.9,adult Start:28-Mar-20 Instruction Type:Patient Education Patient Instructions Indication:BMI 28.0-28.9,adult Start:28-Mar-20 Instruction Type:Provider Instructions for Treatment How to access health information online Indication:BMI 30.0-30.9,adult Start:23-Feb-20 Instruction Type:Patient Education How to access health information online - Detail Indication:BMI 30.0-30.9,adult Start:23-Feb-20 Instruction Type:Patient Education Patient Instructions Indication:BMI 30.0-30.9,adult Start:23-Feb-20 Instruction Type:Provider Instructions for Treatment How to access health information online Indication:Elevated blood pressure reading Start:02-Feb-20 Instruction Type:Patient Education How to access health information online - Detail Indication:Elevated blood pressure reading Start:02-Feb-20 Instruction Type:Patient Education Patient Instructions Indication:Elevated blood pressure reading Start:02-Feb-20 Instruction Type:Provider Instructions for Treatment How to access health information online Indication:BMI 30.0-30.9,adult Start:05-Jan-20 Instruction Type:Patient Education How to access health information online - Detail Indication:BMI 30.0-30.9,adult Start:05-Jan-20 Instruction Type:Patient Education Patient Instructions Indication:BMI 30.0-30.9,adult Start:05-Jan-20 Instruction Type:Provider Instructions for Treatment How to access health information online Indication:Current nonsmoker Start: Instruction Type:Patient Education How to access health information online - Detail Indication:Current nonsmoker Start: Instruction Type:Patient Education Patient Instructions Indication:Current nonsmoker Start: Instruction Type:Provider Instructions for Treatment How to access health information online Indication:Current nonsmoker Start:12-Dec-19 Instruction Type:Patient Education How to access health information online - Detail Indication:Current nonsmoker Start:12-Dec-19 Instruction Type:Patient Education Patient Instructions Indication:Current nonsmoker Start:12-Dec-19 Instruction Type:Provider Instructions for Treatment How to access health information online Indication:Current nonsmoker Start:09-Nov-19 Instruction Type:Patient Education How to access health information online - Detail Indication:Current nonsmoker Start:09-Nov-19 Instruction Type:Patient Education Patient Instructions Indication:Current nonsmoker Start:09-Nov-19 Instruction Type:Provider Instructions for Treatment How to access health information online Indication:Nasal congestion Start:05-Oct-20 Instruction Type:Patient Education How to access health information online - Detail Indication:Nasal congestion Start:05-Oct-20 Instruction Type:Patient Education Patient Instructions Indication:Nasal congestion Start:05-Oct-20 Instruction Type:Provider Instructions for Treatment How to access health information online Indication:Witnessed apneic spells Start:01-May-20 Instruction Type:Patient Education How to access health information online - Detail Indication:Witnessed apneic spells Start:01-May-20 Instruction Type:Patient Education How to access health information online Indication:Gastroesophageal reflux disease without esophagitis Start:13-Dec-19 Instruction Type:Patient Education How to access health information online - Detail Indication:Gastroesophageal reflux disease without esophagitis Start:29-Feb-20 16 Instruction Type:Patient Education Patient Instructions Indication:Gastroesophageal reflux disease without esophagitis Start:13-Dec-19 16 Instruction Type:Provider Instructions for Treatment Patient Instructions Indication:Other and unspecified hyperlipidemia Start: 5 Instruction Type:Provider Instructions for Treatment Patient Instructions Indication:Cough Start:03-Nov-19 14 Instruction Type:Provider Instructions for Treatment Patient Instructions Indication:Encounter for routine history and physical exam for male Start:27-Oct-19 14 Instruction Type:Provider Instructions for Treatment Patient Instructions Indication:Gastroesophageal reflux disease without esophagitis Start: 3 Instruction Type:Provider Instructions for Treatment Patient Instructions Indication:Anxiety Start:05-Aug-20 Instruction Type:Provider Instructions for Treatment [facility]; [facility] Work Phone: Instructions Note Date & Type Note Facility Instructions Name Patient Instructions Indication:Non-smoker Start: Instruction Type:Provider Instructions for Treatment How to Access Health Information Online using Patient Portal and [employer] Apps Indication:Non-smoker Start: Instruction Type:Patient Education How to access health information online Indication:BMI 27.0-27.9,adult Start:02-Aug-20 Instruction Type:Patient Education How to access health information online - Detail Indication:BMI 27.0-27.9,adult Start:02-Aug-20 Instruction Type:Patient Education Patient Instructions Indication:BMI 27.0-27.9,adult Start:02-Aug-20 Instruction Type:Provider Instructions for Treatment How to access health information online Indication:Non-smoker Start: 9 Instruction Type:Patient Education How to access health information online - Detail Indication:Non-smoker Start: 9 Instruction Type:Patient Education Patient Instructions Indication:Non-smoker Start: 9 Instruction Type:Provider Instructions for Treatment How to access health information online Indication:Sinusitis, bacterial Start: 9 Instruction Type:Patient Education How to access health information online - Detail Indication:Sinusitis, bacterial Start: 9 Instruction Type:Patient Education Patient Instructions Indication:Sinusitis, bacterial Start: 9 Instruction Type:Provider Instructions for Treatment How to access health information online Indication:Non-smoker Start: 9 Instruction Type:Patient Education How to access health information online - Detail Indication:Non-smoker Start: Instruction Type:Patient Education Patient Instructions Indication:Non-smoker Start: Instruction Type:Provider Instructions for Treatment How to access health information online Indication:Non-smoker Start:06-Mar-20 Instruction Type:Patient Education How to access health information online - Detail Indication:Non-smoker Start:06-Mar-20 Instruction Type:Patient Education Patient Instructions Indication:Non-smoker Start:06-Mar-20 Instruction Type:Provider Instructions for Treatment How to access health information online Indication:BMI 29.0-29.9,adult Start:01-Jan-20 Instruction Type:Patient Education How to access health information online - Detail Indication:BMI 29.0-29.9,adult Start:01-Jan-20 Instruction Type:Patient Education Patient Instructions Indication:BMI 29.0-29.9,adult Start:01-Jan-20 Instruction Type:Provider Instructions for Treatment How to access health information online Indication:Non-smoker Start: Instruction Type:Patient Education How to access health information online - Detail Indication:Non-smoker Start: Instruction Type:Patient Education Patient Instructions Indication:Non-smoker Start: Instruction Type:Provider Instructions for Treatment How to access health information online Indication:BMI 29.0-29.9,adult Start:29-Jul-20 Instruction Type:Patient Education How to access health information online - Detail Indication:BMI 29.0-29.9,adult Start:29-Jul-20 Instruction Type:Patient Education Patient Instructions Indication:BMI 29.0-29.9,adult Start:29-Jul-20 Instruction Type:Provider Instructions for Treatment How to access health information online Indication:BMI 28.0-28.9,adult Start:28-Mar-20 Instruction Type:Patient Education How to access health information online - Detail Indication:BMI 28.0-28.9,adult Start:28-Mar-20 Instruction Type:Patient Education Patient Instructions Indication:BMI 28.0-28.9,adult Start:28-Mar-20 Instruction Type:Provider Instructions for Treatment How to access health information online Indication:BMI 30.0-30.9,adult Start:23-Feb-20 Instruction Type:Patient Education How to access health information online - Detail Indication:BMI 30.0-30.9,adult Start:23-Feb-20 Instruction Type:Patient Education Patient Instructions Indication:BMI 30.0-30.9,adult Start:23-Feb-20 Instruction Type:Provider Instructions for Treatment How to access health information online Indication:Elevated blood pressure reading Start:02-Feb-20 Instruction Type:Patient Education How to access health information online - Detail Indication:Elevated blood pressure reading Start:02-Feb-20 Instruction Type:Patient Education Patient Instructions Indication:Elevated blood pressure reading Start:02-Feb-20 Instruction Type:Provider Instructions for Treatment How to access health information online Indication:BMI 30.0-30.9,adult Start:05-Jan-20 Instruction Type:Patient Education How to access health information online - Detail Indication:BMI 30.0-30.9,adult Start:05-Jan-20 Instruction Type:Patient Education Patient Instructions Indication:BMI 30.0-30.9,adult Start:05-Jan-20 Instruction Type:Provider Instructions for Treatment How to access health information online Indication:Current nonsmoker Start: Instruction Type:Patient Education How to access health information online - Detail Indication:Current nonsmoker Start: Instruction Type:Patient Education Patient Instructions Indication:Current nonsmoker Start: Instruction Type:Provider Instructions for Treatment How to access health information online Indication:Current nonsmoker Start:12-Dec-19 Instruction Type:Patient Education How to access health information online - Detail Indication:Current nonsmoker Start:12-Dec-19 Instruction Type:Patient Education Patient Instructions Indication:Current nonsmoker Start:12-Dec-19 Instruction Type:Provider Instructions for Treatment How to access health information online Indication:Current nonsmoker Start:09-Nov-19 Instruction Type:Patient Education How to access health information online - Detail Indication:Current nonsmoker Start:09-Nov-19 Instruction Type:Patient Education Patient Instructions Indication:Current nonsmoker Start:09-Nov-19 Instruction Type:Provider Instructions for Treatment How to access health information online Indication:Nasal congestion Start:05-Oct-20 Instruction Type:Patient Education How to access health information online - Detail Indication:Nasal congestion Start:05-Oct-20 Instruction Type:Patient Education Patient Instructions Indication:Nasal congestion Start:05-Oct-20 Instruction Type:Provider Instructions for Treatment How to access health information online Indication:Witnessed apneic spells Start:01-May-20 Instruction Type:Patient Education How to access health information online - Detail Indication:Witnessed apneic spells Start:01-May-20 Instruction Type:Patient Education How to access health information online Indication:Gastroesophageal reflux disease without esophagitis Start:13-Dec-19 16 Instruction Type:Patient Education How to access health information online - Detail Indication:Gastroesophageal reflux disease without esophagitis Start:13-Dec-19 Instruction Type:Patient Education Patient Instructions Indication:Gastroesophageal reflux disease without esophagitis Start:13-Dec-19 16 Instruction Type:Provider Instructions for Treatment Patient Instructions Indication:Other and unspecified hyperlipidemia Start: 5 Instruction Type:Provider Instructions for Treatment Patient Instructions Indication:Cough Start:03-Nov-19 Instruction Type:Provider Instructions for Treatment Patient Instructions Indication:Encounter for routine history and physical exam for male Start:27-Oct-19 14 Instruction Type:Provider Instructions for Treatment Patient Instructions Indication:Gastroesophageal reflux disease without esophagitis Start: 3 Instruction Type:Provider Instructions for Treatment Patient Instructions Indication:Anxiety Start:05-Aug-20 Instruction Type:Provider Instructions for Treatment [facility]; [facility] Work Phone: Instructions Note Date & Type Note Facility Instructions Name Patient Instructions Indication:Non-smoker Start:02-Oct-20 Instruction Type:Provider Instructions for Treatment How to Access Health Information Online using Patient Portal and [employer] Apps Indication:Non-smoker Start:02-Oct-20 Instruction Type:Patient Education Patient Instructions Indication:Non-smoker Start: Instruction Type:Provider Instructions for Treatment How to Access Health Information Online using Patient Portal and [employer] Apps Indication:Non-smoker Start: Instruction Type:Patient Education How to access health information online Indication:BMI 27.0-27.9,adult Start:02-Aug-20 Instruction Type:Patient Education How to access health information online - Detail Indication:BMI 27.0-27.9,adult Start:02-Aug-20 Instruction Type:Patient Education Patient Instructions Indication:BMI 27.0-27.9,adult Start:02-Aug-20 Instruction Type:Provider Instructions for Treatment How to access health information online Indication:Non-smoker Start: Instruction Type:Patient Education How to access health information online - Detail Indication:Non-smoker Start: Instruction Type:Patient Education Patient Instructions Indication:Non-smoker Start: Instruction Type:Provider Instructions for Treatment How to access health information online Indication:Sinusitis, bacterial Start: Instruction Type:Patient Education How to access health information online - Detail Indication:Sinusitis, bacterial Start: Instruction Type:Patient Education Patient Instructions Indication:Sinusitis, bacterial Start: Instruction Type:Provider Instructions for Treatment How to access health information online Indication:Non-smoker Start: Instruction Type:Patient Education How to access health information online - Detail Indication:Non-smoker Start: Instruction Type:Patient Education Patient Instructions Indication:Non-smoker Start: Instruction Type:Provider Instructions for Treatment How to access health information online Indication:Non-smoker Start:06-Mar-20 Instruction Type:Patient Education How to access health information online - Detail Indication:Non-smoker Start:06-Mar-20 Instruction Type:Patient Education Patient Instructions Indication:Non-smoker Start:06-Mar-20 Instruction Type:Provider Instructions for Treatment How to access health information online Indication:BMI 29.0-29.9,adult Start:01-Jan-20 Instruction Type:Patient Education How to access health information online - Detail Indication:BMI 29.0-29.9,adult Start:01-Jan-20 Instruction Type:Patient Education Patient Instructions Indication:BMI 29.0-29.9,adult Start:01-Jan-20 Instruction Type:Provider Instructions for Treatment How to access health information online Indication:Non-smoker Start: Instruction Type:Patient Education How to access health information online - Detail Indication:Non-smoker Start: Instruction Type:Patient Education Patient Instructions Indication:Non-smoker Start: Instruction Type:Provider Instructions for Treatment How to access health information online Indication:BMI 29.0-29.9,adult Start:29-Jul-20 Instruction Type:Patient Education How to access health information online - Detail Indication:BMI 29.0-29.9,adult Start:29-Jul-20 Instruction Type:Patient Education Patient Instructions Indication:BMI 29.0-29.9,adult Start:29-Jul-20 Instruction Type:Provider Instructions for Treatment How to access health information online Indication:BMI 28.0-28.9,adult Start:28-Mar-20 Instruction Type:Patient Education How to access health information online - Detail Indication:BMI 28.0-28.9,adult Start:28-Mar-20 Instruction Type:Patient Education Patient Instructions Indication:BMI 28.0-28.9,adult Start:28-Mar-20 Instruction Type:Provider Instructions for Treatment How to access health information online Indication:BMI 30.0-30.9,adult Start:23-Feb-20 Instruction Type:Patient Education How to access health information online - Detail Indication:BMI 30.0-30.9,adult Start:23-Feb-20 Instruction Type:Patient Education Patient Instructions Indication:BMI 30.0-30.9,adult Start:23-Feb-20 Instruction Type:Provider Instructions for Treatment How to access health information online Indication:Elevated blood pressure reading Start:02-Feb-20 Instruction Type:Patient Education How to access health information online - Detail Indication:Elevated blood pressure reading Start:02-Feb-20 Instruction Type:Patient Education Patient Instructions Indication:Elevated blood pressure reading Start:02-Feb-20 Instruction Type:Provider Instructions for Treatment How to access health information online Indication:BMI 30.0-30.9,adult Start:05-Jan-20 Instruction Type:Patient Education How to access health information online - Detail Indication:BMI 30.0-30.9,adult Start:05-Jan-20 Instruction Type:Patient Education Patient Instructions Indication:BMI 30.0-30.9,adult Start:05-Jan-20 Instruction Type:Provider Instructions for Treatment How to access health information online Indication:Current nonsmoker Start: Instruction Type:Patient Education How to access health information online - Detail Indication:Current nonsmoker Start: Instruction Type:Patient Education Patient Instructions Indication:Current nonsmoker Start: Instruction Type:Provider Instructions for Treatment How to access health information online Indication:Current nonsmoker Start:12-Dec-19 Instruction Type:Patient Education How to access health information online - Detail Indication:Current nonsmoker Start:12-Dec-19 Instruction Type:Patient Education Patient Instructions Indication:Current nonsmoker Start:12-Dec-19 Instruction Type:Provider Instructions for Treatment How to access health information online Indication:Current nonsmoker Start:09-Nov-19 Instruction Type:Patient Education How to access health information online - Detail Indication:Current nonsmoker Start:09-Nov-19 Instruction Type:Patient Education Patient Instructions Indication:Current nonsmoker Start:09-Nov-19 Instruction Type:Provider Instructions for Treatment How to access health information online Indication:Nasal congestion Start:05-Oct-20 Instruction Type:Patient Education How to access health information online - Detail Indication:Nasal congestion Start:05-Oct-20 Instruction Type:Patient Education Patient Instructions Indication:Nasal congestion Start:05-Oct-20 Instruction Type:Provider Instructions for Treatment How to access health information online Indication:Witnessed apneic spells Start:01-May-20 Instruction Type:Patient Education How to access health information online - Detail Indication:Witnessed apneic spells Start:01-May-20 Instruction Type:Patient Education How to access health information online Indication:Gastroesophageal reflux disease without esophagitis Start:13-Dec-19 Instruction Type:Patient Education How to access health information online - Detail Indication:Gastroesophageal reflux disease without esophagitis Start:13-Dec-19 Instruction Type:Patient Education Patient Instructions Indication:Gastroesophageal reflux disease without esophagitis Start:13-Dec-19 16 Instruction Type:Provider Instructions for Treatment Patient Instructions Indication:Other and unspecified hyperlipidemia Start: 5 Instruction Type:Provider Instructions for Treatment Patient Instructions Indication:Cough Start:03-Nov-19 14 Instruction Type:Provider Instructions for Treatment Patient Instructions Indication:Encounter for routine history and physical exam for male Start:27-Oct-19 14 Instruction Type:Provider Instructions for Treatment Patient Instructions Indication:Gastroesophageal reflux disease without esophagitis Start: 3 Instruction Type:Provider Instructions for Treatment Patient Instructions Indication:Anxiety Start:05-Aug-20 12 Instruction Type:Provider Instructions for Treatment [facility]; [facility] Work Phone: Instructions Note Date & Type Note Facility Instructions Name Patient Instructions Indication:Non-smoker Start:02-Oct-20 Instruction Type:Provider Instructions for Treatment How to Access Health Information Online using Patient Portal and [employer] Apps Indication:Non-smoker Start:02-Oct-20 Instruction Type:Patient Education Patient Instructions Indication:Non-smoker Start: Instruction Type:Provider Instructions for Treatment How to Access Health Information Online using Patient Portal and [employer] Apps Indication:Non-smoker Start: Instruction Type:Patient Education How to access health information online Indication:BMI 27.0-27.9,adult Start:02-Aug-20 Instruction Type:Patient Education How to access health information online - Detail Indication:BMI 27.0-27.9,adult Start:02-Aug-20 Instruction Type:Patient Education Patient Instructions Indication:BMI 27.0-27.9,adult Start:02-Aug-20 Instruction Type:Provider Instructions for Treatment How to access health information online Indication:Non-smoker Start: Instruction Type:Patient Education How to access health information online - Detail Indication:Non-smoker Start: Instruction Type:Patient Education Patient Instructions Indication:Non-smoker Start: Instruction Type:Provider Instructions for Treatment How to access health information online Indication:Sinusitis, bacterial Start: Instruction Type:Patient Education How to access health information online - Detail Indication:Sinusitis, bacterial Start: Instruction Type:Patient Education Patient Instructions Indication:Sinusitis, bacterial Start: Instruction Type:Provider Instructions for Treatment How to access health information online Indication:Non-smoker Start: Instruction Type:Patient Education How to access health information online - Detail Indication:Non-smoker Start: Instruction Type:Patient Education Patient Instructions Indication:Non-smoker Start: Instruction Type:Provider Instructions for Treatment How to access health information online Indication:Non-smoker Start:06-Mar-20 Instruction Type:Patient Education How to access health information online - Detail Indication:Non-smoker Start:06-Mar-20 Instruction Type:Patient Education Patient Instructions Indication:Non-smoker Start:06-Mar-20 Instruction Type:Provider Instructions for Treatment How to access health information online Indication:BMI 29.0-29.9,adult Start:01-Jan-20 Instruction Type:Patient Education How to access health information online - Detail Indication:BMI 29.0-29.9,adult Start:01-Jan-20 Instruction Type:Patient Education Patient Instructions Indication:BMI 29.0-29.9,adult Start:01-Jan-20 Instruction Type:Provider Instructions for Treatment How to access health information online Indication:Non-smoker Start: Instruction Type:Patient Education How to access health information online - Detail Indication:Non-smoker Start: Instruction Type:Patient Education Patient Instructions Indication:Non-smoker Start: Instruction Type:Provider Instructions for Treatment How to access health information online Indication:BMI 29.0-29.9,adult Start:29-Jul-20 Instruction Type:Patient Education How to access health information online - Detail Indication:BMI 29.0-29.9,adult Start:29-Jul-20 Instruction Type:Patient Education Patient Instructions Indication:BMI 29.0-29.9,adult Start:29-Jul-20 Instruction Type:Provider Instructions for Treatment How to access health information online Indication:BMI 28.0-28.9,adult Start:28-Mar-20 Instruction Type:Patient Education How to access health information online - Detail Indication:BMI 28.0-28.9,adult Start:28-Mar-20 Instruction Type:Patient Education Patient Instructions Indication:BMI 28.0-28.9,adult Start:28-Mar-20 Instruction Type:Provider Instructions for Treatment How to access health information online Indication:BMI 30.0-30.9,adult Start:23-Feb-20 Instruction Type:Patient Education How to access health information online - Detail Indication:BMI 30.0-30.9,adult Start:23-Feb-20 Instruction Type:Patient Education Patient Instructions Indication:BMI 30.0-30.9,adult Start:23-Feb-20 Instruction Type:Provider Instructions for Treatment How to access health information online Indication:Elevated blood pressure reading Start:02-Feb-20 Instruction Type:Patient Education How to access health information online - Detail Indication:Elevated blood pressure reading Start:02-Feb-20 Instruction Type:Patient Education Patient Instructions Indication:Elevated blood pressure reading Start:02-Feb-20 Instruction Type:Provider Instructions for Treatment How to access health information online Indication:BMI 30.0-30.9,adult Start:05-Jan-20 Instruction Type:Patient Education How to access health information online - Detail Indication:BMI 30.0-30.9,adult Start:05-Jan-20 Instruction Type:Patient Education Patient Instructions Indication:BMI 30.0-30.9,adult Start:05-Jan-20 Instruction Type:Provider Instructions for Treatment How to access health information online Indication:Current nonsmoker Start: Instruction Type:Patient Education How to access health information online - Detail Indication:Current nonsmoker Start: Instruction Type:Patient Education Patient Instructions Indication:Current nonsmoker Start: Instruction Type:Provider Instructions for Treatment How to access health information online Indication:Current nonsmoker Start:12-Dec-19 Instruction Type:Patient Education How to access health information online - Detail Indication:Current nonsmoker Start:12-Dec-19 Instruction Type:Patient Education Patient Instructions Indication:Current nonsmoker Start:12-Dec-19 Instruction Type:Provider Instructions for Treatment How to access health information online Indication:Current nonsmoker Start:09-Nov-19 Instruction Type:Patient Education How to access health information online - Detail Indication:Current nonsmoker Start:09-Nov-19 Instruction Type:Patient Education Patient Instructions Indication:Current nonsmoker Start:09-Nov-19 Instruction Type:Provider Instructions for Treatment How to access health information online Indication:Nasal congestion Start:05-Oct-20 Instruction Type:Patient Education How to access health information online - Detail Indication:Nasal congestion Start:05-Oct-20 Instruction Type:Patient Education Patient Instructions Indication:Nasal congestion Start:05-Oct-20 Instruction Type:Provider Instructions for Treatment How to access health information online Indication:Witnessed apneic spells Start:01-May-20 Instruction Type:Patient Education How to access health information online - Detail Indication:Witnessed apneic spells Start:01-May-20 Instruction Type:Patient Education How to access health information online Indication:Gastroesophageal reflux disease without esophagitis Start:13-Dec-19 Instruction Type:Patient Education How to access health information online - Detail Indication:Gastroesophageal reflux disease without esophagitis Start:13-Dec-19 Instruction Type:Patient Education Patient Instructions Indication:Gastroesophageal reflux disease without esophagitis Start:29-Feb-20 16 Instruction Type:Provider Instructions for Treatment Patient Instructions Indication:Other and unspecified hyperlipidemia Start: 5 Instruction Type:Provider Instructions for Treatment Patient Instructions Indication:Cough Start:03-Nov-19 14 Instruction Type:Provider Instructions for Treatment Patient Instructions Indication:Encounter for routine history and physical exam for male Start:27-Oct-19 14 Instruction Type:Provider Instructions for Treatment Patient Instructions Indication:Gastroesophageal reflux disease without esophagitis Start: 3 Instruction Type:Provider Instructions for Treatment Patient Instructions Indication:Anxiety Start:05-Aug-20 Instruction Type:Provider Instructions for Treatment [facility] Work Phone: Instructions Note Date & Type Note Facility Instructions Name Patient Instructions Indication:Non-smoker Start:24-Feb-20 Instruction Type:Provider Instructions for Treatment How to Access Health Information Online using Patient Portal and [employer] Apps Indication:Non-smoker Start:24-Feb-20 Instruction Type:Patient Education Patient Instructions Indication:Non-smoker Start:02-Oct-20 Instruction Type:Provider Instructions for Treatment How to Access Health Information Online using Patient Portal and [employer] Apps Indication:Non-smoker Start:02-Oct-20 Instruction Type:Patient Education Patient Instructions Indication:Non-smoker Start: Instruction Type:Provider Instructions for Treatment How to Access Health Information Online using Patient Portal and [employer] Apps Indication:Non-smoker Start: Instruction Type:Patient Education How to access health information online Indication:BMI 27.0-27.9,adult Start:02-Aug-20 Instruction Type:Patient Education How to access health information online - Detail Indication:BMI 27.0-27.9,adult Start:02-Aug-20 Instruction Type:Patient Education Patient Instructions Indication:BMI 27.0-27.9,adult Start:02-Aug-20 Instruction Type:Provider Instructions for Treatment How to access health information online Indication:Non-smoker Start: 9 Instruction Type:Patient Education How to access health information online - Detail Indication:Non-smoker Start: 9 Instruction Type:Patient Education Patient Instructions Indication:Non-smoker Start: 9 Instruction Type:Provider Instructions for Treatment How to access health information online Indication:Sinusitis, bacterial Start: 9 Instruction Type:Patient Education How to access health information online - Detail Indication:Sinusitis, bacterial Start: Instruction Type:Patient Education Patient Instructions Indication:Sinusitis, bacterial Start: Instruction Type:Provider Instructions for Treatment How to access health information online Indication:Non-smoker Start: Instruction Type:Patient Education How to access health information online - Detail Indication:Non-smoker Start: Instruction Type:Patient Education Patient Instructions Indication:Non-smoker Start: Instruction Type:Provider Instructions for Treatment How to access health information online Indication:Non-smoker Start:06-Mar-20 Instruction Type:Patient Education How to access health information online - Detail Indication:Non-smoker Start:06-Mar-20 Instruction Type:Patient Education Patient Instructions Indication:Non-smoker Start:06-Mar-20 Instruction Type:Provider Instructions for Treatment How to access health information online Indication:BMI 29.0-29.9,adult Start:01-Jan-20 Instruction Type:Patient Education How to access health information online - Detail Indication:BMI 29.0-29.9,adult Start:01-Jan-20 Instruction Type:Patient Education Patient Instructions Indication:BMI 29.0-29.9,adult Start:01-Jan-20 Instruction Type:Provider Instructions for Treatment How to access health information online Indication:Non-smoker Start: Instruction Type:Patient Education How to access health information online - Detail Indication:Non-smoker Start: Instruction Type:Patient Education Patient Instructions Indication:Non-smoker Start: Instruction Type:Provider Instructions for Treatment How to access health information online Indication:BMI 29.0-29.9,adult Start:29-Jul-20 Instruction Type:Patient Education How to access health information online - Detail Indication:BMI 29.0-29.9,adult Start:29-Jul-20 Instruction Type:Patient Education Patient Instructions Indication:BMI 29.0-29.9,adult Start:29-Jul-20 Instruction Type:Provider Instructions for Treatment How to access health information online Indication:BMI 28.0-28.9,adult Start:28-Mar-20 Instruction Type:Patient Education How to access health information online - Detail Indication:BMI 28.0-28.9,adult Start:28-Mar-20 Instruction Type:Patient Education Patient Instructions Indication:BMI 28.0-28.9,adult Start:28-Mar-20 Instruction Type:Provider Instructions for Treatment How to access health information online Indication:BMI 30.0-30.9,adult Start:23-Feb-20 Instruction Type:Patient Education How to access health information online - Detail Indication:BMI 30.0-30.9,adult Start:23-Feb-20 Instruction Type:Patient Education Patient Instructions Indication:BMI 30.0-30.9,adult Start:23-Feb-20 Instruction Type:Provider Instructions for Treatment How to access health information online Indication:Elevated blood pressure reading Start:02-Feb-20 Instruction Type:Patient Education How to access health information online - Detail Indication:Elevated blood pressure reading Start:02-Feb-20 Instruction Type:Patient Education Patient Instructions Indication:Elevated blood pressure reading Start:02-Feb-20 Instruction Type:Provider Instructions for Treatment How to access health information online Indication:BMI 30.0-30.9,adult Start:05-Jan-20 Instruction Type:Patient Education How to access health information online - Detail Indication:BMI 30.0-30.9,adult Start:05-Jan-20 Instruction Type:Patient Education Patient Instructions Indication:BMI 30.0-30.9,adult Start:05-Jan-20 Instruction Type:Provider Instructions for Treatment How to access health information online Indication:Current nonsmoker Start: Instruction Type:Patient Education How to access health information online - Detail Indication:Current nonsmoker Start: Instruction Type:Patient Education Patient Instructions Indication:Current nonsmoker Start: Instruction Type:Provider Instructions for Treatment How to access health information online Indication:Current nonsmoker Start:12-Dec-19 Instruction Type:Patient Education How to access health information online - Detail Indication:Current nonsmoker Start:12-Dec-19 Instruction Type:Patient Education Patient Instructions Indication:Current nonsmoker Start:12-Dec-19 Instruction Type:Provider Instructions for Treatment How to access health information online Indication:Current nonsmoker Start:09-Nov-19 Instruction Type:Patient Education How to access health information online - Detail Indication:Current nonsmoker Start:26-Yariel-20 17 Instruction Type:Patient Education Patient Instructions Indication:Current nonsmoker Start:09-Nov-19 17 Instruction Type:Provider Instructions for Treatment How to access health information online Indication:Nasal congestion Start:05-Oct-20 16 Instruction Type:Patient Education How to access health information online - Detail Indication:Nasal congestion Start:05-Oct-20 16 Instruction Type:Patient Education Patient Instructions Indication:Nasal congestion Start:05-Oct-20 16 Instruction Type:Provider Instructions for Treatment How to access health information online Indication:Witnessed apneic spells Start:01-May-20 Instruction Type:Patient Education How to access health information online - Detail Indication:Witnessed apneic spells Start:01-May-20 Instruction Type:Patient Education How to access health information online Indication:Gastroesophageal reflux disease without esophagitis Start:13-Dec-19 Instruction Type:Patient Education How to access health information online - Detail Indication:Gastroesophageal reflux disease without esophagitis Start:13-Dec-19 Instruction Type:Patient Education Patient Instructions Indication:Gastroesophageal reflux disease without esophagitis Start:13-Dec-19 Instruction Type:Provider Instructions for Treatment Patient Instructions Indication:Other and unspecified hyperlipidemia Start: 5 Instruction Type:Provider Instructions for Treatment Patient Instructions Indication:Cough Start:03-Nov-19 14 Instruction Type:Provider Instructions for Treatment Patient Instructions Indication:Encounter for routine history and physical exam for male Start:27-Oct-19 14 Instruction Type:Provider Instructions for Treatment Patient Instructions Indication:Gastroesophageal reflux disease without esophagitis Start: 3 Instruction Type:Provider Instructions for Treatment Patient Instructions Indication:Anxiety Start:05-Aug-20 Instruction Type:Provider Instructions for Treatment [facility]; [facility] Work Phone: Instructions Note Date & Type Note Facility Instructions Name Patient Instructions Indication:Non-smoker Start:24-Feb-20 Instruction Type:Provider Instructions for Treatment How to Access Health Information Online using Patient Portal and [employer] Indication:Non-smoker Start:24-Feb-20 Instruction Type:Patient Education Patient Instructions Indication:Non-smoker Start:02-Oct-20 Instruction Type:Provider Instructions for Treatment How to Access Health Information Online using Patient Portal and [employer] Apps Indication:Non-smoker Start:02-Oct-20 Instruction Type:Patient Education Patient Instructions Indication:Non-smoker Start: Instruction Type:Provider Instructions for Treatment How to Access Health Information Online using Patient Portal and [employer] Apps Indication:Non-smoker Start: Instruction Type:Patient Education How to access health information online Indication:BMI 27.0-27.9,adult Start:02-Aug-20 Instruction Type:Patient Education How to access health information online - Detail Indication:BMI 27.0-27.9,adult Start:02-Aug-20 Instruction Type:Patient Education Patient Instructions Indication:BMI 27.0-27.9,adult Start:02-Aug-20 Instruction Type:Provider Instructions for Treatment How to access health information online Indication:Non-smoker Start: Instruction Type:Patient Education How to access health information online - Detail Indication:Non-smoker Start: Instruction Type:Patient Education Patient Instructions Indication:Non-smoker Start: Instruction Type:Provider Instructions for Treatment How to access health information online Indication:Sinusitis, bacterial Start: Instruction Type:Patient Education How to access health information online - Detail Indication:Sinusitis, bacterial Start: Instruction Type:Patient Education Patient Instructions Indication:Sinusitis, bacterial Start: Instruction Type:Provider Instructions for Treatment How to access health information online Indication:Non-smoker Start: Instruction Type:Patient Education How to access health information online - Detail Indication:Non-smoker Start: Instruction Type:Patient Education Patient Instructions Indication:Non-smoker Start: Instruction Type:Provider Instructions for Treatment How to access health information online Indication:Non-smoker Start:06-Mar-20 Instruction Type:Patient Education How to access health information online - Detail Indication:Non-smoker Start:06-Mar-20 Instruction Type:Patient Education Patient Instructions Indication:Non-smoker Start:06-Mar-20 Instruction Type:Provider Instructions for Treatment How to access health information online Indication:BMI 29.0-29.9,adult Start:01-Jan-20 Instruction Type:Patient Education How to access health information online - Detail Indication:BMI 29.0-29.9,adult Start:01-Jan-20 Instruction Type:Patient Education Patient Instructions Indication:BMI 29.0-29.9,adult Start:01-Jan-20 Instruction Type:Provider Instructions for Treatment How to access health information online Indication:Non-smoker Start: Instruction Type:Patient Education How to access health information online - Detail Indication:Non-smoker Start: Instruction Type:Patient Education Patient Instructions Indication:Non-smoker Start: Instruction Type:Provider Instructions for Treatment How to access health information online Indication:BMI 29.0-29.9,adult Start:29-Jul-20 Instruction Type:Patient Education How to access health information online - Detail Indication:BMI 29.0-29.9,adult Start:29-Jul-20 Instruction Type:Patient Education Patient Instructions Indication:BMI 29.0-29.9,adult Start:29-Jul-20 Instruction Type:Provider Instructions for Treatment How to access health information online Indication:BMI 28.0-28.9,adult Start:28-Mar-20 Instruction Type:Patient Education How to access health information online - Detail Indication:BMI 28.0-28.9,adult Start:28-Mar-20 Instruction Type:Patient Education Patient Instructions Indication:BMI 28.0-28.9,adult Start:28-Mar-20 Instruction Type:Provider Instructions for Treatment How to access health information online Indication:BMI 30.0-30.9,adult Start:23-Feb-20 Instruction Type:Patient Education How to access health information online - Detail Indication:BMI 30.0-30.9,adult Start:23-Feb-20 Instruction Type:Patient Education Patient Instructions Indication:BMI 30.0-30.9,adult Start:23-Feb-20 Instruction Type:Provider Instructions for Treatment How to access health information online Indication:Elevated blood pressure reading Start:02-Feb-20 Instruction Type:Patient Education How to access health information online - Detail Indication:Elevated blood pressure reading Start:02-Feb-20 Instruction Type:Patient Education Patient Instructions Indication:Elevated blood pressure reading Start:02-Feb-20 Instruction Type:Provider Instructions for Treatment How to access health information online Indication:BMI 30.0-30.9,adult Start:05-Jan-20 Instruction Type:Patient Education How to access health information online - Detail Indication:BMI 30.0-30.9,adult Start:05-Jan-20 Instruction Type:Patient Education Patient Instructions Indication:BMI 30.0-30.9,adult Start:05-Jan-20 Instruction Type:Provider Instructions for Treatment How to access health information online Indication:Current nonsmoker Start: Instruction Type:Patient Education How to access health information online - Detail Indication:Current nonsmoker Start: Instruction Type:Patient Education Patient Instructions Indication:Current nonsmoker Start: Instruction Type:Provider Instructions for Treatment How to access health information online Indication:Current nonsmoker Start:12-Dec-19 Instruction Type:Patient Education How to access health information online - Detail Indication:Current nonsmoker Start:12-Dec-19 Instruction Type:Patient Education Patient Instructions Indication:Current nonsmoker Start:12-Dec-19 Instruction Type:Provider Instructions for Treatment How to access health information online Indication:Current nonsmoker Start:09-Nov-19 Instruction Type:Patient Education How to access health information online - Detail Indication:Current nonsmoker Start:09-Nov-19 Instruction Type:Patient Education Patient Instructions Indication:Current nonsmoker Start:09-Nov-19 Instruction Type:Provider Instructions for Treatment How to access health information online Indication:Nasal congestion Start:05-Oct-20 Instruction Type:Patient Education How to access health information online - Detail Indication:Nasal congestion Start:05-Oct-20 Instruction Type:Patient Education Patient Instructions Indication:Nasal congestion Start:05-Oct-20 Instruction Type:Provider Instructions for Treatment How to access health information online Indication:Witnessed apneic spells Start:01-May-20 Instruction Type:Patient Education How to access health information online - Detail Indication:Witnessed apneic spells Start:01-May-20 Instruction Type:Patient Education How to access health information online Indication:Gastroesophageal reflux disease without esophagitis Start:13-Dec-19 Instruction Type:Patient Education How to access health information online - Detail Indication:Gastroesophageal reflux disease without esophagitis Start:13-Dec-19 Instruction Type:Patient Education Patient Instructions Indication:Gastroesophageal reflux disease without esophagitis Start:13-Dec-19 Instruction Type:Provider Instructions for Treatment Patient Instructions Indication:Other and unspecified hyperlipidemia Start: Instruction Type:Provider Instructions for Treatment Patient Instructions Indication:Cough Start:03-Nov-19 Instruction Type:Provider Instructions for Treatment Patient Instructions Indication:Encounter for routine history and physical exam for male Start:27-Oct-19 Instruction Type:Provider Instructions for Treatment Patient Instructions Indication:Gastroesophageal reflux disease without esophagitis Start: Instruction Type:Provider Instructions for Treatment Patient Instructions Indication:Anxiety Start:05-Aug-20 Instruction Type:Provider Instructions for Treatment [facility] Work Phone: Summary Purpose Family History No Family History Records FoundUnknown Family Member Name Dates Details Brother 1 Comments:MS Status:Active Father Comments:HTN Status:Active Mother Comments:HTN, memory loss Status:Active Unknown Family Member Name Dates Details Brother 1 Comments:MS Status:Active Father Comments:HTN Status:Active Mother Comments:HTN, memory loss Status:Active Unknown Family Member Name Dates Details Brother 1 Comments:MS Status:Active Father Comments:HTN Status:Active Mother Comments:HTN, memory loss Status:Active Unknown Family Member Name Dates Details Brother 1 Comments:MS Status:Active Father Comments:HTN Status:Active Mother Comments:HTN, memory loss Status:Active Unknown Family Member Name Dates Details Brother 1 Comments:MS Status:Active Father Comments:HTN Status:Active Mother Comments:HTN, memory loss Status:Active Unknown Family Member Name Dates Details Brother 1 Comments:MS Status:Active Father Comments:HTN Status:Active Mother Comments:HTN, memory loss Status:Active Unknown Family Member Name Dates Details Brother 1 Comments:MS Status:Active Father Comments:HTN Status:Active Mother Comments:HTN, memory loss Status:Active Unknown Family Member Name Dates Details Brother 1 Comments:MS Status:Active Father Comments:HTN Status:Active Mother Comments:HTN, memory loss Status:Active Unknown Family Member Name Dates Details Brother 1 Comments:MS Status:Active Father Comments:HTN Status:Active Mother Comments:HTN, memory loss Status:Active Unknown Family Member Name Dates Details Brother 1 Comments:MS Status:Active Father Comments:HTN Status:Active Mother Comments:HTN, memory loss Status:Active Unknown Family Member Name Dates Details Brother 1 Comments:MS Status:Active Father Comments:HTN Status:Active Mother Comments:HTN, memory loss Status:Active Unknown Family Member Name Dates Details Brother 1 Comments:MS Status:Active Father Comments:HTN Status:Active Mother Comments:HTN, memory loss Status:Active Unknown Family Member Name Dates Details Brother 1 Comments:MS Status:Active Father Comments:HTN Status:Active Mother Comments:HTN, memory loss Status:Active Unknown Family Member Name Dates Details Brother 1 Comments:MS Status:Active Father Comments:HTN Status:Active Mother Comments:HTN, memory loss Status:Active Unknown Family Member Name Dates Details Brother 1 Comments:MS Status:Active Father Comments:HTN Status:Active Mother Comments:HTN, memory loss Status:Active Unknown Family Member Name Dates Details Brother 1 Comments:MS Status:Active Father Comments:HTN Status:Active Mother Comments:HTN, memory loss Status:Active Unknown Family Member Name Dates Details Brother 1 Comments:MS Status:Active Father Comments:HTN Status:Active Mother Comments:HTN, memory loss Status:Active Unknown Family Member Name Dates Details Brother 1 Comments:MS Status:Active Father Comments:HTN Status:Active Mother Comments:HTN, memory loss Status:Active Unknown Family Member Name Dates Details Brother 1 Comments:MS Status:Active Father Comments:HTN Status:Active Mother Comments:HTN, memory loss Status:Active Advance Directives No Advanced Directives Records FoundNo Advanced Directives Records FoundNo Advanced Directives Records Found Instructions Name Dates Details BMI 29.0-29.9,adult : How to access health information online Indication:BMI 29.0-29.9,adult BMI 29.0-29.9,adult : How to access health information online - Detail Indication:BMI 29.0-29.9,adult BMI 29.0-29.9,adult : Patien t Instructions Indication:BMI 29.0-29.9,adult Non-smoker : How to access h ealth information online Indication:Non-smoker Non-smoker : How to access h ealth information online - Detail Indication:Non-smoker Non-smoker : Patient Instruc tions Indication:Non-smoker BMI 28.0-28.9,adult : How to access health information online Indication:BMI 28.0-28.9,adult BMI 28.0-28.9,adult : How to access health information online - Detail Indication:BMI 28.0-28.9,adult BMI 28.0-28.9,adult : Patien t Instructions Indication:BMI 28.0-28.9,adult BMI 30.0-30.9,adult : How to access health information online Indication:BMI 30.0-30.9,adult BMI 30.0-30.9,adult : How to access health information online - Detail Indication:BMI 30.0-30.9,adult BMI 30.0-30.9,adult : Patien t Instructions Indication:BMI 30.0-30.9,adult Elevated blood pressure read ing : How to access health information online Indication:Elevated blood pressure reading Elevated blood pressure read ing : How to access health information online - Detail Indication:Elevated blood pressure reading Elevated blood pressure read ing : Patient Instructions Indication:Elevated blood pressure reading Current nonsmoker : How to a ccess health information online Indication:Current nonsmoker Current nonsmoker : How to a ccess health information online - Detail Indication:Current nonsmoker Current nonsmoker : Patient Instructions Indication:Current nonsmoker Nasal congestion : How to ac cess health information online Indication:Nasal congestion Nasal congestion : How to ac cess health information online - Detail Indication:Nasal congestion Nasal congestion : Patient I nstructions Indication:Nasal congestion Witnessed apneic spells : Jonah scott to access health information online Indication:Witnessed apneic spells Witnessed apneic spells : Jonah scott to access health information online - Detail Indication:Witnessed apneic spells Gastroesophageal reflux dise ase without esophagitis : How to access health information online Indication:Gastroesophageal reflux disease without esophagitis Gastroesophageal reflux dise ase without esophagitis : How to access health information online - Detail Indication:Gastroesophageal reflux disease without esophagitis Gastroesophageal reflux dise ase without esophagitis : Patient Instructions Indication:Gastroesophageal reflux disease without esophagitis Other and unspecified hyperl ipidemia : Patient Instructions Indication:Other and unspecified hyperlipidemia Cough : Patient Instructions Indication:Cough Encounter for routine histor y and physical exam for male : Patient Instructions Indication:Encounter for routine history and physical exam for male Anxiety : Patient Instructio ns Indication:Anxiety Name Dates Details How to access health informa tion online Indication:BMI 29.0-29.9,adult Start:31-Dec-2018 Instruction Type:Patient Education How to access health informa tion online - Detail Indication:BMI 29.0-29.9,adult Start:31-Dec-2018 Instruction Type:Patient Education Patient Instructions Indication:BMI 29.0-29.9,adult Start:31-Dec-2018 Instruction Type:Provider Instructions for Treatment How to access health informa tion online Indication:Non-smoker Start:15-Aug-2018 Instruction Type:Patient Education How to access health informa tion online - Detail Indication:Non-smoker Start:15-Aug-2018 Instruction Type:Patient Education Patient Instructions Indication:Non-smoker Start:15-Aug-2018 Instruction Type:Provider Instructions for Treatment How to access health informa tion online Indication:BMI 29.0-29.9,adult Start:29-Jul-2018 Instruction Type:Patient Education How to access health informa tion online - Detail Indication:BMI 29.0-29.9,adult Start:29-Jul-2018 Instruction Type:Patient Education Patient Instructions Indication:BMI 29.0-29.9,adult Start:29-Jul-2018 Instruction Type:Provider Instructions for Treatment How to access health informa tion online Indication:BMI 28.0-28.9,adult Start:28-Mar-2018 Instruction Type:Patient Education How to access health informa tion online - Detail Indication:BMI 28.0-28.9,adult Start:28-Mar-2018 Instruction Type:Patient Education Patient Instructions Indication:BMI 28.0-28.9,adult Start:28-Mar-2018 Instruction Type:Provider Instructions for Treatment How to access health informa tion online Indication:BMI 30.0-30.9,adult Start:22-Feb-2018 Instruction Type:Patient Education How to access health informa tion online - Detail Indication:BMI 30.0-30.9,adult Start:22-Feb-2018 Instruction Type:Patient Education Patient Instructions Indication:BMI 30.0-30.9,adult Start:22-Feb-2018 Instruction Type:Provider Instructions for Treatment How to access health informa tion online Indication:Elevated blood pressure reading Start:01-Feb-2018 Instruction Type:Patient Education How to access health informa tion online - Detail Indication:Elevated blood pressure reading Start:01-Feb-2018 Instruction Type:Patient Education Patient Instructions Indication:Elevated blood pressure reading Start:01-Feb-2018 Instruction Type:Provider Instructions for Treatment How to access health informa tion online Indication:BMI 30.0-30.9,adult Start:04-Jan-2018 Instruction Type:Patient Education How to access health informa tion online - Detail Indication:BMI 30.0-30.9,adult Start:04-Jan-2018 Instruction Type:Patient Education Patient Instructions Indication:BMI 30.0-30.9,adult Start:04-Jan-2018 Instruction Type:Provider Instructions for Treatment How to access health informa tion online Indication:Current nonsmoker Start:17-Dec-2017 Instruction Type:Patient Education How to access health informa tion online - Detail Indication:Current nonsmoker Start:17-Dec-2017 Instruction Type:Patient Education Patient Instructions Indication:Current nonsmoker Start:17-Dec-2017 Instruction Type:Provider Instructions for Treatment How to access health informa tion online Indication:Current nonsmoker Start:12-Dec-2017 Instruction Type:Patient Education How to access health informa tion online - Detail Indication:Current nonsmoker Start:12-Dec-2017 Instruction Type:Patient Education Patient Instructions Indication:Current nonsmoker Start:12-Dec-2017 Instruction Type:Provider Instructions for Treatment How to access health informa tion online Indication:Current nonsmoker Start:09-Nov-2016 Instruction Type:Patient Education How to access health informa tion online - Detail Indication:Current nonsmoker Start:09-Nov-2016 Instruction Type:Patient Education Patient Instructions Indication:Current nonsmoker Start:09-Nov-2016 Instruction Type:Provider Instructions for Treatment How to access health informa tion online Indication:Nasal congestion Start:05-Oct-2016 Instruction Type:Patient Education How to access health informa tion online - Detail Indication:Nasal congestion Start:05-Oct-2016 Instruction Type:Patient Education Patient Instructions Indication:Nasal congestion Start:05-Oct-2016 Instruction Type:Provider Instructions for Treatment How to access health informa tion online Indication:Witnessed apneic spells Start:01-May-2016 Instruction Type:Patient Education How to access health informa tion online - Detail Indication:Witnessed apneic spells Start:01-May-2016 Instruction Type:Patient Education How to access health informa tion online Indication:Gastroesophageal reflux disease without esophagitis Start:13-Dec-2015 Instruction Type:Patient Education How to access health informa tion online - Detail Indication:Gastroesophageal reflux disease without esophagitis Start:13-Dec-2015 Instruction Type:Patient Education Patient Instructions Indication:Gastroesophageal reflux disease without esophagitis Start:13-Dec-2015 Instruction Type:Provider Instructions for Treatment Patient Instructions Indication:Other and unspecified hyperlipidemia Start:21-Dec-2014 Instruction Type:Provider Instructions for Treatment Patient Instructions Indication:Cough Start:03-Nov-2013 Instruction Type:Provider Instructions for Treatment Patient Instructions Indication:Encounter for routine history and physical exam for male Start:27-Oct-2013 Instruction Type:Provider Instructions for Treatment Patient Instructions Indication:Gastroesophageal reflux disease without esophagitis Start:15-Sep-2013 Instruction Type:Provider Instructions for Treatment Patient Instructions Indication:Anxiety Start:05-Aug-2012 Instruction Type:Provider Instructions for Treatment Name Dates Details How to access health informa tion online Indication:Non-smoker Start:06-Mar-2019 Instruction Type:Patient Education How to access health informa tion online - Detail Indication:Non-smoker Start:06-Mar-2019 Instruction Type:Patient Education Patient Instructions Indication:Non-smoker Start:06-Mar-2019 Instruction Type:Provider Instructions for Treatment How to access health informa tion online Indication:BMI 29.0-29.9,adult Start:31-Dec-2018 Instruction Type:Patient Education How to access health informa tion online - Detail Indication:BMI 29.0-29.9,adult Start:31-Dec-2018 Instruction Type:Patient Education Patient Instructions Indication:BMI 29.0-29.9,adult Start:31-Dec-2018 Instruction Type:Provider Instructions for Treatment How to access health informa tion online Indication:Non-smoker Start:15-Aug-2018 Instruction Type:Patient Education How to access health informa tion online - Detail Indication:Non-smoker Start:15-Aug-2018 Instruction Type:Patient Education Patient Instructions Indication:Non-smoker Start:15-Aug-2018 Instruction Type:Provider Instructions for Treatment How to access health informa tion online Indication:BMI 29.0-29.9,adult Start:29-Jul-2018 Instruction Type:Patient Education How to access health informa tion online - Detail Indication:BMI 29.0-29.9,adult Start:29-Jul-2018 Instruction Type:Patient Education Patient Instructions Indication:BMI 29.0-29.9,adult Start:29-Jul-2018 Instruction Type:Provider Instructions for Treatment How to access health informa tion online Indication:BMI 28.0-28.9,adult Start:28-Mar-2018 Instruction Type:Patient Education How to access health informa tion online - Detail Indication:BMI 28.0-28.9,adult Start:28-Mar-2018 Instruction Type:Patient Education Patient Instructions Indication:BMI 28.0-28.9,adult Start:28-Mar-2018 Instruction Type:Provider Instructions for Treatment How to access health informa tion online Indication:BMI 30.0-30.9,adult Start:22-Feb-2018 Instruction Type:Patient Education How to access health informa tion online - Detail Indication:BMI 30.0-30.9,adult Start:22-Feb-2018 Instruction Type:Patient Education Patient Instructions Indication:BMI 30.0-30.9,adult Start:22-Feb-2018 Instruction Type:Provider Instructions for Treatment How to access health informa tion online Indication:Elevated blood pressure reading Start:01-Feb-2018 Instruction Type:Patient Education How to access health informa tion online - Detail Indication:Elevated blood pressure reading Start:01-Feb-2018 Instruction Type:Patient Education Patient Instructions Indication:Elevated blood pressure reading Start:01-Feb-2018 Instruction Type:Provider Instructions for Treatment How to access health informa tion online Indication:BMI 30.0-30.9,adult Start:04-Jan-2018 Instruction Type:Patient Education How to access health informa tion online - Detail Indication:BMI 30.0-30.9,adult Start:04-Jan-2018 Instruction Type:Patient Education Patient Instructions Indication:BMI 30.0-30.9,adult Start:04-Jan-2018 Instruction Type:Provider Instructions for Treatment How to access health informa tion online Indication:Current nonsmoker Start:17-Dec-2017 Instruction Type:Patient Education How to access health informa tion online - Detail Indication:Current nonsmoker Start:17-Dec-2017 Instruction Type:Patient Education Patient Instructions Indication:Current nonsmoker Start:17-Dec-2017 Instruction Type:Provider Instructions for Treatment How to access health informa tion online Indication:Current nonsmoker Start:12-Dec-2017 Instruction Type:Patient Education How to access health informa tion online - Detail Indication:Current nonsmoker Start:12-Dec-2017 Instruction Type:Patient Education Patient Instructions Indication:Current nonsmoker Start:12-Dec-2017 Instruction Type:Provider Instructions for Treatment How to access health informa tion online Indication:Current nonsmoker Start:09-Nov-2016 Instruction Type:Patient Education How to access health informa tion online - Detail Indication:Current nonsmoker Start:09-Nov-2016 Instruction Type:Patient Education Patient Instructions Indication:Current nonsmoker Start:09-Nov-2016 Instruction Type:Provider Instructions for Treatment How to access health informa tion online Indication:Nasal congestion Start:05-Oct-2016 Instruction Type:Patient Education How to access health informa tion online - Detail Indication:Nasal congestion Start:05-Oct-2016 Instruction Type:Patient Education Patient Instructions Indication:Nasal congestion Start:05-Oct-2016 Instruction Type:Provider Instructions for Treatment How to access health informa tion online Indication:Witnessed apneic spells Start:01-May-2016 Instruction Type:Patient Education How to access health informa tion online - Detail Indication:Witnessed apneic spells Start:01-May-2016 Instruction Type:Patient Education How to access health informa tion online Indication:Gastroesophageal reflux disease without esophagitis Start:13-Dec-2015 Instruction Type:Patient Education How to access health informa tion online - Detail Indication:Gastroesophageal reflux disease without esophagitis Start:13-Dec-2015 Instruction Type:Patient Education Patient Instructions Indication:Gastroesophageal reflux disease without esophagitis Start:13-Dec-2015 Instruction Type:Provider Instructions for Treatment Patient Instructions Indication:Other and unspecified hyperlipidemia Start:21-Dec-2014 Instruction Type:Provider Instructions for Treatment Patient Instructions Indication:Cough Start:03-Nov-2013 Instruction Type:Provider Instructions for Treatment Patient Instructions Indication:Encounter for routine history and physical exam for male Start:27-Oct-2013 Instruction Type:Provider Instructions for Treatment Patient Instructions Indication:Gastroesophageal reflux disease without esophagitis Start:15-Sep-2013 Instruction Type:Provider Instructions for Treatment Patient Instructions Indication:Anxiety Start:05-Aug-2012 Instruction Type:Provider Instructions for Treatment Name Dates Details How to access health informa tion online Indication:Non-smoker Start:20-Mar-2019 Instruction Type:Patient Education How to access health informa tion online - Detail Indication:Non-smoker Start:20-Mar-2019 Instruction Type:Patient Education Patient Instructions Indication:Non-smoker Start:20-Mar-2019 Instruction Type:Provider Instructions for Treatment How to access health informa tion online Indication:Non-smoker Start:06-Mar-2019 Instruction Type:Patient Education How to access health informa tion online - Detail Indication:Non-smoker Start:06-Mar-2019 Instruction Type:Patient Education Patient Instructions Indication:Non-smoker Start:06-Mar-2019 Instruction Type:Provider Instructions for Treatment How to access health informa tion online Indication:BMI 29.0-29.9,adult Start:31-Dec-2018 Instruction Type:Patient Education How to access health informa tion online - Detail Indication:BMI 29.0-29.9,adult Start:31-Dec-2018 Instruction Type:Patient Education Patient Instructions Indication:BMI 29.0-29.9,adult Start:31-Dec-2018 Instruction Type:Provider Instructions for Treatment How to access health informa tion online Indication:Non-smoker Start:15-Aug-2018 Instruction Type:Patient Education How to access health informa tion online - Detail Indication:Non-smoker Start:15-Aug-2018 Instruction Type:Patient Education Patient Instructions Indication:Non-smoker Start:15-Aug-2018 Instruction Type:Provider Instructions for Treatment How to access health informa tion online Indication:BMI 29.0-29.9,adult Start:29-Jul-2018 Instruction Type:Patient Education How to access health informa tion online - Detail Indication:BMI 29.0-29.9,adult Start:29-Jul-2018 Instruction Type:Patient Education Patient Instructions Indication:BMI 29.0-29.9,adult Start:29-Jul-2018 Instruction Type:Provider Instructions for Treatment How to access health informa tion online Indication:BMI 28.0-28.9,adult Start:28-Mar-2018 Instruction Type:Patient Education How to access health informa tion online - Detail Indication:BMI 28.0-28.9,adult Start:28-Mar-2018 Instruction Type:Patient Education Patient Instructions Indication:BMI 28.0-28.9,adult Start:28-Mar-2018 Instruction Type:Provider Instructions for Treatment How to access health informa tion online Indication:BMI 30.0-30.9,adult Start:22-Feb-2018 Instruction Type:Patient Education How to access health informa tion online - Detail Indication:BMI 30.0-30.9,adult Start:22-Feb-2018 Instruction Type:Patient Education Patient Instructions Indication:BMI 30.0-30.9,adult Start:22-Feb-2018 Instruction Type:Provider Instructions for Treatment How to access health informa tion online Indication:Elevated blood pressure reading Start:01-Feb-2018 Instruction Type:Patient Education How to access health informa tion online - Detail Indication:Elevated blood pressure reading Start:01-Feb-2018 Instruction Type:Patient Education Patient Instructions Indication:Elevated blood pressure reading Start:01-Feb-2018 Instruction Type:Provider Instructions for Treatment How to access health informa tion online Indication:BMI 30.0-30.9,adult Start:04-Jan-2018 Instruction Type:Patient Education How to access health informa tion online - Detail Indication:BMI 30.0-30.9,adult Start:04-Jan-2018 Instruction Type:Patient Education Patient Instructions Indication:BMI 30.0-30.9,adult Start:04-Jan-2018 Instruction Type:Provider Instructions for Treatment How to access health informa tion online Indication:Current nonsmoker Start:17-Dec-2017 Instruction Type:Patient Education How to access health informa tion online - Detail Indication:Current nonsmoker Start:17-Dec-2017 Instruction Type:Patient Education Patient Instructions Indication:Current nonsmoker Start:17-Dec-2017 Instruction Type:Provider Instructions for Treatment How to access health informa tion online Indication:Current nonsmoker Start:12-Dec-2017 Instruction Type:Patient Education How to access health informa tion online - Detail Indication:Current nonsmoker Start:12-Dec-2017 Instruction Type:Patient Education Patient Instructions Indication:Current nonsmoker Start:12-Dec-2017 Instruction Type:Provider Instructions for Treatment How to access health informa tion online Indication:Current nonsmoker Start:09-Nov-2016 Instruction Type:Patient Education How to access health informa tion online - Detail Indication:Current nonsmoker Start:09-Nov-2016 Instruction Type:Patient Education Patient Instructions Indication:Current nonsmoker Start:09-Nov-2016 Instruction Type:Provider Instructions for Treatment How to access health informa tion online Indication:Nasal congestion Start:05-Oct-2016 Instruction Type:Patient Education How to access health informa tion online - Detail Indication:Nasal congestion Start:05-Oct-2016 Instruction Type:Patient Education Patient Instructions Indication:Nasal congestion Start:05-Oct-2016 Instruction Type:Provider Instructions for Treatment How to access health informa tion online Indication:Witnessed apneic spells Start:01-May-2016 Instruction Type:Patient Education How to access health informa tion online - Detail Indication:Witnessed apneic spells Start:01-May-2016 Instruction Type:Patient Education How to access health informa tion online Indication:Gastroesophageal reflux disease without esophagitis Start:13-Dec-2015 Instruction Type:Patient Education How to access health informa tion online - Detail Indication:Gastroesophageal reflux disease without esophagitis Start:13-Dec-2015 Instruction Type:Patient Education Patient Instructions Indication:Gastroesophageal reflux disease without esophagitis Start:13-Dec-2015 Instruction Type:Provider Instructions for Treatment Patient Instructions Indication:Other and unspecified hyperlipidemia Start:21-Dec-2014 Instruction Type:Provider Instructions for Treatment Patient Instructions Indication:Cough Start:03-Nov-2013 Instruction Type:Provider Instructions for Treatment Patient Instructions Indication:Encounter for routine history and physical exam for male Start:27-Oct-2013 Instruction Type:Provider Instructions for Treatment Patient Instructions Indication:Gastroesophageal reflux disease without esophagitis Start:15-Sep-2013 Instruction Type:Provider Instructions for Treatment Patient Instructions Indication:Anxiety Start:05-Aug-2012 Instruction Type:Provider Instructions for Treatment Name Dates Details How to access health informa tion online Indication:Sinusitis, bacterial Start:21-Aug-2019 Instruction Type:Patient Education How to access health informa tion online - Detail Indication:Sinusitis, bacterial Start:21-Aug-2019 Instruction Type:Patient Education Patient Instructions Indication:Sinusitis, bacterial Start:21-Aug-2019 Instruction Type:Provider Instructions for Treatment How to access health informa tion online Indication:Non-smoker Start:20-Mar-2019 Instruction Type:Patient Education How to access health informa tion online - Detail Indication:Non-smoker Start:20-Mar-2019 Instruction Type:Patient Education Patient Instructions Indication:Non-smoker Start:20-Mar-2019 Instruction Type:Provider Instructions for Treatment How to access health informa tion online Indication:Non-smoker Start:06-Mar-2019 Instruction Type:Patient Education How to access health informa tion online - Detail Indication:Non-smoker Start:06-Mar-2019 Instruction Type:Patient Education Patient Instructions Indication:Non-smoker Start:06-Mar-2019 Instruction Type:Provider Instructions for Treatment How to access health informa tion online Indication:BMI 29.0-29.9,adult Start:31-Dec-2018 Instruction Type:Patient Education How to access health informa tion online - Detail Indication:BMI 29.0-29.9,adult Start:31-Dec-2018 Instruction Type:Patient Education Patient Instructions Indication:BMI 29.0-29.9,adult Start:31-Dec-2018 Instruction Type:Provider Instructions for Treatment How to access health informa tion online Indication:Non-smoker Start:15-Aug-2018 Instruction Type:Patient Education How to access health informa tion online - Detail Indication:Non-smoker Start:15-Aug-2018 Instruction Type:Patient Education Patient Instructions Indication:Non-smoker Start:15-Aug-2018 Instruction Type:Provider Instructions for Treatment How to access health informa tion online Indication:BMI 29.0-29.9,adult Start:29-Jul-2018 Instruction Type:Patient Education How to access health informa tion online - Detail Indication:BMI 29.0-29.9,adult Start:29-Jul-2018 Instruction Type:Patient Education Patient Instructions Indication:BMI 29.0-29.9,adult Start:29-Jul-2018 Instruction Type:Provider Instructions for Treatment How to access health informa tion online Indication:BMI 28.0-28.9,adult Start:28-Mar-2018 Instruction Type:Patient Education How to access health informa tion online - Detail Indication:BMI 28.0-28.9,adult Start:28-Mar-2018 Instruction Type:Patient Education Patient Instructions Indication:BMI 28.0-28.9,adult Start:28-Mar-2018 Instruction Type:Provider Instructions for Treatment How to access health informa tion online Indication:BMI 30.0-30.9,adult Start:22-Feb-2018 Instruction Type:Patient Education How to access health informa tion online - Detail Indication:BMI 30.0-30.9,adult Start:22-Feb-2018 Instruction Type:Patient Education Patient Instructions Indication:BMI 30.0-30.9,adult Start:22-Feb-2018 Instruction Type:Provider Instructions for Treatment How to access health informa tion online Indication:Elevated blood pressure reading Start:01-Feb-2018 Instruction Type:Patient Education How to access health informa tion online - Detail Indication:Elevated blood pressure reading Start:01-Feb-2018 Instruction Type:Patient Education Patient Instructions Indication:Elevated blood pressure reading Start:01-Feb-2018 Instruction Type:Provider Instructions for Treatment How to access health informa tion online Indication:BMI 30.0-30.9,adult Start:04-Jan-2018 Instruction Type:Patient Education How to access health informa tion online - Detail Indication:BMI 30.0-30.9,adult Start:04-Jan-2018 Instruction Type:Patient Education Patient Instructions Indication:BMI 30.0-30.9,adult Start:04-Jan-2018 Instruction Type:Provider Instructions for Treatment How to access health informa tion online Indication:Current nonsmoker Start:17-Dec-2017 Instruction Type:Patient Education How to access health informa tion online - Detail Indication:Current nonsmoker Start:17-Dec-2017 Instruction Type:Patient Education Patient Instructions Indication:Current nonsmoker Start:17-Dec-2017 Instruction Type:Provider Instructions for Treatment How to access health informa tion online Indication:Current nonsmoker Start:12-Dec-2017 Instruction Type:Patient Education How to access health informa tion online - Detail Indication:Current nonsmoker Start:12-Dec-2017 Instruction Type:Patient Education Patient Instructions Indication:Current nonsmoker Start:12-Dec-2017 Instruction Type:Provider Instructions for Treatment How to access health informa tion online Indication:Current nonsmoker Start:09-Nov-2016 Instruction Type:Patient Education How to access health informa tion online - Detail Indication:Current nonsmoker Start:09-Nov-2016 Instruction Type:Patient Education Patient Instructions Indication:Current nonsmoker Start:09-Nov-2016 Instruction Type:Provider Instructions for Treatment How to access health informa tion online Indication:Nasal congestion Start:05-Oct-2016 Instruction Type:Patient Education How to access health informa tion online - Detail Indication:Nasal congestion Start:05-Oct-2016 Instruction Type:Patient Education Patient Instructions Indication:Nasal congestion Start:05-Oct-2016 Instruction Type:Provider Instructions for Treatment How to access health informa tion online Indication:Witnessed apneic spells Start:01-May-2016 Instruction Type:Patient Education How to access health informa tion online - Detail Indication:Witnessed apneic spells Start:01-May-2016 Instruction Type:Patient Education How to access health informa tion online Indication:Gastroesophageal reflux disease without esophagitis Start:13-Dec-2015 Instruction Type:Patient Education How to access health informa tion online - Detail Indication:Gastroesophageal reflux disease without esophagitis Start:13-Dec-2015 Instruction Type:Patient Education Patient Instructions Indication:Gastroesophageal reflux disease without esophagitis Start:13-Dec-2015 Instruction Type:Provider Instructions for Treatment Patient Instructions Indication:Other and unspecified hyperlipidemia Start:21-Dec-2014 Instruction Type:Provider Instructions for Treatment Patient Instructions Indication:Cough Start:03-Nov-2013 Instruction Type:Provider Instructions for Treatment Patient Instructions Indication:Encounter for routine history and physical exam for male Start:27-Oct-2013 Instruction Type:Provider Instructions for Treatment Patient Instructions Indication:Gastroesophageal reflux disease without esophagitis Start:15-Sep-2013 Instruction Type:Provider Instructions for Treatment Patient Instructions Indication:Anxiety Start:05-Aug-2012 Instruction Type:Provider Instructions for Treatment Name Dates Details How to access health informa tion online Indication:BMI 27.0-27.9,adult Start:02-Aug-2020 Instruction Type:Patient Education How to access health informa tion online - Detail Indication:BMI 27.0-27.9,adult Start:02-Aug-2020 Instruction Type:Patient Education Patient Instructions Indication:BMI 27.0-27.9,adult Start:02-Aug-2020 Instruction Type:Provider Instructions for Treatment How to access health informa tion online Indication:Non-smoker Start:22-Sep-2019 Instruction Type:Patient Education How to access health informa tion online - Detail Indication:Non-smoker Start:22-Sep-2019 Instruction Type:Patient Education Patient Instructions Indication:Non-smoker Start:22-Sep-2019 Instruction Type:Provider Instructions for Treatment How to access health informa tion online Indication:Sinusitis, bacterial Start:21-Aug-2019 Instruction Type:Patient Education How to access health informa tion online - Detail Indication:Sinusitis, bacterial Start:21-Aug-2019 Instruction Type:Patient Education Patient Instructions Indication:Sinusitis, bacterial Start:21-Aug-2019 Instruction Type:Provider Instructions for Treatment How to access health informa tion online Indication:Non-smoker Start:20-Mar-2019 Instruction Type:Patient Education How to access health informa tion online - Detail Indication:Non-smoker Start:20-Mar-2019 Instruction Type:Patient Education Patient Instructions Indication:Non-smoker Start:20-Mar-2019 Instruction Type:Provider Instructions for Treatment How to access health informa tion online Indication:Non-smoker Start:06-Mar-2019 Instruction Type:Patient Education How to access health informa tion online - Detail Indication:Non-smoker Start:06-Mar-2019 Instruction Type:Patient Education Patient Instructions Indication:Non-smoker Start:06-Mar-2019 Instruction Type:Provider Instructions for Treatment How to access health informa tion online Indication:BMI 29.0-29.9,adult Start:31-Dec-2018 Instruction Type:Patient Education How to access health informa tion online - Detail Indication:BMI 29.0-29.9,adult Start:31-Dec-2018 Instruction Type:Patient Education Patient Instructions Indication:BMI 29.0-29.9,adult Start:31-Dec-2018 Instruction Type:Provider Instructions for Treatment How to access health informa tion online Indication:Non-smoker Start:15-Aug-2018 Instruction Type:Patient Education How to access health informa tion online - Detail Indication:Non-smoker Start:15-Aug-2018 Instruction Type:Patient Education Patient Instructions Indication:Non-smoker Start:15-Aug-2018 Instruction Type:Provider Instructions for Treatment How to access health informa tion online Indication:BMI 29.0-29.9,adult Start:29-Jul-2018 Instruction Type:Patient Education How to access health informa tion online - Detail Indication:BMI 29.0-29.9,adult Start:29-Jul-2018 Instruction Type:Patient Education Patient Instructions Indication:BMI 29.0-29.9,adult Start:29-Jul-2018 Instruction Type:Provider Instructions for Treatment How to access health informa tion online Indication:BMI 28.0-28.9,adult Start:28-Mar-2018 Instruction Type:Patient Education How to access health informa tion online - Detail Indication:BMI 28.0-28.9,adult Start:28-Mar-2018 Instruction Type:Patient Education Patient Instructions Indication:BMI 28.0-28.9,adult Start:28-Mar-2018 Instruction Type:Provider Instructions for Treatment How to access health informa tion online Indication:BMI 30.0-30.9,adult Start:22-Feb-2018 Instruction Type:Patient Education How to access health informa tion online - Detail Indication:BMI 30.0-30.9,adult Start:22-Feb-2018 Instruction Type:Patient Education Patient Instructions Indication:BMI 30.0-30.9,adult Start:22-Feb-2018 Instruction Type:Provider Instructions for Treatment How to access health informa tion online Indication:Elevated blood pressure reading Start:01-Feb-2018 Instruction Type:Patient Education How to access health informa tion online - Detail Indication:Elevated blood pressure reading Start:01-Feb-2018 Instruction Type:Patient Education Patient Instructions Indication:Elevated blood pressure reading Start:01-Feb-2018 Instruction Type:Provider Instructions for Treatment How to access health informa tion online Indication:BMI 30.0-30.9,adult Start:04-Jan-2018 Instruction Type:Patient Education How to access health informa tion online - Detail Indication:BMI 30.0-30.9,adult Start:04-Jan-2018 Instruction Type:Patient Education Patient Instructions Indication:BMI 30.0-30.9,adult Start:04-Jan-2018 Instruction Type:Provider Instructions for Treatment How to access health informa tion online Indication:Current nonsmoker Start:17-Dec-2017 Instruction Type:Patient Education How to access health informa tion online - Detail Indication:Current nonsmoker Start:17-Dec-2017 Instruction Type:Patient Education Patient Instructions Indication:Current nonsmoker Start:17-Dec-2017 Instruction Type:Provider Instructions for Treatment How to access health informa tion online Indication:Current nonsmoker Start:12-Dec-2017 Instruction Type:Patient Education How to access health informa tion online - Detail Indication:Current nonsmoker Start:12-Dec-2017 Instruction Type:Patient Education Patient Instructions Indication:Current nonsmoker Start:12-Dec-2017 Instruction Type:Provider Instructions for Treatment How to access health informa tion online Indication:Current nonsmoker Start:09-Nov-2016 Instruction Type:Patient Education How to access health informa tion online - Detail Indication:Current nonsmoker Start:09-Nov-2016 Instruction Type:Patient Education Patient Instructions Indication:Current nonsmoker Start:09-Nov-2016 Instruction Type:Provider Instructions for Treatment How to access health informa tion online Indication:Nasal congestion Start:05-Oct-2016 Instruction Type:Patient Education How to access health informa tion online - Detail Indication:Nasal congestion Start:05-Oct-2016 Instruction Type:Patient Education Patient Instructions Indication:Nasal congestion Start:05-Oct-2016 Instruction Type:Provider Instructions for Treatment How to access health informa tion online Indication:Witnessed apneic spells Start:01-May-2016 Instruction Type:Patient Education How to access health informa tion online - Detail Indication:Witnessed apneic spells Start:01-May-2016 Instruction Type:Patient Education How to access health informa tion online Indication:Gastroesophageal reflux disease without esophagitis Start:13-Dec-2015 Instruction Type:Patient Education How to access health informa tion online - Detail Indication:Gastroesophageal reflux disease without esophagitis Start:13-Dec-2015 Instruction Type:Patient Education Patient Instructions Indication:Gastroesophageal reflux disease without esophagitis Start:13-Dec-2015 Instruction Type:Provider Instructions for Treatment Patient Instructions Indication:Other and unspecified hyperlipidemia Start:21-Dec-2014 Instruction Type:Provider Instructions for Treatment Patient Instructions Indication:Cough Start:03-Nov-2013 Instruction Type:Provider Instructions for Treatment Patient Instructions Indication:Encounter for routine history and physical exam for male Start:27-Oct-2013 Instruction Type:Provider Instructions for Treatment Patient Instructions Indication:Gastroesophageal reflux disease without esophagitis Start:15-Sep-2013 Instruction Type:Provider Instructions for Treatment Patient Instructions Indication:Anxiety Start:05-Aug-2012 Instruction Type:Provider Instructions for Treatment Name Dates Details How to access health informa tion online Indication:BMI 27.0-27.9,adult Start:02-Aug-2020 Instruction Type:Patient Education How to access health informa tion online - Detail Indication:BMI 27.0-27.9,adult Start:02-Aug-2020 Instruction Type:Patient Education Patient Instructions Indication:BMI 27.0-27.9,adult Start:02-Aug-2020 Instruction Type:Provider Instructions for Treatment How to access health informa tion online Indication:Non-smoker Start:22-Sep-2019 Instruction Type:Patient Education How to access health informa tion online - Detail Indication:Non-smoker Start:22-Sep-2019 Instruction Type:Patient Education Patient Instructions Indication:Non-smoker Start:22-Sep-2019 Instruction Type:Provider Instructions for Treatment How to access health informa tion online Indication:Sinusitis, bacterial Start:21-Aug-2019 Instruction Type:Patient Education How to access health informa tion online - Detail Indication:Sinusitis, bacterial Start:21-Aug-2019 Instruction Type:Patient Education Patient Instructions Indication:Sinusitis, bacterial Start:21-Aug-2019 Instruction Type:Provider Instructions for Treatment How to access health informa tion online Indication:Non-smoker Start:20-Mar-2019 Instruction Type:Patient Education How to access health informa tion online - Detail Indication:Non-smoker Start:20-Mar-2019 Instruction Type:Patient Education Patient Instructions Indication:Non-smoker Start:20-Mar-2019 Instruction Type:Provider Instructions for Treatment How to access health informa tion online Indication:Non-smoker Start:06-Mar-2019 Instruction Type:Patient Education How to access health informa tion online - Detail Indication:Non-smoker Start:06-Mar-2019 Instruction Type:Patient Education Patient Instructions Indication:Non-smoker Start:06-Mar-2019 Instruction Type:Provider Instructions for Treatment How to access health informa tion online Indication:BMI 29.0-29.9,adult Start:31-Dec-2018 Instruction Type:Patient Education How to access health informa tion online - Detail Indication:BMI 29.0-29.9,adult Start:31-Dec-2018 Instruction Type:Patient Education Patient Instructions Indication:BMI 29.0-29.9,adult Start:31-Dec-2018 Instruction Type:Provider Instructions for Treatment How to access health informa tion online Indication:Non-smoker Start:15-Aug-2018 Instruction Type:Patient Education How to access health informa tion online - Detail Indication:Non-smoker Start:15-Aug-2018 Instruction Type:Patient Education Patient Instructions Indication:Non-smoker Start:15-Aug-2018 Instruction Type:Provider Instructions for Treatment How to access health informa tion online Indication:BMI 29.0-29.9,adult Start:29-Jul-2018 Instruction Type:Patient Education How to access health informa tion online - Detail Indication:BMI 29.0-29.9,adult Start:29-Jul-2018 Instruction Type:Patient Education Patient Instructions Indication:BMI 29.0-29.9,adult Start:29-Jul-2018 Instruction Type:Provider Instructions for Treatment How to access health informa tion online Indication:BMI 28.0-28.9,adult Start:28-Mar-2018 Instruction Type:Patient Education How to access health informa tion online - Detail Indication:BMI 28.0-28.9,adult Start:28-Mar-2018 Instruction Type:Patient Education Patient Instructions Indication:BMI 28.0-28.9,adult Start:28-Mar-2018 Instruction Type:Provider Instructions for Treatment How to access health informa tion online Indication:BMI 30.0-30.9,adult Start:22-Feb-2018 Instruction Type:Patient Education How to access health informa tion online - Detail Indication:BMI 30.0-30.9,adult Start:22-Feb-2018 Instruction Type:Patient Education Patient Instructions Indication:BMI 30.0-30.9,adult Start:22-Feb-2018 Instruction Type:Provider Instructions for Treatment How to access health informa tion online Indication:Elevated blood pressure reading Start:01-Feb-2018 Instruction Type:Patient Education How to access health informa tion online - Detail Indication:Elevated blood pressure reading Start:01-Feb-2018 Instruction Type:Patient Education Patient Instructions Indication:Elevated blood pressure reading Start:01-Feb-2018 Instruction Type:Provider Instructions for Treatment How to access health informa tion online Indication:BMI 30.0-30.9,adult Start:04-Jan-2018 Instruction Type:Patient Education How to access health informa tion online - Detail Indication:BMI 30.0-30.9,adult Start:04-Jan-2018 Instruction Type:Patient Education Patient Instructions Indication:BMI 30.0-30.9,adult Start:04-Jan-2018 Instruction Type:Provider Instructions for Treatment How to access health informa tion online Indication:Current nonsmoker Start:17-Dec-2017 Instruction Type:Patient Education How to access health informa tion online - Detail Indication:Current nonsmoker Start:17-Dec-2017 Instruction Type:Patient Education Patient Instructions Indication:Current nonsmoker Start:17-Dec-2017 Instruction Type:Provider Instructions for Treatment How to access health informa tion online Indication:Current nonsmoker Start:12-Dec-2017 Instruction Type:Patient Education How to access health informa tion online - Detail Indication:Current nonsmoker Start:12-Dec-2017 Instruction Type:Patient Education Patient Instructions Indication:Current nonsmoker Start:12-Dec-2017 Instruction Type:Provider Instructions for Treatment How to access health informa tion online Indication:Current nonsmoker Start:09-Nov-2016 Instruction Type:Patient Education How to access health informa tion online - Detail Indication:Current nonsmoker Start:09-Nov-2016 Instruction Type:Patient Education Patient Instructions Indication:Current nonsmoker Start:09-Nov-2016 Instruction Type:Provider Instructions for Treatment How to access health informa tion online Indication:Nasal congestion Start:05-Oct-2016 Instruction Type:Patient Education How to access health informa tion online - Detail Indication:Nasal congestion Start:05-Oct-2016 Instruction Type:Patient Education Patient Instructions Indication:Nasal congestion Start:05-Oct-2016 Instruction Type:Provider Instructions for Treatment How to access health informa tion online Indication:Witnessed apneic spells Start:01-May-2016 Instruction Type:Patient Education How to access health informa tion online - Detail Indication:Witnessed apneic spells Start:01-May-2016 Instruction Type:Patient Education How to access health informa tion online Indication:Gastroesophageal reflux disease without esophagitis Start:13-Dec-2015 Instruction Type:Patient Education How to access health informa tion online - Detail Indication:Gastroesophageal reflux disease without esophagitis Start:13-Dec-2015 Instruction Type:Patient Education Patient Instructions Indication:Gastroesophageal reflux disease without esophagitis Start:13-Dec-2015 Instruction Type:Provider Instructions for Treatment Patient Instructions Indication:Other and unspecified hyperlipidemia Start:21-Dec-2014 Instruction Type:Provider Instructions for Treatment Patient Instructions Indication:Cough Start:03-Nov-2013 Instruction Type:Provider Instructions for Treatment Patient Instructions Indication:Encounter for routine history and physical exam for male Start:27-Oct-2013 Instruction Type:Provider Instructions for Treatment Patient Instructions Indication:Gastroesophageal reflux disease without esophagitis Start:15-Sep-2013 Instruction Type:Provider Instructions for Treatment Patient Instructions Indication:Anxiety Start:05-Aug-2012 Instruction Type:Provider Instructions for Treatment Name Dates Details How to access health informa tion online Indication:BMI 27.0-27.9,adult Start:02-Aug-2020 Instruction Type:Patient Education How to access health informa tion online - Detail Indication:BMI 27.0-27.9,adult Start:02-Aug-2020 Instruction Type:Patient Education Patient Instructions Indication:BMI 27.0-27.9,adult Start:02-Aug-2020 Instruction Type:Provider Instructions for Treatment How to access health informa tion online Indication:Non-smoker Start:22-Sep-2019 Instruction Type:Patient Education How to access health informa tion online - Detail Indication:Non-smoker Start:22-Sep-2019 Instruction Type:Patient Education Patient Instructions Indication:Non-smoker Start:22-Sep-2019 Instruction Type:Provider Instructions for Treatment How to access health informa tion online Indication:Sinusitis, bacterial Start:21-Aug-2019 Instruction Type:Patient Education How to access health informa tion online - Detail Indication:Sinusitis, bacterial Start:21-Aug-2019 Instruction Type:Patient Education Patient Instructions Indication:Sinusitis, bacterial Start:21-Aug-2019 Instruction Type:Provider Instructions for Treatment How to access health informa tion online Indication:Non-smoker Start:20-Mar-2019 Instruction Type:Patient Education How to access health informa tion online - Detail Indication:Non-smoker Start:20-Mar-2019 Instruction Type:Patient Education Patient Instructions Indication:Non-smoker Start:20-Mar-2019 Instruction Type:Provider Instructions for Treatment How to access health informa tion online Indication:Non-smoker Start:06-Mar-2019 Instruction Type:Patient Education How to access health informa tion online - Detail Indication:Non-smoker Start:06-Mar-2019 Instruction Type:Patient Education Patient Instructions Indication:Non-smoker Start:06-Mar-2019 Instruction Type:Provider Instructions for Treatment How to access health informa tion online Indication:BMI 29.0-29.9,adult Start:31-Dec-2018 Instruction Type:Patient Education How to access health informa tion online - Detail Indication:BMI 29.0-29.9,adult Start:31-Dec-2018 Instruction Type:Patient Education Patient Instructions Indication:BMI 29.0-29.9,adult Start:31-Dec-2018 Instruction Type:Provider Instructions for Treatment How to access health informa tion online Indication:Non-smoker Start:15-Aug-2018 Instruction Type:Patient Education How to access health informa tion online - Detail Indication:Non-smoker Start:15-Aug-2018 Instruction Type:Patient Education Patient Instructions Indication:Non-smoker Start:15-Aug-2018 Instruction Type:Provider Instructions for Treatment How to access health informa tion online Indication:BMI 29.0-29.9,adult Start:29-Jul-2018 Instruction Type:Patient Education How to access health informa tion online - Detail Indication:BMI 29.0-29.9,adult Start:29-Jul-2018 Instruction Type:Patient Education Patient Instructions Indication:BMI 29.0-29.9,adult Start:29-Jul-2018 Instruction Type:Provider Instructions for Treatment How to access health informa tion online Indication:BMI 28.0-28.9,adult Start:28-Mar-2018 Instruction Type:Patient Education How to access health informa tion online - Detail Indication:BMI 28.0-28.9,adult Start:28-Mar-2018 Instruction Type:Patient Education Patient Instructions Indication:BMI 28.0-28.9,adult Start:28-Mar-2018 Instruction Type:Provider Instructions for Treatment How to access health informa tion online Indication:BMI 30.0-30.9,adult Start:22-Feb-2018 Instruction Type:Patient Education How to access health informa tion online - Detail Indication:BMI 30.0-30.9,adult Start:22-Feb-2018 Instruction Type:Patient Education Patient Instructions Indication:BMI 30.0-30.9,adult Start:22-Feb-2018 Instruction Type:Provider Instructions for Treatment How to access health informa tion online Indication:Elevated blood pressure reading Start:01-Feb-2018 Instruction Type:Patient Education How to access health informa tion online - Detail Indication:Elevated blood pressure reading Start:01-Feb-2018 Instruction Type:Patient Education Patient Instructions Indication:Elevated blood pressure reading Start:01-Feb-2018 Instruction Type:Provider Instructions for Treatment How to access health informa tion online Indication:BMI 30.0-30.9,adult Start:04-Jan-2018 Instruction Type:Patient Education How to access health informa tion online - Detail Indication:BMI 30.0-30.9,adult Start:04-Jan-2018 Instruction Type:Patient Education Patient Instructions Indication:BMI 30.0-30.9,adult Start:04-Jan-2018 Instruction Type:Provider Instructions for Treatment How to access health informa tion online Indication:Current nonsmoker Start:17-Dec-2017 Instruction Type:Patient Education How to access health informa tion online - Detail Indication:Current nonsmoker Start:17-Dec-2017 Instruction Type:Patient Education Patient Instructions Indication:Current nonsmoker Start:17-Dec-2017 Instruction Type:Provider Instructions for Treatment How to access health informa tion online Indication:Current nonsmoker Start:12-Dec-2017 Instruction Type:Patient Education How to access health informa tion online - Detail Indication:Current nonsmoker Start:12-Dec-2017 Instruction Type:Patient Education Patient Instructions Indication:Current nonsmoker Start:12-Dec-2017 Instruction Type:Provider Instructions for Treatment How to access health informa tion online Indication:Current nonsmoker Start:09-Nov-2016 Instruction Type:Patient Education How to access health informa tion online - Detail Indication:Current nonsmoker Start:09-Nov-2016 Instruction Type:Patient Education Patient Instructions Indication:Current nonsmoker Start:09-Nov-2016 Instruction Type:Provider Instructions for Treatment How to access health informa tion online Indication:Nasal congestion Start:05-Oct-2016 Instruction Type:Patient Education How to access health informa tion online - Detail Indication:Nasal congestion Start:05-Oct-2016 Instruction Type:Patient Education Patient Instructions Indication:Nasal congestion Start:05-Oct-2016 Instruction Type:Provider Instructions for Treatment How to access health informa tion online Indication:Witnessed apneic spells Start:01-May-2016 Instruction Type:Patient Education How to access health informa tion online - Detail Indication:Witnessed apneic spells Start:01-May-2016 Instruction Type:Patient Education How to access health informa tion online Indication:Gastroesophageal reflux disease without esophagitis Start:13-Dec-2015 Instruction Type:Patient Education How to access health informa tion online - Detail Indication:Gastroesophageal reflux disease without esophagitis Start:13-Dec-2015 Instruction Type:Patient Education Patient Instructions Indication:Gastroesophageal reflux disease without esophagitis Start:13-Dec-2015 Instruction Type:Provider Instructions for Treatment Patient Instructions Indication:Other and unspecified hyperlipidemia Start:21-Dec-2014 Instruction Type:Provider Instructions for Treatment Patient Instructions Indication:Cough Start:03-Nov-2013 Instruction Type:Provider Instructions for Treatment Patient Instructions Indication:Encounter for routine history and physical exam for male Start:27-Oct-2013 Instruction Type:Provider Instructions for Treatment Patient Instructions Indication:Gastroesophageal reflux disease without esophagitis Start:15-Sep-2013 Instruction Type:Provider Instructions for Treatment Patient Instructions Indication:Anxiety Start:05-Aug-2012 Instruction Type:Provider Instructions for Treatment Name Dates Details How to access health informa tion online Indication:BMI 27.0-27.9,adult Start:02-Aug-2020 Instruction Type:Patient Education How to access health informa tion online - Detail Indication:BMI 27.0-27.9,adult Start:02-Aug-2020 Instruction Type:Patient Education Patient Instructions Indication:BMI 27.0-27.9,adult Start:02-Aug-2020 Instruction Type:Provider Instructions for Treatment How to access health informa tion online Indication:Non-smoker Start:22-Sep-2019 Instruction Type:Patient Education How to access health informa tion online - Detail Indication:Non-smoker Start:22-Sep-2019 Instruction Type:Patient Education Patient Instructions Indication:Non-smoker Start:22-Sep-2019 Instruction Type:Provider Instructions for Treatment How to access health informa tion online Indication:Sinusitis, bacterial Start:21-Aug-2019 Instruction Type:Patient Education How to access health informa tion online - Detail Indication:Sinusitis, bacterial Start:21-Aug-2019 Instruction Type:Patient Education Patient Instructions Indication:Sinusitis, bacterial Start:21-Aug-2019 Instruction Type:Provider Instructions for Treatment How to access health informa tion online Indication:Non-smoker Start:20-Mar-2019 Instruction Type:Patient Education How to access health informa tion online - Detail Indication:Non-smoker Start:20-Mar-2019 Instruction Type:Patient Education Patient Instructions Indication:Non-smoker Start:20-Mar-2019 Instruction Type:Provider Instructions for Treatment How to access health informa tion online Indication:Non-smoker Start:06-Mar-2019 Instruction Type:Patient Education How to access health informa tion online - Detail Indication:Non-smoker Start:06-Mar-2019 Instruction Type:Patient Education Patient Instructions Indication:Non-smoker Start:06-Mar-2019 Instruction Type:Provider Instructions for Treatment How to access health informa tion online Indication:BMI 29.0-29.9,adult Start:31-Dec-2018 Instruction Type:Patient Education How to access health informa tion online - Detail Indication:BMI 29.0-29.9,adult Start:31-Dec-2018 Instruction Type:Patient Education Patient Instructions Indication:BMI 29.0-29.9,adult Start:31-Dec-2018 Instruction Type:Provider Instructions for Treatment How to access health informa tion online Indication:Non-smoker Start:15-Aug-2018 Instruction Type:Patient Education How to access health informa tion online - Detail Indication:Non-smoker Start:15-Aug-2018 Instruction Type:Patient Education Patient Instructions Indication:Non-smoker Start:15-Aug-2018 Instruction Type:Provider Instructions for Treatment How to access health informa tion online Indication:BMI 29.0-29.9,adult Start:29-Jul-2018 Instruction Type:Patient Education How to access health informa tion online - Detail Indication:BMI 29.0-29.9,adult Start:29-Jul-2018 Instruction Type:Patient Education Patient Instructions Indication:BMI 29.0-29.9,adult Start:29-Jul-2018 Instruction Type:Provider Instructions for Treatment How to access health informa tion online Indication:BMI 28.0-28.9,adult Start:28-Mar-2018 Instruction Type:Patient Education How to access health informa tion online - Detail Indication:BMI 28.0-28.9,adult Start:28-Mar-2018 Instruction Type:Patient Education Patient Instructions Indication:BMI 28.0-28.9,adult Start:28-Mar-2018 Instruction Type:Provider Instructions for Treatment How to access health informa tion online Indication:BMI 30.0-30.9,adult Start:22-Feb-2018 Instruction Type:Patient Education How to access health informa tion online - Detail Indication:BMI 30.0-30.9,adult Start:22-Feb-2018 Instruction Type:Patient Education Patient Instructions Indication:BMI 30.0-30.9,adult Start:22-Feb-2018 Instruction Type:Provider Instructions for Treatment How to access health informa tion online Indication:Elevated blood pressure reading Start:01-Feb-2018 Instruction Type:Patient Education How to access health informa tion online - Detail Indication:Elevated blood pressure reading Start:01-Feb-2018 Instruction Type:Patient Education Patient Instructions Indication:Elevated blood pressure reading Start:01-Feb-2018 Instruction Type:Provider Instructions for Treatment How to access health informa tion online Indication:BMI 30.0-30.9,adult Start:04-Jan-2018 Instruction Type:Patient Education How to access health informa tion online - Detail Indication:BMI 30.0-30.9,adult Start:04-Jan-2018 Instruction Type:Patient Education Patient Instructions Indication:BMI 30.0-30.9,adult Start:04-Jan-2018 Instruction Type:Provider Instructions for Treatment How to access health informa tion online Indication:Current nonsmoker Start:17-Dec-2017 Instruction Type:Patient Education How to access health informa tion online - Detail Indication:Current nonsmoker Start:17-Dec-2017 Instruction Type:Patient Education Patient Instructions Indication:Current nonsmoker Start:17-Dec-2017 Instruction Type:Provider Instructions for Treatment How to access health informa tion online Indication:Current nonsmoker Start:12-Dec-2017 Instruction Type:Patient Education How to access health informa tion online - Detail Indication:Current nonsmoker Start:12-Dec-2017 Instruction Type:Patient Education Patient Instructions Indication:Current nonsmoker Start:12-Dec-2017 Instruction Type:Provider Instructions for Treatment How to access health informa tion online Indication:Current nonsmoker Start:09-Nov-2016 Instruction Type:Patient Education How to access health informa tion online - Detail Indication:Current nonsmoker Start:09-Nov-2016 Instruction Type:Patient Education Patient Instructions Indication:Current nonsmoker Start:09-Nov-2016 Instruction Type:Provider Instructions for Treatment How to access health informa tion online Indication:Nasal congestion Start:05-Oct-2016 Instruction Type:Patient Education How to access health informa tion online - Detail Indication:Nasal congestion Start:05-Oct-2016 Instruction Type:Patient Education Patient Instructions Indication:Nasal congestion Start:05-Oct-2016 Instruction Type:Provider Instructions for Treatment How to access health informa tion online Indication:Witnessed apneic spells Start:01-May-2016 Instruction Type:Patient Education How to access health informa tion online - Detail Indication:Witnessed apneic spells Start:01-May-2016 Instruction Type:Patient Education How to access health informa tion online Indication:Gastroesophageal reflux disease without esophagitis Start:13-Dec-2015 Instruction Type:Patient Education How to access health informa tion online - Detail Indication:Gastroesophageal reflux disease without esophagitis Start:13-Dec-2015 Instruction Type:Patient Education Patient Instructions Indication:Gastroesophageal reflux disease without esophagitis Start:13-Dec-2015 Instruction Type:Provider Instructions for Treatment Patient Instructions Indication:Other and unspecified hyperlipidemia Start:21-Dec-2014 Instruction Type:Provider Instructions for Treatment Patient Instructions Indication:Cough Start:03-Nov-2013 Instruction Type:Provider Instructions for Treatment Patient Instructions Indication:Encounter for routine history and physical exam for male Start:27-Oct-2013 Instruction Type:Provider Instructions for Treatment Patient Instructions Indication:Gastroesophageal reflux disease without esophagitis Start:15-Sep-2013 Instruction Type:Provider Instructions for Treatment Patient Instructions Indication:Anxiety Start:05-Aug-2012 Instruction Type:Provider Instructions for Treatment Name Dates Details How to access health informa tion online Indication:BMI 27.0-27.9,adult Start:02-Aug-2020 Instruction Type:Patient Education How to access health informa tion online - Detail Indication:BMI 27.0-27.9,adult Start:02-Aug-2020 Instruction Type:Patient Education Patient Instructions Indication:BMI 27.0-27.9,adult Start:02-Aug-2020 Instruction Type:Provider Instructions for Treatment How to access health informa tion online Indication:Non-smoker Start:22-Sep-2019 Instruction Type:Patient Education How to access health informa tion online - Detail Indication:Non-smoker Start:22-Sep-2019 Instruction Type:Patient Education Patient Instructions Indication:Non-smoker Start:22-Sep-2019 Instruction Type:Provider Instructions for Treatment How to access health informa tion online Indication:Sinusitis, bacterial Start:21-Aug-2019 Instruction Type:Patient Education How to access health informa tion online - Detail Indication:Sinusitis, bacterial Start:21-Aug-2019 Instruction Type:Patient Education Patient Instructions Indication:Sinusitis, bacterial Start:21-Aug-2019 Instruction Type:Provider Instructions for Treatment How to access health informa tion online Indication:Non-smoker Start:20-Mar-2019 Instruction Type:Patient Education How to access health informa tion online - Detail Indication:Non-smoker Start:20-Mar-2019 Instruction Type:Patient Education Patient Instructions Indication:Non-smoker Start:20-Mar-2019 Instruction Type:Provider Instructions for Treatment How to access health informa tion online Indication:Non-smoker Start:06-Mar-2019 Instruction Type:Patient Education How to access health informa tion online - Detail Indication:Non-smoker Start:06-Mar-2019 Instruction Type:Patient Education Patient Instructions Indication:Non-smoker Start:06-Mar-2019 Instruction Type:Provider Instructions for Treatment How to access health informa tion online Indication:BMI 29.0-29.9,adult Start:31-Dec-2018 Instruction Type:Patient Education How to access health informa tion online - Detail Indication:BMI 29.0-29.9,adult Start:31-Dec-2018 Instruction Type:Patient Education Patient Instructions Indication:BMI 29.0-29.9,adult Start:31-Dec-2018 Instruction Type:Provider Instructions for Treatment How to access health informa tion online Indication:Non-smoker Start:15-Aug-2018 Instruction Type:Patient Education How to access health informa tion online - Detail Indication:Non-smoker Start:15-Aug-2018 Instruction Type:Patient Education Patient Instructions Indication:Non-smoker Start:15-Aug-2018 Instruction Type:Provider Instructions for Treatment How to access health informa tion online Indication:BMI 29.0-29.9,adult Start:29-Jul-2018 Instruction Type:Patient Education How to access health informa tion online - Detail Indication:BMI 29.0-29.9,adult Start:29-Jul-2018 Instruction Type:Patient Education Patient Instructions Indication:BMI 29.0-29.9,adult Start:29-Jul-2018 Instruction Type:Provider Instructions for Treatment How to access health informa tion online Indication:BMI 28.0-28.9,adult Start:28-Mar-2018 Instruction Type:Patient Education How to access health informa tion online - Detail Indication:BMI 28.0-28.9,adult Start:28-Mar-2018 Instruction Type:Patient Education Patient Instructions Indication:BMI 28.0-28.9,adult Start:28-Mar-2018 Instruction Type:Provider Instructions for Treatment How to access health informa tion online Indication:BMI 30.0-30.9,adult Start:22-Feb-2018 Instruction Type:Patient Education How to access health informa tion online - Detail Indication:BMI 30.0-30.9,adult Start:22-Feb-2018 Instruction Type:Patient Education Patient Instructions Indication:BMI 30.0-30.9,adult Start:22-Feb-2018 Instruction Type:Provider Instructions for Treatment How to access health informa tion online Indication:Elevated blood pressure reading Start:01-Feb-2018 Instruction Type:Patient Education How to access health informa tion online - Detail Indication:Elevated blood pressure reading Start:01-Feb-2018 Instruction Type:Patient Education Patient Instructions Indication:Elevated blood pressure reading Start:01-Feb-2018 Instruction Type:Provider Instructions for Treatment How to access health informa tion online Indication:BMI 30.0-30.9,adult Start:04-Jan-2018 Instruction Type:Patient Education How to access health informa tion online - Detail Indication:BMI 30.0-30.9,adult Start:04-Jan-2018 Instruction Type:Patient Education Patient Instructions Indication:BMI 30.0-30.9,adult Start:04-Jan-2018 Instruction Type:Provider Instructions for Treatment How to access health informa tion online Indication:Current nonsmoker Start:17-Dec-2017 Instruction Type:Patient Education How to access health informa tion online - Detail Indication:Current nonsmoker Start:17-Dec-2017 Instruction Type:Patient Education Patient Instructions Indication:Current nonsmoker Start:17-Dec-2017 Instruction Type:Provider Instructions for Treatment How to access health informa tion online Indication:Current nonsmoker Start:12-Dec-2017 Instruction Type:Patient Education How to access health informa tion online - Detail Indication:Current nonsmoker Start:12-Dec-2017 Instruction Type:Patient Education Patient Instructions Indication:Current nonsmoker Start:12-Dec-2017 Instruction Type:Provider Instructions for Treatment How to access health informa tion online Indication:Current nonsmoker Start:09-Nov-2016 Instruction Type:Patient Education How to access health informa tion online - Detail Indication:Current nonsmoker Start:09-Nov-2016 Instruction Type:Patient Education Patient Instructions Indication:Current nonsmoker Start:09-Nov-2016 Instruction Type:Provider Instructions for Treatment How to access health informa tion online Indication:Nasal congestion Start:05-Oct-2016 Instruction Type:Patient Education How to access health informa tion online - Detail Indication:Nasal congestion Start:05-Oct-2016 Instruction Type:Patient Education Patient Instructions Indication:Nasal congestion Start:05-Oct-2016 Instruction Type:Provider Instructions for Treatment How to access health informa tion online Indication:Witnessed apneic spells Start:01-May-2016 Instruction Type:Patient Education How to access health informa tion online - Detail Indication:Witnessed apneic spells Start:01-May-2016 Instruction Type:Patient Education How to access health informa tion online Indication:Gastroesophageal reflux disease without esophagitis Start:13-Dec-2015 Instruction Type:Patient Education How to access health informa tion online - Detail Indication:Gastroesophageal reflux disease without esophagitis Start:13-Dec-2015 Instruction Type:Patient Education Patient Instructions Indication:Gastroesophageal reflux disease without esophagitis Start:13-Dec-2015 Instruction Type:Provider Instructions for Treatment Patient Instructions Indication:Other and unspecified hyperlipidemia Start:21-Dec-2014 Instruction Type:Provider Instructions for Treatment Patient Instructions Indication:Cough Start:03-Nov-2013 Instruction Type:Provider Instructions for Treatment Patient Instructions Indication:Encounter for routine history and physical exam for male Start:27-Oct-2013 Instruction Type:Provider Instructions for Treatment Patient Instructions Indication:Gastroesophageal reflux disease without esophagitis Start:15-Sep-2013 Instruction Type:Provider Instructions for Treatment Patient Instructions Indication:Anxiety Start:05-Aug-2012 Instruction Type:Provider Instructions for Treatment Name Dates Details How to access health informa tion online Indication:Non-smoker Start:22-Sep-2019 Instruction Type:Patient Education How to access health informa tion online - Detail Indication:Non-smoker Start:22-Sep-2019 Instruction Type:Patient Education Patient Instructions Indication:Non-smoker Start:22-Sep-2019 Instruction Type:Provider Instructions for Treatment How to access health informa tion online Indication:Sinusitis, bacterial Start:21-Aug-2019 Instruction Type:Patient Education How to access health informa tion online - Detail Indication:Sinusitis, bacterial Start:21-Aug-2019 Instruction Type:Patient Education Patient Instructions Indication:Sinusitis, bacterial Start:21-Aug-2019 Instruction Type:Provider Instructions for Treatment How to access health informa tion online Indication:Non-smoker Start:20-Mar-2019 Instruction Type:Patient Education How to access health informa tion online - Detail Indication:Non-smoker Start:20-Mar-2019 Instruction Type:Patient Education Patient Instructions Indication:Non-smoker Start:20-Mar-2019 Instruction Type:Provider Instructions for Treatment How to access health informa tion online Indication:Non-smoker Start:06-Mar-2019 Instruction Type:Patient Education How to access health informa tion online - Detail Indication:Non-smoker Start:06-Mar-2019 Instruction Type:Patient Education Patient Instructions Indication:Non-smoker Start:06-Mar-2019 Instruction Type:Provider Instructions for Treatment How to access health informa tion online Indication:BMI 29.0-29.9,adult Start:31-Dec-2018 Instruction Type:Patient Education How to access health informa tion online - Detail Indication:BMI 29.0-29.9,adult Start:31-Dec-2018 Instruction Type:Patient Education Patient Instructions Indication:BMI 29.0-29.9,adult Start:31-Dec-2018 Instruction Type:Provider Instructions for Treatment How to access health informa tion online Indication:Non-smoker Start:15-Aug-2018 Instruction Type:Patient Education How to access health informa tion online - Detail Indication:Non-smoker Start:15-Aug-2018 Instruction Type:Patient Education Patient Instructions Indication:Non-smoker Start:15-Aug-2018 Instruction Type:Provider Instructions for Treatment How to access health informa tion online Indication:BMI 29.0-29.9,adult Start:29-Jul-2018 Instruction Type:Patient Education How to access health informa tion online - Detail Indication:BMI 29.0-29.9,adult Start:29-Jul-2018 Instruction Type:Patient Education Patient Instructions Indication:BMI 29.0-29.9,adult Start:29-Jul-2018 Instruction Type:Provider Instructions for Treatment How to access health informa tion online Indication:BMI 28.0-28.9,adult Start:28-Mar-2018 Instruction Type:Patient Education How to access health informa tion online - Detail Indication:BMI 28.0-28.9,adult Start:28-Mar-2018 Instruction Type:Patient Education Patient Instructions Indication:BMI 28.0-28.9,adult Start:28-Mar-2018 Instruction Type:Provider Instructions for Treatment How to access health informa tion online Indication:BMI 30.0-30.9,adult Start:22-Feb-2018 Instruction Type:Patient Education How to access health informa tion online - Detail Indication:BMI 30.0-30.9,adult Start:22-Feb-2018 Instruction Type:Patient Education Patient Instructions Indication:BMI 30.0-30.9,adult Start:22-Feb-2018 Instruction Type:Provider Instructions for Treatment How to access health informa tion online Indication:Elevated blood pressure reading Start:01-Feb-2018 Instruction Type:Patient Education How to access health informa tion online - Detail Indication:Elevated blood pressure reading Start:01-Feb-2018 Instruction Type:Patient Education Patient Instructions Indication:Elevated blood pressure reading Start:01-Feb-2018 Instruction Type:Provider Instructions for Treatment How to access health informa tion online Indication:BMI 30.0-30.9,adult Start:04-Jan-2018 Instruction Type:Patient Education How to access health informa tion online - Detail Indication:BMI 30.0-30.9,adult Start:04-Jan-2018 Instruction Type:Patient Education Patient Instructions Indication:BMI 30.0-30.9,adult Start:04-Jan-2018 Instruction Type:Provider Instructions for Treatment How to access health informa tion online Indication:Current nonsmoker Start:17-Dec-2017 Instruction Type:Patient Education How to access health informa tion online - Detail Indication:Current nonsmoker Start:17-Dec-2017 Instruction Type:Patient Education Patient Instructions Indication:Current nonsmoker Start:17-Dec-2017 Instruction Type:Provider Instructions for Treatment How to access health informa tion online Indication:Current nonsmoker Start:12-Dec-2017 Instruction Type:Patient Education How to access health informa tion online - Detail Indication:Current nonsmoker Start:12-Dec-2017 Instruction Type:Patient Education Patient Instructions Indication:Current nonsmoker Start:12-Dec-2017 Instruction Type:Provider Instructions for Treatment How to access health informa tion online Indication:Current nonsmoker Start:09-Nov-2016 Instruction Type:Patient Education How to access health informa tion online - Detail Indication:Current nonsmoker Start:09-Nov-2016 Instruction Type:Patient Education Patient Instructions Indication:Current nonsmoker Start:09-Nov-2016 Instruction Type:Provider Instructions for Treatment How to access health informa tion online Indication:Nasal congestion Start:05-Oct-2016 Instruction Type:Patient Education How to access health informa tion online - Detail Indication:Nasal congestion Start:05-Oct-2016 Instruction Type:Patient Education Patient Instructions Indication:Nasal congestion Start:05-Oct-2016 Instruction Type:Provider Instructions for Treatment How to access health informa tion online Indication:Witnessed apneic spells Start:01-May-2016 Instruction Type:Patient Education How to access health informa tion online - Detail Indication:Witnessed apneic spells Start:01-May-2016 Instruction Type:Patient Education How to access health informa tion online Indication:Gastroesophageal reflux disease without esophagitis Start:13-Dec-2015 Instruction Type:Patient Education How to access health informa tion online - Detail Indication:Gastroesophageal reflux disease without esophagitis Start:13-Dec-2015 Instruction Type:Patient Education Patient Instructions Indication:Gastroesophageal reflux disease without esophagitis Start:13-Dec-2015 Instruction Type:Provider Instructions for Treatment Patient Instructions Indication:Other and unspecified hyperlipidemia Start:21-Dec-2014 Instruction Type:Provider Instructions for Treatment Patient Instructions Indication:Cough Start:03-Nov-2013 Instruction Type:Provider Instructions for Treatment Patient Instructions Indication:Encounter for routine history and physical exam for male Start:27-Oct-2013 Instruction Type:Provider Instructions for Treatment Patient Instructions Indication:Gastroesophageal reflux disease without esophagitis Start:15-Sep-2013 Instruction Type:Provider Instructions for Treatment Patient Instructions Indication:Anxiety Start:05-Aug-2012 Instruction Type:Provider Instructions for Treatment Name Dates Details How to access health informa tion online Indication:Non-smoker Start:06-Mar-2019 Instruction Type:Patient Education How to access health informa tion online - Detail Indication:Non-smoker Start:06-Mar-2019 Instruction Type:Patient Education Patient Instructions Indication:Non-smoker Start:06-Mar-2019 Instruction Type:Provider Instructions for Treatment How to access health informa tion online Indication:BMI 29.0-29.9,adult Start:31-Dec-2018 Instruction Type:Patient Education How to access health informa tion online - Detail Indication:BMI 29.0-29.9,adult Start:31-Dec-2018 Instruction Type:Patient Education Patient Instructions Indication:BMI 29.0-29.9,adult Start:31-Dec-2018 Instruction Type:Provider Instructions for Treatment How to access health informa tion online Indication:Non-smoker Start:15-Aug-2018 Instruction Type:Patient Education How to access health informa tion online - Detail Indication:Non-smoker Start:15-Aug-2018 Instruction Type:Patient Education Patient Instructions Indication:Non-smoker Start:15-Aug-2018 Instruction Type:Provider Instructions for Treatment How to access health informa tion online Indication:BMI 29.0-29.9,adult Start:29-Jul-2018 Instruction Type:Patient Education How to access health informa tion online - Detail Indication:BMI 29.0-29.9,adult Start:29-Jul-2018 Instruction Type:Patient Education Patient Instructions Indication:BMI 29.0-29.9,adult Start:29-Jul-2018 Instruction Type:Provider Instructions for Treatment How to access health informa tion online Indication:BMI 28.0-28.9,adult Start:28-Mar-2018 Instruction Type:Patient Education How to access health informa tion online - Detail Indication:BMI 28.0-28.9,adult Start:28-Mar-2018 Instruction Type:Patient Education Patient Instructions Indication:BMI 28.0-28.9,adult Start:28-Mar-2018 Instruction Type:Provider Instructions for Treatment How to access health informa tion online Indication:BMI 30.0-30.9,adult Start:22-Feb-2018 Instruction Type:Patient Education How to access health informa tion online - Detail Indication:BMI 30.0-30.9,adult Start:22-Feb-2018 Instruction Type:Patient Education Patient Instructions Indication:BMI 30.0-30.9,adult Start:22-Feb-2018 Instruction Type:Provider Instructions for Treatment How to access health informa tion online Indication:Elevated blood pressure reading Start:01-Feb-2018 Instruction Type:Patient Education How to access health informa tion online - Detail Indication:Elevated blood pressure reading Start:01-Feb-2018 Instruction Type:Patient Education Patient Instructions Indication:Elevated blood pressure reading Start:01-Feb-2018 Instruction Type:Provider Instructions for Treatment How to access health informa tion online Indication:BMI 30.0-30.9,adult Start:04-Jan-2018 Instruction Type:Patient Education How to access health informa tion online - Detail Indication:BMI 30.0-30.9,adult Start:04-Jan-2018 Instruction Type:Patient Education Patient Instructions Indication:BMI 30.0-30.9,adult Start:04-Jan-2018 Instruction Type:Provider Instructions for Treatment How to access health informa tion online Indication:Current nonsmoker Start:17-Dec-2017 Instruction Type:Patient Education How to access health informa tion online - Detail Indication:Current nonsmoker Start:17-Dec-2017 Instruction Type:Patient Education Patient Instructions Indication:Current nonsmoker Start:17-Dec-2017 Instruction Type:Provider Instructions for Treatment How to access health informa tion online Indication:Current nonsmoker Start:12-Dec-2017 Instruction Type:Patient Education How to access health informa tion online - Detail Indication:Current nonsmoker Start:12-Dec-2017 Instruction Type:Patient Education Patient Instructions Indication:Current nonsmoker Start:12-Dec-2017 Instruction Type:Provider Instructions for Treatment How to access health informa tion online Indication:Current nonsmoker Start:09-Nov-2016 Instruction Type:Patient Education How to access health informa tion online - Detail Indication:Current nonsmoker Start:09-Nov-2016 Instruction Type:Patient Education Patient Instructions Indication:Current nonsmoker Start:09-Nov-2016 Instruction Type:Provider Instructions for Treatment How to access health informa tion online Indication:Nasal congestion Start:05-Oct-2016 Instruction Type:Patient Education How to access health informa tion online - Detail Indication:Nasal congestion Start:05-Oct-2016 Instruction Type:Patient Education Patient Instructions Indication:Nasal congestion Start:05-Oct-2016 Instruction Type:Provider Instructions for Treatment How to access health informa tion online Indication:Witnessed apneic spells Start:01-May-2016 Instruction Type:Patient Education How to access health informa tion online - Detail Indication:Witnessed apneic spells Start:01-May-2016 Instruction Type:Patient Education How to access health informa tion online Indication:Gastroesophageal reflux disease without esophagitis Start:13-Dec-2015 Instruction Type:Patient Education How to access health informa tion online - Detail Indication:Gastroesophageal reflux disease without esophagitis Start:13-Dec-2015 Instruction Type:Patient Education Patient Instructions Indication:Gastroesophageal reflux disease without esophagitis Start:13-Dec-2015 Instruction Type:Provider Instructions for Treatment Patient Instructions Indication:Other and unspecified hyperlipidemia Start:21-Dec-2014 Instruction Type:Provider Instructions for Treatment Patient Instructions Indication:Cough Start:03-Nov-2013 Instruction Type:Provider Instructions for Treatment Patient Instructions Indication:Encounter for routine history and physical exam for male Start:27-Oct-2013 Instruction Type:Provider Instructions for Treatment Patient Instructions Indication:Gastroesophageal reflux disease without esophagitis Start:15-Sep-2013 Instruction Type:Provider Instructions for Treatment Patient Instructions Indication:Anxiety Start:05-Aug-2012 Instruction Type:Provider Instructions for Treatment Name Dates Details How to access health informa tion online Indication:Non-smoker Start:20-Mar-2019 Instruction Type:Patient Education How to access health informa tion online - Detail Indication:Non-smoker Start:20-Mar-2019 Instruction Type:Patient Education Patient Instructions Indication:Non-smoker Start:20-Mar-2019 Instruction Type:Provider Instructions for Treatment How to access health informa tion online Indication:Non-smoker Start:06-Mar-2019 Instruction Type:Patient Education How to access health informa tion online - Detail Indication:Non-smoker Start:06-Mar-2019 Instruction Type:Patient Education Patient Instructions Indication:Non-smoker Start:06-Mar-2019 Instruction Type:Provider Instructions for Treatment How to access health informa tion online Indication:BMI 29.0-29.9,adult Start:31-Dec-2018 Instruction Type:Patient Education How to access health informa tion online - Detail Indication:BMI 29.0-29.9,adult Start:31-Dec-2018 Instruction Type:Patient Education Patient Instructions Indication:BMI 29.0-29.9,adult Start:31-Dec-2018 Instruction Type:Provider Instructions for Treatment How to access health informa tion online Indication:Non-smoker Start:15-Aug-2018 Instruction Type:Patient Education How to access health informa tion online - Detail Indication:Non-smoker Start:15-Aug-2018 Instruction Type:Patient Education Patient Instructions Indication:Non-smoker Start:15-Aug-2018 Instruction Type:Provider Instructions for Treatment How to access health informa tion online Indication:BMI 29.0-29.9,adult Start:29-Jul-2018 Instruction Type:Patient Education How to access health informa tion online - Detail Indication:BMI 29.0-29.9,adult Start:29-Jul-2018 Instruction Type:Patient Education Patient Instructions Indication:BMI 29.0-29.9,adult Start:29-Jul-2018 Instruction Type:Provider Instructions for Treatment How to access health informa tion online Indication:BMI 28.0-28.9,adult Start:28-Mar-2018 Instruction Type:Patient Education How to access health informa tion online - Detail Indication:BMI 28.0-28.9,adult Start:28-Mar-2018 Instruction Type:Patient Education Patient Instructions Indication:BMI 28.0-28.9,adult Start:28-Mar-2018 Instruction Type:Provider Instructions for Treatment How to access health informa tion online Indication:BMI 30.0-30.9,adult Start:22-Feb-2018 Instruction Type:Patient Education How to access health informa tion online - Detail Indication:BMI 30.0-30.9,adult Start:22-Feb-2018 Instruction Type:Patient Education Patient Instructions Indication:BMI 30.0-30.9,adult Start:22-Feb-2018 Instruction Type:Provider Instructions for Treatment How to access health informa tion online Indication:Elevated blood pressure reading Start:01-Feb-2018 Instruction Type:Patient Education How to access health informa tion online - Detail Indication:Elevated blood pressure reading Start:01-Feb-2018 Instruction Type:Patient Education Patient Instructions Indication:Elevated blood pressure reading Start:01-Feb-2018 Instruction Type:Provider Instructions for Treatment How to access health informa tion online Indication:BMI 30.0-30.9,adult Start:04-Jan-2018 Instruction Type:Patient Education How to access health informa tion online - Detail Indication:BMI 30.0-30.9,adult Start:04-Jan-2018 Instruction Type:Patient Education Patient Instructions Indication:BMI 30.0-30.9,adult Start:04-Jan-2018 Instruction Type:Provider Instructions for Treatment How to access health informa tion online Indication:Current nonsmoker Start:17-Dec-2017 Instruction Type:Patient Education How to access health informa tion online - Detail Indication:Current nonsmoker Start:17-Dec-2017 Instruction Type:Patient Education Patient Instructions Indication:Current nonsmoker Start:17-Dec-2017 Instruction Type:Provider Instructions for Treatment How to access health informa tion online Indication:Current nonsmoker Start:12-Dec-2017 Instruction Type:Patient Education How to access health informa tion online - Detail Indication:Current nonsmoker Start:12-Dec-2017 Instruction Type:Patient Education Patient Instructions Indication:Current nonsmoker Start:12-Dec-2017 Instruction Type:Provider Instructions for Treatment How to access health informa tion online Indication:Current nonsmoker Start:09-Nov-2016 Instruction Type:Patient Education How to access health informa tion online - Detail Indication:Current nonsmoker Start:09-Nov-2016 Instruction Type:Patient Education Patient Instructions Indication:Current nonsmoker Start:09-Nov-2016 Instruction Type:Provider Instructions for Treatment How to access health informa tion online Indication:Nasal congestion Start:05-Oct-2016 Instruction Type:Patient Education How to access health informa tion online - Detail Indication:Nasal congestion Start:05-Oct-2016 Instruction Type:Patient Education Patient Instructions Indication:Nasal congestion Start:05-Oct-2016 Instruction Type:Provider Instructions for Treatment How to access health informa tion online Indication:Witnessed apneic spells Start:01-May-2016 Instruction Type:Patient Education How to access health informa tion online - Detail Indication:Witnessed apneic spells Start:01-May-2016 Instruction Type:Patient Education How to access health informa tion online Indication:Gastroesophageal reflux disease without esophagitis Start:13-Dec-2015 Instruction Type:Patient Education How to access health informa tion online - Detail Indication:Gastroesophageal reflux disease without esophagitis Start:13-Dec-2015 Instruction Type:Patient Education Patient Instructions Indication:Gastroesophageal reflux disease without esophagitis Start:13-Dec-2015 Instruction Type:Provider Instructions for Treatment Patient Instructions Indication:Other and unspecified hyperlipidemia Start:21-Dec-2014 Instruction Type:Provider Instructions for Treatment Patient Instructions Indication:Cough Start:03-Nov-2013 Instruction Type:Provider Instructions for Treatment Patient Instructions Indication:Encounter for routine history and physical exam for male Start:27-Oct-2013 Instruction Type:Provider Instructions for Treatment Patient Instructions Indication:Gastroesophageal reflux disease without esophagitis Start:15-Sep-2013 Instruction Type:Provider Instructions for Treatment Patient Instructions Indication:Anxiety Start:05-Aug-2012 Instruction Type:Provider Instructions for Treatment Additional Source Comments (unrecognized sect ion and content) No Status Records FoundNo Status Records FoundNo Status Records Found INFORMATION SOURCE (unrecogn ized section and content) DATE CREATED AUTHOR 04/05/2018 [facility] DATE CREATED AUTHOR AUTHOR'S ORGANIZ ATION 12/31/2018 [facility] DATE CREATED AUTHOR AUTHOR'S ORGANIZ ATION 03/24/2025 [facility] FOR RECORDS PERTAINING TO PATIENTS WHO ARE OR HAVE BEEN ENROLLED IN A CHEMICAL DEPENDENCY/SUBSTANCEABUSE PROGRAM, SOME INFORMATION MAY BE OMITTED. This clinical summary was aggregated from multiple sources. Caution should be exercised in using it in the provision of clinical care. This summary normalizes information from multiple sources, and as a consequence, information in this document may materially change the coding, format and clinical context of patient data. In addition, data may be omitted in some cases. CLINICAL DECISIONS SHOULD BE BASED ON THE PRIMARY CLINICAL RECORDS. [employer] provides no warranty or guarantee of the accuracy or completeness of information in this document.
--- NOTE | 2025-04-03 06:59 | ECHOD_ITS ---
Reason For Study Reason For Study: PALPITATIONS Procedure This was a 2D Doppler, Color Flow transthoracic echocardiogram. Exam performed in department. Left Ventricle Normal LV size. The estimated ejection fraction is 60 %. No evidence for diastolic dysfunction. No regional wall motion abnormalities noted. Right Ventricle Normal RV size. Normal systolic function. Atria The left and right atria are normal. No doppler evidence for ASD. Mitral Valve There is no mitral valve stenosis. Trivial mitral valve insufficiency. Tricuspid Valve There is no tricuspid stenosis. Unable to estimate RV systolic pressure due to inadequate jet, pulmonary artery pressure probably normal. Aortic Valve Trisinus/trileaflet aortic valve. There is no aortic stenosis. No aortic valve insufficiency. Pulmonic Valve There is no pulmonic valvular stenosis. Trivial pulmonic valve insufficiency. Great Vessels Normal sized aortic root. Pericardium/Pleural No pericardial effusion. MMode/2D Measurements & Calculations LVIDd: 4.1 cm IVSd: 0.86 cm LVOT diam: 2.0 cm LVIDs: 2.6 cm LVPWd: 0.95 cm LVOT area: 3.2 cm2 RVDd: 3.5 cm FS: 36.5 % Ao root diam: 3.5 cm LAV(MOD-bp): 40.3 ml LVAd ap4: 27.2 cm2 LAV(MOD-bp) Indexed: 21.4 ml/m2 LVLd ap4: 7.9 cm LAV(MOD-sp2): 39.2 ml EDV(MOD-sp4): 76.8 ml LAV(MOD-sp4): 39.4 ml EDV(sp4-el): 79.6 ml LVAs ap4: 13.2 cm2 LVLs ap4: 6.4 cm ESV(MOD-sp4): 23.4 ml ESV(sp4-el): 23.1 ml EF(MOD-sp4): 69.5 % EF(sp4-el): 71.0 % LVAd ap2: 23.4 cm2 SV(MOD-sp4): 53.4 ml SV(MOD-sp2): 47.0 ml LVLd ap2: 7.3 cm SI(MOD-sp4): 28.3 ml/m2 SI(MOD-sp2): 24.9 ml/m2 EDV(MOD-sp2): 64.5 ml EDV(sp2-el): 63.8 ml LVAs ap2: 11.2 cm2 LVLs ap2: 6.3 cm ESV(MOD-sp2): 17.5 ml ESV(sp2-el): 17.2 ml EF(MOD-sp2): 72.8 % SV(sp4-el): 56.5 ml LA dimension(2D): 3.3 cm LA A4 area: 15.4 cm2 RA A4 area: 14.4 cm2 TAPSE: 2.3 cm Time Measurements MV dec time: 0.23 sec Doppler Measurements & Calculations MV E max bakari: 83.6 cm/sec Lat Peak E' Bakari: 14.7 cm/sec Med Peak E' Bakari: 7.0 cm/sec MV A max bakari: 93.5 cm/sec E/E' lat: 5.7 E/E' med: 12.0 MV E/A: 0.89 MV V2 max: 112.2 cm/sec MV P1/2t max bakari: 90.6 cm/sec Ao V2 max: 165.9 cm/sec MV max P.0 mmHg MV P1/2t: 50.0 msec Ao max P.0 mmHg MV V2 mean: 52.2 cm/sec Ao V2 mean: 111.9 cm/sec MV mean P.4 mmHg MV dec slope: 530.6 cm/sec2 Ao mean P.8 mmHg MV V2 VTI: 21.4 cm MVA(P1/2t): 4.4 cm2 Ao V2 VTI: 35.0 cm AV (velocity ratio): 0.77 MVA(VTI): 4.0 cm2 EDWIN(I,D): 2.4 cm2 EDWIN(V,D): 2.5 cm2 LV V1 max: 130.5 cm/sec SV(LVOT): 85.7 ml PA V2 max: 117.8 cm/sec LV V1 max P.8 mmHg PA V2 mean: 80.5 cm/sec LV V1 mean P.0 mmHg PA V2 VTI: 19.7 cm LV V1 mean: 95.1 cm/sec LV V1 VTI: 26.8 cm PI dec slope: 210.4 cm/sec2 TR max bakari: 257.0 cm/sec TR max P.4 mmHg ECHO/Echo Complete Interpretation Summary The estimated ejection fraction is 60 %. No evidence for diastolic dysfunction. Trivial mitral valve insufficiency. Ordering Physician: Ethel Garvin Referring Physician: Ethel Garvin Performed By: Whitney Martines RDCS, RVT
== END | disposition home or self-care (01) ==
PROVIDERS: PCP Internal Medicine; Referring Provider Internal Medicine; Visit Provider Internal Medicine
DX: R00.2 Palpitations (principal)
CPT/HCPCS: 93306

== ENCOUNTER 2025-05-29 09:00 | Outpatient (RCR) | payer MEDICARE, SELFPAY ==
--- NOTE | 2025-05-01 10:48 | HP.PTEVAL_ITS ---
Patient's Visit Information Visit Information Visit Information: REMI CELAYA is a 69 year old M referred to Physical Therapy by Dr. Ethel Garvin DO with a diagnosis of Cervical radiculopathy and paresthesia. Date of Evaluation: 05/01/25 Physical Therapist: Jose L Solis, PT, Cert MDT, OCS Visit Plan Frequency: 2x /Week Duration: 4 Weeks Plan: *Avoid right sided cervical ROM and flexion based exercises for initial visits as these cause increased symptoms. Physical therapy interventions should include ICTX 15-17# ON 12# off X15 mins , manual therapy mid/low thoracic mobilizations and stretching of left sided levator and UT for initial visits to decrease radicular symptoms and stiffness. Plan should focus on scapular retraction and postural strengthening exercises ,thoracic mobility . Progress to full cervical ROM as patient's symptoms subside. Subjective Subjective: A 69 year old patient presents with left sided numbness and tingling into the thumb, and neck pain described as tight and achy mostly on the right scapular region. Pt reports issue started about a month ago with insidious onset but has had chronic neck pain from years of work. Pt reports that pain will appear mostly with inactivity while driving or laying down on the right side. Pain better with stretching, thoracic extension movements, ibuprofen as needed, and has done healthcare management and massage therapy that helps. Pt denies sleep disturbance. No follow-up with at this time and no MRI scheduled. 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 Moderate limitation with extension, B side bending and left sided rotation THORACIC ROM: flexion min loss ,extension mod loss rotation mod loss UE MMT: Grossly 5/5 (-) Hurd's Sign (+) Traction Special Tests C/S Radiculapathy - Left Upper limb tension test: Negative C/S Radiculapathy - Right Upper limb tension test: Negative C/S Radiculapathy - Left Spurlings: Positive C/S Radiculapathy - Right Spurlings: Negative C/S Radiculapathy - Left Cervical distraction: Negative C/S Radiculapathy - Right Cervical distraction: Negative C/S Radiculapathy - Left Relief test: Negative C/S Radiculapathy - Right Relief test: Negative C/S Radiculapathy - Valsalva: Negative Balance/Special Test Scores Oswestry Neck Score: 4 Goals Goal 1:: Patient to decrease pain to below an average of 4/10 to improve quality of life and participation in functional activities. Goal Time Frame: 4-6 Weeks Goal 2:: Patient to increase cervical ROM from moderate limitation to minimal limitation for function of recovery driving and to improve function with daily activities. Goal Time Frame: 4-6 Weeks Goal 3:: Patient to increase postural strength to decrease compression on nerves in cervical spine to prevent further injury and invasive interventions, as well as improve quality of life. Goal Time Frame: 2-4 Weeks Goal 4:: Patient to improve Neck Oswestry score to 0% to improve quality of life and participation in functional activities. Goal Time Frame: 4-6 Weeks Rehabilitation Potential Physical Therapy Diagnosis: Patient presents with neck pain and radicular symptoms into left arm and hand likely caused by limited cervical ROM and poor postural strength due to possible foraminal stenosis thus benefit from skilled PT Rehabilitation Potential: Good Anticipated Interventions Patient/Client Instruction: Educate patient on: Condition and Plan of Care For the Purpose of:: To decrease pain, To increase ROM, To reduce risk of recurrence, To improve safety, To foster healthy habits, To improve decision making, To improve self management and To improve tolerance to ADL's Therapeutic Exercise to Include: Strength training, Passive ROM and Active ROM For the Purpose of:: To decrease pain, To increase ROM, To improve nutrient delivery to tissue, To increase oxygenation perfusion, To improve health of tissue, To decrease soft tissue restriction and To increase flexibility/ROM Manual Therapy Techniques to Include: Mobilization Comment: cervical For the Purpose of:: To decrease pain and To increase ROM Intermittent cervical traction: Yes (15-17 #on 12# off) For the Purpose of:: To decrease pain, To increase ROM, To decrease soft tissue restriction and To increase flexibility/ROM Text: Thank you for the opportunity to evaluate your patient. For Medicare and Medicare HMO plans, please review the plan of care and approve it. It will need to be FAXED BACK to us at [phone] for Medicare purposes. For Medicare only, by signing this I certify the plan of care. Please let me know if there are questions or concerns regarding this plan of care. Physician Signature: Date:
--- NOTE | 2025-05-05 15:53 | HP.PTEVAL_ITS ---
Patient's Visit Information Visit Information Visit Information: REMI CELAYA is a 69 year old M referred to Physical Therapy by Dr. Ethel Garvin DO with a diagnosis of Cervical radiculopathy and paresthesia. Date of Evaluation: 05/01/25 Physical Therapist: Jose L Solis PT, Cert MDT, OCS Visit Plan Frequency: 2x /Week Duration: 4 Weeks Plan: Physical therapy interventions should include ICTX 15-17# ON 12# off X15 mins , manual therapy mid/low thoracic mobilizations and stretching of left sided levator and UT for initial visits to decrease radicular symptoms and stiffness. Plan should focus on scapular retraction and postural strengthening exercises ,thoracic mobility . Progress to full cervical ROM as patient's symptoms subside. Subjective Subjective: A 69 year old patient presents with left sided numbness and tingling into the thumb, and neck pain described as tight and achy mostly on the right scapular region. Pt reports issue started about a month ago with insidious onset but has had chronic neck pain from years of work. Pt reports that pain will appear mostly with inactivity while driving or laying down on the right side. Pain better with stretching, thoracic extension movements, ibuprofen as needed, and has done career center advisor and massage therapy that helps. Pt denies sleep disturbance. No follow-up with at this time and no MRI scheduled. 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 Moderate limitation with extension, B side bending and left sided rotation THORACIC ROM: flexion min loss ,extension mod loss rotation mod loss UE MMT: Grossly 5/5 (-) Hurd's Sign (+) Traction Special Tests C/S Radiculapathy - Left Upper limb tension test: Negative C/S Radiculapathy - Right Upper limb tension test: Negative C/S Radiculapathy - Left Spurlings: Positive C/S Radiculapathy - Right Spurlings: Negative C/S Radiculapathy - Left Cervical distraction: Negative C/S Radiculapathy - Right Cervical distraction: Negative C/S Radiculapathy - Left Relief test: Negative C/S Radiculapathy - Right Relief test: Negative C/S Radiculapathy - Valsalva: Negative Balance/Special Test Scores Oswestry Neck Score: 4 Goals Goal 1:: Patient to decrease pain to below an average of 4/10 to improve quality of life and participation in functional activities. Goal Time Frame: 4-6 Weeks Goal 2:: Patient to increase cervical ROM from moderate limitation to minimal limitation for function of recovery driving and to improve function with daily activities. Goal Time Frame: 4-6 Weeks Goal 3:: Patient to increase postural strength to decrease compression on nerves in cervical spine to prevent further injury and invasive interventions, as well as improve quality of life. Goal Time Frame: 2-4 Weeks Goal 4:: Patient to improve Neck Oswestry score to 0% to improve quality of life and participation in functional activities. Goal Time Frame: 4-6 Weeks Rehabilitation Potential Physical Therapy Diagnosis: Patient presents with neck pain and radicular symptoms into left arm and hand likely caused by limited cervical ROM and poor postural strength due to possible foraminal stenosis thus benefit from skilled PT Rehabilitation Potential: Good Anticipated Interventions Patient/Client Instruction: Educate patient on: Condition and Plan of Care For the Purpose of:: To decrease pain, To increase ROM, To reduce risk of recurrence, To improve safety, To foster healthy habits, To improve decision making, To improve self management and To improve tolerance to ADL's Therapeutic Exercise to Include: Strength training, Passive ROM and Active ROM For the Purpose of:: To decrease pain, To increase ROM, To improve nutrient delivery to tissue, To increase oxygenation perfusion, To improve health of tissue, To decrease soft tissue restriction and To increase flexibility/ROM Manual Therapy Techniques to Include: Mobilization Comment: cervical For the Purpose of:: To decrease pain and To increase ROM Intermittent cervical traction: Yes (15-17 #on 12# off) For the Purpose of:: To decrease pain, To increase ROM, To decrease soft tissue restriction and To increase flexibility/ROM Text: Thank you for the opportunity to evaluate your patient. For Medicare and Medicare O plans, please review the plan of care and approve it. It will need to be FAXED BACK to us at [phone] for Medicare purposes. For Medicare only, by signing this I certify the plan of care. Please let me know if there are questions or concerns regarding this plan of care. Physician Signature: Date:
--- NOTE | 2025-05-29 09:43 | HP.PTDCSUM ---
Discharge Summary D/C summary: It has been my pleasure to treat REMI CELAYA referred by Dr. Ethel Garvin DO, with the diagnosis of Cervical radiculopathy and paresthesia for a total of 9 visit(s). Discharge Date: 05/29/25 Please see the following information for a summary of their discharge status. Subjective Subjective: Doing well Ready for d/c Have traction at home occasional parestehesia on left Pain Left Neck: Pain Intensity (Out of 10): 0 Left Shoulder: Pain Intensity (Out of 10): 0 Left Hand: Pain Intensity (Out of 10): 0 Overall Improvement % Improvement: 90 Objective Objective/Function: Posture: Forward head posture and rounded shoulders Palpation: no tenderness to palpation for global cervical or thoracic regions Reflexes: 2+ (normal) Cervical ROM: Minimal limitation with flexion and right side rotation. MIN N limitation with extension, B side bending and left sided rotation THORACIC ROM: flexion min loss ,extension mod loss rotation mod loss UE MMT: Grossly 5/5 Goals Goal 1:: Patient to decrease pain to below an average of 4/10 to improve quality of life and participation in functional activities. Goal Progress: Goal Met Goal 2:: Patient to increase cervical ROM from moderate limitation to minimal limitation for function of recovery driving and to improve function with daily activities. Goal Progress: Goal Met Goal 3:: Patient to increase postural strength to decrease compression on nerves in cervical spine to prevent further injury and invasive interventions, as well as improve quality of life. Goal Progress: Goal Met Goal 4:: Patient to improve Neck Oswestry score to 0% to improve quality of life and participation in functional activities. Goal Progress: Goal Met Plan Plan: D/C D/C Information Discharge Comments: HEP d/c sentence: If there are questions or concerns regarding this patient's physical therapy, please feel free to call me at [phone]. Thank you for the referral of this patient. Sincerely, Jose L Solis, PT, Cert MDT, OCS Balance/Gait/Functional tests Balance/Special Test Scores Oswestry Neck Score: 0 Improvement % Improvement: 90
== END 2025-05-29 09:56 | disposition home or self-care (01) ==
LOC: PT 09:00
PROVIDERS: PCP Internal Medicine; Referring Provider Internal Medicine; Visit Provider Internal Medicine
DX: M54.12 Radiculopathy, cervical region (principal); R20.2 Paresthesia of skin
CPT/HCPCS: 97012; 97110; 97140; 97161; 97530